=== PATIENT | male | born 1965 | race Caucasian/White ===

== ENCOUNTER 2016-05-17 18:50 | Inpatient (IN) | payer BC, OTHER ==
[~2016-05-17] VITALS: Ht 193 cm; Wt 135.0 kg
[~2016-05-17 18:50] MED LIST: ALDACTONE25 MG PO; B12 IM; BACTROBAN21 TOP; BUSPIRONE HCL15 MG PO; BUSPIRONE HCL5 MG PO; CARAFATE EQUIVAL1 GM PO; CATAPRES-TTS0.3 MG TOP; COUMADIN5 MG PO; COUMADIN7.5 MG PO; CVS OMEPRAZOLE20 MG PO; DIAZEPAM5 MG PO; DILAUDID2 MG PO; HYDROMORPHONE HC2 MG PO; LEVAQUIN500 MG PO; LIDOCAINE HCL TOP; LOTRIMIN30 GM TOP; METFORMIN HCL500 MG PO; METOCLOPRAMIDE10 MG PO; METRONIDAZOLE500 MG PO; OMEPRAZOLE40 MG PO; OXYCODONE HCL E10 MG PO; OXYCODONE HCL10 MG PO; PENICILLIN VK250 MG PO; PERCOCET1 TA1 PO; PERCODAN PO; PHENERGAN EQUIV25 M1 PO; PHENERGAN EQUIV25 MG PO; PRILOSEC20 MG PO; REGLAN10 MG PO; SULINDAC150 MG PO; SULINDAC200 MG PO; [UNRECOGNIZED DRUG - OTHER] PO; [UNRECOGNIZED DRUG - SUPPLY] TOP; testosterone IM
--- NOTE | 2016-05-17 20:50 | ED CLINICAL REPORT ---
Clinical Report - Physicians/Mid Levels [facility] [address] [place] [address] 05/17/2016 18:51 Patient: RK AVILA SR Time Seen: 19:27. Arrived- By private vehicle. Historian- patient. HISTORY OF PRESENT ILLNESS Chief Complaint: ABDOMINAL PAIN. This started about 4 days ago and is still present. It was gradual in onset and has been constant and waxing/waning. It is described as generalized in location. At its maximum, severity described as severe. When seen in the E.D., severity described as severe. The patient has had nausea and loss of appetite. No vomiting. Similar symptoms previously: Frequently. Recent medical care: The patient was seen recently at this facility. Seen for similar symptoms. Diagnosis: bowel obstruction. REVIEW OF SYSTEMS No chills, fever, sweats, calf pain or chest pain. No cough, difficulty breathing, pedal edema, palpitations or black stools. No bloody stools. His surgery is scheduled for July 13 in [place] He says that his stoma is pink. All systems otherwise negative, except as recorded above. PAST HISTORY PCP - Louis. Problems: Gastroesophageal Reflux Disease [Active]. Nausea. GI Disease. Vomiting. Hypocalcemia. TIA - Transient Ischemic Attack. Abdominal Pain. Hematuria. Post-Op Infection. Post-Op Wound Dehiscence. Fever. Bronchitis. Palpitations. Nephropathy. Nephrolithiasis. Small bowel obstruction. Anxiety Reaction. Cancer. DVT - Deep Venous Thrombosis. Hypertension. Pulmonary Embolism. Gastroesophageal Reflux Disease. Diabetes Mellitus. Gallstone(s). FAP / Food Services Director's Syndrome. Anemia. Migraine Headache. Hernia. Bowel Obstruction. Abnormal Test. Additional Surgeries: Appendectomy. Bowel Surgery. Cholecystectomy. Colectomy. Colonoscopy. Colostomy. Fracture Repair. Hernia Repair. Inguinal Hernia Repair. Peristomal hernia repair . Power port central line. Previous Abdominal Surgery. Shoulder Surgery. Stoma Dilation. Umbilical Hernia Repair. Medications: BusPIRone HCl Oral 20 mg, 3x a day. clonidine .3 patch every week on Saturday . Dilaudid Oral (Tablet 2 mg) 2 tablets, PRN, last dose 1200. Omeprazole Oral 40 mg, 2x a day, last dose 0700. Promethazine HCl Oral 25 mg (1 to 2 tablets PRN nausea). Reglan 10mg TID . Spironolactone Oral (Tablet 25 mg) 1 tablet, daily. Warfarin Sodium Oral 5 mg, daily. Allergies: Benacar. Ketamine. LIsinopril. Mercury. NSAIDs. SOCIAL HISTORY Never smoker. No alcohol use or drug use. Is a local resident. He lives with spouse and a family member. Has good social support. FAMILY HISTORY multiple family members with Food Services Director's Syndrome. ADDITIONAL NOTES The nursing notes have been reviewed. PHYSICAL EXAM Vital Signs: 05/17/2016 18:59 BP: 127/70. HR: 97. RR: 16. O2 saturation: 96%. Temp: 98.6 F. Pain level now: 02/03. Have been reviewed. Appearance: Alert. Appears to be in pain. Eyes: Pupils equal, round and reactive to light. ENT: Pharynx normal. Neck: Normal inspection. Neck supple. CVS: Normal heart rate and rhythm. Heart sounds normal. Respiratory: No respiratory distress. Breath sounds normal. Abdomen: Severe tenderness diffusely. Abnormal bowel sounds: diminished and hyperactive. No organomegaly. No mass. Obese. Surgical scar present (large midline with hernias). Back: Normal inspection. Skin: Skin warm and dry. Normal skin color. Normal skin turgor. Extremities: Extremities exhibit normal ROM. No calf tenderness. No lower extremity edema. LABS, X-RAYS, AND EKG KUB: (IMPRESSION: 1. Relative paucity of small bowel gas with prominent bowel loops in the right lower quadrant. While findings are nonspecific and might be normal, consider early partial obstruction.). The X-rays were interpreted by the radiologist and contemporaneously by me. Laboratory Tests: UA-Culture if indicated: (DWIGHT: 05/17/2016 20:23) ( MsgRcvd 05/17/2016 20:43) Final results Test Result Flag Units (Reference) URINE COLOR YELLOW URINE APPEARANCE CLEAR URINE GLUCOSE NEGATIVE (NEGATIVE) URINE BILIRUBIN NEGATIVE (NEGATIVE) URINE KETONE NEGATIVE (NEGATIVE) URINE SPECIFIC GRAVITY >= 1.030 (1.010-1.030) URINE PH 5.5 (5.0-8.0) URINE PROTEIN NEGATIVE (NEGATIVE) URINE UROBILINOGEN 0.2 EU/dL (0.2-1.0) URINE NITRITE NEGATIVE (NEGATIVE) URINE BLOOD 3+ (NEGATIVE) URINE LEUK ESTERASE NEGATIVE (NEGATIVE) URINE RBC 10-25 rbc/hpf (0-1) URINE WBC 0-1 wbc/hpf (0-1) URINE EPITHELIAL CELLS 0-1 EPI/hpf (0-5) URINE BACTERIA TRACE (<1+) (NONE SEEN) URINE COMMENT CULT NOT INDICATED 1+ MUCOUSURINE CULTURES ARE SET-UP BASED ON THE FOLLOWING CRITERIA:POSITIVE NITRITEPOSITIVE LEUKOCYTE ESTERASEGREATER THAN 10 WHITE BLOOD CELLSMODERATE (2+) OR GREATER BACTERIA CBC w Diff: (DWIGHT: 05/17/2016 19:23) ( [facility]17[facility] 19:43) Final results Test Result Flag Units (Reference) WHITE BLOOD COUNT 11.7 H K/uL (4.5-11.5) RED BLOOD COUNT 5.08 M/uL (4.50-5.90) HEMOGLOBIN 14.5 gm/dL (13.5-17.5) HEMATOCRIT 44.2 % (41.0-53.0) MEAN CELL VOLUME 87 fL (80-100) MEAN CORPUSCULAR HGB 29 pg (26-34) MEAN CORPUSCULAR HGB CONC 33 g/dL (31-37) RED CELL DISTRIBUTION WIDTH 14.2 % (11.6-14.8) PLATELET COUNT 255 K/uL (150-400) NEUTROPHIL % 77.6 H % (50-75) LYMPH % 12.2 L % (25-40) MONO % 9.0 % (3-14) EOSINOPHIL % 0.8 % (0-4) BASOPHIL % 0.4 % (0-2) PT with INR: (DWIGHT: 05/17/2016 19:23) ( MsgRcvd 05/17/2016 22:03) Final results Test Result Flag Units (Reference) INR 3.3 H (0.8-1.2) Low Intensity Therapy: INR 1.5-2.0 PT range 18.5-23.1Mod.Intensity Therapy: INR 2.0-3.0 PT range 23.1-31.5High Intensity Therapy: INR 2.5-3.5 PT range 27.4-35.5High Intensity Therapy 2: INR 3.0-4.0 PT range 31.5-39.3 APTT > 150 *H SECONDS (24-34) CRITICAL RESULTS CALLEDCalled to [email or web address] 05/17/16 [id number] 2 patient identifiers used? YWas the result read back? Y CMP: (DWIGHT: 05/17/2016 19:23) ( MsgRcvd 05/17/2016 19:46) Final results Test Result Flag Units (Reference) GLUCOSE 122 H mg/dL (70-110) BUN 11 mg/dL (7-18) CREATININE 1.0 mg/dL (0.6-1.3) Estimated GFR >60 mL/min Estimated GFR- >60 mL/min Note: Persistent reduction over 3 months in eGFR<60 mL/min/1.73 m2 defines CKD. Patients with eGFR values>=60 mL/min/1.73 m2 may also have CKD if evidence ofpersistent proteinuria. Additional information may be foundat www.kidney.org. SODIUM 138 mmol/L (136-145) POTASSIUM 3.5 mmol/L (3.5-5.1) CHLORIDE 102 mmol/L (98-107) CARBON DIOXIDE 28 mmol/L (21-32) CALCIUM 7.9 L mg/dL (8.5-10.1) TOTAL PROTEIN 7.2 g/dL (6.4-8.2) ALBUMIN 3.3 g/dL (3.3-5.0) BILIRUBIN, TOTAL 0.5 mg/dL (0.0-1.0) ALKALINE PHOSPHATASE 65 U/L (46-116) AST (SGOT) 15 U/L (15-37) ALT (SGPT) 28 U/L (12-78) LIPASE 163 U/L (73-393) AMYLASE 128 H U/L (25-115) . PROGRESS AND PROCEDURES Course of Care: Patient is stable. Discussed case with patient's primary care provider, (Louis). Reviewed test results and need for additional work-up. Agreed upon treatment plan, need for patient follow-up and decision to place in observation. Health care provider will see patient in hospital. Patient/family counseled. Old medical records reviewed. Disposition orders written (in [facility]). Disposition: Admitted. Observation. CLINICAL IMPRESSION Abdominal pain. Bowel obstruction. (Electronically signed by Stan Stephen MD 05/18/2016 15:22)
--- NOTE | 2016-05-17 20:50 | ED ORDER SUMMARY ---
..... Patient: RK AVILA SR OrderSheet [facility] VisitID: [id number] [place] [address] 50y, M Registration Date/Time: 05/17/2016 ORDER SHEET Weight: 129.2 kg Allergies: Benacar, Ketamine, LIsinopril, Mercury, NSAIDs GENERAL ORDERS: CBC w Diff Urgent (19:05/17/2016 Ha BLAS) (Ack 19:43 AMcQuoid ER Tech1) (19:47 ABarnum R.N.) CMP Urgent (19:05/17/2016 Ha BLAS) (Ack 19:43 AMcQuoid ER Tech1) (19:47 ABarnum R.N.) Amylase Urgent (:05/17/2016 Ha BLAS) (Ack 19:43 AMcQuoid ER Tech1) (19:48 ABarnum R.N.) Lipase Urgent (19:05/17/2016 Ha BLAS) (Ack 19:43 AMcQuoid ER Tech1) (19:48 ABarnum R.N.) UA-Culture if indicated Urgent (19:05/17/2016 Ha BLAS) (Ack 19:43 AMcQuoid ER Tech1) (20:29 SSanderson R.N.) Abdomen 1V Urgent (19:05/17/2016 Ha BLAS) (Ack 19:43 AMcQuoid ER Tech1) (19:54 MCampbell) PT with INR Urgent (21:05/17/2016 Ha BLAS) (Ack 21:08 LTapper) (21:09 LTapper) PTT Urgent (21:05/17/2016 Ha BLAS) (Ack 21:08 LTapper) (21:09 LTapper) MEDICATION ORDERS: Phenergan IV 25 mg (HIGH ALERT MEDICATION, NOW) (19:05/17/2016 Ha BLAS) (Ack 19:30 ABarnum R.N.) (19:47 ABarnum R.N.) IV FLUIDS: IV NS : initial bolus 1000 mL (1000 mL/hr), then 125 mL/hr for 4h (NOW); Urgent (19:25 05/17/2016 Ha BLAS) (Ack 19:30 ABarnum R.N.) (19:46 ABarnum R.N.) Dilaudid IV 1 mg (HIGH ALERT MEDICATION, NOW) (19:26 05/17/2016 Ha BLAS) (Ack 19:30 ABarnum R.N.) (19:47 ABarnum R.N.) Dilaudid IV 1 mg (MR X2 (for total of 4 mg)) (19:56 05/17/2016 Hugo Lira verbal order read back to Ha BLAS) (20:02 ABarnum R.N.) ORDER SHEET NOTES: [Electronically signed by Darby Talamantes R.N. (22:52 05/17/2016)] [Electronically signed by Stan Stephen MD (15:22 05/18/2016)] [Electronically locked/signed by Darby Talamantes R.N. (22:52 05/17/2016)]
--- NOTE | 2016-05-17 20:50 | ED NURSING NOTES ---
Clinical Report - Nurses [facility] [place] [address] 05/17/2016 18:51 Patient: RK AVILA SR TRIAGE Triage time 18:59. Acuity: LEVEL 3. Chief Complaint: ABDOMINAL PAIN. Alert. --19:05 Darby Talamantes R.N. 18:59 05/17/16. BP: 127/70. HR: 97. RR: 16. O2 saturation: 96%. Temp: 98.6 F. Pain level now: 02/03. --19:05 Darby Talamantes R.N. Weight: 129.2 kg. Height/Length: 76 inches. BMI: 34.7. --18:58 Darby Talamantes R.N. Medications BusPIRone HCl Oral 20 mg, 3x a day. clonidine .3 patch every week on Saturday . Dilaudid Oral (Tablet 2 mg) 2 tablets, PRN, last dose 1200. Omeprazole Oral 40 mg, 2x a day, last dose 0700. Promethazine HCl Oral 25 mg (1 to 2 tablets PRN nausea). Reglan 10mg TID . Spironolactone Oral (Tablet 25 mg) 1 tablet, daily. Warfarin Sodium Oral 5 mg, daily. --19:02 Darby Talamantes R.N. Allergies Benacar. Ketamine. LIsinopril. --19:02 Darby Talamantes R.N. Mercury. NSAIDs. --19:02 Darby Talamantes R.N. History Arrived by private vehicle. Historian: patient. Accompanied by family. Primary physician (Louis). Onset. (about 1 PM). He has had abdominal pain. ( pt had iron infusion today). SOCIAL HX: Never smoker. No alcohol use or drug use. ABUSE ASSESSMENT: No report of abuse. SELF HARM ASSESSMENT: A self harm assessment was performed. The patient answered "no" to the question "Have you recently felt down, depressed, or hopeless?". NUTRITIONAL RISK ASSESSMENT: The nutritional risk assessment revealed no deficiencies. FUNCTIONAL ASSESSMENT: Functional assessment: no impairments noted. LEARNING NEEDS ASSESSMENT: The learning needs assessment revealed no barriers. SKIN INTEGRITY ASSESSMENT: Skin integrity risk assessment completed. No skin integrity risk identified. --19:05 Darby Talamantes R.N. PROBLEMS: Gastroesophageal Reflux Disease [Active]. --19:03 Darby Talamantes R.N. Nausea. GI Disease. Vomiting. Hypocalcemia. TIA - Transient Ischemic Attack. Fever. Nephropathy. Nephrolithiasis. Small bowel obstruction. Cancer. DVT - Deep Venous Thrombosis. Hypertension. Pulmonary Embolism. Gastroesophageal Reflux Disease. Diabetes Mellitus. Gallstone(s). 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 Hernia. Bowel Obstruction. --19:03 Darby Talamantes R.N. ADDITIONAL SURGERIES: Appendectomy. Bowel Surgery. Cholecystectomy. Colectomy. Colonoscopy. Colostomy. Fracture Repair. Hernia Repair. Inguinal Hernia Repair. Peristomal hernia repair . Power port central line. Previous Abdominal Surgery. Previous Abdominal Surgery. Shoulder Surgery. Umbilical Hernia Repair. --19:03 Darby Talamantes R.N. Interventions ID and allergy band on patient. To room. --19:05 Darby Talamantes R.N. PHYSICAL ASSESSMENT Ambulatory to room. Patient gowned. GENERAL / NEURO / PSYCH: Alert. Oriented X 4. Appears in pain. RESPIRATORY: Respirations not labored. Breath sounds within normal limits. GI / : Abdominal distention. Abdominal tenderness. SKIN: Skin is warm and dry. --19:31 Darby Talamantes R.N. NURSING PROGRESS NOTES Reassurance given. Two patient identifiers checked. Call light placed in reach. Side rails up x 1. Bed placed in lowest position. Brakes of bed on. Patient ready for evaluation- chart flagged and ED physician notified. --19:31 Darby Talamantes R.N. 19:31 05/17/2016 Site #1 accessed indwelling Powerport in the left subclavian using a 20g, 1 inch needle following sterile technique; 1 attempt. Good blood return noted. Site prepped with chlorhexidine. Blood drawn: rainbow set. Labeled in the presence of the patient and sent to the lab. Flushed with 10 mL saline. --19:46 Sugey Manriquez R.N. 19:36 05/17/2016 Started bag #1 1000 mL IV Fluids IV NS (Saline); bolus of 1000 mL over 1 hour(s) via site #1 via IV pump. Allergies verified and confirmed 5 rights. IV patency established. IV site checked: no pain, redness, or swelling. IV flushed thoroughly pre- and post-medication administration. --19:46 Sugey Manriquez R.N. 19:42 05/17/2016 PHENERGAN (Promethazine HCl) IVP 25 mg given over 2 minute(s) via site #1. Allergies verified and confirmed 5 rights. IV patency established. IV site checked: no pain, redness, or swelling. IV flushed thoroughly pre- and post-medication administration. IVP given by RN. --19:47 Mitra SugeyPankaj 19:47 05/17/2016 Dilaudid (HYDROmorphone HCl PF) IVP 1 mg given over 2 minute(s) via site #1. Allergies verified, confirmed 5 rights and sedative warning given to the patient. IV patency established. IV site checked: no pain, redness, or swelling. IV flushed thoroughly pre- and post-medication administration. IVP given by RN. --19:47 Sugey Manriquez R.N. Patient walked to radiology with tech. --19:48 Sugey Manriquez R.N. 20:02 05/17/2016 Dilaudid (HYDROmorphone HCl PF) IVP 1 mg given over 2 minute(s) via site #1. Sedative warning given to the patient. IV patency established. IV site checked: no pain, redness, or swelling. IV flushed thoroughly pre- and post-medication administration. IVP given by RN. --20:02 Sugey Manriquez R.N. 20:02 05/17/2016 Dilaudid IVP Response: no adverse reaction symptoms are the same. --20:02 Sugey Manriquez R.N. 20:02 05/17/2016 PHENERGAN IVP Response: no adverse reaction. --20:02 Sugey Manriquez R.N. 20:30 05/17/16. Patient ID band checked for patient name and birthdate: patient confirmed. Clean catch urine collected with return of nereida-colored clear urine; odor is normal; sample sent to lab for urinalysis. Specimen labeled in the presence of the patient. --20:30 Darby Talamantes R.N. 20:33 05/17/2016 Dilaudid (HYDROmorphone HCl PF) IVP 1 mg given over 2 minute(s) via site #1. Sedative warning given to the patient. IV patency established. IV site checked: no pain, redness, or swelling. IV flushed thoroughly pre- and post-medication administration. IVP given by RN. --20:33 Sugey Manriquez R.N. 20:33 05/17/2016 Dilaudid IVP Response: no adverse reaction symptoms are the same. --20:33 Sugey Manriquez R.N. 20:38 05/17/2016 IV Fluids IV NS Bag Change: bag #1 infused. Total amount infused: 1000. STARTED bag #2 (1000 mL) at 125 mL/hr via IV pump. Confirmed 5 rights. IV patency established. IV site checked: no pain, redness, or swelling. IV flushed thoroughly. --20:38 Sugey Manriquez R.N. 21:19 05/17/2016 Dilaudid IVP Response: no adverse reaction symptoms are the same. --21:19 Sugey Manriquez R.N. 21:28 05/17/2016 Dilaudid (HYDROmorphone HCl PF) IVP 1 mg given over 2 minute(s) via site #1. Allergies verified, confirmed 5 rights and sedative warning given to the patient. IV patency established. IV site checked: no pain, redness, or swelling. IV flushed thoroughly pre- and post-medication administration. IVP given by RN. --21:34 Sugey Manriquez R.N. 21:34 05/17/16. BP: 124/58. HR: 87. RR: 16. O2 saturation: 91%. Temp: 98.8 F. Pain level now: 02/03. --21:36 Sugey Manriquez R.N. Monitoring of patient in place. Head of bed elevated. Reassurance given. Two patient identifiers checked. Call light placed in reach. Side rails up x 1. Bed placed in lowest position. Brakes of bed on. --21:36 Sugey Manriquez R.N. Critical value relayed to ED by Lab. Critical value received by Darby/Sugey. PTT: >150. Critical value read back. Verified lab result and patient ID. ( Advised floor nurse of critical results). --22:06 Sugey Manriquez R.N. 22:13 05/17/2016 IV Fluids IV NS Continued: upon admission at the rate of 125 mL/hr. 700 mL remaining bag #2. IV patency established. IV site checked: no pain, redness, or swelling. IV flushed thoroughly. --22:51 Sugey Manriquez R.N. DISPOSITION / DISCHARGE ( Attempted to call report @ 2150pm. RN will call back.). --21:56 Sugey Manriquez R.N. Report was given to a nurse via a phone call. Report included patient's care, treatment, medications, reviewed medication reconcilliation, and condition (including any recent changes or anticipated changes). All questions were answered. Report was acknowledged and care was transferred. ( 210A). --22:06 Sugey Manriquez R.N. 22:06 05/17/16. BP: 129/57. HR: 82. O2 saturation: 96%. --22:06 Sugey Manriquez R.N. Departure time: 2213 PM. Disposition: observation in Acute Care (210A). Transported via wheelchair by transport team with IV. --22:14 Sugey Manriquez R.N. Locked/Released at 05/17/2016 22:52 by Darby Talamantes R.N.
--- NOTE | 2016-05-17 20:50 | ED ORDER SUMMARY ---
..... Patient: RK AVILA SR OrderSheet [facility] VisitID: [id number] [place] [address] 50y, M Registration Date/Time: 05/17/2016 ORDER SHEET Weight: 129.2 kg Allergies: Benacar, Ketamine, LIsinopril, Mercury, NSAIDs GENERAL ORDERS: CBC w Diff Urgent (19:05/17/2016 Ha BLAS) (Ack 19:43 AMcQuoid ER Tech1) (19:47 ABarnum R.N.) CMP Urgent (19:05/17/2016 Ha BLAS) (Ack 19:43 AMcQuoid ER Tech1) (19:47 ABarnum R.N.) Amylase Urgent (:05/17/2016 Ha BLAS) (Ack 19:43 AMcQuoid ER Tech1) (19:48 ABarnum R.N.) Lipase Urgent (19:05/17/2016 Ha BLAS) (Ack 19:43 AMcQuoid ER Tech1) (19:48 ABarnum R.N.) UA-Culture if indicated Urgent (19:05/17/2016 Ha BLAS) (Ack 19:43 AMcQuoid ER Tech1) (20:29 SSanderson R.N.) Abdomen 1V Urgent (19:05/17/2016 Ha BLAS) (Ack 19:43 AMcQuoid ER Tech1) (19:54 MCampbell) PT with INR Urgent (21:05/17/2016 Ha BLAS) (Ack 21:08 LTapper) (21:09 LTapper) PTT Urgent (21:05/17/2016 Ha BLAS) (Ack 21:08 LTapper) (21:09 LTapper) MEDICATION ORDERS: Phenergan IV 25 mg (HIGH ALERT MEDICATION, NOW) (19:05/17/2016 Ha BLAS) (Ack 19:30 ABarnum R.N.) (19:47 ABarnum R.N.) IV FLUIDS: IV NS : initial bolus 1000 mL (1000 mL/hr), then 125 mL/hr for 4h (NOW); Urgent (19:25 05/17/2016 Ha BLAS) (Ack 19:30 ABarnum R.N.) (19:46 ABarnum R.N.) Dilaudid IV 1 mg (HIGH ALERT MEDICATION, NOW) (19:26 05/17/2016 Ha BLAS) (Ack 19:30 ABarnum R.N.) (19:47 ABarnum R.N.) Dilaudid IV 1 mg (MR X2 (for total of 4 mg)) (19:56 05/17/2016 Hugo Lira verbal order read back to Ha BLAS) (20:02 ABarnum R.N.) ORDER SHEET NOTES: [Electronically signed by Darby Talamantes R.N. (22:52 05/17/2016)] [Electronically signed by Stan Stephen MD (15:22 05/18/2016)] [Electronically locked/signed by Darby Talamantes R.N. (22:52 05/17/2016)]
--- NOTE | 2016-05-17 21:07 | DIAGNOSTIC IMAGING REPORT ---
PROCEDURE: XR ABDOMEN 1 VIEW INDICATION: ABDOMINAL PAIN TECHNIQUE: AP upright view. COMPARISON: Compared to abdominal radiograph on 04/23/2016. FINDINGS: There is relative paucity of small bowel gas with mildly prominent bowel loops in the right lower quadrant. There is no evidence of free air. Status post cholecystectomy (surgical clips). IVC filter in position. Four right renal calculi (no change). IMPRESSION: 1. Relative paucity of small bowel gas with prominent bowel loops in the right lower quadrant. While findings are nonspecific and might be normal, consider early partial obstruction.
[2016-05-17 23:43] VITALS: BP 144/82
--- NOTE | 2016-05-18 02:43 | HISTORY AND PHYSICAL ---
ADMITTED: 05/17/2016 HISTORY OF PRESENT ILLNESS: The patient is a 50-year-old white male who developed sudden onset of abdominal distention this afternoon with marked abdominal pain and pronounced nausea. He was not able to manage the pain at home and presented to the emergency department. He felt that this episode was the worst one he has had so far compared to multiple previous similar admissions. He is waiting on an extensive surgical procedure to be done at [facility] under the direction of Dr. Mathais. The surgery is tentatively scheduled for 06/2016. The patient continues to be on basically a full liquid diet with no or amendable solid type fluids. Despite this, he continues to have episodes of obstruction type symptoms. He had had one piece of banana bread in addition to his liquid medications today. He suddenly developed the symptoms about an hour or 2 after he had the mid day meal of liquid, Muscle milk smoothie and a small piece of banana bread. He had been doing well for about 2 weeks at home prior to this episode today. 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 He has had quite reduced ileostomy output this afternoon and evening, has had virtually no output since he made decision to come to the hospital. MEDICAL/SURGICAL HISTORY: Past medical history: Remarkable for Diop syndrome with other problems including adult-onset diabetes, factor V Leiden abnormality with thrombophilia, history of deep vein thrombosis, pulmonary emboli in the past due to this. He also has had hypertension, adult-onset diabetes, which has improved dramatically with weight loss associated with his recurrent bowel difficulties. He has had compression fractures of lower lumbar spine with chronic lower back pain. He also has tendencies towards nephrolithiasis with episodic hematuria and right flank pain. He has had underlying anxiety issues and depression issues. He has not done well with antidepressants. He does fairly well with buspirone. Past surgical history: Remarkable for a subtotal colectomy done in . He has had multiple surgeries since then including converting the initial rectal pouch to an ileostomy, multiple lysis of adhesions, parastomal hernia repairs, [place] mesh placement to abdominal wall hernias, secondary infection of the [place] mesh requiring removal. Other surgeries include appendectomy, cholecystectomy, right inguinal hernia repair, shoulder surgeries for impingement, Port-A-Cath placement, [place] filter placements, and EGDs to evaluate nausea and vomiting with most recent one done about 3 months ago. MEDICATIONS: 1. ALLERGIES: 1. INCLUDE GLENROY INHIBITORS AND ARBs, BOTH OF WHICH TRIGGER ANGIOEDEMA. 2. ALSO, CHETAMINE TRIGGERS NAUSEA AND VOMITING. 3. HYDROCODONE TRIGGERS NAUSEA, VOMITING AND ITCHING. 4. CEPHALEXIN CAUSES GASTRITIS. 5. ODANSETRON CAUSES RESTLESSNESS AT HIGHER DOSES. 6. MERCURY AND IODINATED CONTRAST AGENTS TEND TO TRIGGER HIVES. 7. LORAZEPAM CAUSES QUITE PRONOUNCED RESTLESSNESS. SOCIAL HISTORY: Indicates the patient is and lives with his and 3 adult children. He also lives with his [id number] and [id number]. 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 He has not been a smoker, but is chewing tobacco quite regularly. He drinks an occasional beer, but very sparingly. He has been mostly on a full liquid diet at home and been avoiding solid foods, for the most part. FAMILY HISTORY: Remarkable for number of family members have had Diop syndrome. He has a younger brother who from colon cancer related to this. He has a sister who passed with colon cancer, another sister is quite ill with colon cancer and other symptoms associated with Diop syndrome. The patient's father from coronary artery disease and acute myocardial infarction in his late 40s or early 50s. The patient's mother is in good health. The patient has 3 children, 2 of whom are positive for Diop syndrome. REVIEW OF SYSTEMS: HEENT: Has been okay. Respiratory: Has been okay. Cardiovascular: Has been okay with no chest pain. He has had rapid heart rate this evening, which he attributes to increased pain. Gastrointestinal: As is noted in history of present illness. Genitourinary: Okay with no problems passing urine. Musculoskeletal: Remarkable for some increased lower back pain. Neurologic: Okay. Psychiatric: Remarkable for some ongoing increased depression, increased frustration and anger feelings. Skin: Okay. PHYSICAL EXAMINATION: GENERAL: Reveals the patient to be a white male appearing to be of stated age, who is somewhat restless due to the pain issues. VITAL SIGNS: Temperature is 98. Blood pressure is in the 144/82 range. Pulse is 88. Oxygen saturation is 97% on room air. HEENT: Head is normal. Ear canals and tympanic membranes are normal. Eyes show pupils equal, round, reacted to light. Nose and throat are clear. NECK: Supple without significant adenopathy. CHEST: Clear with no rales or rhonchi. HEART: Reveals normal S1 and S2 with a grade 1/6 systolic murmur along left sternal border. ABDOMEN: Showing moderate distention in the mid to lower abdominal area, particularly along the midline where he has a wide-based abdominal wall hernia with some narrowed areas towards the bottom of the scar. The lower abdomen is moderately diffusely tender. Bowel tones are decreased and high-pitched. There is no stool in the ileostomy bag. GENITAL: Not done. RECTAL: Not done. EXTREMITIES: Show trace edema. Peripheral pulses are normal. NEUROLOGIC: Reveals the patient to be alert and oriented x3. Cranial nerves are normal. Motor and sensory examinations are normal. LAB/IMAGING: Laboratory studies show white blood cell count to be 11,700, hemoglobin 14.5 and hematocrit is 44.2. Pro time: INR is 2.5. Sodium is 138, potassium 3.5, chloride 102, CO2 28, BUN is 11, creatinine is 1.0 , glucose is 122. Total bilirubin is 0.5, SGOT is 15, SGPT is 28, alkaline phosphatase 65, amylase is slightly elevated at 128, lipase is okay at 163. KUB: Shows somewhat decreased gastrointestinal tract with dilated loops of small bowel in the right lower quadrant area. IMPRESSION/PLAN: 1. The patient is presenting again with symptoms of incipient small-bowel obstruction. He is admitted for pain control and to control nausea and vomiting and to try to get the bowel to settle down once more. He is started on a patient-controlled analgesia pump to help with pain control. He will be continued on promethazine for control of nausea. He is stable with his blood pressure currently and will continue with the clonidine patches. Hopefully, his symptoms will improve with bowel rest and adequate pain control. He will plan to continue with the IV fluids and patient- controlled analgesia pump until he is able to start eating once more. Should he have any worsening, Dr. Umaña will be asked to consult. Additionally, if he worsens, Dr. Mathias's office will be contacted for advice and further possible consideration of admission at [facility] to do the surgery there rather than having the surgery done here. If things settle down and the patient is able to go home, he will try to contact Dr. Mathias's office this next week to see if his surgery can be moved up substantially.
[2016-05-18 04:43] VITALS: BP 122/77
[2016-05-18 06:35] VITALS: BP 136/78
[2016-05-18 11:05] VITALS: BP 154/86
[2016-05-18 14:34] VITALS: BP 142/80
--- NOTE | 2016-05-18 15:23 | ED DISCHARGE INSTRUCTIONS ---
Patient: RK AVILA SR General Instructions [facility] VisitID: [id number] [address] [place] [address] 50y, M Registration Date/Time: 05/17/2016 Abdominal pain. Bowel obstruction. (Electronically signed by Stan Stephen MD 05/18/2016 15:22)
--- NOTE | 2016-05-18 15:23 | ED MED RECONCILIATION SUMMARY ---
Patient: RK AVILA Medication Reconciliation Report [facility] VisitID: [id number] [address] [place] [address] 50y, M Registration Date/Time: 05/17/2016 Weight: 129.2 kg Height/Length: 76 in. BMI: 34.7 ALLERGIES: Benacar, Ketamine, LIsinopril, Mercury, NSAIDs The patient's Home Medications are listed below: THE FOLLOWING MEDICATIONS NEED TO BE RECONCILED: BusPIRone HCl Oral 20 mg, 3x a day clonidine .3 patch every week on Saturday Dilaudid Oral (2 mg) 2 tablets, PRN, last dose: 1200 Omeprazole Oral 40 mg, 2x a day, last dose: 0700 Promethazine HCl Oral 25 mg, 1 to 2 tablets PRN nausea Reglan 10mg TID Spironolactone Oral (25 mg) 1 tablet, daily Warfarin Sodium Oral 5 mg, daily The source(s) of the original Home Medication information: Not obtained. The following Medications were given to the patient in the Emergency Department: IV NS IV Fluids bolus 1000 mL over 1 hour(s), administered: 05/17/2016 7:36:00 PM PHENERGAN [IVP] IVP 25 mg, administered: 05/17/2016 7:42:00 PM Dilaudid [IVP] IVP 1 mg, administered: 05/17/2016 7:47:00 PM Dilaudid [IVP] IVP 1 mg, administered: 05/17/2016 8:02:00 PM Dilaudid [IVP] IVP 1 mg, administered: 05/17/2016 8:33:00 PM Dilaudid [IVP] IVP 1 mg, administered: 05/17/2016 9:28:00 PM The following Medications were prescribed to the patient: None.
--- NOTE | 2016-05-18 15:23 | ED MED RECONCILIATION SUMMARY ---
Patient: RK AVILA Medication Reconciliation Report [facility] VisitID: [id number] [address] [place] [address] 50y, M Registration Date/Time: 05/17/2016 Weight: 129.2 kg Height/Length: 76 in. BMI: 34.7 ALLERGIES: Benacar, Ketamine, LIsinopril, Mercury, NSAIDs The patient's Home Medications are listed below: THE FOLLOWING MEDICATIONS NEED TO BE RECONCILED: BusPIRone HCl Oral 20 mg, 3x a day clonidine .3 patch every week on Saturday Dilaudid Oral (2 mg) 2 tablets, PRN, last dose: 1200 Omeprazole Oral 40 mg, 2x a day, last dose: 0700 Promethazine HCl Oral 25 mg, 1 to 2 tablets PRN nausea Reglan 10mg TID Spironolactone Oral (25 mg) 1 tablet, daily Warfarin Sodium Oral 5 mg, daily The source(s) of the original Home Medication information: Not obtained. The following Medications were given to the patient in the Emergency Department: IV NS IV Fluids bolus 1000 mL over 1 hour(s), administered: 05/17/2016 7:36:00 PM PHENERGAN [IVP] IVP 25 mg, administered: 05/17/2016 7:42:00 PM Dilaudid [IVP] IVP 1 mg, administered: 05/17/2016 7:47:00 PM Dilaudid [IVP] IVP 1 mg, administered: 05/17/2016 8:02:00 PM Dilaudid [IVP] IVP 1 mg, administered: 05/17/2016 8:33:00 PM Dilaudid [IVP] IVP 1 mg, administered: 05/17/2016 9:28:00 PM The following Medications were prescribed to the patient: None.
--- NOTE | 2016-05-18 15:23 | ED DISCHARGE INSTRUCTIONS ---
Patient: RK AVILA SR General Instructions [facility] VisitID: [id number] [address] [place] [address] 50y, M Registration Date/Time: 05/17/2016 Abdominal pain. Bowel obstruction. (Electronically signed by Stan Stephen MD 05/18/2016 15:22)
--- NOTE | 2016-05-18 15:23 | ED MAR SUMMARY ---
..... Medication Administration Record [facility] [address] [place] [address] Patient: RK AVILA Visit ID: [id number] 50y, M Weight: 129.2 kg Height/Length: 76 in BMI: 34.7 ALLERGIES: Benacar, Ketamine, LIsinopril, Mercury, NSAIDs Start 19:36 05/17/2016 Sugey Manriquez R.NReyna, Continued Upon Admission 22:13 05/17/2016 Sugey Manriquez R.N. Medication Administered: IV NS (SALINE), Dose: IV Fluids, Bolus: 1000 mL over 1 hour(s), Dispensed: 1000 mL bag, Site: #1 left subclav. Medication Ordered: IV NS : initial bolus 1000 mL (1000 mL/hr), then 125 mL/hr for 4h (NOW); Urgent. Given 19:42 05/17/2016 Sugey Manriquez R.N. Medication Administered: PHENERGAN [IVP] (PROMETHAZINE HCL), Dose: 25 mg IVP over 2 minute(s), Site: #1 left subclav. Medication Ordered: Phenergan IV 25 mg (HIGH ALERT MEDICATION, NOW). Given 19:47 05/17/2016 Sugey Manriquez R.N. Medication Administered: DILAUDID [IVP] (HYDROMORPHONE HCL PF), Dose: 1 mg IVP over 2 minute(s), Site: #1 left subclav. Medication Ordered: Dilaudid IV 1 mg (HIGH ALERT MEDICATION, NOW). Given 20:02 05/17/2016 Sugey Manriquez R.N. Medication Administered: DILAUDID [IVP] (HYDROMORPHONE HCL PF), Dose: 1 mg IVP over 2 minute(s), Site: #1 left subclav. Medication Ordered: Dilaudid IV 1 mg (MR X2 (for total of 4 mg)). Given 20:33 05/17/2016 Sugey Manriquez R.N. Medication Administered: DILAUDID [IVP] (HYDROMORPHONE HCL PF), Dose: 1 mg IVP over 2 minute(s), Site: #1 left subclav. Medication Ordered: Dilaudid IV 1 mg (MR X2 (for total of 4 mg)). Given 21:28 05/17/2016 Sugey Manriquez, RReynaN. Medication Administered: DILAUDID [IVP] (HYDROMORPHONE HCL PF), Dose: 1 mg IVP over 2 minute(s), Site: #1 left subclav. Medication Ordered: Dilaudid IV 1 mg (MR X2 (for total of 4 mg)).
--- NOTE | 2016-05-18 15:23 | ED MAR SUMMARY ---
..... Medication Administration Record [facility] [address] [facility] [place] [address] Patient: RK AVILA Visit ID: [id number] 50y, M Weight: 129.2 kg Height/Length: 76 in BMI: 34.7 ALLERGIES: Benacar, Ketamine, LIsinopril, Mercury, NSAIDs Start 19:36 05/17/2016 Sugey Manriquez R.NReyna, Continued Upon Admission 22:13 05/17/2016 Sugey Manriquez R.N. Medication Administered: IV NS (SALINE), Dose: IV Fluids, Bolus: 1000 mL over 1 hour(s), Dispensed: 1000 mL bag, Site: #1 left subclav. Medication Ordered: IV NS : initial bolus 1000 mL (1000 mL/hr), then 125 mL/hr for 4h (NOW); Urgent. Given 19:42 05/17/2016 Sugey Manriquez R.N. Medication Administered: PHENERGAN [IVP] (PROMETHAZINE HCL), Dose: 25 mg IVP over 2 minute(s), Site: #1 left subclav. Medication Ordered: Phenergan IV 25 mg (HIGH ALERT MEDICATION, NOW). Given 19:47 05/17/2016 Sugey Manriquez R.N. Medication Administered: DILAUDID [IVP] (HYDROMORPHONE HCL PF), Dose: 1 mg IVP over 2 minute(s), Site: #1 left subclav. Medication Ordered: Dilaudid IV 1 mg (HIGH ALERT MEDICATION, NOW). Given 20:02 05/17/2016 Sugey Manriquez R.N. Medication Administered: DILAUDID [IVP] (HYDROMORPHONE HCL PF), Dose: 1 mg IVP over 2 minute(s), Site: #1 left subclav. Medication Ordered: Dilaudid IV 1 mg (MR X2 (for total of 4 mg)). Given 20:33 05/17/2016 Sugey Manriquez R.N. Medication Administered: DILAUDID [IVP] (HYDROMORPHONE HCL PF), Dose: 1 mg IVP over 2 minute(s), Site: #1 left subclav. Medication Ordered: Dilaudid IV 1 mg (MR X2 (for total of 4 mg)). Given 21:28 05/17/2016 Sugey Manriquez, RReynaN. Medication Administered: DILAUDID [IVP] (HYDROMORPHONE HCL PF), Dose: 1 mg IVP over 2 minute(s), Site: #1 left subclav. Medication Ordered: Dilaudid IV 1 mg (MR X2 (for total of 4 mg)).
[2016-05-18 18:56] VITALS: BP 146/89
[2016-05-18 22:06] VITALS: BP 156/77
[2016-05-19 02:03] VITALS: BP 143/75
[2016-05-19 12:00] VITALS: BP 130/78
[2016-05-19 14:27] VITALS: BP 167/83
[2016-05-19 18:13] VITALS: BP 146/102
[2016-05-19 23:06] VITALS: BP 153/93
[2016-05-20 07:11] VITALS: BP 134/75
[2016-05-20 14:28] VITALS: BP 148/80
[2016-05-20 22:59] VITALS: BP 134/72
[2016-05-21 08:16] VITALS: BP 154/96
[2016-05-21 14:55] VITALS: BP 134/75
[2016-05-21 22:40] VITALS: BP 135/76
[2016-05-22 07:07] VITALS: BP 155/91
[2016-05-22 14:38] VITALS: BP 109/77
[2016-05-22 23:13] VITALS: BP 154/88
[2016-05-23 06:53] VITALS: BP 139/72
[2016-05-23 13:52] VITALS: BP 148/90
[2016-05-23 18:37] VITALS: BP 143/82
[2016-05-23 22:34] VITALS: BP 150/82
[2016-05-24 06:50] VITALS: BP 138/66
[2016-05-24 13:55] VITALS: BP 165/86
[2016-05-24 18:43] VITALS: BP 183/103
[2016-05-24 22:36] VITALS: BP 178/87
[2016-05-25 06:53] VITALS: BP 161/85
[2016-05-25 14:48] VITALS: BP 164/92
[2016-05-25 17:31] VITALS: BP 171/96
[2016-05-26 00:39] VITALS: BP 164/85
[2016-05-26 08:09] VITALS: BP 128/73
[2016-05-26 14:40] VITALS: BP 145/88
[2016-05-26 22:30] VITALS: BP 147/71
[2016-05-27 08:12] VITALS: BP 157/56
[2016-05-27 14:38] VITALS: BP 145/75
[2016-05-27 22:17] VITALS: BP 143/86
[2016-05-28 07:05] VITALS: BP 127/82
[2016-05-28 14:29] VITALS: BP 179/95
[2016-05-28 19:07] VITALS: BP 138/96
[2016-05-28 22:42] VITALS: BP 167/95
[2016-05-29 02:01] VITALS: BP 166/94
[2016-05-29 06:34] VITALS: BP 134/81
[2016-05-29 14:19] VITALS: BP 173/88
--- NOTE | 2016-05-29 20:00 | CONSULTATION REPORT ---
DATE OF CONSULTATION: 05/29/2016 CHIEF COMPLAINT: 1. Draining from abdomen HISTORY OF PRESENT ILLNESS: The patient is a 50-year-old man with a complex history of familial adenomatous polyposis and numerous abdominal operations. He had a total proctocolectomy in the remote past and at that time had a pouch. He has had numerous problems after pouchitis, converted to an ileostomy and then the ileostomy with multiple herniations and bowel obstructions converted from right side to left side. 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 He is pending surgery in June with Dr. Mathias at the [facility], which will be an extensive takedown and a tissue separation herniorrhaphy. On this occasion, he came to the hospital on 05/17/2016 when he developed sudden abdominal distention. He was observed as he usually is with IV fluids, but 4 days ago the distention suddenly cleared and he had a large burst of fluid and a hole developed just medial to his ileostomy site and poured out a lot of fluid. Since then, he has had much more scant output. At no time did this look like enteric or stool contents and currently it is draining a strange yellow orange-looking fluid, which is very different than what is coming out of his ileostomy. MEDICAL/SURGICAL HISTORY: Past medical history: Diop syndrome, factor V Leiden deficiency, previous deep vein thrombosis, multiple pulmonary emboli, hypertension, adult-onset diabetes mellitus, lower lumbar compression fractures, chronic low back pain, nephrolithiasis. Past surgeries: Multiple operations, as mentioned above. He has had previous mesh placement and his left-sided parastomal hernia was repaired with a biologic patch overlay approximately 1 year ago with a large takedown of adhesions and rearrangement. 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 This was treated by placing a [place] catheter into the ileostomy to decompress it and with spontaneous resolution of the fistula, which has now been healed for at least over a year. In the meantime, he has had several admissions for partial small-bowel obstruction. He was seen in consultation at the [facility] by Dr. Mathias, who had decided to proceed with a large takedown of adhesion and rearrangement, possibly with moving the ileostomy and component separation hernia repair. Additional surgeries include: [place] filter, infusion port, various hernia repairs. MEDICATIONS: 1. Per the medication list. ALLERGIES: INCLUDE A NUMBER OF MEDICATIONS INCLUDIN. GLENROY INHIBITORS. 2. ARBs. 3. KETAMINE. 4. HYDROCODONE CAUSING NAUSEA, VOMITING, ITCHING. 5. KEFLEX CAUSING GASTRITIS. 6. ODANSENTRON CAUSING RESTLESSNESS, ONLY IN HIGHER DOSES, BUT TOLERATED WELL OTHERWISE. 7. CONTRAST AGENTS HAVE CAUSED HIVES IN THE PAST. 8. LORAZEPAM CAUSED PARADOXICAL RESTLESSNESS. SOCIAL HISTORY: The patient has just recently retired from [employer] and worked there for many years. He is , has 3 children. He is not smoking cigarettes. Takes an occasional beer. FAMILY HISTORY: The patient's family history is known to me. His younger brother at an early age from colon cancer after refusing surgery. His sister in her 40s from a Diop syndrome related desmoid tumor and his 2 out of his 3 children have Diop syndrome, but are being treated with NSAID suppression and careful followup. REVIEW OF SYSTEMS: A multipoint review of systems was obtained on 05/17/[address] Myers, and the patient reports at this time that he is actually feeling a lot less distention and pain with the drainage of the fluid pocket in his abdomen. PHYSICAL EXAMINATION: GENERAL: The patient is his usual cheerful, cooperative self. HEENT: His ears and nose demonstrate no gross external lesions. Eyes are equal. He is anicteric. NECK: Without palpable masses. ABDOMEN: Demonstrates a small opening about 3 or 4 mm in diameter, about 2 or 3 cm medial to the ileostomy site, which is currently covered by an ileostomy bag. The opening itself is covered by a clear plastic drainage collection bag. The abdomen itself is no longer erythematous or distended. Bowel sounds are active. He continues to have the ventral hernia that he had before. IMPRESSION: 1. Spontaneous drainage of intraabdominal abscess. This may represent a fistula , but is currently not acting like one. He is able to eat and not develop enteric output from the drainage site and shown no signs of enteric contents coming out of the hole. 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 PLAN: I recommended a CT scan without contrast, hopefully, to prove that we do not have a sizable undrained cavity within the abdomen. If this proves to be the case, then opening this site and probably debriding this and allowing secondary closure is appropriate. If on the other hand, there is still some question as to the origins of this lesion , then perhaps a sonogram or fistulogram may be considered also after the CT scan. Note that the patient informed me that Dr. Ray had communicated with Dr. Mathias. I am not sure if he had made positive contacted regarding this interval development and its impact on the scheduled surgery next month.
[2016-05-30 02:02] VITALS: BP 154/79
[2016-05-30 10:16] VITALS: BP 129/85
[2016-05-30 15:50] VITALS: BP 131/82
[2016-05-30 22:55] VITALS: BP 117/67
[2016-05-31 07:13] VITALS: BP 136/91
--- NOTE | 2016-05-31 09:19 | DIAGNOSTIC IMAGING REPORT ---
PROCEDURE: CT ABD/PELVIS WITH CONTRAST INDICATION: Abdominal pain. Ventral sinus tract. TECHNIQUE: Dilute water-soluble oral contrast. Noncontrast axial images with sagittal and coronal reformations. The patient returned later in the day for repeat axial images following progression of oral contrast. COMPARISON: Comparison made to CT abdomen and pelvis on 04/06/2016 and abdominal radiographs (05/17/2016). FINDINGS: ABDOMEN: Status post colectomy with [place] pouch and left lower quadrant ostomy. There is a ventral abdominal scar/wound with a small linear air collection in the midline abdomen consistent with sinus tract, (axial image [id number]). There are moderately chronically dilated small bowel loops in the right lower quadrant. Bowel pattern is otherwise normal. Cholecystectomy (surgical clips). Mild chronic splenomegaly (15.5 cm). Liver, pancreas, and aorta are normal. There are five nonobstructing right renal collecting system calculi (8-13 mm). Left kidney is normal. There is an IVC filter in position with struts protruding beyond the lumen (chronic). PELVIS: Pelvic structures are normal. No evidence of free fluid. IMPRESSION: 1. Status post colectomy with left lower quadrant ostomy. 2. There is a chronic ventral abdominal wound/scar with a subcutaneous linear air collection consistent with sinus tract. No evidence of communication with bowel. 3. Chronically dilated small bowel loops in right lower quadrant. 4. Mild chronic splenomegaly (15.5 cm). 5. Cholecystectomy. 6. There are five chronic nonobstructing right renal calculi (8-13 mm). 7. IVC filter in position. 8. Findings discussed with Dr. Umaña. All CT scans at this facility use dose modulation, iterative reconstruction, and/or weight-based dosing when appropriate to reduce radiation dose to as low as reasonably achievable.
[2016-05-31 15:12] VITALS: BP 134/69
[2016-05-31 22:25] VITALS: BP 132/85
[2016-06-01 06:15] VITALS: BP 159/85
[2016-06-01 14:19] VITALS: BP 153/80
[2016-06-01 18:13] VITALS: BP 140/66
[2016-06-01 22:55] VITALS: BP 142/79
[2016-06-02 06:42] VITALS: BP 139/72
[2016-06-02 13:04] VITALS: BP 159/91
[2016-06-02 19:22] VITALS: BP 156/88
[2016-06-02 22:30] VITALS: BP 127/75
[2016-06-03 02:54] VITALS: BP 151/92
[2016-06-03 06:44] VITALS: BP 178/97
[2016-06-03 09:29] VITALS: BP 163/91
[2016-06-03 19:13] VITALS: BP 136/76
[2016-06-04 07:05] VITALS: BP 169/101
[2016-06-04] MEDS ORDERED: HYDROMORPHONE HC2 MG PO (07:44)
--- NOTE | 2016-06-04 07:54 | Provider's Discharge Care Plan ---
Problem, Goal, Plan Problem List 1. Partial small bowel obstruction Goals: Improve disease control, Improve function, Improved health/wellness, Increase independence Instructions: Follow up as directed, Take meds as directed, Reduce stress, continue full liquid diet. Keep appt. with Dr. Mathias at 07/02/16 2. Factor V Leiden Goals: Improve disease control, Improve function, Improved health/wellness Instructions: Follow up as directed, Increase activity level, Take meds as directed, Reduce stress, continue warfarin at 5 mg daily 3. Hypertension Goals: Improve disease control, Improve function, Improved health/wellness, Increase independence, Improve nutrition status Instructions: Follow up as directed, Increase activity level, Take meds as directed, Reduce stress 4. Nephrolithiasis Goals: Improve disease control, Improve function, Improved health/wellness, Prevent disease progress Instructions: Follow up as directed, Increase activity level, Take meds as directed, Reduce stress, Drink plenty of fluids, jude. watrer. 5. Iron (Fe) deficiency anemia Goals: Improve disease control, Improve function, Improved health/wellness, Increase independence Instructions: Follow up as directed, Increase activity level, Reduce stress, Continue inron sucrose infusions q2-3 wk. 6. Abdominal wall abscess Goals: Improve disease control, Improve function, Improved health/wellness, Increase independence Instructions: Follow up as directed, Increase activity level, Take meds as directed, [place] wound irrigation and packing dionicio wound care nurse instructions.
--- NOTE | 2016-06-07 08:57 | DISCHARGE SUMMARY ---
ADMIT DATE: 05/18/2016 DISCHARGE DATE: 06/04/2016 ADMITTING DIAGNOSIS: 1. Recurrent small-bowel obstruction DISCHARGE DIAGNOSES: 1. Recurrent partial small bowel obstruction. 2. Abdominal wall cellulitis 3. Abdominal wall subcutaneous abscess draining spontaneously on 05/25/2016 4. Other long-term problems include: Hypertension 5. Factor V Leiden abnormality with a tendency towards thrombophilia 6. Anxiety and depression. 7. Chronic lumbar pain secondary to remote lumbar compression fracture 8. Nephrolithiasis 9. Iron-deficiency anemia 10. History of type 2 diabetes, currently well controlled on present diet without need for additional treatment. PROCEDURE PERFORMED: 1. None. BRIEF HISTORY: Please see the dictated history and physical exam from admission for details concerning admission. HOSPITAL COURSE: The patient is a 50-year-old white male who has had multiple admissions for recurrent small-bowel obstruction symptoms. He developed increased abdominal distention and nausea and vomiting the day of his admission. This came on rather suddenly. He was admitted in an attempt to try to calm this down promptly. He was placed on IV fluids and remained n.p.o. and was started on hydromorphone infusion for pain control. He has developed some increased abdominal discomfort, more so than usual. Examination showed development of a diffuse quite large area of cellulitis developing around the midline scar. It was felt that this was due to stretching of the abdominal scar tissue and micro tears in the tissue, allowing for entrance of bacterial germs creating the cellulitis. There was not anything who suggest a deep abscess. He had no high fever or traumatic elevation in the white blood cell count. He was started on Unasyn and at 3 grams IV q.6 hours. Over the next 7 days, he seemed to have the cellulitis gradually decrease and felt better, though he still had quite a bit of edema in the tissues of the abdominal wall. The antibiotics were discontinued after about 7 days of treatment. The patient had been seen by Dr. Umaña during this period of time, who felt this was appropriate treatment. On the seventh day, he suddenly developed a swollen area in the mid portion of the abdominal scar. This ruptured and drained quite pronounced purulent fluid and some dark fluid. Initially, Dr. Ray looked at this and felt that it might be recurrence of an abdominal wall fistula. An ostomy bag was placed over the drainage site. Over the next several days, the fluid draining from the site was more purulent and serosanguineous and never really took on the character of stool. The patient had an abdominal CT scan done with contrast and this showed no communication to bowel with the area. It shows some subcutaneous air in a linear fashion, extending downwards towards the lower portion of the scar and it was felt that this was a subcutaneous abscess cavity. At this point, the cavity was started to be gently packed. Cultures were done, which did not really grow out any significant germs. The area was not at all inflamed. There was no evidence of increase in white blood cell count. Jorden did not develop a fever. He was observed for several days to make sure that the abdominal wound was truly an abscess and over the next several days, the drainage seemed to gradually diminish. With the onset of the abscess and initial drainage, the patient had quite a significant increase in pain. Once the abscess started draining, the edema fluid in the abdominal wall decreased and the patient started to feel much better. He was able to be up and ambulating and able to decrease his main medication requirement. Dr. Umaña and Dr. Ray were in contact with the surgeons at the [facility] in Dr. Mathias's group as well was the patient himself. It was decided he would simply continue with packing the wound and allowing it to heal on its own. He is scheduled for a reconstructive surgery and lysis of adhesion surgery on 09/10/2016. The surgeons at [facility] arranged a preoperative appointment for him in early June, but did not feel they would have anything more to offer other than what we were doing. The patient felt he was able to advance his diet to full liquids and a minimal amount of some soft solid foods and felt he was keeping enough down to maintain his nutrition. He felt the pain level had subsided and felt he was ready for discharge on 2016. DISPOSITION: The patient is discharged home on 06/04/2016. DISCHARGE INSTRUCTIONS/MEDICATIONS: Medications taken following discharge will include hydromorphone 2 mg tablets 1 or 2 tablets every 4 hours for pain control. He will continue with promethazine tablets 25 mg 1 every 4-6 hours for nausea. He will continue with Warfarin 5 mg daily to control tendencies towards deep vein thrombosis in his legs. He will also continue clonidine topical patch 0.3 mg per 24-hour strength 1 tablet changed weekly. He will continue spironolactone 25 mg p.o. 1 daily for hypertension. He will also continue BuSpar 20 mg t.i.d. for anxiety and depression and will continue diazepam 5 mg 1 p.o. at bedtime for sleeplessness. He will continue with omeprazole 40 mg p.o. b.i.d. to control stomach acid reflux and will continue metoclopramide 10 mg strength 1 p.o. t.i.d. with meals to maintain bowel function. At this point, he is not needing any medication for blood sugar control. He will also intermittently use oxycodone 10 mg strength 1 every 4 hours for pain control in place of the hydromorphone. He will follow up at my office in 7-14 days and will follow up at Dr. Umaña's office on an as-needed basis. He is tentatively scheduled for a followup with the [facility] around 07/02/2016.
== END 2016-06-04 11:50 | disposition home or self-care (01) | DRG 389 ==
LOC: ED SRH 18:50 → TRANS SRH 21:21 → ACUTE2 SRH 21:21 → ACUTE3 SRH 05-22 11:01 → ACUTE2 SRH 05-22 11:01 → ACUTE3 SRH 06-01 17:28 → ACUTE2 SRH 06-02 03:54 → ACUTE3 SRH 06-02 03:54
PROVIDERS: ADMIT Emergency Medicine
DX: K56.5 Intestinal adhesions [bands] with obstruction (postinfection) (principal); L02.211 Cutaneous abscess of abdominal wall; L03.311 Cellulitis of abdominal wall; D68.51 Activated protein C resistance; K43.9 Ventral hernia without obstruction or gangrene; F32.9 Major depressive disorder, single episode, unspecified; F41.9 Anxiety disorder, unspecified; D50.9 Iron deficiency anemia, unspecified; E11.9 Type 2 diabetes mellitus without complications; I10 Essential (primary) hypertension; Z86.010 Personal history of colon polyps; Z80.0 Family history of malignant neoplasm of digestive organs; Z93.2 Ileostomy status
CPT/HCPCS: 81312; 83498; 83748; 83766; 83847; 84093; 84206; 90004; 90047; 90065; 90074; 90100; 92235; 92530; 92610; 92668; 92670; 92710; 92720; 94001; 94060; 95059

== ENCOUNTER 2016-06-10 19:52 | Inpatient (IN) | payer BC, OTHER ==
[~2016-06-10] VITALS: Ht 193 cm; Wt 137.5 kg
--- NOTE | 2016-06-10 22:40 | DIAGNOSTIC IMAGING REPORT ---
PROCEDURE: XR ABDOMEN 1 VIEW INDICATION: Abdominal distention. History bowel obstructions. TECHNIQUE: AP upright view. COMPARISON: Compared to CT abdomen and pelvis (05/30/2016) and abdominal radiographs (05/17/2016). FINDINGS: Moderate distention of bowel loops in right lower quadrant with air-fluid levels. No evidence of free air. Status post cholecystectomy (surgical clips). IVC filter in position. Four right renal calculi (no change). IMPRESSION: 1. Moderate distention of right lower quadrant bowel loops consistent with bowel obstruction. 2. IVC filter in position. 3. Multiple right renal calculi (previously documented).
--- NOTE | 2016-06-10 23:02 | ED ORDER SUMMARY ---
..... Patient: RK AVILA SR OrderSheet [facility] VisitID: [id number] [place] [address] 50y, M Registration Date/Time: 06/10/2016 ORDER SHEET Weight: 129.2 kg (stated) Allergies: Benacar, Ketamine, LIsinopril, Mercury, NSAIDs GENERAL ORDERS: Abdomen 1V Urgent (21:02 06/10/2016 Stephanie Conn) (21:11 Leni) CBC w Diff Urgent (21:06 06/10/2016 Stephanie Conn) (Ack 21:15 AMcQuoid ER Tech1) (21:47 DBeyer R.N.) CMP Urgent (21:06 06/10/2016 Stephanie Conn) (Ack 21:15 AMcQuoid ER Tech1) (21:47 DBeyer R.N.) UA-Culture if indicated Urgent (21:06 06/10/2016 Stephanie Conn) (Ack 21:15 AMcQuoid ER Tech1) (21:47 DBeyer R.N.) Amylase Urgent (21:06 06/10/2016 Stephanie Conn) (Ack 21:15 AMcQuoid ER Tech1) (21:47 DBeyer R.N.) Lipase Urgent (21:06 06/10/2016 Stephanie Conn) (Ack 21:15 AMcQuoid ER Tech1) (21:47 DBeyer R.N.) NPO (21:07 06/10/2016 Stephanie Conn) (Ack 21:15 AMcQuoid ER Tech1) (21:47 DBeyer R.N.) MEDICATION ORDERS: Phenergan IV 25 mg (HIGH ALERT MEDICATION, NOW) (22:42 06/10/2016 Stevie BLAS) (22:47 DBeyer R.N.) IV FLUIDS: IV NS : initial bolus none -, then 1000 mL/hr for X1 (NOW) (21:03 06/10/2016 Stephanie Conn) (21:30 DBeyer R.N.) Dilaudid IV 1 mg (HIGH ALERT MEDICATION, NOW) (21:04 06/10/2016 Stephanie Conn) (21:33 DBeyer R.N.) Zofran IV 4 mg (NOW) (21:05 06/10/2016 Stephanie Conn) (21:33 Haile R.N.) Dilaudid IV 1 mg (HIGH ALERT MEDICATION, NOW) (22:23 06/10/2016 Stevie BLAS) (22:41 DBeylary R.N.) ORDER SHEET NOTES: [Electronically signed by Reynaldo Jha R.N. (02:43 06/11/2016)] [Electronically signed by Flower Jay MD (20:43 06/11/2016)] [Electronically locked/signed by Reynaldo Jha R.N. (02:43 06/11/2016)]
--- NOTE | 2016-06-10 23:02 | ED CLINICAL REPORT ---
Clinical Report - Physicians/Mid Levels [facility] [address] [place] [address] 06/10/2016 19:54 Patient: RK AVILA SR Time Seen: 20:46; initial patient contact. Arrived- By private vehicle. Historian- patient. HISTORY OF PRESENT ILLNESS Chief Complaint: ABDOMINAL PAIN and bloating. At its maximum, severity described as moderate. When seen in the E.D., severity described as moderate. Modifying factors. Not worsened by anything. Not relieved by anything. It is described as dull and it is described as located in the periumbilical area. This started today and is still present. The patient has had nausea. No loss of appetite, vomiting or diarrhea. (PT states he has had minimal ostomy output over the past few hours.). Similar symptoms previously: Many times. Recent medical care: The patient was seen recently by a health care provider. REVIEW OF SYSTEMS The patient has had constipation. No black stools, hematemesis, difficulty with urination, pain with urination or urinary frequency. No bloody stools, fever, headache, sore throat or blurred vision. No chest pain, difficulty breathing, cough, joint pain or skin rash. No chills or back pain. All systems otherwise negative, except as recorded above. PAST HISTORY Gastroesophageal Reflux Disease [Active]. GI Disease. Vomiting. Hypocalcemia. TIA - Transient Ischemic Attack. Abdominal Pain. Hematuria. Post-Op Infection. Post-Op Wound Dehiscence. Fever. Bronchitis. Palpitations. Nephropathy. Nephrolithiasis. Small bowel obstruction. Anxiety Reaction. Cancer. DVT - Deep Venous Thrombosis. Hypertension. Pulmonary Embolism. Gastroesophageal Reflux Disease. Diabetes Mellitus. Gallstone(s). 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 Anemia. Migraine Headache. Hernia. Bowel Obstruction. Tetanus Status. Abnormal Test. Additional Surgeries: Appendectomy. Cholecystectomy. Colectomy. Colonoscopy. Colostomy. Fracture Repair. Hernia Repair. Inguinal Hernia Repair. Peristomal hernia repair . Power port central line. Previous Abdominal Surgery. Previous Abdominal Surgery. Shoulder Surgery. Stoma Dilation. Umbilical Hernia Repair. Problems: Gastroesophageal Reflux Disease [Active]. TIA - Transient Ischemic Attack. Post-Op Wound Dehiscence. Palpitations. Nephropathy. Nephrolithiasis. Small bowel obstruction. Anxiety Reaction. Cancer. DVT - Deep Venous Thrombosis. Hypertension. Pulmonary Embolism. Diabetes Mellitus. Gallstone(s). 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 Anemia. Migraine Headache. Hernia. Bowel Obstruction. Tetanus Status. Immunizations. Additional Surgeries: Appendectomy. Cholecystectomy. Colectomy. Colonoscopy. Colostomy. Fracture Repair. Inguinal Hernia Repair. Peristomal hernia repair . Power port central line. Shoulder Surgery. Stoma Dilation. Umbilical Hernia Repair. Medications: BusPIRone HCl Oral 20 mg, 3x a day. clonidine .3 patch every week on Saturday . Dilaudid Oral (Tablet 2 mg) 2 tablets, PRN, last dose 1200. Omeprazole Oral 40 mg, 2x a day, last dose 0700. Promethazine HCl Oral 25 mg (1 to 2 tablets PRN nausea). Reglan 10mg TID . Spironolactone Oral (Tablet 25 mg) 1 tablet, daily. Warfarin Sodium Oral 5 mg, daily. Allergies: Benacar. Ketamine. LIsinopril. Mercury. NSAIDs. SOCIAL HISTORY Smoker- current status unknown. No alcohol use or drug use. ADDITIONAL NOTES The nursing notes have been reviewed. PHYSICAL EXAM Vital Signs: 06/10/2016 20:16 BP: 159/102. HR: 98. RR: 18. O2 saturation: 97%. Temp: 98.7 F. Have been reviewed. Appearance: Alert. Oriented X3. No acute distress. (Pt appears moderately uncomfortable.). Eyes: Pupils equal, round and reactive to light. Eyes normal inspection. ENT: Nose normal. Neck: Normal inspection. Neck supple. CVS: Normal heart rate and rhythm. Heart sounds normal. Pulses normal. Respiratory: No respiratory distress. Breath sounds normal. Abdomen: Soft. Moderate tenderness diffusely. No guarding or rebound tenderness. (Colostomy is intact. Small amount of stool is noted in bag.). Back: Normal inspection. No CVA tenderness. Skin: Skin warm and dry. Normal skin color. No rash. Normal skin turgor. Extremities: Extremities exhibit normal ROM. No lower extremity edema. Neuro: Oriented X 3. No motor deficit. No sensory deficit. LABS, X-RAYS, AND EKG KUB: Soft tissues normal. No mass effect. No fracture or bony lesion present. (PT has a dilated loop of bowel and several air-fluid levels.). Views: two-view AP. Technique: good. The X-rays were independently viewed by me and interpreted contemporaneously by me. Prior films were not available for comparison. Laboratory Tests: UA-Culture if indicated: (DWIGHT: 06/10/2016 21:35) ( NegRcvd 06/10/2016 22:01) Final results Test Result Flag Units (Reference) URINE COLOR YELLOW URINE APPEARANCE CLEAR URINE GLUCOSE NEGATIVE (NEGATIVE) URINE BILIRUBIN NEGATIVE (NEGATIVE) URINE KETONE NEGATIVE (NEGATIVE) URINE SPECIFIC GRAVITY >= 1.030 (1.010-1.030) URINE PH 5.5 (5.0-8.0) URINE PROTEIN NEGATIVE (NEGATIVE) URINE UROBILINOGEN 0.2 EU/dL (0.2-1.0) URINE NITRITE NEGATIVE (NEGATIVE) URINE BLOOD 3+ (NEGATIVE) URINE LEUK ESTERASE NEGATIVE (NEGATIVE) URINE RBC 10-25 rbc/hpf (0-1) URINE WBC 0-1 wbc/hpf (0-1) URINE EPITHELIAL CELLS NONE SEEN EPI/hpf (0-5) URINE BACTERIA NONE SEEN (NONE SEEN) URINE COMMENT CULT NOT INDICATED URINE CULTURES ARE SET-UP BASED ON THE FOLLOWING CRITERIA:POSITIVE NITRITEPOSITIVE LEUKOCYTE ESTERASEGREATER THAN 10 WHITE BLOOD CELLSMODERATE (2+) OR GREATER BACTERIA CBC w Diff: (DWIGHT: 06/10/2016 21:35) ( [facility] 06/10/2016 21:53) Final results Test Result Flag Units (Reference) WHITE BLOOD COUNT 7.8 K/uL (4.5-11.5) RED BLOOD COUNT 5.32 M/uL (4.50-5.90) HEMOGLOBIN 14.6 gm/dL (13.5-17.5) HEMATOCRIT 45.5 % (41.0-53.0) MEAN CELL VOLUME 86 fL (80-100) MEAN CORPUSCULAR HGB 27 pg (26-34) MEAN CORPUSCULAR HGB CONC 32 g/dL (31-37) RED CELL DISTRIBUTION WIDTH 13.8 % (11.6-14.8) PLATELET COUNT 263 K/uL (150-400) LYMPH % 24.8 L % (25-40) MONO % 3.5 % (3-14) GRANULOCYTE % 71.7 CMP: (DWIGHT: 06/10/2016 21:35) ( MsgRcvd 06/10/2016 22:27) Final results Test Result Flag Units (Reference) GLUCOSE 121 H mg/dL (70-110) BUN 18 mg/dL (7-18) CREATININE 1.0 mg/dL (0.6-1.3) Estimated GFR >60 mL/min Estimated GFR- >60 mL/min Note: Persistent reduction over 3 months in eGFR<60 mL/min/1.73 m2 defines CKD. Patients with eGFR values>=60 mL/min/1.73 m2 may also have CKD if evidence ofpersistent proteinuria. Additional information may be foundat www.kidney.org. SODIUM 141 mmol/L (136-145) POTASSIUM 3.8 mmol/L (3.5-5.1) CHLORIDE 106 mmol/L (98-107) CARBON DIOXIDE 25 mmol/L (21-32) CALCIUM 8.1 L mg/dL (8.5-10.1) TOTAL PROTEIN 7.7 g/dL (6.4-8.2) ALBUMIN 3.6 g/dL (3.3-5.0) BILIRUBIN, TOTAL 0.4 mg/dL (0.0-1.0) ALKALINE PHOSPHATASE 71 U/L (46-116) AST (SGOT) 29 U/L (15-37) ALT (SGPT) 50 U/L (12-78) LIPASE 185 U/L (73-393) AMYLASE 85 U/L (25-115) . Pulse Oximetry: 06/10/2016 20:16 O2 saturation: 97%. (FIO2 - room air). Interpretation: normal. PROGRESS AND PROCEDURES Course of Care: PT was treated with Dilaudid, Zofran, and IV fluids. He did request more pain and nausea medication, and was given another dose of Dilaudid, as well as Phenergan. Pt was very well-known to our ED, and had been admitted to the hospital many times with bowel obstructions. Pt's x-ray was suggestive of at least a partial SBO. Discussed case with patient's primary care provider, (Louis). Reviewed test results and need for additional work-up. Agreed upon treatment plan and decision to admit. Orders dictated. Health care provider will see patient in ED. Patient counseled in person regarding the patient's stable but serious condition, test results, diagnosis and need for admission. Concerns were addressed. Old medical records reviewed. Disposition: Admitted to Acute Care. Condition: stable and serious. CLINICAL IMPRESSION Complete small bowel obstruction associated with intestinal bands / adhesions. (Electronically signed by Flower Jay MD 06/11/2016 20:43)
--- NOTE | 2016-06-10 23:02 | ED ORDER SUMMARY ---
..... Patient: RK AVILA SR OrderSheet [facility] VisitID: [id number] [place] [address] 50y, M Registration Date/Time: 06/10/2016 ORDER SHEET Weight: 129.2 kg (stated) Allergies: Benacar, Ketamine, LIsinopril, Mercury, NSAIDs GENERAL ORDERS: Abdomen 1V Urgent (21:02 06/10/2016 Stephanie Conn) (21:11 Leni) CBC w Diff Urgent (21:06 06/10/2016 Stephanie Conn) (Ack 21:15 AMcQuoid ER Tech1) (21:47 DBeyer R.N.) CMP Urgent (21:06 06/10/2016 Stephanie Conn) (Ack 21:15 AMcQuoid ER Tech1) (21:47 DBeyer R.N.) UA-Culture if indicated Urgent (21:06 06/10/2016 Stephanie Conn) (Ack 21:15 AMcQuoid ER Tech1) (21:47 DBeyer R.N.) Amylase Urgent (21:06 06/10/2016 Stephanie Conn) (Ack 21:15 AMcQuoid ER Tech1) (21:47 DBeyer R.N.) Lipase Urgent (21:06 06/10/2016 Stephanie Conn) (Ack 21:15 AMcQuoid ER Tech1) (21:47 DBeyer R.N.) NPO (21:07 06/10/2016 Stephanie Conn) (Ack 21:15 AMcQuoid ER Tech1) (21:47 DBeyer R.N.) MEDICATION ORDERS: Phenergan IV 25 mg (HIGH ALERT MEDICATION, NOW) (22:42 06/10/2016 Stevie BLAS) (22:47 DBeyer R.N.) IV FLUIDS: IV NS : initial bolus none -, then 1000 mL/hr for X1 (NOW) (21:03 06/10/2016 Stephanie Conn) (21:30 DBeyer R.N.) Dilaudid IV 1 mg (HIGH ALERT MEDICATION, NOW) (21:04 06/10/2016 Stephanie Conn) (21:33 DBeyer R.N.) Zofran IV 4 mg (NOW) (21:05 06/10/2016 Stephanie Conn) (21:33 Haile R.N.) Dilaudid IV 1 mg (HIGH ALERT MEDICATION, NOW) (22:23 06/10/2016 Stevie BLAS) (22:41 DBeylary R.N.) ORDER SHEET NOTES: [Electronically signed by Reynaldo Jha R.N. (02:43 06/11/2016)] [Electronically signed by Flower Jay MD (20:43 06/11/2016)] [Electronically locked/signed by Reynaldo Jha R.N. (02:43 06/11/2016)]
--- NOTE | 2016-06-10 23:02 | ED NURSING NOTES ---
Clinical Report - Nurses [facility] [address] [place] [address] 06/10/2016 19:54 [id number] Triage time 20:15 Jun 10 2016. Acuity: LEVEL 3. Chief Complaint: ABDOMINAL PAIN. --20:19 Reynaldo Jha R.N. 20:16 06/10/16. BP: 159/102. HR: 98. RR: 18. O2 saturation: 97%. Temp: 98.7 F. --20:19 Reynaldo Jha R.N. Weight: 129.2 kg stated. Height/Length: 76 inches Per Patient. BMI: 34.7. --20:17 Reynaldo Jha R.N. Medications BusPIRone HCl Oral 20 mg, 3x a day. clonidine .3 patch every week on Saturday . Dilaudid Oral (Tablet 2 mg) 2 tablets, PRN, last dose 1200. Omeprazole Oral 40 mg, 2x a day, last dose 0700. Promethazine HCl Oral 25 mg (1 to 2 tablets PRN nausea). Reglan 10mg TID . Spironolactone Oral (Tablet 25 mg) 1 tablet, daily. Warfarin Sodium Oral 5 mg, daily. --20:18 Reynaldo Jha R.N. Allergies Benacar. Ketamine. LIsinopril. Mercury. --20:18 Reynaldo Jha R.N. NSAIDs. --20:18 Reynaldo Jha R.N. History Arrived by private vehicle. Historian: patient. ( Pt reports multiple obstructions in past.). This started just prior to arrival. SOCIAL HX: Smoker- current status unknown (smokeless). No alcohol use or drug use. --20:19 Reynaldo Jha R.N. PROBLEMS: Gastroesophageal Reflux Disease [Active]. --20:19 Reynaldo Jha R.N. Nausea. GI Disease. Vomiting. Small bowel obstruction. Bowel Obstruction. --20:19 Abhijeet, Reynaldo, R.N. Interventions ID and allergy band on patient. To treatment room. --20:19 Reynaldo Jha R.N. PHYSICAL ASSESSMENT GENERAL / NEURO / PSYCH: Alert. Oriented X 4. Appears in no acute distress. HEENT: Pupils equal, round and reactive to light. RESPIRATORY: Respirations not labored. CVS: Normal sinus rhythm noted. GI / : Abdominal distention with tenderness to palpation. Abdomen soft. SKIN: Skin is warm. Normal skin turgor. --20:20 Reynaldo Jha R.N. NURSING PROGRESS NOTES Monitoring of patient in place. Patient gowned. Reassurance given. Two patient identifiers checked. Side rails up x 1. Bed placed in lowest position. --20:20 Reynaldo Jha R.N. 21:30 06/10/2016 Site #1 started via IV with an 20g angiocath. Blood drawn: rainbow set. Labeled in the presence of the patient (port a cath). --21:30 Reynaldo Jha R.N. 21:06/10/2016 Started bag #1 1000 mL IV Fluids IV NS (Saline); bolus of 1000 mL wide open via site #1 via IV pump. Allergies verified and confirmed 5 rights. IV patency established. IV site checked: no pain, redness, or swelling. IV flushed thoroughly pre- and post-medication administration. --21:30 Reynaldo Jha R.N. 21:33 06/10/2016 Zofran (Ondansetron HCl) IVP 4 mg given over 2 minute(s) via site #1. Allergies verified and confirmed 5 rights. IV patency established. IV site checked: no pain, redness, or swelling. IV flushed thoroughly pre- and post-medication administration. IVP given by RN. --21:33 Reynaldo Jha R.N. 21:33 06/10/2016 Dilaudid (HYDROmorphone HCl PF) IVP 1 mg given over 2 minute(s) via site #1. Allergies verified, confirmed 5 rights and sedative warning given to the patient. IV patency established. IV site checked: no pain, redness, or swelling. IV flushed thoroughly pre- and post-medication administration. IVP given by RN. --21:33 Reynaldo Jha R.N. 22:41 06/10/2016 Dilaudid (HYDROmorphone HCl PF) IVP 1 mg given over 2 minute(s) via site #1. Allergies verified, confirmed 5 rights and sedative warning given to the patient. IV patency established. IV site checked: no pain, redness, or swelling. IV flushed thoroughly pre- and post-medication administration. IVP given by RN. --22:41 Reynaldo Jha R.N. 22:41 06/10/16. BP: 160/82. HR: 81. RR: 18. O2 saturation: 98%. --22:42 Reynaldo Jha R.N. 22:47 06/10/2016 PHENERGAN (Promethazine HCl) IVP 25 mg given over 3 minute(s) via site #1. Allergies verified and confirmed 5 rights. IV patency established. IV site checked: no pain, redness, or swelling. IV flushed thoroughly pre- and post-medication administration. IVP given by RN. --22:47 Reynaldo Jha R.N. DISPOSITION / DISCHARGE Departure time: 2358. --00:08 Reynaldo Jha R.N. 00:06 06/11/16. BP: 125/111. HR: 80. RR: 18. O2 saturation: 99%. Pain level now 10. --00:08 Reynaldo Jha R.N. Admitted (00:08 Jun 11 2016). Report was given to a nurse via a phone call. Report included patient's care, treatment, medications, reviewed medication reconcilliation, and condition (including any recent changes or anticipated changes). All questions were answered. Report was acknowledged. --00:09 Reynaldo Jha R.N. Locked/Released at 06/11/2016 2:43 by Reynaldo Jha R.N.
[2016-06-11 00:14] VITALS: BP 149/96
--- NOTE | 2016-06-11 02:48 | HISTORY AND PHYSICAL ---
ADMITTED: 06/10/2016 CHIEF COMPLAINT: 1. Abdominal pain with nausea and decreased output from ileostomy HISTORY OF PRESENT ILLNESS: The patient is a 50-year-old white male who has had multiple abdominal surgeries and has had problems with multiple small bowel obstructions and partial obstruction issues related to intraabdominal adhesions. He has had frequent admissions here to [facility] and has had another episode similar to previous ones where he has developed markedly decreased output from his ileostomy, progressive abdominal distention and increased pain and nausea. He was not able to manage the pain and nausea at home and presented to the emergency department this evening. KUB showed multiple air-fluid levels in the small bowel. He has subsequently been admitted for further care. He has had a recent subcutaneous abscess in the mid to lower abdominal wall area along the surgical scar. The abscess drained spontaneously and continues to have some drainage of fluid. The patient has had no fever or chills. He has had no emesis. He has had a very limited intake orally since his discharge home on 01/2017. MEDICAL/SURGICAL HISTORY: Past medical history: Remarkable for Diop syndrome with other problems including adult-onset diabetes, hypertension, factor V Leiden abnormality with thrombophilia, this has caused deep vein thrombosis and pulmonary emboli in the past. He also has had problems with adult onset diabetes, which has improved with weight loss, to the point where he does not really need to use any medication to control this. He has problems as well with compression fractures in the lower lumbar spine and chronic lower back pain. He also has nephrolithiasis involving the right kidney, causing right flank and lower abdominal pain and hematuria. Other problems include anxiety and depression. He does okay with buspirone for this. He has not done well with other antidepressants. Other problems include persistent low-grade iron deficiency anemia due to poor iron absorption. Past surgical history is remarkable for subtotal colectomy done in the . He has had multiple surgeries since then including converting the initial rectal pouch to an ileostomy, multiple procedures for lysis of adhesions, several peristomal hernia repairs, one with [place] mesh placement. This subsequently became infected and was removed. He has also had other surgeries including an appendectomy, cholecystectomy, right inguinal hernia repair, shoulder surgeries for impingement, Port-A-Cath placement, Lakia filter placement and EGDs to evaluate nausea and vomiting with most recent EGD done about 3 months ago. MEDICATIONS: 1. Hydromorphone 2 mg tablets 1 or 2 tablets every 3-4 hours p.r.n. pain. 2. Promethazine 12.5 to 25 mg every 4 hours p.r.n. nausea and vomiting. 3. Oxycodone 10 mg 1 every 4-6 hours during the day intermittently in place of hydromorphone for pain control. 4. Spironolactone 25 mg strength 1 every morning for fluid retention and blood pressure. 5. Catapres skin patch 0.3 mg per 24-hour strength 1 patch changed every 7 days. 6. Omeprazole 40 mg 1 twice daily for stomach acid control. 7. Diazepam 5-10 mg at bedtime for anxiety and difficulties with sleeping. 8. Reglan 5 to 10 mg before meals to help with dysmotility. 9. Trazodone ------- at times to help with sleeping. ALLERGIES: 1. GLENROY INHIBITORS AND ARBs, BOTH OF WHICH TRIGGER ANGIOEDEMA. 2. SENSITIVE TO KETAMINE. THIS TRIGGERS NAUSEA AND VOMITING. 3. HYDROCODONE, WHICH TRIGGERS NAUSEA AND VOMITING. 4. CEPHALEXIN, WHICH CAUSES GASTRITIS. 5. ONDANSETRON, WHICH CAUSES RESTLESSNESS AT HIGHER DOSES. 6. MERCURY. 7. LORAZEPAM. SOCIAL HISTORY: The patient is and lives with his and 3 children who are all young adults. He also shares his home with his [id number] and [id number]. 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 He has not been a smoker. He does chew tobacco regularly. His drinks occasional beer, but very sparingly. He has been on a full liquid diet at home with minimal solids foods. FAMILY HISTORY: Remarkable for a number of family members who have had Diop syndrome. He has a younger brother who from colon cancer related to this and a sister who also has from colon cancer and another sister who is quite ill with colon cancer and other complications. The patient's father from a heart attack occurring in his late 40s or early 50s. The patient's mother is in good health. The patient has 3 children, 2 of whom have Diop syndrome. REVIEW OF SYSTEMS: HEENT is okay. Respiratory is okay with no cough. Cardiovascular is okay with no rapid heartbeats or edema or retrosternal chest pain. Gastrointestinal is as noted above. Genitourinary is okay with no problems passing urine and no hematuria. Musculoskeletal is remarkable for persistent lower back pain. Neurologic exam is normal. Psychiatric is remarkable for some ongoing problems with anxiety and depression and anger. Skin is okay. PHYSICAL EXAMINATION: GENERAL: Reveals the patient to be a somewhat overweight white male. VITAL SIGNS: Blood pressure is in the 140/96 range. Pulse is in the 80s. Oxygen saturation 96 to 98% on room air. Respiratory rate is 18. HEENT: Head is normal. Ear canals and tympanic membranes are normal. Eyes show pupils equal, round, and reactive to light with normal extraocular movements. Fundi reveal flat disks and normal vessels. Nose and throat are clear. Dentition is good. NECK: Supple without significant adenopathy. CHEST: Clear to auscultation and percussion. HEART: Reveals normal S1 and S2 with a grade 1/6 systolic murmur along left sternal border. ABDOMEN: Diffusely distended, particularly in the midline just to the right of the ileostomy and then in the right mid and lower abdominal area. GENITALIA: Normal circumcised male. There is no evidence of hernia. RECTAL: Not done. EXTREMITIES: Show no significant edema, +2 dorsalis pedis pulses are noted. SKIN: Shows no rash. Abdominal incision does have a draining area about 0.5 cm in diameter. NEUROLOGIC: Reveals the patient to be alert and oriented x3. Cranial nerves are normal. Motor and sensory exams are normal. LAB/IMAGING: Show sodium 141, potassium 3.8, chloride 106, CO2 23, BUN is 121. Glucose is 121. BUN is 18, creatinine 1.0. Urinalysis is normal with specific gravity greater than 1.030. There are 10 to 25 red blood cells per high-power field but no white blood cells. KUB shows distention of the right upper and right lower quadrant bowel loops with air-fluid levels consistent with partial versus complete small-bowel obstruction. Lakia filters are noted. IMPRESSION/PLAN: 1. The patient is presenting with evidence of recurrent small bowel obstructions in early stages. He is not nauseated and having major vomiting yet. He will be admitted and treated with bowel rest and IV fluids and pain control with hydromorphone administered by [facility] pump. He will continue wearing the Catapres patch. He will continue with control of nausea with promethazine. Admission will undoubtedly cause the patient to be hospitalized for at least 2 midnights. If he worsens, he may need to have a nasogastric tube placed and may need to see Dr. Umaña or Dr. Ray.
[2016-06-11 06:57] VITALS: BP 134/72
[2016-06-11 14:20] VITALS: BP 137/71
[2016-06-11 18:28] VITALS: BP 145/85
--- NOTE | 2016-06-11 20:43 | ED DISCHARGE INSTRUCTIONS ---
Patient: RK AVILA SR General Instructions [facility] VisitID: [id number] [address] [place] [address] 50y, M Registration Date/Time: 06/10/2016 Complete small bowel obstruction associated with intestinal bands / adhesions. (Electronically signed by Flower Jay MD 06/11/2016 20:43)
--- NOTE | 2016-06-11 20:43 | ED MAR SUMMARY ---
..... Medication Administration Record [facility] [address] [place] [address] Patient: RK AVILA Visit ID: [id number] 50y, M Weight: 129.2 kg Height/Length: 76 in BMI: 34.7 ALLERGIES: Benacar, Ketamine, LIsinopril, Mercury, NSAIDs Start 21:06/10/2016 Reynaldo Jha R.N. Medication Administered: IV NS (SALINE), Dose: IV Fluids, Bolus: 1000 mL wide open, Dispensed: 1000 mL bag, Site: #1. Medication Ordered: IV NS : initial bolus none -, then 1000 mL/hr for X1 (NOW). Given :06/10/2016 Reynaldo Jha R.N. Medication Administered: DILAUDID [IVP] (HYDROMORPHONE HCL PF), Dose: 1 mg IVP over 2 minute(s), Site: #1. Medication Ordered: Dilaudid IV 1 mg (HIGH ALERT MEDICATION, NOW). Given 06/10/2016 Reynaldo Jha R.N. Medication Administered: ZOFRAN [IVP] (ONDANSETRON HCL), Dose: 4 mg IVP over 2 minute(s), Site: #1. Medication Ordered: Zofran IV 4 mg (NOW). Given 22:41 06/10/2016 Reynaldo Jha R.N. Medication Administered: DILAUDID [IVP] (HYDROMORPHONE HCL PF), Dose: 1 mg IVP over 2 minute(s), Site: #1. Medication Ordered: Dilaudid IV 1 mg (HIGH ALERT MEDICATION, NOW). Given 22:47 06/10/2016 Reynaldo Jha R.N. Medication Administered: PHENERGAN [IVP] (PROMETHAZINE HCL), Dose: 25 mg IVP over 3 minute(s), Site: #1. Medication Ordered: Phenergan IV 25 mg (HIGH ALERT MEDICATION, NOW).
--- NOTE | 2016-06-11 20:43 | ED MAR SUMMARY ---
..... Medication Administration Record [facility] [address] [place] [address] Patient: RK AVILA Visit ID: [id number] 50y, M Weight: 129.2 kg Height/Length: 76 in BMI: 34.7 ALLERGIES: Benacar, Ketamine, LIsinopril, Mercury, NSAIDs Start 21:06/10/2016 Reynaldo Jha R.N. Medication Administered: IV NS (SALINE), Dose: IV Fluids, Bolus: 1000 mL wide open, Dispensed: 1000 mL bag, Site: #1. Medication Ordered: IV NS : initial bolus none -, then 1000 mL/hr for X1 (NOW). Given :06/10/2016 Reynaldo Jha R.N. Medication Administered: DILAUDID [IVP] (HYDROMORPHONE HCL PF), Dose: 1 mg IVP over 2 minute(s), Site: #1. Medication Ordered: Dilaudid IV 1 mg (HIGH ALERT MEDICATION, NOW). Given 06/10/2016 Reynaldo Jha R.N. Medication Administered: ZOFRAN [IVP] (ONDANSETRON HCL), Dose: 4 mg IVP over 2 minute(s), Site: #1. Medication Ordered: Zofran IV 4 mg (NOW). Given 22:41 06/10/2016 Reynaldo Jha R.N. Medication Administered: DILAUDID [IVP] (HYDROMORPHONE HCL PF), Dose: 1 mg IVP over 2 minute(s), Site: #1. Medication Ordered: Dilaudid IV 1 mg (HIGH ALERT MEDICATION, NOW). Given 22:47 06/10/2016 Reynaldo Jha R.N. Medication Administered: PHENERGAN [IVP] (PROMETHAZINE HCL), Dose: 25 mg IVP over 3 minute(s), Site: #1. Medication Ordered: Phenergan IV 25 mg (HIGH ALERT MEDICATION, NOW).
--- NOTE | 2016-06-11 20:43 | ED MED RECONCILIATION SUMMARY ---
Patient: RK AVILA Medication Reconciliation Report [facility] VisitID: [id number] [address] [place] [address] 50y, M Registration Date/Time: 06/10/2016 Weight: 129.2 kg Height/Length: 76 in. BMI: 34.7 ALLERGIES: Benacar, Ketamine, LIsinopril, Mercury, NSAIDs The patient's Home Medications are listed below: THE FOLLOWING MEDICATIONS NEED TO BE RECONCILED: BusPIRone HCl Oral 20 mg, 3x a day clonidine .3 patch every week on Saturday Dilaudid Oral (2 mg) 2 tablets, PRN, last dose: 1200 Omeprazole Oral 40 mg, 2x a day, last dose: 0700 Promethazine HCl Oral 25 mg, 1 to 2 tablets PRN nausea Reglan 10mg TID Spironolactone Oral (25 mg) 1 tablet, daily Warfarin Sodium Oral 5 mg, daily The source(s) of the original Home Medication information: Not obtained. The following Medications were given to the patient in the Emergency Department: IV NS IV Fluids bolus 1000 mL wide open, administered: 06/10/2016 9:30:00 PM Zofran [IVP] IVP 4 mg, administered: 06/10/2016 9:33:00 PM Dilaudid [IVP] IVP 1 mg, administered: 06/10/2016 9:33:00 PM Dilaudid [IVP] IVP 1 mg, administered: 06/10/2016 10:41:00 PM PHENERGAN [IVP] IVP 25 mg, administered: 06/10/2016 10:47:00 PM The following Medications were prescribed to the patient: None.
--- NOTE | 2016-06-11 20:43 | ED MED RECONCILIATION SUMMARY ---
Patient: RK AVILA Medication Reconciliation Report [facility] VisitID: [id number] [address] [place] [address] 50y, M Registration Date/Time: 06/10/2016 Weight: 129.2 kg Height/Length: 76 in. BMI: 34.7 ALLERGIES: Benacar, Ketamine, LIsinopril, Mercury, NSAIDs The patient's Home Medications are listed below: THE FOLLOWING MEDICATIONS NEED TO BE RECONCILED: BusPIRone HCl Oral 20 mg, 3x a day clonidine .3 patch every week on Saturday Dilaudid Oral (2 mg) 2 tablets, PRN, last dose: 1200 Omeprazole Oral 40 mg, 2x a day, last dose: 0700 Promethazine HCl Oral 25 mg, 1 to 2 tablets PRN nausea Reglan 10mg TID Spironolactone Oral (25 mg) 1 tablet, daily Warfarin Sodium Oral 5 mg, daily The source(s) of the original Home Medication information: Not obtained. The following Medications were given to the patient in the Emergency Department: IV NS IV Fluids bolus 1000 mL wide open, administered: 06/10/2016 9:30:00 PM Zofran [IVP] IVP 4 mg, administered: 06/10/2016 9:33:00 PM Dilaudid [IVP] IVP 1 mg, administered: 06/10/2016 9:33:00 PM Dilaudid [IVP] IVP 1 mg, administered: 06/10/2016 10:41:00 PM PHENERGAN [IVP] IVP 25 mg, administered: 06/10/2016 10:47:00 PM The following Medications were prescribed to the patient: None.
--- NOTE | 2016-06-11 20:43 | ED DISCHARGE INSTRUCTIONS ---
Patient: RK AVILA SR General Instructions [facility] VisitID: [id number] [address] [place] [address] 50y, M Registration Date/Time: 06/10/2016 Complete small bowel obstruction associated with intestinal bands / adhesions. (Electronically signed by Flower Jay MD 06/11/2016 20:43)
[2016-06-11 22:19] VITALS: BP 135/74
[2016-06-12 04:13] VITALS: BP 155/88
[2016-06-12 06:36] VITALS: BP 138/93
[2016-06-12 14:45] VITALS: BP 149/77
[2016-06-12 18:31] VITALS: BP 163/94
[2016-06-12 22:25] VITALS: BP 143/70
[2016-06-13 02:36] VITALS: BP 136/73
[2016-06-13 06:45] VITALS: BP 128/77
[2016-06-13 10:14] VITALS: BP 139/70
[2016-06-13 14:27] VITALS: BP 123/56
[2016-06-13 18:38] VITALS: BP 133/69
[2016-06-13 23:07] VITALS: BP 149/59
[2016-06-14 07:06] VITALS: BP 127/70
[2016-06-14 14:47] VITALS: BP 120/76
[2016-06-14 18:10] VITALS: BP 130/86
[2016-06-15 01:03] VITALS: BP 137/66
[2016-06-15 06:29] VITALS: BP 130/78
[2016-06-15 14:53] VITALS: BP 155/88
[2016-06-15 22:41] VITALS: BP 146/87
[2016-06-16 06:55] VITALS: BP 136/85
[2016-06-16 10:39] VITALS: BP 135/74
[2016-06-16 14:18] VITALS: BP 157/94
[2016-06-16 18:28] VITALS: BP 149/83
[2016-06-17 02:15] VITALS: BP 129/76
[2016-06-17 07:59] VITALS: BP 125/71
--- NOTE | 2016-06-17 12:18 | DIAGNOSTIC IMAGING REPORT ---
PROCEDURE: XR ABDOMEN 1 VIEW INDICATION: Increased abdominal distention. Emesis. Assess for recurrent obstruction. TECHNIQUE: AP supine view. COMPARISON: Compared all radiographs 06/10/2016. FINDINGS: There are mildly prominent small bowel loops in right lower quadrant with a few air-fluid levels, although this has improved in the interim. Status post cholecystectomy. IVC filter in position. There are right renal calculi (previously documented) IMPRESSION: 1. Mildly prominent bowel loops in right lower quadrant with a few air-fluid levels. Mild bowel obstruction might be considered, the overall appearance is that of improvement since 06/10/2016. 2. IVC filter in position. 3. Multiple right renal calculi (previously documented).
[2016-06-17 20:05] VITALS: BP 141/98
[2016-06-18 01:04] VITALS: BP 154/93
[2016-06-18 06:30] VITALS: BP 128/85
[2016-06-18 10:27] VITALS: BP 143/87
[2016-06-18 15:07] VITALS: BP 143/93
[2016-06-18 22:41] VITALS: BP 156/102
[2016-06-19 06:34] VITALS: BP 153/101
[2016-06-19] MEDS ORDERED: HYDROMORPHONE HC2 MG PO (07:55)
--- NOTE | 2016-06-19 08:04 | Provider's Discharge Care Plan ---
Problem, Goal, Plan Problem List 1. Partial small bowel obstruction Goals: Improve disease control, Improve function, Improved health/wellness, Increase independence, Improve nutrition status Instructions: Follow up as directed, Take meds as directed, Reduce stress, Continue full liquid diet and keep appt. with [facility] 06/28/16. 2. Factor V Leiden Goals: Improve disease control, Improve function, Improved health/wellness, Increase independence, Improve nutrition status Instructions: Follow up as directed, Increase activity level, Take meds as directed, Reduce stress, continue warfarin at 5 mg daily. 3. Hypertension Goals: Improve disease control, Improve function, Improved health/wellness, Increase independence Instructions: Follow up as directed, Increase activity level, Take meds as directed, Reduce stress 4. GE reflux Goals: Improve disease control, Improve function, Improved health/wellness, Increase independence Instructions: Follow up as directed, Increase activity level, Take meds as directed, Reduce stress, continue omeprazole and promethazine 5. Nephrolithiasis Goals: Improve disease control, Improve function, Improved health/wellness, Increase independence, Improve nutrition status Instructions: Follow up as directed, Increase activity level, Take meds as directed, Reduce stress, Avoid high calcium foods and continue lemon juice 6. Iron (Fe) deficiency anemia Goals: Improve disease control, Improve function, Improved health/wellness, Increase independence, Improve nutrition status Instructions: Increase activity level, Take meds as directed, Reduce stress, Continue iron sucrose infusions q 3-4 wk. 7. Abdominal wall abscess Goals: Improve disease control, Improve function, Improved health/wellness, Increase independence Instructions: Follow up as directed, Increase activity level, Take meds as directed, Reduce stress, Keep wound care clinic appt. and continue daily dressing changes.
[2016-06-19 10:05] VITALS: BP 138/88
--- NOTE | 2016-06-24 13:47 | DISCHARGE SUMMARY ---
ADMIT DATE: 06/11/2016 DISCHARGE DATE: 06/19/2016 ADMITTING DIAGNOSIS: 1. Small-bowel obstruction DISCHARGE DIAGNOSES: 1. Partial small-bowel obstruction 2. Multiple intraabdominal adhesions related to prior surgeries 3. Healing abdominal wall abscess, present on admission 4. Other problems include hypertension 5. Factor V Leiden deficiency with thrombophilia 6. Iron-deficiency anemia 7. Hypertension 8. Gastroesophageal reflux disease 9. Nephrolithiasis 10. Anxiety disorder PROCEDURE: 1. None BRIEF HISTORY: Please see the dictated history and physical exam for details concerning admission. HOSPITAL COURSE: The patient presented to the emergency department on the day of his admission after he developed sudden onset of severe abdominal distention and bloating and nausea with episodes of emesis and dry heaves. He had a KUB done in the emergency department, which showed quite pronounced, diffuse air-fluid levels consistent with small-bowel obstruction or partial small-bowel obstruction. He was admitted and started on IV fluids and remained n.p.o. He had the initial symptoms start to resolve and was started on clear liquids and then full liquids. With this, he had several recurrences of severe sudden nausea and vomiting and abdominal distention. There was concern that he was not going to be able to resolve this problem to the point where he could maintain nutrition. He and I discussed the possibility of starting TPN. He wished to avoid this, due to high risk of potential complications, particular infection. He is planning to have a surgical procedure done down at the [facility] around 07/13/2016, and is due to see the surgical team at the [facility] on 06/28/2016 to arrange for the surgery. He felt he would like to hold off on TPN at least until he had seen the surgeons and then to follow their recommendations. He did slowly improve, and by the time of his discharge he was able to go 2 days with keeping up with small amounts of full liquids and clear liquids and minimal amounts of soft foods. He felt he was doing well enough to continue to be discharged home after he had gone 2 days without major flare-up of distention and emesis and pain. During his hospitalization, he did have the wound of his abdomen packed and dressing change daily. By the time of discharge this was feeling quite a bit smaller and the amount of packing was minimal. He had no other major problems or complications during his hospital stay. Dr. Umaña did consult and did not feel an urgent intervention was necessary and felt the best plan was to proceed with the surgery at the [facility] and to simply manage symptoms until that time. DISCHARGE INSTRUCTIONS/MEDICATIONS: Disposition: The patient is discharged home on 06/19/2016. Medications at the time of discharge will include continuing with the full liquid diet, particularly with nutritional drinks such as Boost. He also will be very careful about eating any soft foods. He will keep up with warfarin 5 mg daily for preventing blood clots. He will continue with clonidine patch 0.3 mg per 24-hour strength, change once weekly, and will continue spironolactone 25 mg 1 daily to help with blood pressure control and fluid retention. Other medications will include promethazine 25 mg tablet every 6 hours p.r.n. nausea. Omeprazole 20 mg, take one in the morning and one in the evening to control stomach acid reflux. Buspirone 20 mg 3 times daily for anxiety. Metoclopramide 10 mg before each meal to help with his nausea and vomiting and to help abdominal motility. He will also continue with hydromorphone 2 mg tablets, 1 or 2 tablets every 4 to 6 hours for abdominal pain and other pain. He may occasionally take oxycodone 10 mg strength 1 every 2-4 hours for severe pain. He will continue with diazepam 5 mg, take 1 or 2 at bedtime if needed for anxiety and sleeplessness. He will continue with iron sucrose infusions every 3-4 weeks to maintain his iron level red blood cell count. He will keep his followup appointment with the surgeons at the [facility] on 06/28/2016. Should he have problems prior to that, he may wish to go into the hospital here for reevaluation.
== END 2016-06-19 11:40 | disposition home or self-care (01) | DRG 389 ==
LOC: ED SRH 19:52 → TRANS SRH 23:04 → ACUTE2 SRH 23:04 → ACUTE3 SRH 06-14 07:32
PROVIDERS: ADMIT Family Medicine
DX: K56.5 Intestinal adhesions [bands] with obstruction (postinfection) (principal); L02.211 Cutaneous abscess of abdominal wall; K91.2 Postsurgical malabsorption, not elsewhere classified; D68.51 Activated protein C resistance; Z93.2 Ileostomy status; D50.8 Other iron deficiency anemias; E83.42 Hypomagnesemia; E11.9 Type 2 diabetes mellitus without complications; Z90.49 Acquired absence of other specified parts of digestive tract; Z15.09 Genetic susceptibility to other malignant neoplasm; Z80.0 Family history of malignant neoplasm of digestive organs; Z95.828 Presence of other vascular implants and grafts
CPT/HCPCS: 29230; 83498; 83741; 83763; 84093; 90004; 90047; 90074; 90100; 92235; 92530; 92668; 92670; 92720; 94060; 95059

== ENCOUNTER 2016-06-25 22:25 | Emergency (ER) | payer BC, OTHER ==
--- NOTE | 2016-06-26 02:21 | ED CLINICAL REPORT ---
Clinical Report - Physicians/Mid Levels [facility] [address] [place] [address] 06/25/2016 22:25 Patient: RK AVILA SR Time Seen: 22:59 Jun 25 2016. Arrived- By private vehicle. Historian- patient. CPT: ER phys charges level 5 (#[id number]). HISTORY OF PRESENT ILLNESS Chief Complaint: ABDOMINAL PAIN. At its maximum, severity described as severe. When seen in the E.D., severity described as moderate. Modifying factors- worsened by movement. Relieved by rest. It is described as "pain" and cramping and it is described as located in the periumbilical area and in the lower abdomen. This started today about 1800 and is still present. The patient has had nausea and loss of appetite. No vomiting or diarrhea. No recent travel. Similar symptoms previously: Several times, as bad. Diagnosis: bowel obstruction. Recent medical care: Not recently seen/assessed. REVIEW OF SYSTEMS No constipation, black stools, hematemesis, difficulty with urination or pain with urination. No urinary frequency, fever, sore throat, chest pain or difficulty breathing. No cough, joint pain, skin rash, chills or back pain. All systems otherwise negative, except as recorded above. PAST HISTORY GI disease. Bowel obstruction secondary to adhesions. See old chart. Gastroesophageal Reflux Disease [Active]. --22:46 Judie Smith, RReynaN. Nausea. GI Disease. Vomiting. Hypocalcemia. TIA - Transient Ischemic Attack. Abdominal Pain. Hematuria. Post-Op Infection. Post-Op Wound Dehiscence. Fever. Bronchitis. Palpitations. Nephropathy. Nephrolithiasis. Small bowel obstruction. Anxiety Reaction. Cancer. DVT - Deep Venous Thrombosis. Hypertension. Pulmonary Embolism. Diabetes Mellitus. Gallstone(s). FAP / Railroad Mechanic's Syndrome. Anemia. Migraine Headache. Hernia. Bowel Obstruction. Tetanus Status. Immunizations. Migraine Headache [Intermittent]. DVT - Deep Venous Thrombosis [Resolved] Renal Colic [RuleOut]. Vomiting [RuleOut]. Acute Pain [RuleOut]. Abdominal Pain [RuleOut]. Paralytic Ileus [RuleOut]. Bowel Obstruction [RuleOut]. - ADDITIONAL SURGERIES: Appendectomy. Cholecystectomy. Colectomy. Colonoscopy. Colostomy. Fracture Repair. Inguinal Hernia Repair. Peristomal hernia repair . Power port central line. Shoulder Surgery. Stoma Dilation. Umbilical Hernia Repair. Medications: BusPIRone HCl Oral 20 mg, 3x a day. clonidine .3 patch every week on Saturday . Dilaudid Oral (Tablet 2 mg) 2 tablets, PRN, last dose 1200. Omeprazole Oral 40 mg, 2x a day, last dose 0700. Promethazine HCl Oral 25 mg (1 to 2 tablets PRN nausea). Reglan 10mg TID . Spironolactone Oral (Tablet 25 mg) 1 tablet, daily. Warfarin Sodium Oral 5 mg, daily. Allergies: Benacar. Ketamine. LIsinopril. Mercury. NSAIDs. SOCIAL HISTORY Former smoker (cigarette)- less than 1/2 a pack per day. No alcohol use or drug use. ADDITIONAL NOTES The nursing notes have been reviewed. PHYSICAL EXAM Vital Signs: 06/25/2016 22:45 BP: 160/89. HR: 78. RR: 16. O2 saturation: 97%. Temp: 98 F. Pain level now: 10/10. Appearance: Alert. Patient in mild distress. Eyes: Eyes normal inspection. ENT: Pharynx normal. Neck: Normal inspection. CVS: Normal heart rate and rhythm. Heart sounds normal. Pulses normal. Respiratory: No respiratory distress. Breath sounds normal. Chest nontender. Abdomen: Soft. Mild tenderness in the periumbilical area. Abnormal bowel sounds (hyperactive). (Colostomy intact.). Back: Normal inspection. Skin: Normal skin color. No rash. Extremities: Extremities exhibit normal ROM. Neuro: Oriented X 3. LABS, X-RAYS, AND EKG KUB: Localized abnormal gas pattern in the right abdomen and central abdomen with small bowel dilatation and air fluid levels. Findings consistent with an obstruction. Views: erect AP. Technique: good. The X-rays were independently viewed by me and interpreted contemporaneously by me. Laboratory Tests: CBC w Diff: (DWIGHT: 06/25/2016 23:48) ( MsgRcvd 06/25/2016 23:59) Final results Test Result Flag Units (Reference) WHITE BLOOD COUNT 6.7 K/uL (4.5-11.5) RED BLOOD COUNT 5.24 M/uL (4.50-5.90) HEMOGLOBIN 14.6 gm/dL (13.5-17.5) HEMATOCRIT 44.1 % (41.0-53.0) MEAN CELL VOLUME 84 fL (80-100) MEAN CORPUSCULAR HGB 28 pg (26-34) MEAN CORPUSCULAR HGB CONC 33 g/dL (31-37) RED CELL DISTRIBUTION WIDTH 13.8 % (11.6-14.8) PLATELET COUNT 192 K/uL (150-400) LYMPH % 30.5 % (25-40) MONO % 4.0 % (3-14) GRANULOCYTE % 65.5 Lipase: (DWIGHT: 06/25/2016 23:48) ( MsgRcvd 06/26/2016 00:08) Final results Test Result Flag Units (Reference) LIPASE 225 U/L (73-393) CMP: (DWIGHT: 06/25/2016 23:48) ( MsgRcvd 06/26/2016 00:13) Final results Test Result Flag Units (Reference) GLUCOSE 137 H mg/dL (70-110) BUN 20 H mg/dL (7-18) CREATININE 1.1 mg/dL (0.6-1.3) Estimated GFR >60 mL/min Estimated GFR- >60 mL/min Note: Persistent reduction over 3 months in eGFR<60 mL/min/1.73 m2 defines CKD. Patients with eGFR values>=60 mL/min/1.73 m2 may also have CKD if evidence ofpersistent proteinuria. Additional information may be foundat [email or web address].org. SODIUM 140 mmol/L (136-145) POTASSIUM 3.8 mmol/L (3.5-5.1) CHLORIDE 105 mmol/L (98-107) CARBON DIOXIDE 26 mmol/L (21-32) CALCIUM 8.6 mg/dL (8.5-10.1) TOTAL PROTEIN 7.6 g/dL (6.4-8.2) ALBUMIN 3.6 g/dL (3.3-5.0) BILIRUBIN, TOTAL 0.3 mg/dL (0.0-1.0) ALKALINE PHOSPHATASE 69 U/L (46-116) AST (SGOT) 18 U/L (15-37) ALT (SGPT) 37 U/L (12-78) . PROGRESS AND PROCEDURES Course of Care: IV normal saline Zofran 4 mg IV and Dilaudid 1 mg IV. Dilaudid 1 mg IV and Phenergan 25 mg IV Dilaudid 0.5 mg IV 02:07 06/26/16. Better as getting gas and fluid to move. 02:19 06/26/16. Dilaudid 0.5 mg IV. Discussed case with patient's primary care provider, (Louis). Reviewed test results. Agreed upon treatment plan. Health care provider will see patient in office. Patient/family counseled. Disposition: Discharged. Condition: stable. CLINICAL IMPRESSION Early, partial small bowel obstruction associated with intestinal bands / adhesions. INSTRUCTIONS Take clear liquids only (frequent sips) for the next 24 hours until better. Advance diet as tolerated. Warnings: Further evaluation is necessary. SEDATIVE MEDICATION: You were given sedative medication during your visit. Do not drive or operate dangerous machinery. GENERAL WARNINGS: Return or contact your physician immediately if your condition worsens or changes unexpectedly, if not improving as expected, or if other problems arise. Your Current Medications: CONTINUE TAKING THE FOLLOWING MEDICATIONS: BusPIRone HCl Oral : 20 mg 3x a day. clonidine .3 patch every week on Saturday *. Dilaudid Oral : Tablet 2 mg, 2 tablets PRN, Last: 1200. Omeprazole Oral : 40 mg 2x a day, Last: 0700. Promethazine HCl Oral : 25 mg, 1 to 2 tablets PRN nausea. Reglan 10mg TID *. Spironolactone Oral : Tablet 25 mg, 1 tablet daily. Warfarin Sodium Oral : 5 mg daily. Follow-up: Follow up with your doctor in three days as scheduled. Understanding of the discharge instructions verbalized by patient. Discharge instructions reviewed with and understanding was verbalized by marine extension agent. (Electronically signed by Milad Case MD 06/27/2016 19:55)
--- NOTE | 2016-06-26 02:21 | ED NURSING NOTES ---
Clinical Report - Nurses [facility] [address] [place] [address] 06/25/2016 22:25 Patient: RK AVILA SR TRIAGE Triage time 2245 PM. Acuity: LEVEL 3. Chief Complaint: ABDOMINAL PAIN. Alert. No acute distress. SEPSIS SCREEN: Sepsis Screen. Negative (no infection suspected/documented). MARIXA COMA SCORE: [place] Coma Scale: 15- eyes open spontaneously (4); best verbal response- oriented x 4 (5); best motor response- obeys commands (6). --22:53 Judie Smith R.N. 22:45 06/25/16. BP: 160/89 (regular adult cuff) taken on the left arm, via an automated monitor, while lying. HR: 78. RR: 16. O2 saturation: 97% on room air. Temp: 98 F (oral). Pain level now: 03/05. --22:53 Judie Smith R.N. Weight: 130.6 kg stated. Height/Length: 76 inches Per Patient. BMI: 35.1. --22:47 Judie Smith R.N. Medications BusPIRone HCl Oral 20 mg, 3x a day. clonidine .3 patch every week on Saturday . Dilaudid Oral (Tablet 2 mg) 2 tablets, PRN, last dose 1200. Omeprazole Oral 40 mg, 2x a day, last dose 0700. Promethazine HCl Oral 25 mg (1 to 2 tablets PRN nausea). Reglan 10mg TID . Spironolactone Oral (Tablet 25 mg) 1 tablet, daily. Warfarin Sodium Oral 5 mg, daily. --22:46 Judie Smith R.N. Medication/allergy information source: the patient. --22:53 Judie Smith R.N. Allergies Benacar. Ketamine. LIsinopril. Mercury. NSAIDs. --22:46 Judie Smith R.N. History Arrived by private vehicle. Historian: patient. Accompanied by family. Primary physician (Dr. Myers). ( pt states could not take the pain, came here for pain management, unable to have BM thru the colostomy). The patient has had nausea, constipation and abdominal pain. No vomiting, diarrhea or fever. 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 PAST MEDICAL HX: Immunizations: up-to-date. SOCIAL HX: Light tobacco smoker. No alcohol use or drug use. No recent travel. No known contact with a sick individual. ABUSE ASSESSMENT: No report of abuse. SELF HARM ASSESSMENT: A self harm assessment was performed. The patient answered "no" to the question "Do you have thoughts of harming or killing yourself?" and "Have you recently had thoughts about harming or killing others?". FALL RISK ASSESSMENT: Fall risk assessment completed. No fall risk identified. NUTRITIONAL RISK ASSESSMENT: The nutritional risk assessment revealed no deficiencies. FUNCTIONAL ASSESSMENT: Functional assessment: no impairments noted. LEARNING NEEDS ASSESSMENT: The learning needs assessment revealed no barriers. SKIN INTEGRITY ASSESSMENT: Skin integrity risk assessment completed. No skin integrity risk identified. --22:53 Judie Smith R.N. PROBLEMS: Gastroesophageal Reflux Disease [Active]. --22:46 Judie Smiht R.N. Nausea. GI Disease. Vomiting. Hypocalcemia. TIA - Transient Ischemic Attack. Abdominal Pain. Hematuria. Post-Op Infection. Post-Op Wound Dehiscence. Fever. Bronchitis. Palpitations. Nephropathy. Nephrolithiasis. Small bowel obstruction. Anxiety Reaction. Cancer. DVT - Deep Venous Thrombosis. Hypertension. Pulmonary Embolism. Diabetes Mellitus. Gallstone(s). FAP / Mattress Maker's Syndrome. Anemia. Migraine Headache. Hernia. Bowel Obstruction. Tetanus Status. Immunizations. --22:46 Judie Smith R.N. Migraine Headache [Intermittent]. --22:46 Judie Smith R.N. DVT - Deep Venous Thrombosis [Resolved]. --22:46 Judie Smith R.N. Renal Colic [RuleOut]. Vomiting [RuleOut]. Acute Pain [RuleOut]. Abdominal Pain [RuleOut]. Paralytic Ileus [RuleOut]. Bowel Obstruction [RuleOut]. --22:46 Judie Smith R.N. ADDITIONAL SURGERIES: Appendectomy. Cholecystectomy. Colectomy. Colonoscopy. Colostomy. Fracture Repair. Inguinal Hernia Repair. Peristomal hernia repair . Power port central line. Shoulder Surgery. Stoma Dilation. Umbilical Hernia Repair. --22:46 Judie Smith R.N. Interventions ID band on patient. --22:53 Judie Smith R.N. PHYSICAL ASSESSMENT Ambulatory to room. GENERAL / NEURO / PSYCH: Alert. Oriented X 4. Appears in no acute distress. Appears in pain. HEENT: Mucous membranes are pink. RESPIRATORY: Respirations not labored. Breath sounds within normal limits. CVS: Capillary refill less than 2 seconds. GI / : The patient has had nausea. Multiple surgical scars present (colostomy). Abdominal tenderness. Hyperactive bowel sounds in all quadrants. SKIN: Skin is warm and dry. --22:55 Judie Smith R.N. NURSING PROGRESS NOTES The initial plan of care for this patient has been created This plan of care was discussed with the patient. Patient gowned. Reassurance given. Two patient identifiers checked. Call light placed in reach. Side rails up. Brakes of bed on. Brakes of chair on. --22:56 Judie Smith R.N. 23:43 06/25/2016 Dilaudid (HYDROmorphone HCl PF) IVP 1 mg given over 1 minute(s) via site #1. Allergies verified, confirmed 5 rights and sedative warning given to the patient. IV patency established. IV site checked: no pain, redness, or swelling. IV flushed thoroughly pre- and post-medication administration. IVP given by RN. --23:53 Judie Smith R.N. 23:47 06/25/2016 Zofran (Ondansetron HCl) IVP 4 mg given over 2 minute(s) via site #1. Allergies verified and confirmed 5 rights. IV patency established. IV site checked: no pain, redness, or swelling. IV flushed thoroughly pre- and post-medication administration. IVP given by RN. --23:53 Judie Smith R.N. 23:51 06/25/2016 Site #1 accessed indwelling Mediport in the left using a 20g, 1 inch needle following sterile technique; 1 attempt. Good blood return noted. Blood drawn: rainbow set. Labeled in the presence of the patient and sent to the lab. Flushed with 20 mL saline. --23:52 Judie Smith R.N. 23:54 06/25/2016 Started bag #1 1000 mL IV Fluids IV NS (Saline); bolus of 1000 mL over 1 hour(s) then at 999 mL/hr over 1 hour(s) via site #1 via IV pump. Allergies verified and confirmed 5 rights. IV patency established. IV site checked: no pain, redness, or swelling. IV flushed thoroughly pre- and post-medication administration. --23:54 Judie Smith R.N. 00:11 06/26/2016 Zofran IVP Response: no adverse reaction symptoms are the same. The patient feels the same. --00:21 Judie Smith R.N. 00:17 06/26/2016 Dilaudid (HYDROmorphone HCl PF) IVP 1 mg given over 2 minute(s) via site #1. Allergies verified, confirmed 5 rights and sedative warning given to the patient. IV patency established. IV site checked: no pain, redness, or swelling. IV flushed thoroughly pre- and post-medication administration. IVP given by RN. --00:17 Judie Smith R.N. 00:06/26/2016 PHENERGAN (Promethazine HCl) IVP 25 mg given over 2 minute(s) via site #1. Allergies verified and confirmed 5 rights. IV patency established. IV site checked: no pain, redness, or swelling. IV flushed thoroughly pre- and post-medication administration. IVP given by RN. --00:20 Judie Smith R.N. 00:21 06/26/2016 Dilaudid IVP Response: no adverse reaction symptoms are the same. The patient feels the same. --00:21 Judie Smith R.N. Reassurance given. Reassessment after fluids administered and medication administered (01/03). He is calm and has had no adverse reaction. Overall patient status is the same- he states feels the same. GI / : The patient reports nausea. The patient reports abdominal pain. Two patient identifiers checked. Call light placed in reach. Bed placed in lowest position. Brakes of bed on. Brakes of chair on. --00:25 Judie Smith R.N. 00:21 06/26/16. BP: 148/80 taken on the right arm, via an automated monitor, while lying. HR: 77. RR: 16. O2 saturation: 96%. Pain level now: 01/03. --00:25 Judie Smith R.N. 00:52 06/26/2016 IV Fluids IV NS Bag Change: bag #1 completed. Total amount infused: 1000. STARTED bag #2 (1000 mL) at 500 mL/hr via IV pump. Confirmed 5 rights. IV patency established. IV site checked: no pain, redness, or swelling. IV flushed thoroughly. --00:52 Judie Smith R.N. ( Report from Judie PETERSEN). --01:31 Reynaldo Jha R.N. 01:17 06/26/2016 Dilaudid IVP Response: no adverse reaction pain is improving. Symptoms have improved the patient feels better. --01:32 Judie Smith R.N. 01:23 06/26/2016 PHENERGAN IVP Response: no adverse reaction symptoms have improved. --01:33 Judie Smith R.N. 01:32 06/26/2016 Dilaudid (HYDROmorphone HCl PF) IVP 0.5 mg given over 1 minute(s) via site #1. Allergies verified, confirmed 5 rights and sedative warning given to the patient. IV patency established. IV site checked: no pain, redness, or swelling. IV flushed thoroughly pre- and post-medication administration. IVP given by RN. --01:32 Judie Smith R.N. 01:33 06/26/16. BP: 141/71 taken on the left arm, while lying. HR: 71. RR: 12. O2 saturation: 95% on room air. Pain level now: 11/03. --01:36 Judie Smith R.N. Pulse oximeter placed on patient; monitor alarms on. Reassurance given. Reassessment after fluids administered. He is calm and has had no adverse reaction. Overall patient status is the same- he states feels the same. GI / : The patient reports abdominal pain. Two patient identifiers checked. Call light placed in reach. Brakes of bed on. Brakes of chair on. Care transferred and report given (Elysia Jacobs). --01:36 Judie Smith R.N. 02:42 06/26/2016 Dilaudid (HYDROmorphone HCl PF) IVP 0.5 mg given over 2 minute(s) via site #1. Allergies verified, confirmed 5 rights and sedative warning given. IV patency established. IV site checked: no pain, redness, or swelling. IV flushed thoroughly pre- and post-medication administration. IVP given by RN. --02:42 Reynaldo Jha R.N. 02:49 06/26/2016 HEPARIN LOCK FLUSH (Heparin (Porcine) Lock Flush) IVP 500 unit given over 20 second(s) via site #1. Allergies verified and confirmed 5 rights. IV patency established. IV site checked: no pain, redness, or swelling. IV flushed thoroughly pre- and post-medication administration. IVP given by RN. --02:49 Reynaldo Jha R.N. DISPOSITION / DISCHARGE Departure time: 0250. --02:58 Reynaldo Jha R.N. 02:56 06/26/16. BP: 117/68. HR: 75. RR: 18. O2 saturation: 100%. Temp: 97.5 F. Pain level now 0/10. --02:58 Reynaldo Jha R.N. 02:58 06/26/2016 Site #1 removed upon discharge. Bandaid applied. --02:58 Reynaldo Jha R.N. Locked/Released at 06/26/2016 3:01 by Reynaldo Jha R.N.
--- NOTE | 2016-06-26 02:21 | ED ORDER SUMMARY ---
..... Patient: RK AVILA SR OrderSheet [facility] VisitID: [id number] [place] [address] 50y, M Registration Date/Time: 06/25/2016 ORDER SHEET Weight: 130.6 kg (stated) Allergies: Benacar, Ketamine, LIsinopril, Mercury, NSAIDs GENERAL ORDERS: Abdomen 1V Upright Urgent (23:06/25/2016 Shola BLAS) (Ack 23:04 LMuller) (23:26 MCampbell) CBC w Diff Urgent (:06/25/2016 Shola BLAS) (Ack 23:04 LMuller) (23:48 EHassan R.N.) CMP Urgent (23:06/25/2016 Shola BLAS) (Ack 23:04 LMuller) (23:48 EHassan R.N.) Lipase Urgent (23:06/25/2016 Shola BLAS) (Ack 23:05 LMuller) (23:48 EHassan R.N.) Pulse oximeter (01:12 06/26/2016 Shola BLAS) (1:32 EHassan R.N.) MEDICATION ORDERS: Phenergan IV 25 mg (NOW) (00:06/26/2016 Shola BLAS) (0:20 EHassan R.N.) IV FLUIDS: IV NS : initial bolus 1000 mL (1000 mL/hr), then 500 mL/hr for 2h (NOW); Routine (23:06/25/2016 Shola BLAS) (23:54 EHassan R.N.) Dilaudid IV 1 mg (NOW) (23:06/25/2016 Shola BLAS) (23:53 EHassaalicia R.N.) Zofran IV 4 mg (NOW) (23:06/25/2016 Shola BLAS) (23:52 EHassaalicia R.N.) Dilaudid IV 1 mg (NOW) (00:08 06/26/2016 Shola BLAS) (0:17 EHassan R.N.) Dilaudid IV 0.5 mg (NOW) (01:11 06/26/2016 Shola BLAS) (1:32 Wanda Verdugo.NReyna) Dilaudid IV 0.5 mg (NOW) (02:18 06/26/2016 Shola BLAS) (2:42 Haile R.N.) Heparin Lock Flush IV 100 unit/mL (NOW) (02:42 06/26/2016 Haile Verdugo.N. per protocol) (2:49 Haile R.N.) ORDER SHEET NOTES: [Electronically signed by Reynaldo Jha R.N. (03:01 06/26/2016)] [Electronically signed by Milad Case MD (19:55 06/27/2016)] [Electronically locked/signed by Reynaldo Jha R.N. (03:01 06/26/2016)]
--- NOTE | 2016-06-26 02:21 | ED ORDER SUMMARY ---
..... Patient: RK AVILA SR OrderSheet [facility] VisitID: [id number] [place] [address] 50y, M Registration Date/Time: 06/25/2016 ORDER SHEET Weight: 130.6 kg (stated) Allergies: Benacar, Ketamine, LIsinopril, Mercury, NSAIDs GENERAL ORDERS: Abdomen 1V Upright Urgent (23:06/25/2016 Shola BLAS) (Ack 23:04 LMuller) (23:26 MCampbell) CBC w Diff Urgent (:06/25/2016 Shola BLAS) (Ack 23:04 LMuller) (23:48 EHassan R.N.) CMP Urgent (23:06/25/2016 Shola BLAS) (Ack 23:04 LMuller) (23:48 EHassan R.N.) Lipase Urgent (23:06/25/2016 Shola BLAS) (Ack 23:05 LMuller) (23:48 EHassan R.N.) Pulse oximeter (01:12 06/26/2016 Shola BLAS) (1:32 EHassan R.N.) MEDICATION ORDERS: Phenergan IV 25 mg (NOW) (00:06/26/2016 Shola BLAS) (0:20 EHassan R.N.) IV FLUIDS: IV NS : initial bolus 1000 mL (1000 mL/hr), then 500 mL/hr for 2h (NOW); Routine (23:06/25/2016 Shola BLAS) (23:54 EHassan R.N.) Dilaudid IV 1 mg (NOW) (23:06/25/2016 Shola BLAS) (23:53 EHassaalicia R.N.) Zofran IV 4 mg (NOW) (23:06/25/2016 Shola BLAS) (23:52 EHassaalicia R.N.) Dilaudid IV 1 mg (NOW) (00:08 06/26/2016 Shola BLAS) (0:17 EHassan R.N.) Dilaudid IV 0.5 mg (NOW) (01:11 06/26/2016 Shola BLAS) (1:32 Wanda Verdugo.NReyna) Dilaudid IV 0.5 mg (NOW) (02:18 06/26/2016 Shola BLAS) (2:42 Haile R.N.) Heparin Lock Flush IV 100 unit/mL (NOW) (02:42 06/26/2016 Haile Verdugo.N. per protocol) (2:49 Haile R.N.) ORDER SHEET NOTES: [Electronically signed by Reynaldo Jha R.N. (03:01 06/26/2016)] [Electronically signed by Milad Case MD (19:55 06/27/2016)] [Electronically locked/signed by Reynaldo Jha R.N. (03:01 06/26/2016)]
--- NOTE | 2016-06-26 05:56 | DIAGNOSTIC IMAGING REPORT ---
PROCEDURE: XR ABDOMEN 1 VIEW UPRIGHT INDICATION: Distention. Assess for recurrent obstruction. TECHNIQUE: AP upright view (2315 hours). (Two images). COMPARISON: Compared to radiographs of the abdomen on 06/17/2016. FINDINGS: Mild worsening moderately dilated right lower quadrant bowel loops with a few air-fluid levels. No evidence of free air. Status post cholecystectomy (surgical clips). IVC filter in position. Right renal calculi are partially obscured by bowel gas. IMPRESSION: 1. Mild worsening in a moderately dilated small bowel loops in right lower quadrant. Consider recurrent obstruction or ileus.
--- NOTE | 2016-06-27 19:55 | ED MED RECONCILIATION SUMMARY ---
Patient: MARGRAITARK ESPARZA Medication Reconciliation Report [facility] VisitID: [id number] [address] [place] [address] 50y, M Registration Date/Time: 06/25/2016 Weight: 130.6 kg Height/Length: 76 in. BMI: 35.1 ALLERGIES: Benacar, Ketamine, LIsinopril, Mercury, NSAIDs The patient's Home Medications are listed below: CONTINUE TAKING THE FOLLOWING MEDICATIONS: BusPIRone HCl Oral 20 mg, 3x a day clonidine .3 patch every week on Saturday Dilaudid Oral (2 mg) 2 tablets, PRN, last dose: 1200 Omeprazole Oral 40 mg, 2x a day, last dose: 0700 Promethazine HCl Oral 25 mg, 1 to 2 tablets PRN nausea Reglan 10mg TID Spironolactone Oral (25 mg) 1 tablet, daily Warfarin Sodium Oral 5 mg, daily The source(s) of the original Home Medication information: patient The following Medications were given to the patient in the Emergency Department: Zofran [IVP] IVP 4 mg, administered: 06/25/2016 11:47:00 PM Dilaudid [IVP] IVP 1 mg, administered: 06/25/2016 11:43:00 PM IV NS IV Fluids bolus 1000 mL over 1 hour(s), then 999 mL/hr, administered: 06/25/2016 11:54:00 PM Dilaudid [IVP] IVP 1 mg, administered: 06/26/2016 12:17:00 AM PHENERGAN [IVP] IVP 25 mg, administered: 06/26/2016 12:21:00 AM Dilaudid [IVP] IVP 0.5 mg, administered: 06/26/2016 1:32:00 AM Dilaudid [IVP] IVP 0.5 mg, administered: 06/26/2016 2:42:00 AM HEPARIN LOCK FLUSH [IVP] IVP 500 unit, administered: 06/26/2016 2:49:00 AM The following Medications were prescribed to the patient: None.
--- NOTE | 2016-06-27 19:55 | ED DISCHARGE INSTRUCTIONS ---
Patient: RK AVILA General Instructions [facility] VisitID: [id number] [place] [address] 50y, M Registration Date/Time: 06/25/2016 Early, partial small bowel obstruction associated with intestinal bands / adhesions. INSTRUCTIONS Take clear liquids only (frequent sips) for the next 24 hours until better. Advance diet as tolerated. Warnings: Further evaluation is necessary. SEDATIVE MEDICATION: You were given sedative medication during your visit. Do not drive or operate dangerous machinery. GENERAL WARNINGS: Return or contact your physician immediately if your condition worsens or changes unexpectedly, if not improving as expected, or if other problems arise. Your Current Medications: CONTINUE TAKING THE FOLLOWING MEDICATIONS: BusPIRone HCl Oral : 20 mg 3x a day. clonidine .3 patch every week on Saturday *. Dilaudid Oral : Tablet 2 mg, 2 tablets PRN, Last: 1200. Omeprazole Oral : 40 mg 2x a day, Last: 0700. Promethazine HCl Oral : 25 mg, 1 to 2 tablets PRN nausea. Reglan 10mg TID *. Spironolactone Oral : Tablet 25 mg, 1 tablet daily. Warfarin Sodium Oral : 5 mg daily. Follow-up: Follow up with your doctor in three days as scheduled. Understanding of the discharge instructions verbalized by patient. Discharge instructions reviewed with and understanding was verbalized by human capital analyst. ADDITIONAL INFORMATION Clear Liquid Diet Clear liquids are any liquid that you can see through as well as those that are very easy to digest. This is used while the body is recovering from irritation or infection of the stomach or intestinal tract. It may also be used before special procedures or surgery. This diet is to be used no more than three days. You may include the following items. Adults Adults should drink a total of 23 quarts of liquid per day. It may be easier to drink small frequent servings rather than a few large ones. Liquids can include: Fruit juices.Strained orange juice or lemonade (no pulp), apple, grape and cranberry juice, clear fruit drinks, sports drinks Beverages.Sport drinks, sodas, mineral water (plain or flavored), tea, black coffee, liquid gelatin (add twice the recommended amount of water) Soups.Clear broth, consomm, bouillon Desserts.Plain gelatin, popsicles, fruit juice bars Children Over 2 years old The following liquids are acceptable for children over age 2: Fruit juices.Strained orange juice or lemonade (no pulp), apple, grape and cranberry juice, clear fruit drinks Beverages. Sports drinks, sodas, mineral water (plain or flavored), tea, liquid gelatin (add twice the recommended amount of water) Soups. Clear broth, consomm, bouillon Desserts. Plain gelatin, popsicles, fruit juice bars Children under 2 years old Oral rehydration fluids such are available at drug stores and most grocery stores without a prescription. You have been given the following additional information: Diet, Clear Liquid (Electronically signed by Milad Case MD 06/27/2016 19:55)
--- NOTE | 2016-06-27 19:55 | ED MAR SUMMARY ---
..... Medication Administration Record [facility] [address] [place] [address] Patient: RK AVILA Visit ID: [id number] 50y, M Weight: 130.6 kg Height/Length: 76 in BMI: 35.1 ALLERGIES: Benacar, Ketamine, LIsinopril, Mercury, NSAIDs Given 23:43 06/25/2016 Judie Smith R.N. Medication Administered: DILAUDID [IVP] (HYDROMORPHONE HCL PF), Dose: 1 mg IVP over 1 minute(s), Site: #1. Medication Ordered: Dilaudid IV 1 mg (NOW). Given 23:47 06/25/2016 Judie Smith R.N. Medication Administered: ZOFRAN [IVP] (ONDANSETRON HCL), Dose: 4 mg IVP over 2 minute(s), Site: #1. Medication Ordered: Zofran IV 4 mg (NOW). Start 23:54 06/25/2016 Judie Smith R.N. Medication Administered: IV NS (SALINE), Dose: IV Fluids over 1 hour(s), Rate: 999 mL/hr, Bolus: 1000 mL over 1 hour(s), Dispensed: 1000 mL bag, Site: #1 left. Medication Ordered: IV NS : initial bolus 1000 mL (1000 mL/hr), then 500 mL/hr for 2h (NOW); Routine. Given 00:17 06/26/2016 Judie Smith R.N. Medication Administered: DILAUDID [IVP] (HYDROMORPHONE HCL PF), Dose: 1 mg IVP over 2 minute(s), Site: #1 left. Medication Ordered: Dilaudid IV 1 mg (NOW). Given 00:21 06/26/2016 Judie Smith R.N. Medication Administered: PHENERGAN [IVP] (PROMETHAZINE HCL), Dose: 25 mg IVP over 2 minute(s), Site: #1 left. Medication Ordered: Phenergan IV 25 mg (NOW). Given 01:32 06/26/2016 Judie Smith R.N. Medication Administered: DILAUDID [IVP] (HYDROMORPHONE HCL PF), Dose: 0.5 mg IVP over 1 minute(s), Site: #1 left. Medication Ordered: Dilaudid IV 0.5 mg (NOW). Given 02:42 06/26/2016 Reynaldo Jha R.N. Medication Administered: DILAUDID [IVP] (HYDROMORPHONE HCL PF), Dose: 0.5 mg IVP over 2 minute(s), Site: #1 left. Medication Ordered: Dilaudid IV 0.5 mg (NOW). Given 02:49 06/26/2016 Reynaldo Jha, R.N. Medication Administered: HEPARIN LOCK FLUSH [IVP] (HEPARIN (PORCINE) LOCK FLUSH), Dose: 500 unit IVP over 20 second(s), Site: #1 left. Medication Ordered: Heparin Lock Flush IV 100 unit/mL (NOW).
--- NOTE | 2016-06-27 19:55 | ED DISCHARGE INSTRUCTIONS ---
Patient: RK AVILA General Instructions [facility] VisitID: [id number] [place] [address] 50y, M Registration Date/Time: 06/25/2016 Early, partial small bowel obstruction associated with intestinal bands / adhesions. INSTRUCTIONS Take clear liquids only (frequent sips) for the next 24 hours until better. Advance diet as tolerated. Warnings: Further evaluation is necessary. SEDATIVE MEDICATION: You were given sedative medication during your visit. Do not drive or operate dangerous machinery. GENERAL WARNINGS: Return or contact your physician immediately if your condition worsens or changes unexpectedly, if not improving as expected, or if other problems arise. Your Current Medications: CONTINUE TAKING THE FOLLOWING MEDICATIONS: BusPIRone HCl Oral : 20 mg 3x a day. clonidine .3 patch every week on Saturday *. Dilaudid Oral : Tablet 2 mg, 2 tablets PRN, Last: 1200. Omeprazole Oral : 40 mg 2x a day, Last: 0700. Promethazine HCl Oral : 25 mg, 1 to 2 tablets PRN nausea. Reglan 10mg TID *. Spironolactone Oral : Tablet 25 mg, 1 tablet daily. Warfarin Sodium Oral : 5 mg daily. Follow-up: Follow up with your doctor in three days as scheduled. Understanding of the discharge instructions verbalized by patient. Discharge instructions reviewed with and understanding was verbalized by media relations specialist. ADDITIONAL INFORMATION Clear Liquid Diet Clear liquids are any liquid that you can see through as well as those that are very easy to digest. This is used while the body is recovering from irritation or infection of the stomach or intestinal tract. It may also be used before special procedures or surgery. This diet is to be used no more than three days. You may include the following items. Adults Adults should drink a total of 23 quarts of liquid per day. It may be easier to drink small frequent servings rather than a few large ones. Liquids can include: Fruit juices.Strained orange juice or lemonade (no pulp), apple, grape and cranberry juice, clear fruit drinks, sports drinks Beverages.Sport drinks, sodas, mineral water (plain or flavored), tea, black coffee, liquid gelatin (add twice the recommended amount of water) Soups.Clear broth, consomm, bouillon Desserts.Plain gelatin, popsicles, fruit juice bars Children Over 2 years old The following liquids are acceptable for children over age 2: Fruit juices.Strained orange juice or lemonade (no pulp), apple, grape and cranberry juice, clear fruit drinks Beverages. Sports drinks, sodas, mineral water (plain or flavored), tea, liquid gelatin (add twice the recommended amount of water) Soups. Clear broth, consomm, bouillon Desserts. Plain gelatin, popsicles, fruit juice bars Children under 2 years old Oral rehydration fluids such are available at drug stores and most grocery stores without a prescription. You have been given the following additional information: Diet, Clear Liquid (Electronically signed by Milad Case MD 06/27/2016 19:55)
--- NOTE | 2016-06-27 19:55 | ED MED RECONCILIATION SUMMARY ---
Patient: MARGARITARK ESPARZA Medication Reconciliation Report [facility] VisitID: [id number] [address] [place] [address] 50y, M Registration Date/Time: 06/25/2016 Weight: 130.6 kg Height/Length: 76 in. BMI: 35.1 ALLERGIES: Benacar, Ketamine, LIsinopril, Mercury, NSAIDs The patient's Home Medications are listed below: CONTINUE TAKING THE FOLLOWING MEDICATIONS: BusPIRone HCl Oral 20 mg, 3x a day clonidine .3 patch every week on Saturday Dilaudid Oral (2 mg) 2 tablets, PRN, last dose: 1200 Omeprazole Oral 40 mg, 2x a day, last dose: 0700 Promethazine HCl Oral 25 mg, 1 to 2 tablets PRN nausea Reglan 10mg TID Spironolactone Oral (25 mg) 1 tablet, daily Warfarin Sodium Oral 5 mg, daily The source(s) of the original Home Medication information: patient The following Medications were given to the patient in the Emergency Department: Zofran [IVP] IVP 4 mg, administered: 06/25/2016 11:47:00 PM Dilaudid [IVP] IVP 1 mg, administered: 06/25/2016 11:43:00 PM IV NS IV Fluids bolus 1000 mL over 1 hour(s), then 999 mL/hr, administered: 06/25/2016 11:54:00 PM Dilaudid [IVP] IVP 1 mg, administered: 06/26/2016 12:17:00 AM PHENERGAN [IVP] IVP 25 mg, administered: 06/26/2016 12:21:00 AM Dilaudid [IVP] IVP 0.5 mg, administered: 06/26/2016 1:32:00 AM Dilaudid [IVP] IVP 0.5 mg, administered: 06/26/2016 2:42:00 AM HEPARIN LOCK FLUSH [IVP] IVP 500 unit, administered: 06/26/2016 2:49:00 AM The following Medications were prescribed to the patient: None.
--- NOTE | 2016-06-27 19:55 | ED MAR SUMMARY ---
..... Medication Administration Record [facility] [address] [place] [address] Patient: RK AVILA Visit ID: [id number] 50y, M Weight: 130.6 kg Height/Length: 76 in BMI: 35.1 ALLERGIES: Benacar, Ketamine, LIsinopril, Mercury, NSAIDs Given 23:43 06/25/2016 Judie Smith R.N. Medication Administered: DILAUDID [IVP] (HYDROMORPHONE HCL PF), Dose: 1 mg IVP over 1 minute(s), Site: #1. Medication Ordered: Dilaudid IV 1 mg (NOW). Given 23:47 06/25/2016 Judie Smith R.N. Medication Administered: ZOFRAN [IVP] (ONDANSETRON HCL), Dose: 4 mg IVP over 2 minute(s), Site: #1. Medication Ordered: Zofran IV 4 mg (NOW). Start 23:54 06/25/2016 Judie Smith R.N. Medication Administered: IV NS (SALINE), Dose: IV Fluids over 1 hour(s), Rate: 999 mL/hr, Bolus: 1000 mL over 1 hour(s), Dispensed: 1000 mL bag, Site: #1 left. Medication Ordered: IV NS : initial bolus 1000 mL (1000 mL/hr), then 500 mL/hr for 2h (NOW); Routine. Given 00:17 06/26/2016 Judie Smith R.N. Medication Administered: DILAUDID [IVP] (HYDROMORPHONE HCL PF), Dose: 1 mg IVP over 2 minute(s), Site: #1 left. Medication Ordered: Dilaudid IV 1 mg (NOW). Given 00:21 06/26/2016 Judie Smith R.N. Medication Administered: PHENERGAN [IVP] (PROMETHAZINE HCL), Dose: 25 mg IVP over 2 minute(s), Site: #1 left. Medication Ordered: Phenergan IV 25 mg (NOW). Given 01:32 06/26/2016 Judie Smith R.N. Medication Administered: DILAUDID [IVP] (HYDROMORPHONE HCL PF), Dose: 0.5 mg IVP over 1 minute(s), Site: #1 left. Medication Ordered: Dilaudid IV 0.5 mg (NOW). Given 02:42 06/26/2016 Reynaldo Jha R.N. Medication Administered: DILAUDID [IVP] (HYDROMORPHONE HCL PF), Dose: 0.5 mg IVP over 2 minute(s), Site: #1 left. Medication Ordered: Dilaudid IV 0.5 mg (NOW). Given 02:49 06/26/2016 Reynaldo Jha, R.N. Medication Administered: HEPARIN LOCK FLUSH [IVP] (HEPARIN (PORCINE) LOCK FLUSH), Dose: 500 unit IVP over 20 second(s), Site: #1 left. Medication Ordered: Heparin Lock Flush IV 100 unit/mL (NOW).
== END 2016-06-26 02:50 | disposition home or self-care (01) ==
LOC: ED SRH 22:25
DX: K56.5 Intestinal adhesions [bands] with obstruction (postinfection) (principal); E11.9 Type 2 diabetes mellitus without complications; I10 Essential (primary) hypertension; K21.9 Gastro-esophageal reflux disease without esophagitis; Z79.891 Long term (current) use of opiate analgesic; Z79.01 Long term (current) use of anticoagulants; Z79.899 Other long term (current) drug therapy; Z91.048 Other nonmedicinal substance allergy status; F17.210 Nicotine dependence, cigarettes, uncomplicated
CPT/HCPCS: 90100; 92235; 95059

== ENCOUNTER 2016-07-01 06:48 | Inpatient (IN) | payer BC, OTHER ==
[~2016-07-01] VITALS: Ht 193 cm; Wt 135.8 kg
--- NOTE | 2016-07-01 09:31 | ED CLINICAL REPORT ---
Clinical Report - Physicians/Mid Levels [facility] [address] [place] [address] 07/01/2016 6:49 Patient: RK AVILA SR Time Seen: 07:30. Arrived- By private vehicle. Historian- patient. HISTORY OF PRESENT ILLNESS Chief Complaint: VOMITING. ABDOMINAL PAIN. This started today and is still present. No recent travel. He has had nausea, vomiting and abdominal pain. No diarrhea, black stools, bloody stools, flank pain or history of possible bad food exposure. No known contact with a sick individual or change in routine. Has not recently been camping or on antibiotics. The illness is described as moderate. (PT states he has colostomy output, but that it's slow.). Similar symptoms previously: Many times. Recent medical care: The patient was seen recently at another facility. ( Pt states he is scheduled for surgery in [place] in 12 days.). REVIEW OF SYSTEMS No fever, muscle aches, difficulty with urination, dark urine or headache. No dizziness, sore throat, chest pain, difficulty breathing or excessive urination. No skin rash, jaundice, back pain, fainting episodes or blurred vision. All systems otherwise negative, except as recorded above. PAST HISTORY Problems: Gastroesophageal Reflux Disease [Active]. TIA - Transient Ischemic Attack. Post-Op Wound Dehiscence. Palpitations. Nephropathy. Nephrolithiasis. Small bowel obstruction. Anxiety Reaction. Cancer. DVT - Deep Venous Thrombosis. Hypertension. Pulmonary Embolism. Diabetes Mellitus. Gallstone(s). 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 Anemia. Migraine Headache. Hernia. Tetanus Status. Immunizations. Additional Surgeries: Appendectomy. Cholecystectomy. Colectomy. Colonoscopy. Colostomy. Fracture Repair. Inguinal Hernia Repair. Peristomal hernia repair . Power port central line. Shoulder Surgery. Stoma Dilation. Umbilical Hernia Repair. Medications: BusPIRone HCl Oral 20 mg, 3x a day. clonidine .3 patch every week on Saturday . Dilaudid Oral (Tablet 2 mg) 2 tablets, PRN, last dose 1200. Omeprazole Oral 40 mg, 2x a day, last dose 0700. Promethazine HCl Oral 25 mg (1 to 2 tablets PRN nausea). Reglan 10mg TID . Spironolactone Oral (Tablet 25 mg) 1 tablet, daily. Warfarin Sodium Oral 5 mg, daily. Allergies: Benacar. Ketamine. LIsinopril. Mercury. NSAIDs. SOCIAL HISTORY History of frequent chewing tobacco use. No alcohol use or drug use. ADDITIONAL NOTES The nursing notes have been reviewed. PHYSICAL EXAM Vital Signs: 07/01/2016 07:29 BP: 151/99. HR: 92. RR: 16. O2 saturation: 98%. Temp: 98.6 F. Have been reviewed. Appearance: Alert. Oriented X3. No acute distress. (Pt appears moderately uncomfortable.). Eyes: Pupils equal, round and reactive to light. Eyes normal inspection. ENT: Nose normal. Neck: Normal inspection. CVS: Normal heart rate and rhythm. Heart sounds normal. Pulses normal. Respiratory: No respiratory distress. Breath sounds normal. Abdomen: Soft. Mild tenderness. No guarding or rebound tenderness. (Colostomy site is healthy appearing.). Back: Normal inspection. Skin: Skin warm and dry. Normal skin color. No rash. Normal skin turgor. Extremities: Extremities exhibit normal ROM. No lower extremity edema. Neuro: Oriented X 3. No motor deficit. No sensory deficit. LABS, X-RAYS, AND EKG KUB: Abnormal gas pattern in the right abdomen and left abdomen with small bowel dilatation and air fluid levels. Findings consistent with an obstruction. Soft tissues normal. No mass effect. No organomegaly present. No fracture or bony lesion present. Views: two-view AP. Technique: good. The X-rays were independently viewed by me, interpreted by the radiologist and contemporaneously by me and discussed with the radiologist. Prior films were not available for comparison. Laboratory Tests: CBC w Diff: (DWIGHT: 07/01/2016 08:05) ( MsgRcvd 07/01/2016 08:23) Final results Test Result Flag Units (Reference) WHITE BLOOD COUNT 9.5 K/uL (4.5-11.5) RED BLOOD COUNT 5.28 M/uL (4.50-5.90) HEMOGLOBIN 14.8 gm/dL (13.5-17.5) HEMATOCRIT 44.2 % (41.0-53.0) MEAN CELL VOLUME 84 fL (80-100) MEAN CORPUSCULAR HGB 28 pg (26-34) MEAN CORPUSCULAR HGB CONC 34 g/dL (31-37) RED CELL DISTRIBUTION WIDTH 14.5 % (11.6-14.8) PLATELET COUNT 200 K/uL (150-400) NEUTROPHIL % 81.3 H % (50-75) LYMPH % 12.1 L % (25-40) MONO % 5.6 % (3-14) EOSINOPHIL % 1.0 % (0-4) BASOPHIL % 0 % (0-2) CMP: (DWIGHT: 07/01/2016 08:05) ( MsgRcvd 07/01/2016 08:31) Final results Test Result Flag Units (Reference) GLUCOSE 134 H mg/dL (70-110) BUN 14 mg/dL (7-18) CREATININE 1.1 mg/dL (0.6-1.3) Estimated GFR >60 mL/min Estimated GFR- >60 mL/min Note: Persistent reduction over 3 months in eGFR<60 mL/min/1.73 m2 defines CKD. Patients with eGFR values>=60 mL/min/1.73 m2 may also have CKD if evidence ofpersistent proteinuria. Additional information may be foundat www.kidney.org. SODIUM 141 mmol/L (136-145) POTASSIUM 3.8 mmol/L (3.5-5.1) CHLORIDE 104 mmol/L (98-107) CARBON DIOXIDE 26 mmol/L (21-32) CALCIUM 8.6 mg/dL (8.5-10.1) TOTAL PROTEIN 7.7 g/dL (6.4-8.2) ALBUMIN 3.5 g/dL (3.3-5.0) BILIRUBIN, TOTAL 0.6 mg/dL (0.0-1.0) ALKALINE PHOSPHATASE 77 U/L (46-116) AST (SGOT) 29 U/L (15-37) ALT (SGPT) 43 U/L (12-78) . Laboratory tests not ordered. Pulse Oximetry: 07/01/2016 07:29 O2 saturation: 98%. (FIO2 - room air). Interpretation: normal. PROGRESS AND PROCEDURES Course of Care: Pt was treated with Dilaudid, Zofran, and Phneergnan, with improvememt in sx. Pt felt that he would not be able to manage the symptoms at home, and I did arrange for admission with the hospitalist, as Dr. Myers has informed me he is going out of town for several days, including today. Work-up was unremarkable, other than the abdominal xray series, which showed a small bowel obstruction. Discussed case with hospitalist, (Quintin). Reviewed test results and need for additional work-up. Agreed upon treatment plan and decision to admit. Health care provider will see patient in ED. Patient/family counseled. Old medical records reviewed. Disposition: Admitted to Acute Care. Condition: stable and serious. CLINICAL IMPRESSION Small bowel obstruction associated with intestinal bands / adhesions. (Electronically signed by Flower Jay MD 07/02/2016 16:00)
--- NOTE | 2016-07-01 09:31 | ED NURSING NOTES ---
Clinical Report - Nurses [facility] [address] [place] [address] 07/01/2016 6:49 Patient: RK AVILA SR TRIAGE Triage time 07:30. Acuity: LEVEL 3. Chief Complaint: ABDOMINAL PAIN and VOMITING. Alert. No acute distress. SEPSIS SCREEN: Sepsis Screen. Negative (no infection suspected/documented). MARIXA COMA SCORE: Steward Coma Scale: 15- eyes open spontaneously (4); best verbal response- oriented x 4 (5); best motor response- obeys commands (6). --07:34 Julianne Hadley R.N. 07:29 07/01/16. BP: 151/99. HR: 92. RR: 16. O2 saturation: 98%. Temp: 98.6 F. Pain level now 03/05. --07:34 Julianne Hadley R.N. Weight: 129.2 kg stated. Height/Length: 76 inches Per Patient. BMI: 34.7. --07:32 Julianne Hadley R.N. Medications BusPIRone HCl Oral 20 mg, 3x a day. clonidine .3 patch every week on Saturday . Dilaudid Oral (Tablet 2 mg) 2 tablets, PRN, last dose 1200. Omeprazole Oral 40 mg, 2x a day, last dose 0700. Promethazine HCl Oral 25 mg (1 to 2 tablets PRN nausea). Reglan 10mg TID . Spironolactone Oral (Tablet 25 mg) 1 tablet, daily. Warfarin Sodium Oral 5 mg, daily. --07:33 Julianne Hadley R.N. Allergies Benacar. Ketamine. LIsinopril. Mercury. NSAIDs. --07:33 Julianne Hadley R.N. History Arrived by private vehicle, and unaccompanied. Primary physician (Dr. Myers). Onset. (3 hours ago). 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 PAST MEDICAL HX: Immunizations: up-to-date. SOCIAL HX: Smoker- current status unknown (stated he stopped chewing 3 days ago). No alcohol use or drug use. No infectious disease exposure. No known contact with a sick individual. ABUSE ASSESSMENT: No report of abuse. NUTRITIONAL RISK ASSESSMENT: The nutritional risk assessment revealed no deficiencies. FUNCTIONAL ASSESSMENT: Functional assessment: no impairments noted. LEARNING NEEDS ASSESSMENT: The learning needs assessment revealed no barriers. --07:34 Julianne Hadley R.N. PROBLEMS: Gastroesophageal Reflux Disease [Active]. --07:33 Julianne Hadley R.N. Nausea. GI Disease. Vomiting. Hypocalcemia. TIA - Transient Ischemic Attack. Abdominal Pain. Hematuria. Post-Op Infection. Post-Op Wound Dehiscence. Fever. Bronchitis. Palpitations. Nephropathy. Nephrolithiasis. Small bowel obstruction. Anxiety Reaction. Cancer. DVT - Deep Venous Thrombosis. Hypertension. Pulmonary Embolism. Diabetes Mellitus. Gallstone(s). Anemia. Migraine Headache. Hernia. Bowel Obstruction. --07:33 Julianne Hadley R.N. 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 --11:02 Julianne Hadley R.N. ADDITIONAL SURGERIES: Appendectomy. Cholecystectomy. Colectomy. Colonoscopy. Colostomy. Fracture Repair. Inguinal Hernia Repair. Peristomal hernia repair . Power port central line. Shoulder Surgery. Stoma Dilation. Umbilical Hernia Repair. --07:34 Julianne Hadley R.N. Interventions ID and allergy band on patient. Ambulatory. --07:34 Julianne Hadley R.N. PHYSICAL ASSESSMENT Ambulatory to room. GENERAL / NEURO / PSYCH: Alert. Appears in no acute distress. HEENT: Mucous membranes are pink. RESPIRATORY: Respirations not labored. CVS: Capillary refill less than 2 seconds. GI / : Abdomen soft and nontender. ( pt has ostomy bag on left lower abd.). SKIN: Skin is warm and dry. --07:35 Julianne Hadley R.N. GI / : The patient has had intermittent episodes of nausea (Pt. states he is scheduled for abdominal surgery at [facility] in [place] in 12 days, but couldn't quite make it that long, so came in to be seen for control of vomiting, which started 3 hours ago.). --08:16 Dotty Pritchard R.N. NURSING PROGRESS NOTES Patient gowned. Head of bed elevated. Two patient identifiers checked. Call light placed in reach. Side rails up x 2. Bed placed in lowest position. Brakes of bed on. Patient ready for evaluation- chart flagged. --07:35 Julianne Hadley R.N. 08:05 07/01/2016 Site #1 accessed indwelling Powerport in the left using a 20g, 1 inch non-coring needle following sterile technique; 1 attempt. Good blood return noted. Site prepped with chlorhexidine. Blood drawn: rainbow set and cultures x1. Labeled in the presence of the patient and sent to the lab. Proximal port flushed with 10 mL saline (accessed by Dotty Kennedy RN). --08:08 Julianne Hadley R.N. 08:07/01/2016 Started bag #1 1000 mL IV Fluids IV NS (Saline); at 1000 mL/hr over 1 hour(s) via site #1 via IV pump. Allergies verified and confirmed 5 rights. IV patency established. IV site checked: no pain, redness, or swelling. IV flushed thoroughly pre- and post-medication administration. --08:08 Julianne Hadley R.N. 08:06 07/01/2016 PHENERGAN (Promethazine HCl) IVP 25 mg given over 2 minute(s) via site #1. Allergies verified and confirmed 5 rights. IV patency established. IV site checked: no pain, redness, or swelling. IV flushed thoroughly pre- and post-medication administration. --08:08 Julianne Hadley R.N. 08:15 07/01/2016 Zofran (Ondansetron HCl) IVP 8 mg given over 2 minute(s) via site #1. Allergies verified and confirmed 5 rights. IV patency established. IV site checked: no pain, redness, or swelling. IV flushed thoroughly pre- and post-medication administration. --08:18 Julianne Hadley R.N. 08:18 07/01/2016 Dilaudid (HYDROmorphone HCl PF) IVP 1 mg given over 2 minute(s) via site #1. Allergies verified, confirmed 5 rights and sedative warning given to the patient. IV patency established. IV site checked: no pain, redness, or swelling. IV flushed thoroughly pre- and post-medication administration. --08:18 Julianne Hadley R.N. 08:19 07/01/16. BP: 144/68. HR: 94. RR: 16. O2 saturation: 95%. --08:19 Julianne Hadley R.N. 08:19 07/01/16. O2 saturation: 97%. --08:19 Julianne Hadley R.N. Patient transported to radiology by stretcher with tech. (08:45). --08:55 Julianne Hadley R.N. Patient returned from radiology by stretcher with tech. --09:02 Julianne Hadley R.N. 09:08 07/01/2016 Dilaudid (HYDROmorphone HCl PF) IVP 1 mg given over 1 minute(s) via site #1. Allergies verified, confirmed 5 rights and sedative warning given to the patient. IV patency established. IV site checked: no pain, redness, or swelling. IV flushed thoroughly pre- and post-medication administration. --09:08 Julianne Hadley R.N. 09:08 07/01/16. BP: 135/67. HR: 86. RR: 16. O2 saturation: 96%. --09:09 Julianne Hadley R.N. 10:20 07/01/2016 IV Fluids IV NS Discontinued: bag #1 infused. Total amount infused: 1000 mL. IV patency established. IV site checked: no pain, redness, or swelling. IV flushed thoroughly. --10:30 Gail Curiel R.N. 10:21 07/01/2016 Started bag #2 1000 mL IV Fluids IV NS (Saline); at 1000 mL/hr over 1 hour(s) via site #1 via IV pump. Allergies verified and confirmed 5 rights. --10:31 Gail Curiel R.N. 10:27 07/01/2016 Dilaudid (HYDROmorphone HCl PF) IVP 1 mg given over 1 minute(s) via site #1. IV patency established. IV site checked: no pain, redness, or swelling. IV flushed thoroughly pre- and post-medication administration. IVP given by RN. --10:29 Gail Curiel R.N. 10:29 07/01/2016 Reglan (Metoclopramide HCl) IVP 10 mg given over 1 minute(s) via site #1. IV patency established. IV site checked: no pain, redness, or swelling. IV flushed thoroughly pre- and post-medication administration. IVP given by RN. --10:29 Gail Curiel R.N. 10:18. ( First contact with pt. Hospitalist in to examine pt. Pt asking for more pain and nausea meds. Meds ordered and given). --10:32 Gail Curiel R.N. 10:22 07/01/16. BP: 145/83. HR: 87. RR: 20. O2 saturation: 96%. Temp: deferred. Pain level now: 02/03. --10:33 Gail Curiel R.N. 11:12 07/01/2016 IV Fluids IV NS Continued: upon admission at the rate of 999 mL/hr. 300 mL remaining bag #2. IV patency established. IV site checked: no pain, redness, or swelling. IV flushed thoroughly. --11:12 Julianne Hadley R.N. DISPOSITION / DISCHARGE Report was given to a nurse via a phone call. Report included patient's care, treatment, medications, reviewed medication reconcilliation, and condition (including any recent changes or anticipated changes). All questions were answered. Patient's personal items; items were placed in belongings bag, given to the patient and transported with the patient. --11:04 Julianne Hadley R.N. 11:11 07/01/16. BP: 136/65. HR: 83. RR: 16. O2 saturation: 97%. Pain level now 01/03. --11:11 Julianne Hadley R.N. 11:11 07/01/2016 Site #[address] upon admission; patent and no signs of infiltration. --11:11 Julianne Hadley R.N. Departure time: . --11:17 Julianne Hadley R.N. Locked/Released at 07/01/2016 11:30 by Julianne Hadley R.N.
--- NOTE | 2016-07-01 09:31 | ED ORDER SUMMARY ---
..... Patient: RK AVILA SR OrderSheet [facility] VisitID: [id number] [address] [place] [address] 50y, M Registration Date/Time: 07/01/2016 ORDER SHEET Weight: 129.2 kg (stated) Allergies: Benacar, Ketamine, LIsinopril, Mercury, NSAIDs GENERAL ORDERS: CBC w Diff Urgent (07:40 07/01/2016 Stevie BLAS) (Ack 7:41 LMuller) (8:08 SReitz R.N.) CMP Urgent (07:40 07/01/2016 Stevie BLAS) (Ack 7:41 LMuller) (8:08 Federico R.N.) Abd Series 2V Abd/1V Chest Urgent (07:40 07/01/2016 Stevie BLAS) (Ack 7:41 LMuller) (9:02 LMuller) MEDICATION ORDERS: Phenergan IV 25 mg (HIGH ALERT MEDICATION, NOW) (07:40 07/01/2016 Stevie BLAS) (8:08 SReitz R.N.) IV FLUIDS: IV NS : initial bolus 1000 mL (1000 mL/hr), then none - (NOW) (07:39 07/01/2016 Stevie BLAS) (8:08 SReitz R.N.) Dilaudid IV 1 mg (HIGH ALERT MEDICATION, NOW) (08:09 07/01/2016 Stevie BLAS) (Ack 8:10 Bettyitz R.N.) (8:18 Bettyitz R.N.) Zofran IV 8 mg (NOW) (08:07/01/2016 Stevie BLAS) (Ack 8:10 SReitz R.N.) (8:18 SReitz R.N.) Dilaudid IV 1 mg (HIGH ALERT MEDICATION, NOW) (08:56 07/01/2016 Stevie BLAS) (Ack 9:05 SReitz R.N.) (9:08 SReitz R.N.) Reglan IV 10 mg (NOW) (10:07/01/2016 Stevie BLAS) (10:29 DDean R.N.) Dilaudid IV 1 mg (HIGH ALERT MEDICATION, NOW) (10:07/01/2016 Stevie BLAS) (10:29 DDean R.N.) IV NS : initial bolus none -, then 1000 mL/hr for X1 (NOW) (10:07/01/2016 DDean R.N. per protocol) (10:31 DDeaalicia R.N.) ORDER SHEET NOTES: [Electronically signed by Julianne Hadley R.N. (11:07/01/2016)] [Electronically signed by Flower Jay MD (16:00 07/02/2016)] [Electronically locked/signed by Julianne Hadley R.N. (11:07/01/2016)]
--- NOTE | 2016-07-01 09:31 | ED ORDER SUMMARY ---
..... Patient: RK AVILA SR OrderSheet [facility] VisitID: [id number] [address] [place] [address] 50y, M Registration Date/Time: 07/01/2016 ORDER SHEET Weight: 129.2 kg (stated) Allergies: Benacar, Ketamine, LIsinopril, Mercury, NSAIDs GENERAL ORDERS: CBC w Diff Urgent (07:40 07/01/2016 Stevie BLAS) (Ack 7:41 LMuller) (8:08 SReitz R.N.) CMP Urgent (07:40 07/01/2016 Stevie BLAS) (Ack 7:41 LMuller) (8:08 Federico R.N.) Abd Series 2V Abd/1V Chest Urgent (07:40 07/01/2016 Stevie BLAS) (Ack 7:41 LMuller) (9:02 LMuller) MEDICATION ORDERS: Phenergan IV 25 mg (HIGH ALERT MEDICATION, NOW) (07:40 07/01/2016 Stevie BLAS) (8:08 SReitz R.N.) IV FLUIDS: IV NS : initial bolus 1000 mL (1000 mL/hr), then none - (NOW) (07:39 07/01/2016 Stevie BLAS) (8:08 SReitz R.N.) Dilaudid IV 1 mg (HIGH ALERT MEDICATION, NOW) (08:09 07/01/2016 Stevie BLAS) (Ack 8:10 Bettyitz R.N.) (8:18 Bettyitz R.N.) Zofran IV 8 mg (NOW) (08:07/01/2016 Stevie BLAS) (Ack 8:10 SReitz R.N.) (8:18 SReitz R.N.) Dilaudid IV 1 mg (HIGH ALERT MEDICATION, NOW) (08:56 07/01/2016 Stevie BLAS) (Ack 9:05 SReitz R.N.) (9:08 SReitz R.N.) Reglan IV 10 mg (NOW) (10:07/01/2016 Stevie BLAS) (10:29 DDean R.N.) Dilaudid IV 1 mg (HIGH ALERT MEDICATION, NOW) (10:07/01/2016 Stevie BLAS) (10:29 DDean R.N.) IV NS : initial bolus none -, then 1000 mL/hr for X1 (NOW) (10:07/01/2016 DDean R.N. per protocol) (10:31 DDeaalicia R.N.) ORDER SHEET NOTES: [Electronically signed by Julianne Hadley R.N. (11:07/01/2016)] [Electronically signed by Flower Jay MD (16:00 07/02/2016)] [Electronically locked/signed by Julianne Hadley R.N. (11:07/01/2016)]
--- NOTE | 2016-07-01 09:44 | DIAGNOSTIC IMAGING REPORT ---
PROCEDURE: XR ABD SERIES 2V ABD/1V CHEST INDICATION: Distention. History bowel obstruction. TECHNIQUE: AP supine and upright views with PA view chest. COMPARISON: Comparison made to abdominal radiograph (06/25/2016) and chest x-ray (to 02/20/2016). FINDINGS: ABDOMEN: Mild worsening in moderately dilated small bowel loops in right lower quadrant with air-fluid levels. No evidence of free air. Status post cholecystectomy. Left lower quadrant ostomy. IVC filter in position. There are four right calculi (previously documented). CHEST: Lungs are clear. There is a left subclavian Port-A-Cath. Heart and mediastinum are normal. Postoperative change of the left shoulder with surgical anchor. IMPRESSION: 1. Mild worsening in a moderately dilated bowel loops in right lower quadrant consistent with chronic obstruction. 2. Postoperative change of the abdomen. 3. Left subclavian Port-A-Cath. Otherwise negative chest.
--- NOTE | 2016-07-01 10:42 | History & Physical Report ---
Information Source Information Source: Self, ED Record, Old Records History Chief Complaint Abdominal pain, distension, and vomiting History of Present Illness 50yoM w/ hx of multiple abdominal surgeries s/p ileostomy and hx of multiple hospitalizations for SBO, who presents with worsening abdominal pain, distension , and vomiting that started about 5-6pm last night. He vomited several times, and patient felt his symptoms were concerning for another SBO, so he decided to come to the hospital. He actually was just seen here this past month for the same. He states that he is passing small amounts of gas, but has had very minimal output from his ostomy. He denies any fevers. Patient History 1. SBO (small bowel obstruction) 2. DVT (deep venous thrombosis) 3. Factor V Leiden 4. Familial adenomatous polyposis 5. Hypertension 6. Anxiety 7. Depression Social History Occasional alcohol, chews tobacco, no drugs. Family History MOTHER, ; Cause: Familial adenomatous polyposis. Familial adenomatous polyposis BROTHER, ; Cause: Colon cancer. FHx: colon cancer SISTER, ; Cause: Colon cancer. FHx: colon cancer BROTHER Familial adenomatous polyposis FATHER FHx: myocardial infarction Medications and Allergies Medications Current Medications Sig/Ric Start time Last Medication Dose Route Stop Time Status Admin Clonidine HCl 0.2 MG Q7D 07/08 0900 AC TOP Clonidine HCl 0.1 MG Q7D 07/08 0900 AC TOP Spironolactone 25 MG DAILY 07/02 0900 AC PO Pantoprazole Sodium 40 MG DAILY@0600 07/02 0600 AC IV Buspirone HCl 20 MG TID 07/01 1400 AC PO Promethazine HCl See Dose Q4H PRN 07/01 1030 AC Insts (1) IV Hydromorphone HCl 1 MG Q1H PRN 07/01 1015 AC IV Naloxone HCl 0.4 MG PRN PRN 07/01 1015 AC IV Sodium Chloride 1,000 ML ASDIRECTED 07/01 1015 AC IV Dose Instructions: (1)Promethazine HCl: 12.5 - 25 MG Allergies Coded Allergies: Iodine (Severe, IV CONTRAST = HIVES 06/11/16) Since allergy/burn w/ mercurachrome, "they" think also has allergy to iodine Mercurial Derivatives (Severe, BURN 06/11/16) NSAIDs (Severe, GI BLEED 06/11/16) Ketamine (Intermediate, UNAROUSABLE, NAUSEA AND VIOLENT EMESIS 06/11/16) Lorazepam (From ATIVAN) (Intermediate, COMBATIVE, AGGITATED 06/11/16) Hydrocodone (Severe, SEVERE NAUSEA; TOLERATES PO HYDROMORPHONE, OXYCODONE ) Latex (Severe, skin rxn w/dental dam at dentist 06/11/16) Lisinopril (Severe, CAUSES ANGIOEDEMA -- PER H&P 06/11/16) Olmesartan (From Benicar) (Severe, CAUSES ANGIOEDEMA -- PER H&P 06/11/16) Celecoxib (From CELEBREX) (Intermediate, ABDOMINAL BLEEDING 06/11/16) Review of Systems Other As per HPI, rest of 10-point ROS unremarkable. Physical Exam General Appearance Alert, Oriented X3, Cooperative, Mild distress HEENT Atraumatic, PERRLA, EOMI, Moist mucous membranes Lungs Clear to auscultation Neck Supple Cardiovascular Regular rate and rhythm, Normal S1 and S2, No murmurs, gallops, rubs Abdomen Multiple scars, mostly along midline, LLQ ostomy with minimal output. Mildly distended but overall soft. Tender throughout to palpation w/o rebound. Hypoactive BS. Extremities No edema Skin No Rashes Neurological No lateralizing signs Psych/Mental Status Mental status normal LAB Results Laboratory Tests 07/01 804 Chemistry Plasma Sodium (136 - 145 mmol/L) 141 Plasma Potassium (3.5 - 5.1 mmol/L) 3.8 Plasma Chloride (98 - 107 mmol/L) 104 CO2 (Enzymatic) (21 - 32 mmol/L) 26 BUN (7 - 18 mg/dL) 14 Creatinine (0.6 - 1.3 mg/dL) 1.1 Est GFR ( Amer) (mL/min) >60 Est GFR (Non-Af Amer) (mL/min) >60 Glucose (70 - 110 mg/dL) 134 Plasma Calcium (8.5 - 10.1 mg/dL) 8.6 Total Bilirubin (0.0 - 1.0 mg/dL) 0.6 AST (15 - 37 U/L) 29 ALT (12 - 78 U/L) 43 Alkaline Phosphatase (46 - 116 U/L) 77 Total Protein (6.4 - 8.2 g/dL) 7.7 Albumin (3.3 - 5.0 g/dL) 3.5 Hematology WBC (4.5 - 11.5 K/uL) 9.5 RBC (4.50 - 5.90 M/uL) 5.28 Hgb (13.5 - 17.5 gm/dL) 14.8 Hct (41.0 - 53.0 %) 44.2 MCV (80 - 100 fL) 84 MCH (26 - 34 pg) 28 RDW (11.6 - 14.8 %) 14.5 Neut % (Auto) (50 - 75 %) 81.3 Lymph % (Auto) (25 - 40 %) 12.1 [place] % (Auto) (3 - 14 %) 5.6 Eos % (Auto) (0 - 4 %) 1.0 Baso % (Auto) (0 - 2 %) 0 Plt Count, EDTA (150 - 400 K/uL) 200 PUBS MCHC (31 - 37 g/dL) 34 Imaging IMPRESSION: 1. Mild worsening in a moderately dilated bowel loops in right lower quadrant consistent with chronic obstruction. 2. Postoperative change of the abdomen. 3. Left subclavian Port-A-Cath. Otherwise negative chest. Dictated by: ANTOLIN ZHAO MD Assessment and Plan Problem List 1. Small bowel obstruction due to adhesions Plan Will treat conservatively for now with pain control, antiemetics, IVF, and will keep patient NPO. Will monitor abdominal exam. No indication for NG placement at this time. 2. Hypertension Plan Continue his clonidine patch and spironolactone. 3. DVT (deep venous thrombosis) Plan Continue on coumadin. 4. Anxiety Plan Continue buspirone. FEN: NPO for now PPx: on coumadin, SCDs Code: FULL, per discussion w/ patient in the ED. He would not want prolonged lifesupport if there was no chance of recovery. Dispo: Obs for above conservative management of SBO. Likely <2MN hospital stay anticipated if his symptoms resolve. E&M Codes Admission: Obsv-Comp/High/[id number]
[2016-07-01 11:34] VITALS: BP 146/77
[2016-07-01 14:17] VITALS: BP 145/83
[2016-07-01 18:35] VITALS: BP 148/83
[2016-07-01 22:15] VITALS: BP 130/71
[2016-07-02 02:06] VITALS: BP 135/66
[2016-07-02 07:05] VITALS: BP 114/60
[2016-07-02 10:30] VITALS: BP 136/71
--- NOTE | 2016-07-02 11:17 | Progress Note ---
Subjective General Pt seen and examined this morning. Patient has decreased discomfort, nausea, and bloating. Patient on exam seen to have bowel sounds that dont suggest obstruction. Patient is otherwise stable, will move forward to clears. Constitutional Malaise. Denies: Fever, Chills, Sweats, Weakness, Other. Eyes Denies: Pain, Vision Change, Conjunctival Inflammation, Eyelid Inflammation, Redness, Other. ENT Denies: Ear Pain, Ear Discharge, Nose Pain, Nasal Discharge, Nasal Congestion, Mouth Pain, Mouth Swelling, Throat Pain, Throat Swelling, Other. Respiratory Denies: Cough, Dry, SOB w/exertion, Wheezing, Hemoptysis, Pleuritic Pain, Sputum , Other. Cardiovascular Denies: Chest Pain, Palpitations, Orthopnea, PND, Edema, Light-headedness, Other. Gastrointestinal Denies: Nausea, Vomiting, Abdominal Pain, Diarrhea, Constipation, Melena, Hematochezia, Other. Musculoskeletal Denies: Neck Pain, Shoulder Pain, Arm Pain, Back Pain, Hand Pain, Leg Pain, Foot Pain, Other. Skin Denies: Rash, Lesions, Jaundice, Bruising, Other. Physical Exam Vital Signs / I&Os Vital Signs Date Time Temp Pulse Resp B/P Pulse O2 O2 Flow FiO2 Ox Delivery Rate 07/02 1030 77 20 136/71 96 Room Air 07/02 0800 Room Air 07/02 0705 97.5 64 20 114/60 93 Room Air 07/02 0206 98.1 66 16 135/66 94 Room Air 07/01 2215 98.1 77 20 130/71 93 Room Air 07/01 1945 Room Air 07/01 1835 98.2 97 21 148/83 90 Room Air 07/01 1417 98.2 90 21 145/83 93 Room Air / 1134 97.9 64 21 146/77 99 Room Air I&O 07/01 0800 02/05 1600 02/06 0000 Intake Total 500 Output Total 700 550 Balance -700 -50 General Appearance Alert, Oriented X3, Cooperative, No acute distress Lungs Clear to auscultation, Normal air movement Neck Normal exam Cardiovascular Regular rate and rhythm, Normal S1 and S2 Abdomen Normal exam, Normal bowel sounds, Soft, ostomy out put present Extremities No cyanosis, No clubbing Skin No Rashes, No Breakdown LAB Results Laboratory Tests 07/02 0509 Chemistry Plasma Sodium (136 - 145 mmol/L) 142 Plasma Potassium (3.5 - 5.1 mmol/L) 4.0 Plasma Chloride (98 - 107 mmol/L) 107 CO2 (Enzymatic) (21 - 32 mmol/L) 27 BUN (7 - 18 mg/dL) 11 Creatinine (0.6 - 1.3 mg/dL) 0.9 Est GFR ( Amer) (mL/min) >60 Est GFR (Non-Af Amer) (mL/min) >60 Glucose (70 - 110 mg/dL) 106 Plasma Calcium (8.5 - 10.1 mg/dL) 8.1 Coagulation INR (0.8 - 1.2) 2.8 Hematology WBC (4.5 - 11.5 K/uL) 4.8 RBC (4.50 - 5.90 M/uL) 4.92 Hgb (13.5 - 17.5 gm/dL) 13.9 Hct (41.0 - 53.0 %) 41.9 MCV (80 - 100 fL) 85 MCH (26 - 34 pg) 28 RDW (11.6 - 14.8 %) 14.8 Neut % (Auto) (50 - 75 %) 54.7 Lymph % (Auto) (25 - 40 %) 32.9 [place] % (Auto) (3 - 14 %) 8.1 Eos % (Auto) (0 - 4 %) 3.9 Baso % (Auto) (0 - 2 %) 0.4 Plt Count, EDTA (150 - 400 K/uL) 209 PUBS MCHC (31 - 37 g/dL) 33 Assessment and Plan Problem List 1. SBO (small bowel obstruction) Plan - acute presentation - ongoing history of obstruction - currently symptoms are resolving - will resume diet via clears 2. Factor V Leiden Plan - chronic issue - currently inr is supratherapeutic - will c/w daily inrs - will restart coumadin tomorrow with home dose 3. Acute intestinal obstruction Plan - chronic issue - will meet with general surgeon at a later date 4. Depression Plan - will resume buspirion tomorrow
[2016-07-02 14:33] VITALS: BP 133/68
--- NOTE | 2016-07-02 16:00 | ED MAR SUMMARY ---
..... Medication Administration Record [facility] [address] [place] [address] Patient: RK AVILA Visit ID: [id number] 50y, M Weight: 129.2 kg Height/Length: 76 in BMI: 34.7 ALLERGIES: Benacar, Ketamine, LIsinopril, Mercury, NSAIDs Start 08:05 07/01/2016 Julianne Hadley R.N., Stop 10:20 07/01/2016 Gail Curiel R.N. Medication Administered: IV NS (SALINE), Dose: IV Fluids over 1 hour(s), Rate: 1000 mL/hr, Dispensed: 1000 mL bag, Site: #1 left. Medication Ordered: IV NS : initial bolus 1000 mL (1000 mL/hr), then none - (NOW). Given 08:06 07/01/2016 Julianne Hadley R.N. Medication Administered: PHENERGAN [IVP] (PROMETHAZINE HCL), Dose: 25 mg IVP over 2 minute(s), Site: #1 left. Medication Ordered: Phenergan IV 25 mg (HIGH ALERT MEDICATION, NOW). Given 08:15 07/01/2016 Julianne Hadley R.N. Medication Administered: ZOFRAN [IVP] (ONDANSETRON HCL), Dose: 8 mg IVP over 2 minute(s), Site: #1 left. Medication Ordered: Zofran IV 8 mg (NOW). Given 08:18 07/01/2016 Julianne Hadley R.N. Medication Administered: DILAUDID [IVP] (HYDROMORPHONE HCL PF), Dose: 1 mg IVP over 2 minute(s), Site: #1 left. Medication Ordered: Dilaudid IV 1 mg (HIGH ALERT MEDICATION, NOW). Given 09:08 07/01/2016 Julianne Hadley R.N. Medication Administered: DILAUDID [IVP] (HYDROMORPHONE HCL PF), Dose: 1 mg IVP over 1 minute(s), Site: #1 left. Medication Ordered: Dilaudid IV 1 mg (HIGH ALERT MEDICATION, NOW). Start 10:21 07/01/2016 Gail Curiel R.N., Continued Upon Admission 11:12 07/01/2016 Julianne Hadley R.N. Medication Administered: IV NS (SALINE), Dose: IV Fluids over 1 hour(s), Rate: 1000 mL/hr, Dispensed: 1000 mL bag, Site: #1 left. Medication Ordered: IV NS : initial bolus none -, then 1000 mL/hr for X1 (NOW). Given 10:27 07/01/2016 Gail Curiel R.N. Medication Administered: DILAUDID [IVP] (HYDROMORPHONE HCL PF), Dose: 1 mg IVP over 1 minute(s), Site: #1 left. Medication Ordered: Dilaudid IV 1 mg (HIGH ALERT MEDICATION, NOW). Given 10:29 07/01/2016 Gail Curiel R.N. Medication Administered: REGLAN [IVP] (METOCLOPRAMIDE HCL), Dose: 10 mg IVP over 1 minute(s), Site: #1 left. Medication Ordered: Reglan IV 10 mg (NOW).
--- NOTE | 2016-07-02 16:00 | ED DISCHARGE INSTRUCTIONS ---
Patient: RK AVILA SR General Instructions [facility] VisitID: [id number] [address] [place] [address] 50y, M Registration Date/Time: 07/01/2016 Small bowel obstruction associated with intestinal bands / adhesions. (Electronically signed by Flower Jay MD 07/02/2016 16:00)
--- NOTE | 2016-07-02 16:00 | ED MED RECONCILIATION SUMMARY ---
Patient: RK AVILA Medication Reconciliation Report [facility] VisitID: [id number] [address] [place] [address] 50y, M Registration Date/Time: 07/01/2016 Weight: 129.2 kg Height/Length: 76 in. BMI: 34.7 ALLERGIES: Benacar, Ketamine, LIsinopril, Mercury, NSAIDs The patient's Home Medications are listed below: THE FOLLOWING MEDICATIONS NEED TO BE RECONCILED: BusPIRone HCl Oral 20 mg, 3x a day clonidine .3 patch every week on Saturday Dilaudid Oral (2 mg) 2 tablets, PRN, last dose: 1200 Omeprazole Oral 40 mg, 2x a day, last dose: 0700 Promethazine HCl Oral 25 mg, 1 to 2 tablets PRN nausea Reglan 10mg TID Spironolactone Oral (25 mg) 1 tablet, daily Warfarin Sodium Oral 5 mg, daily The source(s) of the original Home Medication information: Not obtained. The following Medications were given to the patient in the Emergency Department: IV NS IV Fluids bolus 0, then 1000 mL/hr, administered: 07/01/2016 8:05:00 AM PHENERGAN [IVP] IVP 25 mg, administered: 07/01/2016 8:06:00 AM Zofran [IVP] IVP 8 mg, administered: 07/01/2016 8:15:00 AM Dilaudid [IVP] IVP 1 mg, administered: 07/01/2016 8:18:00 AM Dilaudid [IVP] IVP 1 mg, administered: 07/01/2016 9:08:00 AM Reglan [IVP] IVP 10 mg, administered: 07/01/2016 10:29:00 AM Dilaudid [IVP] IVP 1 mg, administered: 07/01/2016 10:27:00 AM IV NS IV Fluids bolus 0, then 1000 mL/hr, administered: 07/01/2016 10:21:00 AM The following Medications were prescribed to the patient: None.
--- NOTE | 2016-07-02 16:00 | ED MED RECONCILIATION SUMMARY ---
Patient: RK AVILA Medication Reconciliation Report [facility] VisitID: [id number] [address] [place] [address] 50y, M Registration Date/Time: 07/01/2016 Weight: 129.2 kg Height/Length: 76 in. BMI: 34.7 ALLERGIES: Benacar, Ketamine, LIsinopril, Mercury, NSAIDs The patient's Home Medications are listed below: THE FOLLOWING MEDICATIONS NEED TO BE RECONCILED: BusPIRone HCl Oral 20 mg, 3x a day clonidine .3 patch every week on Saturday Dilaudid Oral (2 mg) 2 tablets, PRN, last dose: 1200 Omeprazole Oral 40 mg, 2x a day, last dose: 0700 Promethazine HCl Oral 25 mg, 1 to 2 tablets PRN nausea Reglan 10mg TID Spironolactone Oral (25 mg) 1 tablet, daily Warfarin Sodium Oral 5 mg, daily The source(s) of the original Home Medication information: Not obtained. The following Medications were given to the patient in the Emergency Department: IV NS IV Fluids bolus 0, then 1000 mL/hr, administered: 07/01/2016 8:05:00 AM PHENERGAN [IVP] IVP 25 mg, administered: 07/01/2016 8:06:00 AM Zofran [IVP] IVP 8 mg, administered: 07/01/2016 8:15:00 AM Dilaudid [IVP] IVP 1 mg, administered: 07/01/2016 8:18:00 AM Dilaudid [IVP] IVP 1 mg, administered: 07/01/2016 9:08:00 AM Reglan [IVP] IVP 10 mg, administered: 07/01/2016 10:29:00 AM Dilaudid [IVP] IVP 1 mg, administered: 07/01/2016 10:27:00 AM IV NS IV Fluids bolus 0, then 1000 mL/hr, administered: 07/01/2016 10:21:00 AM The following Medications were prescribed to the patient: None.
--- NOTE | 2016-07-02 16:00 | ED DISCHARGE INSTRUCTIONS ---
Patient: RK AVILA SR General Instructions [facility] VisitID: [id number] [address] [place] [address] 50y, M Registration Date/Time: 07/01/2016 Small bowel obstruction associated with intestinal bands / adhesions. (Electronically signed by Flower Jay MD 07/02/2016 16:00)
--- NOTE | 2016-07-02 16:00 | ED MAR SUMMARY ---
..... Medication Administration Record [facility] [address] [place] [address] Patient: RK AVILA Visit ID: [id number] 50y, M Weight: 129.2 kg Height/Length: 76 in BMI: 34.7 ALLERGIES: Benacar, Ketamine, LIsinopril, Mercury, NSAIDs Start 08:05 07/01/2016 Julianne Hadley R.N., Stop 10:20 07/01/2016 Gail Curiel R.N. Medication Administered: IV NS (SALINE), Dose: IV Fluids over 1 hour(s), Rate: 1000 mL/hr, Dispensed: 1000 mL bag, Site: #1 left. Medication Ordered: IV NS : initial bolus 1000 mL (1000 mL/hr), then none - (NOW). Given 08:06 07/01/2016 Julianne Hadley R.N. Medication Administered: PHENERGAN [IVP] (PROMETHAZINE HCL), Dose: 25 mg IVP over 2 minute(s), Site: #1 left. Medication Ordered: Phenergan IV 25 mg (HIGH ALERT MEDICATION, NOW). Given 08:15 07/01/2016 Julianne Hadley R.N. Medication Administered: ZOFRAN [IVP] (ONDANSETRON HCL), Dose: 8 mg IVP over 2 minute(s), Site: #1 left. Medication Ordered: Zofran IV 8 mg (NOW). Given 08:18 07/01/2016 Julianne Hadley R.N. Medication Administered: DILAUDID [IVP] (HYDROMORPHONE HCL PF), Dose: 1 mg IVP over 2 minute(s), Site: #1 left. Medication Ordered: Dilaudid IV 1 mg (HIGH ALERT MEDICATION, NOW). Given 09:08 07/01/2016 Julianne Hadley R.N. Medication Administered: DILAUDID [IVP] (HYDROMORPHONE HCL PF), Dose: 1 mg IVP over 1 minute(s), Site: #1 left. Medication Ordered: Dilaudid IV 1 mg (HIGH ALERT MEDICATION, NOW). Start 10:21 07/01/2016 Gail Curiel R.N., Continued Upon Admission 11:12 07/01/2016 Julianne Hadley R.N. Medication Administered: IV NS (SALINE), Dose: IV Fluids over 1 hour(s), Rate: 1000 mL/hr, Dispensed: 1000 mL bag, Site: #1 left. Medication Ordered: IV NS : initial bolus none -, then 1000 mL/hr for X1 (NOW). Given 10:27 07/01/2016 Gail Curiel R.N. Medication Administered: DILAUDID [IVP] (HYDROMORPHONE HCL PF), Dose: 1 mg IVP over 1 minute(s), Site: #1 left. Medication Ordered: Dilaudid IV 1 mg (HIGH ALERT MEDICATION, NOW). Given 10:29 07/01/2016 Gail Curiel R.N. Medication Administered: REGLAN [IVP] (METOCLOPRAMIDE HCL), Dose: 10 mg IVP over 1 minute(s), Site: #1 left. Medication Ordered: Reglan IV 10 mg (NOW).
[2016-07-02 18:28] VITALS: BP 135/73
[2016-07-02 22:27] VITALS: BP 119/64
[2016-07-03 06:49] VITALS: BP 132/72
[2016-07-03 10:52] VITALS: BP 122/68
[2016-07-03 14:20] VITALS: BP 120/69
--- NOTE | 2016-07-03 17:28 | Progress Note ---
Subjective General Patient has been doing well overnight, patient has no acute complaints. Patient is tolerating full liquids and has return of bowel function. Constitutional Denies: Fever, Chills, Sweats, Weakness, Malaise, Other. Eyes Denies: Pain, Vision Change, Conjunctival Inflammation, Eyelid Inflammation, Redness, Other. ENT Denies: Ear Pain, Ear Discharge, Nose Pain, Nasal Discharge, Nasal Congestion, Mouth Pain, Mouth Swelling, Throat Pain, Throat Swelling, Other. Respiratory Denies: Cough, Dry, SOB w/exertion, Wheezing, Hemoptysis, Pleuritic Pain, Sputum , Other. Cardiovascular Denies: Chest Pain, Palpitations, Orthopnea, PND, Edema, Light-headedness, Other. Gastrointestinal Abdominal Pain. Denies: Nausea, Vomiting, Diarrhea, Constipation, Melena, Hematochezia, Other. Genitourinary Denies: Dysuria, Frequency, Incontinence, Hematuria, Retention, Other. Musculoskeletal Denies: Neck Pain, Shoulder Pain, Arm Pain, Back Pain, Hand Pain, Leg Pain, Foot Pain, Other. Skin Denies: Rash, Lesions, Jaundice, Bruising, Other. Neurological Denies: Weakness, Numbness, Incoordination, Change in speech, Confusion, Seizures, Other. Physical Exam Vital Signs / I&Os Vital Signs Date Time Temp Pulse Resp B/P Pulse O2 O2 Flow FiO2 Ox Delivery Rate 07/03 1420 98.1 64 20 120/69 97 Room Air 07/03 1052 97.9 58 20 122/68 96 Room Air 07/03 1037 Room Air 07/03 0649 97.9 59 20 132/72 96 Room Air 07/02 2350 Room Air 07/02 2227 98.4 65 16 119/64 93 Room Air 07/02 1828 97.7 86 16 135/73 95 Room Air I&O 07/02 0800 07/02 1600 07/03 0000 Intake Total 1371 1570 2734 Output Total 950 1750 2400 Balance 421 -180 334 General Appearance Alert, Oriented X3, No acute distress HEENT Normal exam, Moist mucous membranes Lungs Normal exam, Clear to auscultation Cardiovascular Normal S1 and S2 Abdomen Soft, - infrequent bowel sounds. ostomy producing stool Extremities Normal exam Skin No Rashes Neurological Normal exam Psych/Mental Status Mental status normal LAB Results Laboratory Tests 07/03 07/03 1010 1010 Chemistry Glucose (70 - 110 mg/dL) 109 Hemoglobin A1c % (4.5 - 6.2 %) 6.0 Coagulation INR (0.8 - 1.2) 2.3 Hematology Hgb (13.5 - 17.5 gm/dL) 12.4 Hct (41.0 - 53.0 %) 38.1 Assessment and Plan Problem List 1. SBO (small bowel obstruction) Plan - resolving - will do a trial of full liquids - will most likely dc in the am if no events overnight 2. Factor V Leiden Plan - chronic issue - will restart coumadin today - will obtain daily inr 3. Hypertension Plan - stable - c/w home medications 4. Anxiety Plan - c/w home meds 5. Depression Plan - stable - cw home meds
[2016-07-03 22:32] VITALS: BP 131/75
[2016-07-04 01:56] VITALS: BP 127/75
[2016-07-04 06:14] VITALS: BP 141/74
[2016-07-04 10:15] VITALS: BP 168/84
--- NOTE | 2016-07-04 10:26 | Provider's Discharge Care Plan ---
Problem, Goal, Plan Problem List 1. SBO (small bowel obstruction) Instructions: resolved, advance diet as tolerated 2. Factor V Leiden Instructions: -start lovenox as told to you by your general surgeon 3. Hypertension Instructions: Follow up as needed (- c/w home meds )
--- NOTE | 2016-07-04 10:26 | Discharge Summary ---
Discharge Summary Report Admit Date 07/01/16 Discharge Date 07/04/16 Admission Diagnosis small bowel obstruction Discharge Diagnosis small bowel obstruction Brief History 50yoM w/ hx of multiple abdominal surgeries s/p ileostomy and hx of multiple hospitalizations for SBO, who presents with worsening abdominal pain, distension , and vomiting that started about 5-6pm last night. He vomited several times, and patient felt his symptoms were concerning for another SBO, so he decided to come to the hospital. He actually was just seen here this past month for the same. He states that he is passing small amounts of gas, but has had very minimal output from his ostomy. He denies any fevers. Hospital Course Patient was admitted for small bowel obstruction. Patient has been here for the same problem multiple times in the past, however on 07/15 patient is having surgery for repair of his abdominal wall hernia and change position of his ostomy site. Patient initially did not consume anything and primarily adopted modalities to quicken his return to crow function which did happen on 07/02. On the same day the patient attempted a clear liquid diet which the patient was able to tolerate. Patient additionally was able to scale back the amount of pain medication he was taking. Patients diet was advanced over the course of the next 2 days until discharge. Patient lastly was placed on coumadin and restarted. Patients inr level was sub therapeutic before discharge however patient was told to resume his home dose. General Appearance Alert, Oriented X3, No acute distress Lungs Clear to auscultation Cardiovascular Regular Rate, No murmurs, Gallops, Rubs Abdomen Normal bowel sounds, Soft, No tenderness Skin No Rashes, No Breakdown Psych/Mental Status Mental status NL Discharge Instructions/Meds - follow up with pmd - take medications as prescribed - stop taking coumadin on the as per your surgeons wishes
== END 2016-07-04 11:06 | disposition home or self-care (01) | DRG 389 ==
LOC: ED SRH 06:48 → TRANS SRH 09:41 → ED SRH 09:41 → ACUTE2 SRH 11:20 → TRANS SRH 11:20 → ACUTE2 SRH 11:20
PROVIDERS: ADMIT Emergency Medicine
DX: K56.5 Intestinal adhesions [bands] with obstruction (postinfection) (principal); D68.51 Activated protein C resistance; Z93.2 Ileostomy status; I10 Essential (primary) hypertension; Z15.09 Genetic susceptibility to other malignant neoplasm; Z80.0 Family history of malignant neoplasm of digestive organs; F41.9 Anxiety disorder, unspecified; F32.9 Major depressive disorder, single episode, unspecified; Z95.828 Presence of other vascular implants and grafts
CPT/HCPCS: 29230; 29247; 29263; 83498; 90047; 90074; 90100; 91162; 91163; 91286; 92652; 94060; 95011; 95059

== ENCOUNTER 2016-07-08 10:05 | Emergency (ER) | payer BC, OTHER ==
--- NOTE | 2016-07-08 11:20 | DIAGNOSTIC IMAGING REPORT ---
PROCEDURE: XR ABDOMEN 1 VIEW UPRIGHT INDICATION: Nausea and vomiting. History of obstructions. TECHNIQUE: AP upright view. COMPARISON: Compared to acute abdominal series 92 10/10) and abdominal radiograph (06/25/2016). FINDINGS: There are moderately dilated bowel loops in the right lower quadrant with a few air-fluid levels, and relative paucity of proximal small bowel gas. No evidence of free air. Status post cholecystectomy. IVC filter in position. There are five right renal calculi (previously documented). IMPRESSION: 1. Moderately dilated bowel loops in right lower quadrant compatible with bowel obstruction or ileus.
--- NOTE | 2016-07-08 11:39 | ED ORDER SUMMARY ---
..... Patient: RK AVILA SR OrderSheet [facility] VisitID: [id number] [address] [place] [address] 50y, M Registration Date/Time: 07/08/2016 ORDER SHEET Weight: 130.6 kg (stated) Allergies: Benacar, Ketamine, LIsinopril, Mercury, NSAIDs GENERAL ORDERS: CBC w Diff Urgent (10:16 07/08/2016 Kavya Conn) (Ack 10:31 Tim) (10:54 SRoberts R.N.) CMP Urgent (10:16 07/08/2016 Kavya Conn) (Ack 10:31 Tim) (10:54 SRoberts R.N.) UA-Culture if indicated Urgent (10:16 07/08/2016 Kavya Conn) (Ack 10:31 Tim) (12:18 SRoberts R.N.) Lipase Urgent (10:16 07/08/2016 Kavya Conn) (Ack 10:32 Tim) (10:54 SRoberts R.N.) Pulse oximeter (10:16 07/08/2016 Kavya Conn) (10:28 SRoberts R.N.) Abdomen 1V Upright Urgent (10:35 07/08/2016 Kavya Conn) (Ack 10:39 Tim) (10:55 SRoberts R.N.) MEDICATION ORDERS: Phenergan IM 25 mg (HIGH ALERT MEDICATION, NOW) (10:16 07/08/2016 Kavya Conn) (Ack 10:28 SRoberts R.N.) (Cancelled: Physician Order11:30 SRoberts R.N.) Phenergan IV 25 mg (NOW) (11:31 07/08/2016 Briants R.NReyna verbal order read back to Kavya Conn) (12:18 SRoberts R.N.) IV FLUIDS: IV NS : initial bolus 1000 mL (1000 mL/hr), then none - for X1 (NOW) (10:15 07/08/2016 Kavya Conn) (Ack 10:28 oberts R.N.) (11:29 SRoberts R.N.) Dilaudid IV 1 mg (once now. may repeat once in 15 minutes for pain > 5/10) (10:15 07/08/2016 Kavya Conn) (Ack 10:28 SRoberts R.N.) (11:30 SRoberts R.N.) Dilaudid IV 1 mg (once now. may repeat in 15 min for pain > 5/10) (13:16 07/08/2016 Kavya Conn) (Ack 13:32 SRoberts R.N.) (13:44 SRoberts R.N.) ORDER SHEET NOTES: [Electronically signed by Brenna Serrano R.N. (15:06 07/08/2016)] [Electronically signed by Leonardo Amezcua Dr. (15:28 07/08/2016)] [Electronically locked/signed by Brenna Serrano R.N. (15:06 07/08/2016)]
--- NOTE | 2016-07-08 11:39 | ED NURSING NOTES ---
Clinical Report - Nurses [facility] [address] [place] [address] 07/08/2016 10:07 Patient: RK AVILA SR TRIAGE Triage time 10:14. Acuity: LEVEL 2. Chief Complaint: ABDOMINAL PAIN and NAUSEA. 10:23 07/08/16. Alert. No acute distress. SEPSIS SCREEN: Sepsis Screen. Negative (no infection suspected/documented). Heart rate greater than 90. Temperature not greater than 38.3 degrees C (101 degrees F). Respiratory rate not greater than 20. --10:23 Brenna Serrano R.N. 10:14 07/08/16. BP: 129/72. HR: 98. RR: 20. O2 saturation: 95% on room air. Temp: 98.2 F (oral). Pain level now: 02/03. --10:23 Brenna Serrano R.N. Weight: 130.6 kg stated. Height/Length: 76 inches Per Patient. BMI: 35.1. --10:16 Brenna Serrano R.N. Medications BusPIRone HCl Oral 20 mg, 3x a day. clonidine .3 patch every week on Saturday . Dilaudid Oral (Tablet 2 mg) 2 tablets, PRN, last dose 1200. Omeprazole Oral 40 mg, 2x a day, last dose 0700. Promethazine HCl Oral 25 mg (1 to 2 tablets PRN nausea). Reglan 10mg TID . Spironolactone Oral (Tablet 25 mg) 1 tablet, daily. Warfarin Sodium Oral 5 mg, daily (on hold for surgery). --10:21 Brenna Serrano R.N. Allergies Benacar. Ketamine. LIsinopril. Mercury. NSAIDs. --10:20 Brenna Serrano R.N. Medication/allergy information source: the patient. --10:23 Brenna Serrano R.N. History Primary physician (yasmine). ( abd pain started about 0300 and states colostomy started putting out less stool and its more liquid than usual and more painful. Surgery scheduled for saturday at [facility] for colostomy revision.). This started today. Treatment REIMBURSEMENT AUDITOR: None. SOCIAL HX: Former smoker, end date 1976 (stopped chewing tobacco 10 days ago). No alcohol use or drug use. FALL RISK ASSESSMENT: Fall risk assessment completed. No fall risk identified. NUTRITIONAL RISK ASSESSMENT: The nutritional risk assessment revealed no deficiencies. FUNCTIONAL ASSESSMENT: Functional assessment: no impairments noted. LEARNING NEEDS ASSESSMENT: The learning needs assessment revealed no barriers. SKIN INTEGRITY ASSESSMENT: Skin integrity risk assessment completed. No skin integrity risk identified. --10:23 Brenna Serrano R.N. PROBLEMS: Gastroesophageal Reflux Disease [Active]. --10:21 Brenna Serrano R.N. Bowel Obstruction. Nausea. Vomiting. Hypocalcemia. TIA - Transient Ischemic Attack. Hematuria. Post-Op Infection. Post-Op Wound Dehiscence. Fever. Bronchitis. Palpitations. Nephropathy. Nephrolithiasis. Small bowel obstruction. Anxiety Reaction. Cancer. DVT - Deep Venous Thrombosis. Hypertension. Pulmonary Embolism. Diabetes Mellitus. Gallstone(s). FAP / Embroidery Worker's Syndrome. Anemia. Migraine Headache. Hernia. Tetanus Status. Immunizations. --10:21 Brenna Serrano R.N. ADDITIONAL SURGERIES: Appendectomy. Cholecystectomy. Colectomy. Colonoscopy. Colostomy. Fracture Repair. Inguinal Hernia Repair. Peristomal hernia repair . Power port central line. Shoulder Surgery. Stoma Dilation. Umbilical Hernia Repair. --10:21 Brenna Serrano R.N. Interventions ID band on patient. To treatment room. --10:23 Brenna Serrano R.N. PHYSICAL ASSESSMENT 10:07/08/16. Ambulatory to room. GENERAL / NEURO / PSYCH: Alert. Oriented X 4. Appears in pain. HEENT: Mucous membranes are pink. RESPIRATORY: Respirations not labored. CVS: Capillary refill less than 2 seconds. GI / : Abdominal distention with tenderness to palpation. No firmness noted to abdomen or rigidity noted to abdomen. Abdomen soft. Abdominal tenderness in the lower abdomen. SKIN: Skin is warm and dry. --10:25 Brenna Serrano R.N. NURSING PROGRESS NOTES 10:07/08/16. The plan of care for this patient has been created. Patient gowned. Head of bed elevated. Call light placed in reach. Bed placed in lowest position. Brakes of bed on. Patient ready for evaluation- chart flagged. --10:25 Brenna Serrano R.N. 10:28 07/08/2016 Site #1 accessed indwelling Powerport in the left using a 19g, 1 inch needle; 1 attempt. Site prepped with chlorhexidine (Flushes easily, unable to draw blood.). --11:28 Brenna Serrano R.N. 10:29 07/08/2016 Site #2 started via IV in the right antecubital space with an 20g angiocath, with aseptic technique and good blood return; one attempt. Blood drawn: rainbow set. Labeled in the presence of the patient and sent to the lab. Saline lock flushed. --11:29 Brenna Serrano R.N. 11:00 07/08/2016 Started bag #1 1000 mL IV Fluids IV NS (Saline); at 1000 mL/hr over 1 hour(s) via site #2 via IV pump. Allergies verified and confirmed 5 rights. IV patency established. IV site checked: no pain, redness, or swelling. IV flushed thoroughly pre- and post-medication administration. --11:29 Brenna Serrano R.N. 11:01 07/08/2016 Dilaudid (HYDROmorphone HCl PF) IVP 1 mg given over 1 minute(s) via site #2. Allergies verified, confirmed 5 rights and sedative warning given to the patient. IV patency established. IV site checked: no pain, redness, or swelling. IV flushed thoroughly pre- and post-medication administration. IVP given by RN. --11:30 Brenna Serrano R.N. 11:03 07/08/2016 PHENERGAN (Promethazine HCl) IVP 25 mg given over 1 minute(s) via site #2. Allergies verified and confirmed 5 rights. IV patency established. IV site checked: no pain, redness, or swelling. IV flushed thoroughly pre- and post-medication administration. IVP given by RN. --12:18 Brenna Serrano R.N. 11:50 07/08/2016 Dilaudid (HYDROmorphone HCl PF) IVP 1 mg given over 1 minute(s) via site #2. Allergies verified, confirmed 5 rights and sedative warning given to the patient. IV patency established. IV site checked: no pain, redness, or swelling. IV flushed thoroughly pre- and post-medication administration. IVP given by RN. --12:17 Brenna Serrano R.N. 13:15 07/08/2016 Site #1 removed upon discharge. Catheter intact. --15:06 Brenna Serrano R.N. 13:15 07/08/2016 IV Fluids IV NS Discontinued: bag #1 infused. Total amount infused: 1000 mL. IV patency established. IV site checked: no pain, redness, or swelling. IV flushed thoroughly. --15:05 Brenna Serrano R.N. 13:20 07/08/2016 Site #2 removed. Catheter intact. Bandaid applied. --13:45 Brenna Srerano R.N. 13:34 07/08/2016 Dilaudid (HYDROmorphone HCl PF) IVP 1 mg given over 1 minute(s) via site #2. Allergies verified, confirmed 5 rights and sedative warning given to the patient. IV patency established. IV site checked: no pain, redness, or swelling. IV flushed thoroughly pre- and post-medication administration. IVP given by RN. --13:44 Brenna Serrano R.N. DISPOSITION / DISCHARGE 13:55. Condition at departure: improved. No learning barriers present. Patient verbalized understanding. Written instructions provided in Scottish. The patient was discharged home and accompanied by family. He left the Emergency Department ambulatory and via private vehicle. Family member driving. Medication list reviewed and validated. --15:04 Brenna Serrano R.N. 13:55 07/08/16. BP: 126/79. HR: 78. RR: 20. O2 saturation: 99% on room air. Pain level now: 08/03. 12:02 07/08/16. BP: 130/74. HR: 76. RR: 20. O2 saturation: 100% on room air. 10:14 07/08/16. BP: 129/72. HR: 98. RR: 20. O2 saturation: 95% on room air. Temp: 98.2 F (oral). Pain level now: 02/03. --15:04 Brenna Serrano R.N. Locked/Released at 07/08/2016 15:06 by Brenna Serrano R.N.
--- NOTE | 2016-07-08 11:39 | ED CLINICAL REPORT ---
Clinical Report - Physicians/Mid Levels [facility] [address] [place] [address] 07/08/2016 10:07 Patient: RK AVILA SR Time Seen: 1014. Arrived- By private vehicle. Historian- patient. HISTORY OF PRESENT ILLNESS Chief Complaint: ABDOMINAL PAIN. This started yesterday and is still present. It was abrupt in onset and has been constant but is not gone now. It is described as sharp. No radiation. It is described as generalized in location. At its maximum, severity described as moderate. When seen in the E.D., severity described as moderate. Modifying factors- worsened by movement. Relieved by rest. The patient has had nausea. No loss of appetite, vomiting or diarrhea. No additional abdominal pain. (output from ostomy is watery.). No recent travel. Similar symptoms previously: Many times. ( well known to our facility. multiple admission for SBO. has surgery scheduled in 5 days. started new milkshake supplement that likely has not "agreed with my stomach"). Recent medical care: The patient was seen recently in the emergency department. REVIEW OF SYSTEMS No skin rash. All systems otherwise negative, except as recorded above. PAST HISTORY See nurses notes. Medications: BusPIRone HCl Oral 20 mg, 3x a day. clonidine .3 patch every week on Saturday . Dilaudid Oral (Tablet 2 mg) 2 tablets, PRN, last dose 1200. Omeprazole Oral 40 mg, 2x a day, last dose 0700. Promethazine HCl Oral 25 mg (1 to 2 tablets PRN nausea). Reglan 10mg TID . Spironolactone Oral (Tablet 25 mg) 1 tablet, daily. Warfarin Sodium Oral 5 mg, daily (on hold for surgery). Allergies: Benacar. Ketamine. LIsinopril. Mercury. NSAIDs. SOCIAL HISTORY Never smoker. No alcohol use or drug use. No recent travel. Is a local resident. FAMILY HISTORY (hx of bowel problems). ADDITIONAL NOTES The nursing notes have been reviewed. PHYSICAL EXAM Vital Signs: 07/08/2016 10:14 BP: 129/72. HR: 98. RR: 20. O2 saturation: 95%. Temp: 98.2 F. Pain level now: 9/10. Blood pressure normal. Oxygen saturation normal. Appearance: Alert. Oriented X3. No acute distress. Eyes: Pupils equal, round and reactive to light. Eyes normal inspection. ENT: Ears normal. Nose normal. Pharynx normal. Neck: Normal inspection. Neck supple. CVS: Normal heart rate and rhythm. Heart sounds normal. Pulses normal. Respiratory: No respiratory distress. Breath sounds normal. Chest nontender. No rales, rhonchi or wheezes. (port to left upper chest). Abdomen: Soft and nontender. Bowel sounds normal. (ostomy to left side of abdomen. wound is c/d/i. multiple well healed remote surgical scars.). Skin: Skin warm and dry. Normal skin color. No rash. Normal skin turgor. Extremities: Extremities exhibit normal ROM. No lower extremity edema. LABS, X-RAYS, AND EKG KUB: (PROCEDURE: XR ABDOMEN 1 VIEW UPRIGHT INDICATION: Nausea and vomiting. History of obstructions. TECHNIQUE: AP upright view. COMPARISON: Compared to acute abdominal series 92 10/10) and abdominal radiograph (06/25/2016). FINDINGS: There are moderately dilated bowel loops in the right lower quadrant with a few air-fluid levels, and relative paucity of proximal small bowel gas. No evidence of free air. Status post cholecystectomy. IVC filter in position. There are five right renal calculi (previously documented). IMPRESSION: 1. Moderately dilated bowel loops in right lower quadrant compatible with bowel obstruction or ileus.). Views: erect AP. The X-rays were independently viewed by me and interpreted by the radiologist. The X-rays were discussed with the radiologist (via pacs). Laboratory Tests: CBC w Diff: (DWIGHT: 07/08/2016 10:45) ( MsgRcvd 07/08/2016 11:00) Final results Test Result Flag Units (Reference) WHITE BLOOD COUNT 9.0 K/uL (4.5-11.5) RED BLOOD COUNT 5.71 M/uL (4.50-5.90) HEMOGLOBIN 15.9 gm/dL (13.5-17.5) HEMATOCRIT 48.3 % (41.0-53.0) MEAN CELL VOLUME 85 fL (80-100) MEAN CORPUSCULAR HGB 28 pg (26-34) MEAN CORPUSCULAR HGB CONC 33 g/dL (31-37) RED CELL DISTRIBUTION WIDTH 14.7 % (11.6-14.8) PLATELET COUNT 286 K/uL (150-400) NEUTROPHIL % 76.4 H % (50-75) LYMPH % 15.1 L % (25-40) MONO % 6.9 % (3-14) EOSINOPHIL % 1.4 % (0-4) BASOPHIL % 0.2 % (0-2) CMP: (DWIGHT: 07/08/2016 10:45) ( MsgRcvd 07/08/2016 11:23) Final results Test Result Flag Units (Reference) GLUCOSE 138 H mg/dL (70-110) BUN 12 mg/dL (7-18) CREATININE 1.0 mg/dL (0.6-1.3) Estimated GFR >60 mL/min Estimated GFR- >60 mL/min Note: Persistent reduction over 3 months in eGFR<60 mL/min/1.73 m2 defines CKD. Patients with eGFR values>=60 mL/min/1.73 m2 may also have CKD if evidence ofpersistent proteinuria. Additional information may be foundat [email or web address].org. SODIUM 137 mmol/L (136-145) POTASSIUM 3.8 mmol/L (3.5-5.1) CHLORIDE 101 mmol/L (98-107) CARBON DIOXIDE 25 mmol/L (21-32) CALCIUM 8.9 mg/dL (8.5-10.1) TOTAL PROTEIN 8.5 H g/dL (6.4-8.2) ALBUMIN 3.8 g/dL (3.3-5.0) BILIRUBIN, TOTAL 0.7 mg/dL (0.0-1.0) ALKALINE PHOSPHATASE 84 U/L (46-116) AST (SGOT) 31 U/L (15-37) ALT (SGPT) 57 U/L (12-78) LIPASE 484 H U/L (73-393) . PROGRESS AND PROCEDURES Course of Care: the patient is a pleasant 50-year-old male with complex past medical history for abdominal pathology presenting for evaluation of nausea vomiting and abdominal pain. The patient is well-known to our facility and has multiple visits for the same condition. The patient experienced an exacerbation last night. No other new symptoms otherwise. Patient is having normal output from his ostomy. Patient is agreeable to treatment plan. Laboradered. Patient appears nontoxic. Workup shows patient had mild elevation in lipase. Patient does report however feeling better. Is requesting to be discharged home and will return if he feels worse. Discussed case with patient's primary care Dr. The patient will be given a trial of medication here in the emergency department and will be managed as an outpatient if patient does improvement with his symptoms while here. Workup is otherwise unremarkable. Patient has been appropriate while here in the emergency department. Patient is nontoxic. Patient feels comfortable with returning home. I discussion patient in regards to his symptoms here in the emergency department and is workup. Patient denied offers of admission at this time. discussed the patient workup, diagnosis, home care, follow-up, and return precautions. All questions answered. The patient expressed understanding of these instructions and was agreeable to them. Patient is nontoxic and in no acute distress. Patient is reliable and return immediately for any worsening of symptoms. Disposition: Discharged. Condition: good. CLINICAL IMPRESSION Acute generalized abdominal pain. 07/08/2016 10:14 BP: 129/72. HR: 98. RR: 20. O2 saturation: 95%. Temp: 98.2 F. Pain level now: 9/10. Moderate nausea (acute). No vomiting. Blood pressure normal. Oxygen saturation normal. Early bowel obstruction (acute resolved). INSTRUCTIONS Warnings: GENERAL WARNINGS: Return or contact your physician immediately if your condition worsens or changes unexpectedly, if not improving as expected, or if other problems arise. SPECIFICALLY, return if you develop pain in the abdomen, fever, vomiting, the inability to keep fluids down, blood in vomitus, blood in diarrhea, fainting or lightheadedness. Your Current Medications: CONTINUE TAKING THE FOLLOWING MEDICATIONS: BusPIRone HCl Oral : 20 mg 3x a day. clonidine .3 patch every week on Saturday *. Dilaudid Oral : Tablet 2 mg, 2 tablets PRN, Last: 1200. Omeprazole Oral : 40 mg 2x a day, Last: 0700. Promethazine HCl Oral : 25 mg, 1 to 2 tablets PRN nausea. Reglan 10mg TID *. Spironolactone Oral : Tablet 25 mg, 1 tablet daily. Warfarin Sodium Oral : 5 mg daily, on hold for surgery. Follow-up: Return to the emergency department as needed. Follow up with your doctor in three days. Reason for referral: recheck today's concerns. Summary of care provided to patient via paper. Screening today revealed the patient's blood pressure to be in the normal range. The patient should follow up with a primary care provider for blood pressure management. Understanding of the discharge instructions verbalized by patient. (Electronically signed by Leonardo Amezcua Dr. 07/08/2016 15:28)
--- NOTE | 2016-07-08 11:39 | ED ORDER SUMMARY ---
..... Patient: RK AVILA SR OrderSheet [facility] VisitID: [id number] [address] [place] [address] 50y, M Registration Date/Time: 07/08/2016 ORDER SHEET Weight: 130.6 kg (stated) Allergies: Benacar, Ketamine, LIsinopril, Mercury, NSAIDs GENERAL ORDERS: CBC w Diff Urgent (10:16 07/08/2016 Kavya Conn) (Ack 10:31 Tim) (10:54 SRoberts R.N.) CMP Urgent (10:16 07/08/2016 Kavya Conn) (Ack 10:31 Tim) (10:54 SRoberts R.N.) UA-Culture if indicated Urgent (10:16 07/08/2016 Kavya Conn) (Ack 10:31 Tim) (12:18 SRoberts R.N.) Lipase Urgent (10:16 07/08/2016 Kavya Conn) (Ack 10:32 Tim) (10:54 SRoberts R.N.) Pulse oximeter (10:16 07/08/2016 Kavya Conn) (10:28 SRoberts R.N.) Abdomen 1V Upright Urgent (10:35 07/08/2016 Kavya Conn) (Ack 10:39 Tim) (10:55 SRoberts R.N.) MEDICATION ORDERS: Phenergan IM 25 mg (HIGH ALERT MEDICATION, NOW) (10:16 07/08/2016 Kavya Conn) (Ack 10:28 SRoberts R.N.) (Cancelled: Physician Order11:30 SRoberts R.N.) Phenergan IV 25 mg (NOW) (11:31 07/08/2016 Briants R.NReyna verbal order read back to Kavya Conn) (12:18 SRoberts R.N.) IV FLUIDS: IV NS : initial bolus 1000 mL (1000 mL/hr), then none - for X1 (NOW) (10:15 07/08/2016 Kavya Conn) (Ack 10:28 oberts R.N.) (11:29 SRoberts R.N.) Dilaudid IV 1 mg (once now. may repeat once in 15 minutes for pain > 5/10) (10:15 07/08/2016 Kavya Conn) (Ack 10:28 SRoberts R.N.) (11:30 SRoberts R.N.) Dilaudid IV 1 mg (once now. may repeat in 15 min for pain > 5/10) (13:16 07/08/2016 Kavya Conn) (Ack 13:32 SRoberts R.N.) (13:44 SRoberts R.N.) ORDER SHEET NOTES: [Electronically signed by Brenna Serrano R.N. (15:06 07/08/2016)] [Electronically signed by Leonardo Amezcua Dr. (15:28 07/08/2016)] [Electronically locked/signed by Brenna Serrano R.N. (15:06 07/08/2016)]
--- NOTE | 2016-07-08 15:28 | ED MED RECONCILIATION SUMMARY ---
Patient: MARGARITARK ESPARZA Anna MCDANIEL Medication Reconciliation Report [facility] VisitID: [id number] [address] [place] [address] 50y, M Registration Date/Time: 07/08/2016 Weight: 130.6 kg Height/Length: 76 in. BMI: 35.1 ALLERGIES: Benacar, Ketamine, LIsinopril, Mercury, NSAIDs The patient's Home Medications are listed below: CONTINUE TAKING THE FOLLOWING MEDICATIONS: BusPIRone HCl Oral 20 mg, 3x a day clonidine .3 patch every week on Saturday Dilaudid Oral (2 mg) 2 tablets, PRN, last dose: 1200 Omeprazole Oral 40 mg, 2x a day, last dose: 0700 Promethazine HCl Oral 25 mg, 1 to 2 tablets PRN nausea Reglan 10mg TID Spironolactone Oral (25 mg) 1 tablet, daily Warfarin Sodium Oral 5 mg, daily, on hold for surgery The source(s) of the original Home Medication information: patient The following Medications were given to the patient in the Emergency Department: IV NS IV Fluids bolus 0, then 1000 mL/hr, administered: 07/08/2016 11:00:00 AM Dilaudid [IVP] IVP 1 mg, administered: 07/08/2016 11:01:00 AM Dilaudid [IVP] IVP 1 mg, administered: 07/08/2016 11:50:00 AM PHENERGAN [IVP] IVP 25 mg, administered: 07/08/2016 11:03:00 AM Dilaudid [IVP] IVP 1 mg, administered: 07/08/2016 1:34:00 PM The following Medications were prescribed to the patient: None.
--- NOTE | 2016-07-08 15:28 | ED MAR SUMMARY ---
..... Medication Administration Record [facility] [address] [place] [address] Patient: RK AVILA Visit ID: [id number] 50y, M Weight: 130.6 kg Height/Length: 76 in BMI: 35.1 ALLERGIES: Benacar, Ketamine, LIsinopril, Mercury, NSAIDs Start 11:00 07/08/2016 Brenna Serrano R.N., Stop 13:15 07/08/2016 Brenna Serrano R.N. Medication Administered: IV NS (SALINE), Dose: IV Fluids over 1 hour(s), Rate: 1000 mL/hr, Dispensed: 1000 mL bag, Site: #2 right AC. Medication Ordered: IV NS : initial bolus 1000 mL (1000 mL/hr), then none - for X1 (NOW). Given 11:01 07/08/2016 Brenna Serrano R.N. Medication Administered: DILAUDID [IVP] (HYDROMORPHONE HCL PF), Dose: 1 mg IVP over 1 minute(s), Site: #2 right AC. Medication Ordered: Dilaudid IV 1 mg (once now. may repeat once in 15 minutes for pain > 5/10). Given 11:03 07/08/2016 Brenna Serrano R.N. Medication Administered: PHENERGAN [IVP] (PROMETHAZINE HCL), Dose: 25 mg IVP over 1 minute(s), Site: #2 right AC. Medication Ordered: Phenergan IV 25 mg (NOW). Given 11:50 07/08/2016 Brenna Serrano R.N. Medication Administered: DILAUDID [IVP] (HYDROMORPHONE HCL PF), Dose: 1 mg IVP over 1 minute(s), Site: #2 right AC. Medication Ordered: Dilaudid IV 1 mg (once now. may repeat once in 15 minutes for pain > 5/10). Given 13:34 07/08/2016 Brenna Serrano R.N. Medication Administered: DILAUDID [IVP] (HYDROMORPHONE HCL PF), Dose: 1 mg IVP over 1 minute(s), Site: #2. Medication Ordered: Dilaudid IV 1 mg (once now. may repeat in 15 min for pain > 5/10).
--- NOTE | 2016-07-08 15:28 | ED MAR SUMMARY ---
..... Medication Administration Record [facility] [address] [place] [address] Patient: RK AVILA Visit ID: [id number] 50y, M Weight: 130.6 kg Height/Length: 76 in BMI: 35.1 ALLERGIES: Benacar, Ketamine, LIsinopril, Mercury, NSAIDs Start 11:00 07/08/2016 Brenna Serrano R.N., Stop 13:15 07/08/2016 Brenna Serrano R.N. Medication Administered: IV NS (SALINE), Dose: IV Fluids over 1 hour(s), Rate: 1000 mL/hr, Dispensed: 1000 mL bag, Site: #2 right AC. Medication Ordered: IV NS : initial bolus 1000 mL (1000 mL/hr), then none - for X1 (NOW). Given 11:01 07/08/2016 Brenna Serrano R.N. Medication Administered: DILAUDID [IVP] (HYDROMORPHONE HCL PF), Dose: 1 mg IVP over 1 minute(s), Site: #2 right AC. Medication Ordered: Dilaudid IV 1 mg (once now. may repeat once in 15 minutes for pain > 5/10). Given 11:03 07/08/2016 Brenna Serrano R.N. Medication Administered: PHENERGAN [IVP] (PROMETHAZINE HCL), Dose: 25 mg IVP over 1 minute(s), Site: #2 right AC. Medication Ordered: Phenergan IV 25 mg (NOW). Given 11:50 07/08/2016 Brenna Serrano R.N. Medication Administered: DILAUDID [IVP] (HYDROMORPHONE HCL PF), Dose: 1 mg IVP over 1 minute(s), Site: #2 right AC. Medication Ordered: Dilaudid IV 1 mg (once now. may repeat once in 15 minutes for pain > 5/10). Given 13:34 07/08/2016 Brenna Serrano R.N. Medication Administered: DILAUDID [IVP] (HYDROMORPHONE HCL PF), Dose: 1 mg IVP over 1 minute(s), Site: #2. Medication Ordered: Dilaudid IV 1 mg (once now. may repeat in 15 min for pain > 5/10).
--- NOTE | 2016-07-08 15:28 | ED MED RECONCILIATION SUMMARY ---
Patient: MARGARITARK ESPARZA Anna MCDANIEL Medication Reconciliation Report [facility] VisitID: [id number] [address] [place] [address] 50y, M Registration Date/Time: 07/08/2016 Weight: 130.6 kg Height/Length: 76 in. BMI: 35.1 ALLERGIES: Benacar, Ketamine, LIsinopril, Mercury, NSAIDs The patient's Home Medications are listed below: CONTINUE TAKING THE FOLLOWING MEDICATIONS: BusPIRone HCl Oral 20 mg, 3x a day clonidine .3 patch every week on Saturday Dilaudid Oral (2 mg) 2 tablets, PRN, last dose: 1200 Omeprazole Oral 40 mg, 2x a day, last dose: 0700 Promethazine HCl Oral 25 mg, 1 to 2 tablets PRN nausea Reglan 10mg TID Spironolactone Oral (25 mg) 1 tablet, daily Warfarin Sodium Oral 5 mg, daily, on hold for surgery The source(s) of the original Home Medication information: patient The following Medications were given to the patient in the Emergency Department: IV NS IV Fluids bolus 0, then 1000 mL/hr, administered: 07/08/2016 11:00:00 AM Dilaudid [IVP] IVP 1 mg, administered: 07/08/2016 11:01:00 AM Dilaudid [IVP] IVP 1 mg, administered: 07/08/2016 11:50:00 AM PHENERGAN [IVP] IVP 25 mg, administered: 07/08/2016 11:03:00 AM Dilaudid [IVP] IVP 1 mg, administered: 07/08/2016 1:34:00 PM The following Medications were prescribed to the patient: None.
--- NOTE | 2016-07-08 15:28 | ED DISCHARGE INSTRUCTIONS ---
Patient: RK AVILA General Instructions [facility] VisitID: [id number] [address] [place] [address] 50y, M Registration Date/Time: 07/08/2016 Acute generalized abdominal pain. 07/08/2016 10:14 BP: 129/72. HR: 98. RR: 20. O2 saturation: 95%. Temp: 98.2 F. Pain level now: 910. Moderate nausea (acute). No vomiting. Blood pressure normal. Oxygen saturation normal. Early bowel obstruction (acute resolved). INSTRUCTIONS Warnings: GENERAL WARNINGS: Return or contact your physician immediately if your condition worsens or changes unexpectedly, if not improving as expected, or if other problems arise. SPECIFICALLY, return if you develop pain in the abdomen, fever, vomiting, the inability to keep fluids down, blood in vomitus, blood in diarrhea, fainting or lightheadedness. Your Current Medications: CONTINUE TAKING THE FOLLOWING MEDICATIONS: BusPIRone HCl Oral : 20 mg 3x a day. clonidine .3 patch every week on Saturday *. Dilaudid Oral : Tablet 2 mg, 2 tablets PRN, Last: 1200. Omeprazole Oral : 40 mg 2x a day, Last: 0700. Promethazine HCl Oral : 25 mg, 1 to 2 tablets PRN nausea. Reglan 10mg TID *. Spironolactone Oral : Tablet 25 mg, 1 tablet daily. Warfarin Sodium Oral : 5 mg daily, on hold for surgery. Follow-up: Return to the emergency department as needed. Follow up with your doctor in three days. Reason for referral: recheck today's concerns. Summary of care provided to patient via paper. Screening today revealed the patient's blood pressure to be in the normal range. The patient should follow up with a primary care provider for blood pressure management. Understanding of the discharge instructions verbalized by patient. ADDITIONAL INFORMATION Abdominal Pain,Uncertain Cause [Male] Based on your visit today, the exact cause of your abdominalpain is not clear. Your exam and tests do not indicate a dangerous cause at this time. However, the signs of a serious problem may take more time to appear. Although your evaluation was reassuring today, sometimes early in the course of many conditions, exam and lab tests can appear normal. Therefore, it is important for you to watch for any new symptoms or worsening of your condition. Causes It may not be obvious what caused your symptoms. Pay attention to things that do seem to make your symptoms worse or better and discuss this with your doctor when you follow up. Diagnosis The evaluation of abdominal pain in the emergency department may onlyrequire an exam by the doctor or it may include blood, urine or imaging studies, depending on many factors. Sometimes exams and tests can identify a cause but in many cases, a clear cause is not found. Further testing at follow up visits may help to suggest a clear diagnosis. Home Care Rest as much as possible until your next exam. Try to avoid any medications (unless otherwise directed by your doctor), foods, activities, or other factors that you may have contributed to your symptoms. Try to eat foods that you know that you have tolerated well in the past. Certain diets may be recommended for some conditions that cause abdominal pain. However, since the cause of your symptoms may not be clear, discuss your diet more with your primary care provider or specialist for further recommendations. Eating several small meals per day as opposed to 2 or 3 larger meals may help. Monitor closely for anything that may make your symptoms worse or better. Pay close attention to symptoms below that may indicate worsening of your condition. Follow Up and Precautions See your doctoras instructed or sooneror if your symptoms are not improving.In some cases, you may need more testing. When to Seek Medical Attention Contact your doctor or see medical attention ifany of the following occur: Pain is becoming worse You are unable to take your medications due to excessive vomiting Swelling of the abdomen Fever of 100.4F (38C) or higher, or as directed by your health care provider Blood in vomit or bowel movements (dark red or black color) Jaundice (yellow color of eyes and skin) New onset of weakness, dizziness or fainting New onset of chest, arm, back, neck or jaw pain You have been given the following additional information: Abdominal Pain, Unknown Cause, (Male) (Electronically signed by Leonardo Amezcua Dr. 07/08/2016 15:28)
== END 2016-07-08 13:55 | disposition home or self-care (01) ==
LOC: ED SRH 10:05
DX: R10.84 Generalized abdominal pain (principal); R11.0 Nausea; Z93.3 Colostomy status; Z87.19 Personal history of other diseases of the digestive system; Z79.891 Long term (current) use of opiate analgesic; Z79.899 Other long term (current) drug therapy; Z79.01 Long term (current) use of anticoagulants; Z88.6 Allergy status to analgesic agent; Z88.8 Allergy status to other drugs, medicaments and biological substances; Z91.048 Other nonmedicinal substance allergy status
CPT/HCPCS: 90004; 90100; 92235; 95059

== ENCOUNTER 2016-07-09 18:29 | Inpatient (IN) | payer BC, OTHER ==
[~2016-07-09] VITALS: Ht 193 cm; Wt 132.1 kg
--- NOTE | 2016-07-09 18:55 | ED CLINICAL REPORT ---
Clinical Report - Physicians/Mid Levels [facility] [address] [place] [address] 07/09/2016 18:31 Patient: RK ALARCON SR Time Seen: 18:38. Arrived- By private vehicle. Historian- patient. HISTORY OF PRESENT ILLNESS Chief Complaint: ABDOMINAL PAIN. At its maximum, severity described as severe. When seen in the E.D., severity described as moderate. Modifying factors- worsened by movement and food. Relieved by rest. It is described as "pain". No radiation. This started yesterday and is still present. It was gradual in onset and has been waxing/waning. The patient has had nausea and diarrhea. No vomiting. Similar symptoms previously: Recent medical care: The patient was seen recently at this facility in the emergency department. Seen for similar symptoms. REVIEW OF SYSTEMS No black stools, hematemesis, difficulty with urination, pain with urination or urinary frequency. No bloody stools, fever, headache, sore throat or chest pain. No difficulty breathing, cough or back pain. All systems otherwise negative, except as recorded above. PAST HISTORY PCP: Dr Myers Surgeon: Dr Horvath and a surgical subspecialist at the [facility] Problems: Gastroesophageal Reflux Disease [Active]. GI Disease. Vomiting. Hypocalcemia. TIA - Transient Ischemic Attack. Abdominal Pain. Hematuria. Post-Op Infection. Post-Op Wound Dehiscence. Fever. Bronchitis. Palpitations. Nephropathy. Nephrolithiasis. Small bowel obstruction. Anxiety Reaction. Cancer. DVT - Deep Venous Thrombosis. Hypertension. Pulmonary Embolism. Gastroesophageal Reflux Disease. Diabetes Mellitus. Gallstone(s). FAP / Diamond Assorter's Syndrome. Anemia. Migraine Headache. Hernia. Bowel Obstruction. Surgeries: Appendectomy. Cholecystectomy. Colectomy. Colonoscopy. Colostomy. ADDITIONAL HISTORY FROM OLD RECORDS: MEDICAL/SURGICAL HISTORY: Past medical history also includes adult onset diabetes which has resolved with the patient's weight loss related to his multiple bowel issues. He also has had a factor V Leiden abnormality with thrombophilia and in the past has had problems with DVTs and pulmonary embolism. He has had hypertension. He also has had problems with compression fractures in the lower lumber spine and has radicular pain down his legs at times, particularly to the right. He has multiple kidney stones in the right kidney. His left kidney is okay with no stones. This does cause hematuria. He has been avoiding on doing anything with the stones until his bowel settles down. Other problems include chronic anxiety and depression related to his chronic illnesses. Past surgical history is remarkable for a subtotal colectomy, as mentioned, due to Diop's syndrome and concern regarding development of cancer. He has had multiple surgeries since that was done, including conversion of rectal pouch to ileostomy, multiple ileostomy revisions, and repositioning surgeries. He has also had an appendectomy, cholecystectomy, inguinal hernia repair, shoulder surgeries, Port-A-Cath placement, and an EGD done about 2 or 3 weeks ago due to his persistent nausea and vomiting. It did show multiple gastric polyps but no evidence of gastritis or ulcer. Placement of umbrella-type cages in the lower vena cava to prevent pulmonary embolism. These were done quite a number of years ago. Fracture Repair. Hernia Repair. Inguinal Hernia Repair. Peristomal hernia repair . Power port central line. Previous Abdominal Surgery. Previous Abdominal Surgery. Shoulder Surgery. Stoma Dilation. Umbilical Hernia Repair. Medications: Lovenox Subcutaneous (Solution 40 mg/0.4mL), 2x a day. Lovenox Subcutaneous. BusPIRone HCl Oral 20 mg, 3x a day. clonidine .3 patch every week on Saturday . Dilaudid Oral (Tablet 2 mg) 2 tablets, PRN, last dose 1200. Omeprazole Oral 40 mg, 2x a day, last dose 0700. Promethazine HCl Oral 25 mg (1 to 2 tablets PRN nausea). Reglan 10mg TID . Spironolactone Oral (Tablet 25 mg) 1 tablet, daily. Allergies: Benacar. Ketamine. LIsinopril. Mercury. NSAIDs. ADDITIONAL NOTES The nursing notes have been reviewed. PHYSICAL EXAM Vital Signs: 07/09/2016 18:41 BP: 156/84. HR: 88. RR: 20. O2 saturation: 97%. Temp: 98.2 F. Appearance: Alert. Oriented X3. Eyes: Eyes normal inspection. No scleral icterus or pale conjunctivae. ENT: Pharynx normal. No tonsillar exudate. The mucous membranes are not dry. Neck: Normal inspection. Neck supple. CVS: Normal heart rate and rhythm. Heart sounds normal. Pulses normal. Respiratory: No respiratory distress. Breath sounds normal. Abdomen: Moderate tenderness diffusely. No rebound tenderness or guarding. Back: Normal inspection. Skin: Skin warm and dry. Normal skin color. Normal skin turgor. Extremities: Extremities exhibit normal ROM. No lower extremity edema. Neuro: Oriented X 3. No motor deficit. LABS, X-RAYS, AND EKG KUB: (IMPRESSION: 1. Moderate dilated right lower quadrant bowel loops compatible with small bowel obstruction. Ileus is less likely 2. Postsurgical changes 3. Renal calculi). Views: erect AP. Technique: good. The X-rays were interpreted contemporaneously by me. Laboratory Tests: CBC w Diff: (DWIGHT: 07/09/2016 18:55) ( NygRcvd 07/09/2016 19:11) Final results Test Result Flag Units (Reference) WHITE BLOOD COUNT 7.4 K/uL (4.5-11.5) RED BLOOD COUNT 5.08 M/uL (4.50-5.90) HEMOGLOBIN 14.5 gm/dL (13.5-17.5) HEMATOCRIT 43.5 % (41.0-53.0) MEAN CELL VOLUME 86 fL (80-100) MEAN CORPUSCULAR HGB 29 pg (26-34) MEAN CORPUSCULAR HGB CONC 33 g/dL (31-37) RED CELL DISTRIBUTION WIDTH 14.9 H % (11.6-14.8) PLATELET COUNT 268 K/uL (150-400) NEUTROPHIL % 62.5 % (50-75) LYMPH % 26.7 % (25-40) MONO % 8.0 % (3-14) EOSINOPHIL % 2.4 % (0-4) BASOPHIL % 0.4 % (0-2) PT with INR: (DWIGHT: 07/09/2016 18:55) ( MsgRcvd 07/09/2016 19:22) Final results Test Result Flag Units (Reference) INR 1.1 (0.8-1.2) Low Intensity Therapy: INR 1.5-2.0 PT range 18.5-23.1Mod.Intensity Therapy: INR 2.0-3.0 PT range 23.1-31.5High Intensity Therapy: INR 2.5-3.5 PT range 27.4-35.5High Intensity Therapy 2: INR 3.0-4.0 PT range 31.5-39.3 Lipase: (DWIGHT: 07/09/2016 18:55) ( MsgRcvd 07/09/2016 19:54) Final results Test Result Flag Units (Reference) LIPASE 229 U/L (73-393) AMYLASE 74 U/L (25-115) CMP: (DWIGHT: 07/09/2016 18:55) ( NygRcvd 07/09/2016 19:23) Final results Test Result Flag Units (Reference) GLUCOSE 120 H mg/dL (70-110) BUN 20 H mg/dL (7-18) CREATININE 1.0 mg/dL (0.6-1.3) Estimated GFR >60 mL/min Estimated GFR- >60 mL/min Note: Persistent reduction over 3 months in eGFR<60 mL/min/1.73 m2 defines CKD. Patients with eGFR values>=60 mL/min/1.73 m2 may also have CKD if evidence ofpersistent proteinuria. Additional information may be foundat [email or web address].org. SODIUM 138 mmol/L (136-145) POTASSIUM 4.1 mmol/L (3.5-5.1) CHLORIDE 103 mmol/L (98-107) CARBON DIOXIDE 26 mmol/L (21-32) CALCIUM 8.6 mg/dL (8.5-10.1) TOTAL PROTEIN 8.0 g/dL (6.4-8.2) ALBUMIN 3.6 g/dL (3.3-5.0) BILIRUBIN, TOTAL 0.3 mg/dL (0.0-1.0) ALKALINE PHOSPHATASE 83 U/L (46-116) AST (SGOT) 31 U/L (15-37) ALT (SGPT) 59 U/L (12-78) . Pulse Oximetry: 07/09/2016 18:41 O2 saturation: 97%. (FIO2 - room air). Interpretation: normal. PROGRESS AND PROCEDURES Course of Care: Normal Saline 1 liter IVPB given. Zofran 4 mg IVP given. Reglan 10 mg IVP given. Dilaudid 1 mg + 1 mg IVP given. 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 He will be admitted tonight and have surgery on Saturday (at ). Discussed case with patient's primary care provider, (Louis). Reviewed test results. Agreed upon treatment plan. Health care provider will see patient in hospital. Patient/family counseled. Old ED records reviewed. Observation orders written. Disposition: Observation in Acute Care. Condition: guarded and improved. CLINICAL IMPRESSION Acute generalized abdominal pain. Nausea. Early, partial small bowel obstruction associated with intestinal bands / adhesions. (Electronically signed by Toño Cruz DO 07/09/2016 21:54)
--- NOTE | 2016-07-09 18:55 | ED NURSING NOTES ---
Clinical Report - Nurses [facility] [address] [place] [address] 07/09/2016 18:31 Patient: RK AVILA SR TRIAGE Triage time 18:41. Acuity: LEVEL 3. Chief Complaint: ABDOMINAL PAIN, NAUSEA and DIARRHEA. Alert. --18:47 Sloane Sanches R.N. 18:41 07/09/16. BP: 156/84. HR: 88. RR: 20. O2 saturation: 97%. Temp: 98.2 F. --18:47 Sloane Sanches R.N. 19:48 07/09/16. BP: 139/76. HR: 83. RR: 16. O2 saturation: 100%. Pain level now 5/10. --19:54 Daphney Bentley R.N. Weight: 129.2 kg stated. Height/Length: 76 inches Per Patient. BMI: 34.7. --18:47 Sloane Sanches R.N. Medications BusPIRone HCl Oral 20 mg, 3x a day. clonidine .3 patch every week on Saturday . Dilaudid Oral (Tablet 2 mg) 2 tablets, PRN, last dose 1200. Omeprazole Oral 40 mg, 2x a day, last dose 0700. Promethazine HCl Oral 25 mg (1 to 2 tablets PRN nausea). Reglan 10mg TID . Spironolactone Oral (Tablet 25 mg) 1 tablet, daily. --18:42 Sloane Sanches R.N. Lovenox Subcutaneous. --18:49 Toño Cruz DO Lovenox Subcutaneous (Solution 40 mg/0.4mL), 2x a day. --19:53 Daphney Bentley R.N. The following entry was struck by Daphney Bentley R.N., 19:53 (07/09/16) Reason - other(discontinued). <<STRICKEN ENTRY-- Warfarin Sodium Oral 5 mg, daily (on hold for surgery). --18:42 Sloane Sanches R.N. --END STRIKE>>. Allergies Benacar. Ketamine. LIsinopril. Mercury. NSAIDs. --18:42 Sloane Sanches R.N. History Arrived by private vehicle. Historian: patient. Accompanied by family. Onset. (ongoing). ( Blockage, gassy). 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 SOCIAL HX: Current every day smoker (chew). No alcohol use or drug use. --18:47 Sloane Sanches R.N. PROBLEMS: Gastroesophageal Reflux Disease [Active]. --18:42 Sloane Sanches R.N. Abdominal Pain. Bowel Obstruction. Nausea. Vomiting. Hypocalcemia. TIA - Transient Ischemic Attack. Hematuria. Post-Op Infection. Post-Op Wound Dehiscence. Fever. Bronchitis. Palpitations. Nephropathy. Nephrolithiasis. Small bowel obstruction. Anxiety Reaction. Cancer. DVT - Deep Venous Thrombosis. Hypertension. Pulmonary Embolism. Diabetes Mellitus. Gallstone(s). 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 Anemia. Migraine Headache. Hernia. Tetanus Status. Immunizations. --18:42 Sloane Sanches R.N. ADDITIONAL SURGERIES: Appendectomy. Cholecystectomy. Colectomy. Colonoscopy. Colostomy. Fracture Repair. Inguinal Hernia Repair. Peristomal hernia repair . Power port central line. Shoulder Surgery. Stoma Dilation. Umbilical Hernia Repair. --18:42 Sloane Sanches R.N. PHYSICAL ASSESSMENT Ambulatory to room. Patient gowned. GENERAL / NEURO / PSYCH: Alert. Appears in no acute distress. Appears anxious. GI / : Obesity. Abdominal scar present. --18:47 Sloane Sanches R.N. NURSING PROGRESS NOTES Call light placed in reach. Brakes of bed on. Patient ready for evaluation- ED physician notified. --18:47 Sloane Sanches R.N. 18:50 07/09/2016 Site #1 started via IV in the left with an 20g angiocath, with aseptic technique and good blood return; one attempt. Blood drawn: rainbow set. Labeled in the presence of the patient. Saline lock flushed with 10 mL saline (left subclavian powerport accessed). --19:00 Chhaya Iraheta R.N. 18:50 07/09/2016 Started bag #1 1000 mL IV Fluids IV NS (Saline); at 999 mL/hr over 1 hour(s) via site #1. Allergies verified and confirmed 5 rights. IV patency established. IV site checked: no pain, redness, or swelling. IV flushed thoroughly pre- and post-medication administration. Completed per protocol. --19:00 Chhaya Iraheta R.N. 18:55 07/09/2016 Reglan (Metoclopramide HCl) IVP 10 mg given over 2 minute(s) via site #1. Allergies verified and confirmed 5 rights. IV patency established. IV site checked: no pain, redness, or swelling. IV flushed thoroughly pre- and post-medication administration. IVP given by RN. --19:00 Chhaya Iraheta R.N. 18:56 07/09/2016 Zofran (Ondansetron HCl) IVP 4 mg given over 2 minute(s) via site #1. Allergies verified and confirmed 5 rights. IV patency established. IV site checked: no pain, redness, or swelling. IV flushed thoroughly pre- and post-medication administration. IVP given by RN. --19:01 Chhaya Iraheta R.N. 19:00 07/09/2016 Dilaudid (HYDROmorphone HCl PF) IVP 1 mg given over 2 minute(s) via site #1. Allergies verified, confirmed 5 rights and sedative warning given to the patient and patient's family. IV patency established. IV site checked: no pain, redness, or swelling. IV flushed thoroughly pre- and post-medication administration. IVP given by RN. --19:04 Chhaya Iraheta R.N. 19:09 07/09/16. Care transferred and report received (from TRINITY Charles). --19:09 Daphney Bentley R.N. 19:13 07/09/16. Patient walked to radiology. (and returned). --19:13 Daphney Bentley R.N. 19:28 07/09/16. ( Patient requesting more pain meds. informed). --19:35 Daphney Bentley R.N. 19:48 07/09/2016 Dilaudid (HYDROmorphone HCl PF) IVP 1 mg given over 1 minute(s) via site #1. Allergies verified, confirmed 5 rights and sedative warning given to the patient. IV patency established. IV site checked: no pain, redness, or swelling. IV flushed thoroughly pre- and post-medication administration. IVP given by RN. --19:48 Daphney Bentley R.N. DISPOSITION / DISCHARGE 20:27 07/09/2016 IV Fluids IV NS Continued: at the rate of 1000 mL/hr. 500 mL remaining bag #1. IV patency established. IV site checked: no pain, redness, or swelling. IV flushed thoroughly. --20:27 Daphney Bentley R.N. 20:28 07/09/2016 Site #[address] upon admission; patent. Good blood return present; flushes easily. --20:28 Daphney Bentley R.N. 20:28 07/09/16. Departure time: 20:28 Jul 09 2016. Condition at departure: improved and stable. The goals identified in the patient's plan of care were met. Admitted to Acute Care (210 -B). Report was given to a nurse via a phone call. Report included patient's care, treatment, medications, reviewed medication reconcilliation, and condition (including any recent changes or anticipated changes). All questions were answered. --20:29 Daphney Bentley R.N. 19:48 07/09/16. BP: 139/76. HR: 83. RR: 16. O2 saturation: 100%. Pain level now 5/10. 18:41 07/09/16. BP: 156/84. HR: 88. RR: 20. O2 saturation: 97%. Temp: 98.2 F. --20:29 Daphney Bentley R.N. Locked/Released at 07/09/2016 20:29 by Daphney Bentley R.N.
--- NOTE | 2016-07-09 18:55 | ED ORDER SUMMARY ---
..... Patient: RK AVILA SR OrderSheet [facility] VisitID: [id number] [address] [place] [address] 50y, M Registration Date/Time: 07/09/2016 ORDER SHEET Weight: 129.2 kg (stated) Allergies: Benacar, Ketamine, LIsinopril, Mercury, NSAIDs GENERAL ORDERS: CBC w Diff Urgent (18:40 07/09/2016 PHutchinson DO) (Ack 18:47 LTapper) (19:01 KWilliams R.N.) CMP Urgent (18:40 07/09/2016 PHutchinson DO) (Ack 18:47 LTapper) (19:01 KWilliams R.N.) Abdomen 1V Upright Urgent (18:41 07/09/2016 PHprchinson DO) (Ack 18:47 LTapper) (19:23 EInderbitzen R.N.) PT with INR Urgent (18:47 07/09/2016 PHprchinson DO) (Ack 18:55 LTapper) (19:01 KWilliams R.N.) Lipase Urgent (18:47 07/09/2016 PHprchinson DO) (Ack 18:55 LTapper) (19:01 KWilliams R.N.) Amylase Urgent (18:47 [facility]/2016 [facility] (Ack 18:55 LTapper) (19:01 KWilliams R.N.) MEDICATION ORDERS: IV FLUIDS: IV NS : initial bolus 1000 mL (1000 mL/hr), then 250 mL/hr for X4 (NOW) (18:40 [facility] (19:00 KWilliams R.N.) Reglan IV 10 mg (NOW) (18:40 07/09/2016 [facility] (19:00 KWilliams R.N.) Zofran IV 4 mg (NOW) (18:40 07/09/2016 PHprchinson DO) (19:01 KWilliams R.N.) Dilaudid IV 1 mg (HIGH ALERT MEDICATION, NOW) (18:47 07/09/2016 [facility]) (19:04 KWilliams R.N.) Dilaudid IV 1 mg (NOW) (19:44 07/09/2016 Sahil GREGG) (19:48 Gretchen Lira) ORDER SHEET NOTES: [Electronically signed by Daphney Bentley R.N. (20:29 07/09/2016)] [Electronically signed by Toño Cruz DO (21:54 07/09/2016)] [Electronically locked/signed by Daphney Bentley R.N. (20:29 07/09/2016)]
--- NOTE | 2016-07-09 18:55 | ED ORDER SUMMARY ---
..... Patient: RK AVILA SR OrderSheet [facility] VisitID: [id number] [address] [place] [address] 50y, M Registration Date/Time: 07/09/2016 ORDER SHEET Weight: 129.2 kg (stated) Allergies: Benacar, Ketamine, LIsinopril, Mercury, NSAIDs GENERAL ORDERS: CBC w Diff Urgent (18:40 07/09/2016 PHutchinson DO) (Ack 18:47 LTapper) (19:01 KWilliams R.N.) CMP Urgent (18:40 07/09/2016 PHutchinson DO) (Ack 18:47 LTapper) (19:01 KWilliams R.N.) Abdomen 1V Upright Urgent (18:41 07/09/2016 PHiachinson DO) (Ack 18:47 LTapper) (19:23 EInderbitzen R.N.) PT with INR Urgent (18:47 07/09/2016 PHiachinson DO) (Ack 18:55 LTapper) (19:01 KWilliams R.N.) Lipase Urgent (18:47 07/09/2016 PHiachinson DO) (Ack 18:55 LTapper) (19:01 KWilliams R.N.) Amylase Urgent (18:47 07/09/2016 [facility] (Ack 18:55 LTapper) (19:01 KWilliams R.N.) MEDICATION ORDERS: IV FLUIDS: IV NS : initial bolus 1000 mL (1000 mL/hr), then 250 mL/hr for X4 (NOW) (18:40 07/09/2016 [facility] (19:00 KWilliams R.N.) Reglan IV 10 mg (NOW) (18:40 07/09/2016 [facility] (19:00 KWilliams R.N.) Zofran IV 4 mg (NOW) (18:40 07/09/2016 PHiachinson DO) (19:01 KWilliams R.N.) Dilaudid IV 1 mg (HIGH ALERT MEDICATION, NOW) (18:47 07/09/2016 [facility]) (19:04 KWilliams R.N.) Dilaudid IV 1 mg (NOW) (19:44 07/09/2016 Sahil RGEGG) (19:48 Gretchen Lira) ORDER SHEET NOTES: [Electronically signed by Daphney Bentley R.N. (20:29 07/09/2016)] [Electronically signed by Toño Cruz DO (21:54 07/09/2016)] [Electronically locked/signed by Daphney Bentley R.N. (20:29 07/09/2016)]
--- NOTE | 2016-07-09 19:52 | DIAGNOSTIC IMAGING REPORT ---
PROCEDURE: XR ABDOMEN 1 VIEW UPRIGHT INDICATION: Abdominal pain x 4 hours. TECHNIQUE: AP upright view. COMPARISON: Upright KUB 07/08/2016 FINDINGS: Moderately dilated loops of bowel in the right lower quadrant with air-fluid levels and paucity of gas elsewhere. Cholecystectomy, pelvic surgical clips and IVC filter in place. No free air. Stable right renal calculi. Bones are unremarkable. IMPRESSION: 1. Moderate dilated right lower quadrant bowel loops compatible with small bowel obstruction. Ileus is less likely 2. Postsurgical changes 3. Renal calculi
[2016-07-09 20:47] VITALS: BP 130/86
--- NOTE | 2016-07-09 21:54 | ED MAR SUMMARY ---
..... Medication Administration Record [facility] [address] [place] [address] Patient: RK AVILA Visit ID: [id number] 50y, M Weight: 129.2 kg Height/Length: 76 in BMI: 34.7 ALLERGIES: Benacar, Ketamine, LIsinopril, Mercury, NSAIDs Start 18:50 07/09/2016 Chhaya Iraheta R.N., Continued Upon Disposition 20:27 07/09/2016 Daphney Bentley R.N. Medication Administered: IV NS (SALINE), Dose: IV Fluids over 1 hour(s), Rate: 999 mL/hr, Dispensed: 1000 mL bag, Site: #1 left. Medication Ordered: IV NS : initial bolus 1000 mL (1000 mL/hr), then 250 mL/hr for X4 (NOW). Given 18:55 07/09/2016 Chhaya Iraheta R.N. Medication Administered: REGLAN [IVP] (METOCLOPRAMIDE HCL), Dose: 10 mg IVP over 2 minute(s), Site: #1 left. Medication Ordered: Reglan IV 10 mg (NOW). Given 18:56 07/09/2016 Chhaya Iraheta R.N. Medication Administered: ZOFRAN [IVP] (ONDANSETRON HCL), Dose: 4 mg IVP over 2 minute(s), Site: #1 left. Medication Ordered: Zofran IV 4 mg (NOW). Given 19:00 07/09/2016 Chhaya Iraheat R.N. Medication Administered: DILAUDID [IVP] (HYDROMORPHONE HCL PF), Dose: 1 mg IVP over 2 minute(s), Site: #1 left. Medication Ordered: Dilaudid IV 1 mg (HIGH ALERT MEDICATION, NOW). Given 19:48 07/09/2016 Daphney Bentley R.N. Medication Administered: DILAUDID [IVP] (HYDROMORPHONE HCL PF), Dose: 1 mg IVP over 1 minute(s), Site: #1 left. Medication Ordered: Dilaudid IV 1 mg (NOW).
--- NOTE | 2016-07-09 21:54 | ED MAR SUMMARY ---
..... Medication Administration Record [facility] [address] [address] Patient: RK AVILA Visit ID: [id number] 50y, M Weight: 129.2 kg Height/Length: 76 in BMI: 34.7 ALLERGIES: Benacar, Ketamine, LIsinopril, Mercury, NSAIDs Start 18:50 07/09/2016 Chhaya Iraheta R.N., Continued Upon Disposition 20:27 07/09/2016 Daphney Bentley R.N. Medication Administered: IV NS (SALINE), Dose: IV Fluids over 1 hour(s), Rate: 999 mL/hr, Dispensed: 1000 mL bag, Site: #1 left. Medication Ordered: IV NS : initial bolus 1000 mL (1000 mL/hr), then 250 mL/hr for X4 (NOW). Given 18:55 07/09/2016 Chhaya Iraheta R.N. Medication Administered: REGLAN [IVP] (METOCLOPRAMIDE HCL), Dose: 10 mg IVP over 2 minute(s), Site: #1 left. Medication Ordered: Reglan IV 10 mg (NOW). Given 18:56 07/09/2016 Chhaya Iraheta R.N. Medication Administered: ZOFRAN [IVP] (ONDANSETRON HCL), Dose: 4 mg IVP over 2 minute(s), Site: #1 left. Medication Ordered: Zofran IV 4 mg (NOW). Given 19:00 07/09/2016 Chhaya Iraheta R.N. Medication Administered: DILAUDID [IVP] (HYDROMORPHONE HCL PF), Dose: 1 mg IVP over 2 minute(s), Site: #1 left. Medication Ordered: Dilaudid IV 1 mg (HIGH ALERT MEDICATION, NOW). Given 19:48 07/09/2016 Daphney Bentley R.N. Medication Administered: DILAUDID [IVP] (HYDROMORPHONE HCL PF), Dose: 1 mg IVP over 1 minute(s), Site: #1 left. Medication Ordered: Dilaudid IV 1 mg (NOW).
--- NOTE | 2016-07-09 21:54 | ED MED RECONCILIATION SUMMARY ---
Patient: RK AVILA Medication Reconciliation Report [facility] VisitID: [id number] [address] [place] [address] 50y, M Registration Date/Time: 07/09/2016 Weight: 129.2 kg Height/Length: 76 in. BMI: 34.7 ALLERGIES: Benacar, Ketamine, LIsinopril, Mercury, NSAIDs The patient's Home Medications are listed below: THE FOLLOWING MEDICATIONS NEED TO BE RECONCILED: BusPIRone HCl Oral 20 mg, 3x a day clonidine .3 patch every week on Saturday Dilaudid Oral (2 mg) 2 tablets, PRN, last dose: 1200 Lovenox Subcutaneous Lovenox Subcutaneous (40 mg/0.4mL), 2x a day Omeprazole Oral 40 mg, 2x a day, last dose: 0700 Promethazine HCl Oral 25 mg, 1 to 2 tablets PRN nausea Reglan 10mg TID Spironolactone Oral (25 mg) 1 tablet, daily The source(s) of the original Home Medication information: Not obtained. The following Medications were given to the patient in the Emergency Department: IV NS IV Fluids bolus 0, then 999 mL/hr, administered: 07/09/2016 6:50:00 PM Reglan [IVP] IVP 10 mg, administered: 07/09/2016 6:55:00 PM Zofran [IVP] IVP 4 mg, administered: 07/09/2016 6:56:00 PM Dilaudid [IVP] IVP 1 mg, administered: 07/09/2016 7:00:00 PM Dilaudid [IVP] IVP 1 mg, administered: 07/09/2016 7:48:00 PM The following Medications were prescribed to the patient: None.
--- NOTE | 2016-07-09 21:54 | ED DISCHARGE INSTRUCTIONS ---
Patient: RK AVILA SR General Instructions [facility] VisitID: [id number] [address] [place] [address] 50y, M Registration Date/Time: 07/09/2016 Acute generalized abdominal pain. Nausea. Early, partial small bowel obstruction associated with intestinal bands / adhesions. (Electronically signed by Toño Cruz DO 07/09/2016 21:54)
--- NOTE | 2016-07-09 21:54 | ED DISCHARGE INSTRUCTIONS ---
Patient: RK AVILA SR General Instructions [facility] VisitID: [id number] [address] [place] [address] 50y, M Registration Date/Time: 07/09/2016 Acute generalized abdominal pain. Nausea. Early, partial small bowel obstruction associated with intestinal bands / adhesions. (Electronically signed by Toño Cruz DO 07/09/2016 21:54)
--- NOTE | 2016-07-09 21:54 | ED MED RECONCILIATION SUMMARY ---
Patient: RK AVILA Medication Reconciliation Report [facility] VisitID: [id number] [address] [place] [address] 50y, M Registration Date/Time: 07/09/2016 Weight: 129.2 kg Height/Length: 76 in. BMI: 34.7 ALLERGIES: Benacar, Ketamine, LIsinopril, Mercury, NSAIDs The patient's Home Medications are listed below: THE FOLLOWING MEDICATIONS NEED TO BE RECONCILED: BusPIRone HCl Oral 20 mg, 3x a day clonidine .3 patch every week on Saturday Dilaudid Oral (2 mg) 2 tablets, PRN, last dose: 1200 Lovenox Subcutaneous Lovenox Subcutaneous (40 mg/0.4mL), 2x a day Omeprazole Oral 40 mg, 2x a day, last dose: 0700 Promethazine HCl Oral 25 mg, 1 to 2 tablets PRN nausea Reglan 10mg TID Spironolactone Oral (25 mg) 1 tablet, daily The source(s) of the original Home Medication information: Not obtained. The following Medications were given to the patient in the Emergency Department: IV NS IV Fluids bolus 0, then 999 mL/hr, administered: 07/09/2016 6:50:00 PM Reglan [IVP] IVP 10 mg, administered: 07/09/2016 6:55:00 PM Zofran [IVP] IVP 4 mg, administered: 07/09/2016 6:56:00 PM Dilaudid [IVP] IVP 1 mg, administered: 07/09/2016 7:00:00 PM Dilaudid [IVP] IVP 1 mg, administered: 07/09/2016 7:48:00 PM The following Medications were prescribed to the patient: None.
[2016-07-09 23:24] VITALS: BP 137/89
--- NOTE | 2016-07-10 02:26 | HISTORY AND PHYSICAL ---
ADMITTED: 07/09/2016 HISTORY OF PRESENT ILLNESS: The patient is a 50-year-old white male who has had multiple problems with intestinal blockages related to previous abdominal surgeries for underlying familial colon polyposis. He has had adhesions develop and multiple surgeries related to small bowel obstructions and other surgeries related to be doing his ileostomy stoma and repair of parastomal hernias and abdominal wall hernias. He is anticipating having a repeat surgery at the [facility] towards the end of this week with reconstruction of his muscles of his abdominal wall. He is looking forward to this. He has been on a product called [employer] to help with nutrition prior to the surgery. This seems to have caused him to have a lot of gas, which he thinks is partially the cause of his current worsening. He has felt quite nauseated. He has not had any emesis today. He had several episodes of emesis over the weekend. He was seen in the emergency department yesterday and felt he could do okay at home, but then today he developed this pain, it is getting out of control too much. He is doing okay with his breathing. He has had no major problems with musculoskeletal pain. He is having no problems with kidney stones. MEDICAL/SURGICAL HISTORY: Past medical history: Remarkable for Diop syndrome, familial polyposis with other problems including adult-onset diabetes, hypertension, factor V Leiden abnormality with thrombophilia. He has had problems with deep vein thrombosis in the legs and pulmonary emboli in the past. He also has had adult-onset diabetes. This has improved with quite substantial weight loss last visit, with his numerous admissions for small-bowel obstruction issues. He has had problems with hypertension and is on medication for this. He also has had problems with compression fractures in his lower spine and has had problems with nephrolithiasis involving the right kidney. Other problems include anxiety and depression. He is on buspirone for this. He has not done well with other antidepressants. He also has ongoing problems with iron- deficiency anemia due to poor iron absorption. He is receiving iron shots every 3 weeks or so to help maintain his red blood cell count. This seems to be working fairly well so far. Past surgical history: Remarkable for subtotal colectomy done in the . He has had multiple surgeries done since then including diverting the initial rectal pouch to an ileostomy. He has had multiple procedures for lysis of adhesions and several parastomal hernia repairs and one with Hubertus-Lavell mesh placement. He had infection to Hubertus- Lavell mesh and had this removed. He has also had cholecystectomy, right inguinal hernia repair, shoulder surgeries for impingement, Port-A-Cath placement, Lakia filter placement and EGDs to evaluate nausea, vomiting, and stomach polyps. MEDICATIONS: Include: 1. Hydromorphone 2 mg tablets 1 or 2 every 3-4 hours for pain control. 2. Promethazine 12.5-25 mg every 4 hours p.r.n. nausea and vomiting. 3. Oxycodone 10 mg 1 every 4-6 hours during the day intermittently in place of hydromorphone for pain control. 4. Spironolactone 25 mg strength 1 every morning for fluid retention and blood pressure control. 5. Catapres skin patch 0.3 mg per 24-hour strength 1 patch changed every 7 days. 6. Omeprazole 40 mg strength 1 twice daily for stomach acid control. 7. Diazepam 5-10 mg at bedtime for anxiety and difficulties with sleeping. 8. Reglan 5-10 mg before meals to help with bowel motility. 9. Trazodone 50 mg strength 1 or 2 before bed to help with sleeping. ALLERGIES: INCLUDE: 1. GLENROY INHIBITORS AND ARBs, WHICH TRIGGER ANGIOEDEMA. 2. KETAMINE, WHICH TRIGGERS NAUSEA AND VOMITING. 3. HYDROCODONE, WHICH TRIGGERS NAUSEA AND VOMITING. 4. CEPHALEXIN, WHICH CAUSES GASTRITIS. 5. ONDANSETRON, WHICH CAUSES RESTLESSNESS AT HIGHER DOSES. 6. MERCURY. 7. LORAZEPAM. SOCIAL HISTORY: Indicates the patient is and lives with his and 3 adult children in the [facility]. 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 He has not been a smoker. He does chew tobacco. He occasionally drinks some beer, but not frequently. He has been on a basically full liquid diet at home with minimal solid foods over the last year or so. FAMILY HISTORY: Remarkable for multiple family members who have had Diop syndrome. He has younger brother who from colon cancer related to this and a sister who has also from colon cancer and another sister is quite ill with colon cancer and other complications. The patient's father from a heart attack. The patient's mother is in good health. The patient himself has 3 children, 2 of whom have Diop syndrome. REVIEW OF SYSTEMS: HEENT: Okay. Respiratory: Okay with no cough. Cardiovascular: Okay with no rapid heartbeats or retrosternal chest pain. Gastrointestinal: As is noted. Genitourinary: Okay with no problems with blood in the urine currently or kidney stone pain. Musculoskeletal: Remarkable for some persistent lower back pain. Neurologic Examination: Okay. Psychiatric: Remarkable for some ongoing problems with anxiety and depression. PHYSICAL EXAMINATION: GENERAL: Reveals the patient to be a white male appearing somewhat anxious. He is moderately uncomfortable. VITAL SIGNS: Temperature is in the 98.2 range. Blood pressure is in the 130/80 range. Pulse is in the 70s-90s. Oxygen saturation is in the 95 range on room air. HEENT: Head is normal. Ear canals and tympanic membranes are normal. Eyes show pupils equal, round, and reactive to light with normal extraocular movements. Disks are flat. Nose and throat are clear. Oral cavity is normal. Good dentition. NECK: Supple. No masses. No adenopathy is noted in the cervical area. CHEST: Clear to auscultation and percussion. There is no axillary adenopathy. HEART: Reveals a normal S1 and S2 with no distinct S3. There is a grade 1/6 systolic murmur along left sternal border. PELVIC: Not done. RECTAL: Not done. LYMPH NODES: There is no axillary adenopathy. ABDOMEN: Has multiple scars in ileostomy in the left mid abdominal area just to the left of midline. There is an open draining abscess just adjacent to the stoma in the midline. There is some moderate distention in the lower abdominal area. This area is moderately tender. Bowel tones are high-pitched. EXTREMITIES: Show some venous varicosities. Trace edema is noted left and right. Dorsalis pedis pulses are normal. NEUROLOGIC: Reveals the patient to be alert and oriented x3. Cranial nerves are symmetric. Motor and sensory examinations are normal. SKIN: Okay with no rashes. LAB/IMAGING: Laboratory studies show sodium 138, potassium 4.1, chloride 103, CO2 26, glucose 120, BUN is 20, creatinine is 1.0. White blood cell count is 7400 with hemoglobin 14.5, hematocrit of 43.5. Protime: INR is 1.1. SGOT is 31, SGPT is 59. Chest x-ray: Shows no significant abnormalities. KUB: Shows right lower quadrant abdominal loops, most consistent with partial small-bowel obstruction versus complete small-bowel obstruction. IMPRESSION/PLAN: 1. The patient is presenting with symptoms and signs of small-bowel obstruction , at this point, it is partial disease, continuing to pass some fluid and some gas into his stoma. He will need to follow this and need to keep up with his massages through the night. If he worsens, he will need a surgical consultation. If he does well, then the skin care to be spaced out. He will continue with patient-controlled analgesia hydromorphone for pain control. He will remain n.p.o. except for ice chips. He will continue with the Lovenox for the time being. Diet will be advanced as he hopefully improves. He will plan to be admitted to the [facility] early Saturday morning for his surgical procedure.
[2016-07-10 02:29] VITALS: BP 122/94
[2016-07-10 06:59] VITALS: BP 109/75
[2016-07-10 11:17] VITALS: BP 124/73
[2016-07-10 14:36] VITALS: BP 123/73
[2016-07-10 18:51] VITALS: BP 132/76
[2016-07-10 22:16] VITALS: BP 126/72
[2016-07-11 01:04] VITALS: BP 134/68
[2016-07-11 06:45] VITALS: BP 140/76
--- NOTE | 2016-07-11 07:59 | Provider's Discharge Care Plan ---
Problem, Goal, Plan Problem List 1. Partial small bowel obstruction Goals: Improve disease control, Improve function, Improved health/wellness, Increase independence, Prevent disease progress Instructions: Follow up as directed, Take meds as directed, Reduce stress, Clear liquid diet + Impact. Plan on admit to [facility] for surgery to correct SBO. 2. Factor V Leiden Goals: Improve disease control, Improve function, Improved health/wellness Instructions: Follow up as directed, Take meds as directed, Reduce stress, Use Lovenox as directed. Hold-off on warfarin until after surgery 3. Hypertension Goals: Improve disease control, Improve function, Improved health/wellness, Increase independence Instructions: Follow up as directed, Take meds as directed, Continue clonidine patch and Spironolactone. Do not take spironolactone on 07/13/16 4. Type 2 diabetes mellitus Goals: Improve disease control, Improve function Instructions: Follow up as directed, Increase activity level, Reduce stress, contiue to monitor blood sugars to determine need for resuming active Tx. 5. GE reflux Goals: Improve disease control, Improve function, Improved health/wellness, Increase independence, Improve nutrition status Instructions: Follow up as directed, Increase activity level, Take meds as directed, Reduce stress, Continue omeprazole 6. Nephrolithiasis Goals: Improve disease control, Improve function, Improved health/wellness, Increase independence Instructions: Follow up as directed, Increase activity level, Reduce stress, drink plenty of liquids and clontinue lemon juice 7. Abdominal wall abscess Goals: Improve disease control, Improve function, Improved health/wellness, Increase independence Instructions: Follow up as directed, Take meds as directed, Reduce stress, follow wound care nurse recommendations for dressing changes.
--- NOTE | 2016-07-11 09:10 | DISCHARGE SUMMARY ---
ADMIT DATE: 07/09/2016 DISCHARGE DATE: 07/11/2016 ADMITTING DIAGNOSIS: 1. Small-bowel obstruction DISCHARGE DIAGNOSES: 1. Partial small-bowel obstruction. Multiple abdominal adhesions secondary to multiple surgeries related to the Diop syndrome, requiring subtotal colectomy in the , and multiple procedures since that time to treat him for ------- problems 2. Other medical problems include factor V Leiden abnormality with thrombophilia 3. Prior history of deep vein thrombosis and pulmonary emboli 4. Adult-onset diabetes type 2, currently not requiring treatment due to substantial weight loss 5. Hypertension 6. Compression fractures of the lumbar spine with chronic lower back pain 7. Nephrolithiasis involving the right kidney 8. Anxiety and mild depression 9. Iron-deficiency anemia PROCEDURE: 1. None BRIEF HISTORY: Please see the dictated history and physical exam for details concerning admission. HOSPITAL COURSE: The patient presented to the emergency department after a 48- hour period of having increased abdominal pain and vomiting and poor pain control at home. He is anticipating admission to the [facility] on Saturday, 07/13, for surgery for taking down adhesions and redoing his ileostomy placement and repairing his abdominal wall hernia problems. He felt he was deteriorating too much to hang on until the time of his surgery at the [facility]. He also has had an ongoing problem with a small midline abdominal wall abscess that has been draining, and this is persisting. This has caused some challenges for placement of his seal around his ileostomy stoma. He presented to the emergency department and showed evidence of dilated loops of small bowel, particularly right lower abdominal area, with air-fluid levels. He was admitted and preferred not to have an NG tube. He was maintained n.p.o. initially and started on pain control with hydromorphone by LOAD DROPPER pump and with nausea control with promethazine. He improved with this. He had no profound electrolyte abnormalities. He had had an elevated lipase level when he was seen in the emergency department on 07/08/2016. This was not present on 07/09/2016. He showed no evidence of any other major problems or infections. He gradually improved his pain control and nausea control with IV medications. He was able to be up and ambulating. He was to be taking a product called Impact to try to improve his nutrition prior to surgery. On the second hospital day, he felt he should try starting this again, as the surgeons at the [facility] felt this was very important. He was started back on this. He did have some increased gas and pain, but this was controlled with his medications. He started to have [id number] output from his ileostomy. He remained afebrile. On the third hospital day, he was feeling a bit better and was up and ambulating okay. He had had no emesis. He felt he was doing well enough to be discharged home, to follow a clear liquid diet and finish the doses of Impact he had been recommended to take, with anticipation of being admitted to the [facility] on Saturday morning, 07/13/2016, for extensive abdominal surgery and abdominal wall surgery. DISCHARGE INSTRUCTIONS/MEDICATIONS: Disposition: The patient is discharged home in the care of his family. He will continue with the clonidine skin patch 0.2 mg per 24 -hour strength to control blood pressure. He will continue spironolactone 25 mg 1 every morning for fluid retention and blood pressure. He will not take this on the morning of 07/13/2015. He will continue hydromorphone 2 mg tablets 1 or 2 every 3-4 hours for pain control and will occasionally switch to oxycodone 10 mg strength, 1 every 4-6 hours for pain control in place of the hydromorphone. He will continue promethazine 12.5 to 25 mg p.o. every 4 hours for nausea and vomiting. He will continue omeprazole 40 mg strength 1 twice daily for stomach acid control and will continue with metoclopramide 5-10 mg before meals to help with bowel motility. He may continue with trazodone 50 mg strength 1 or 2 at bedtime if needed to help with sleeping, and may continue with diazepam 5-10 mg at bedtime for anxiety and difficulty sleeping. He will plan to follow up at my office once he has recovered from his surgeries at the [facility], to the point where he is able to be at home once more.
--- NOTE | 2016-07-11 09:10 | DISCHARGE SUMMARY ---
ADMIT DATE: 07/09/2016 DISCHARGE DATE: 07/11/2016 ADMITTING DIAGNOSIS: 1. Small-bowel obstruction DISCHARGE DIAGNOSES: 1. Partial small-bowel obstruction. Multiple abdominal adhesions secondary to multiple surgeries related to the Diop syndrome, requiring subtotal colectomy in the , and multiple procedures since that time to treat him for ------- problems 2. Other medical problems include factor V Leiden abnormality with thrombophilia 3. Prior history of deep vein thrombosis and pulmonary emboli 4. Adult-onset diabetes type 2, currently not requiring treatment due to substantial weight loss 5. Hypertension 6. Compression fractures of the lumbar spine with chronic lower back pain 7. Nephrolithiasis involving the right kidney 8. Anxiety and mild depression 9. Iron-deficiency anemia PROCEDURE: 1. None BRIEF HISTORY: Please see the dictated history and physical exam for details concerning admission. HOSPITAL COURSE: The patient presented to the emergency department after a 48- hour period of having increased abdominal pain and vomiting and poor pain control at home. He is anticipating admission to the [facility] on Saturday, 07/13, for surgery for taking down adhesions and redoing his ileostomy placement and repairing his abdominal wall hernia problems. He felt he was deteriorating too much to hang on until the time of his surgery at the [facility]. He also has had an ongoing problem with a small midline abdominal wall abscess that has been draining, and this is persisting. This has caused some challenges for placement of his seal around his ileostomy stoma. He presented to the emergency department and showed evidence of dilated loops of small bowel, particularly right lower abdominal area, with air-fluid levels. He was admitted and preferred not to have an NG tube. He was maintained n.p.o. initially and started on pain control with hydromorphone by [employer] pump and with nausea control with promethazine. He improved with this. He had no profound electrolyte abnormalities. He had had an elevated lipase level when he was seen in the emergency department on 07/08/2016. This was not present on 07/09/2016. He showed no evidence of any other major problems or infections. He gradually improved his pain control and nausea control with IV medications. He was able to be up and ambulating. He was to be taking a product called Impact to try to improve his nutrition prior to surgery. On the second hospital day, he felt he should try starting this again, as the surgeons at the [facility] felt this was very important. He was started back on this. He did have some increased gas and pain, but this was controlled with his medications. He started to have [id number] output from his ileostomy. He remained afebrile. On the third hospital day, he was feeling a bit better and was up and ambulating okay. He had had no emesis. He felt he was doing well enough to be discharged home, to follow a clear liquid diet and finish the doses of Impact he had been recommended to take, with anticipation of being admitted to the [facility] on Saturday morning, 07/13/2016, for extensive abdominal surgery and abdominal wall surgery. DISCHARGE INSTRUCTIONS/MEDICATIONS: Disposition: The patient is discharged home in the care of his family. He will continue with the clonidine skin patch 0.2 mg per 24 -hour strength to control blood pressure. He will continue spironolactone 25 mg 1 every morning for fluid retention and blood pressure. He will not take this on the morning of 07/13/2015. He will continue hydromorphone 2 mg tablets 1 or 2 every 3-4 hours for pain control and will occasionally switch to oxycodone 10 mg strength, 1 every 4-6 hours for pain control in place of the hydromorphone. He will continue promethazine 12.5 to 25 mg p.o. every 4 hours for nausea and vomiting. He will continue omeprazole 40 mg strength 1 twice daily for stomach acid control and will continue with metoclopramide 5-10 mg before meals to help with bowel motility. He may continue with trazodone 50 mg strength 1 or 2 at bedtime if needed to help with sleeping, and may continue with diazepam 5-10 mg at bedtime for anxiety and difficulty sleeping. He will plan to follow up at my office once he has recovered from his surgeries at the [facility], to the point where he is able to be at home once more.
[2016-07-11 10:28] VITALS: BP 124/81
== END 2016-07-11 11:05 | disposition home or self-care (01) | DRG 389 ==
LOC: ED SRH 18:29 → TRANS SRH 20:33 → ACUTE2 SRH 20:57
PROVIDERS: ADMIT Family Medicine
DX: K56.5 Intestinal adhesions [bands] with obstruction (postinfection) (principal); D68.51 Activated protein C resistance; Z93.2 Ileostomy status; R74.8 Abnormal levels of other serum enzymes; E11.8 Type 2 diabetes mellitus with unspecified complications; I10 Essential (primary) hypertension; F41.9 Anxiety disorder, unspecified; F32.9 Major depressive disorder, single episode, unspecified; D50.9 Iron deficiency anemia, unspecified; N20.0 Calculus of kidney; G89.21 Chronic pain due to trauma; S32.009S Unspecified fracture of unspecified lumbar vertebra, sequela; Z95.828 Presence of other vascular implants and grafts
CPT/HCPCS: 29230; 29247; 29251; 29264; 83498; 83742; 90047; 90100; 92235; 92530; 92720; 94060; 95059

== ENCOUNTER 2016-07-27 10:39 | Outpatient (CLI) | payer BC, OTHER | END 2016-07-27 23:00 | LOC: LAB SRH 10:39 | DX: I82.409 Acute embolism and thrombosis of unspecified deep veins of unspecified lower extremity (principal) | CPT/HCPCS: 94060 ==

== ENCOUNTER 2016-08-13 18:46 | Inpatient (IN) | payer BC, OTHER ==
[~2016-08-13] VITALS: Ht 193 cm; Wt 134.5 kg
--- NOTE | 2016-08-13 23:39 | DIAGNOSTIC IMAGING REPORT ---
PROCEDURE: ABDOMEN/PELVIS WITH CONTRAST CLINICAL INDICATION: ABDOMINAL PAIN. EXTENSIVE SURGERIES. RECENT ONE 2 WEEKS AGO 2 WEEKS AGO TECHNIQUE: 145 ml of Isovue 300 were injected intravenously and axial images were obtained of the abdomen and pelvis with sagittal and coronal reformations. COMPARISON: 05/30/2016 FINDINGS: ABDOMEN: Clear lung bases. Normal sized heart. Small hiatal hernia. Surgically absent gallbladder. Inferior vena cava filter in place. Stable right adrenal adenoma. Chronic portacaval adenopathy multiple right renal calcifications in the renal pelvis, but no hydronephrosis. Mild splenomegaly. Normal left adrenal, pancreas, left kidney, abdominal aortic caliber. There is a new ileostomy just to the left of midline and there has been surgical repair of the diastases seen previously. There is a peripherally enhancing, thin lentiform shaped fluid collection abutting the anterior abdominal wall measuring roughly 12 cm in transverse diameter, 16.7 cm in craniocaudal dimension, and about 3 cm in thickness at its maximum. It is closely associated with the undersurface of the abdominal wall musculature. Its deep margin along the periphery demonstrates a linear and slightly wispy wavy characteristics suggestive of an underlying mesh surface. There are scattered surgical clips and tacks in the abdominal wall musculature. There are moderate inflammatory changes in the subcutaneous tissues. Underlying bowel loops are normal caliber. Air fluid levels are present in the right mid abdominal bowel loops. Colon is surgically absent. PELVIS: The prostate gland and seminal vesicles, urinary bladder, and pelvic vessels are normal. No adenopathy, free fluid, or pelvic mass. Intact osseous structures. IMPRESSION: 1. Peripherally enhancing fluid collection along the anterior abdominal wall in the area of recent intervention. This could potentially be in the preperitoneal space, although an intraperitoneal fluid collection is not excluded. Correlate with recent operative intervention, and question the presence of residual mesh /mesh placement. Differential diagnosis includes seroma, evolving hematoma, or abscess. 2. Interval relocation of ileostomy. No evidence of bowel obstruction. Decreased caliber of bowel loops. 3. Status post colectomy, cholecystectomy, IVC filter placement, and recent abdominal wall repair, revision of ileostomy. 4. Chronic right renal calculi. 5. Findings called to the emergency room. All CT scans at this facility use dose modulation, iterative reconstruction, and/or weight-based dosing when appropriate to reduce radiation dose to as low as reasonably achievable.
--- NOTE | 2016-08-13 23:54 | ED ORDER SUMMARY ---
..... Patient: RK AVILA SR OrderSheet [facility] VisitID: [id number] [address] [place] [address] 50y, M Registration Date/Time: 08/13/2016 ORDER SHEET Weight: 127.0 kg Allergies: Benacar, Ketamine, LIsinopril, Mercury, NSAIDs GENERAL ORDERS: CBC w Diff Urgent (19:37 08/13/2016 Kavya Conn) (Ack 19:43 ALawrence ER Tech1) (20:23 TBowen R.N.) CMP Urgent (19:37 08/13/2016 Kavya Conn) (Ack 19:43 ALawrence ER Tech1) (20:23 TBowen R.N.) UA-Culture if indicated Urgent (19:37 08/13/2016 Kavya Conn) (Ack 19:43 ALawrence ER Tech1) (20:23 TBowen R.N.) Lipase Urgent (19:37 08/13/2016 Kavya Conn) (Ack 19:43 ALawrence ER Tech1) (20:23 TBowen R.N.) CT Abd/Pel w Cont (No) (GFR > 60) Urgent (22:20 08/13/2016 Kavya Conn) (Ack 22:36 ALawrence ER Tech1) (23:10 ALawrence ER Tech1) MEDICATION ORDERS: Phenergan IV 25 mg (HIGH ALERT MEDICATION, NOW) (19:55 08/13/2016 Kavya Conn) (20:25 TBowen R.N.) IV FLUIDS: IV NS : initial bolus 1000 mL (1000 mL/hr), then none - for X1 (NOW) (19:36 08/13/2016 Kavya Conn) (20:23 TBowen R.N.) Dilaudid IV 2 mg (may repeat once in 30 minutes for pain > 5/10) (19:37 08/13/2016 Kavya Conn) (20:23 TBowen R.N.) Benadryl IV 25 mg (NOW) (21:23 08/13/2016 Kavya Conn) (22:09 TBowen R.N.) Zofran IV 8 mg (NOW) (23:53 08/13/2016 Kavya Conn) (0:29 TBowroyal R.N.) Dilaudid IV 2 mg (once now. may repeat in 30 min for pain > 5/10) (23:53 08/13/2016 Kavya Conn) (0:29 TBowen R.N.) ORDER SHEET NOTES: [Electronically signed by Dinora Vargas R.N. (:08/14/2016)] [Electronically signed by Leonardo Amezcua Dr. (23:43 08/19/2016)] [Electronically locked/signed by Dinora Vargas R.N. (:08/14/2016)]
--- NOTE | 2016-08-13 23:54 | ED ORDER SUMMARY ---
..... Patient: RK AVILA SR OrderSheet [facility] VisitID: [id number] [address] [place] [address] 50y, M Registration Date/Time: 08/13/2016 ORDER SHEET Weight: 127.0 kg Allergies: Benacar, Ketamine, LIsinopril, Mercury, NSAIDs GENERAL ORDERS: CBC w Diff Urgent (19:37 08/13/2016 Kavya Conn) (Ack 19:43 ALawrence ER Tech1) (20:23 TBowen R.N.) CMP Urgent (19:37 08/13/2016 Kavya Conn) (Ack 19:43 ALawrence ER Tech1) (20:23 TBowen R.N.) UA-Culture if indicated Urgent (19:37 08/13/2016 Kavya Conn) (Ack 19:43 ALawrence ER Tech1) (20:23 TBowen R.N.) Lipase Urgent (19:37 08/13/2016 Kavya Conn) (Ack 19:43 ALawrence ER Tech1) (20:23 TBowen R.N.) CT Abd/Pel w Cont (No) (GFR > 60) Urgent (22:20 08/13/2016 Kavya Conn) (Ack 22:36 ALawrence ER Tech1) (23:10 ALawrence ER Tech1) MEDICATION ORDERS: Phenergan IV 25 mg (HIGH ALERT MEDICATION, NOW) (19:55 08/13/2016 Kavya Conn) (20:25 TBowen R.N.) IV FLUIDS: IV NS : initial bolus 1000 mL (1000 mL/hr), then none - for X1 (NOW) (19:36 08/13/2016 Kavya Conn) (20:23 TBowen R.N.) Dilaudid IV 2 mg (may repeat once in 30 minutes for pain > 5/10) (19:37 08/13/2016 Kavya Conn) (20:23 TBowen R.N.) Benadryl IV 25 mg (NOW) (21:23 08/13/2016 Kavya Conn) (22:09 TBowen R.N.) Zofran IV 8 mg (NOW) (23:53 08/13/2016 Kavya Conn) (0:29 TBowroyal R.N.) Dilaudid IV 2 mg (once now. may repeat in 30 min for pain > 5/10) (23:53 08/13/2016 Kavya Conn) (0:29 TBowen R.N.) ORDER SHEET NOTES: [Electronically signed by Dinora Vargas R.N. (:08/14/2016)] [Electronically signed by Leonardo Amezcua Dr. (23:43 08/19/2016)] [Electronically locked/signed by Dinora Vargas R.N. (:08/14/2016)]
--- NOTE | 2016-08-13 23:54 | ED NURSING NOTES ---
Clinical Report - Nurses [facility] [address] [place] [address] 08/13/2016 18:47 Patient: RK AVILA SR TRIAGE Triage time 19:37. Acuity: LEVEL 3. Chief Complaint: ABDOMINAL PAIN. Alert. --19:42 Yisel RReynaN. 19:37 08/13/16. BP: 151/92. HR: 72. RR: 18. O2 saturation: 98%. Temp: 98.6 F. Pain level now: 12/03. --19:42 DinoraB R.N. Weight: 127 kg. Height/Length: 74 inches Estimated. BMI: 36. --19:41 TonyaB, R.N. Medications BusPIRone HCl Oral 20 mg, 3x a day. clonidine .3 patch every week on Saturday . Dilaudid Oral (Tablet 2 mg) 2 tablets, PRN, last dose 1200. Omeprazole Oral 40 mg, 2x a day, last dose 0700. Promethazine HCl Oral 25 mg (1 to 2 tablets PRN nausea). Spironolactone Oral (Tablet 25 mg) 1 tablet, daily. --19:39 DinoraB R.N. Warfarin Sodium Oral. --19:39 DinoraB R.N. Allergies Benacar. Ketamine. LIsinopril. Mercury. NSAIDs. --19:38 Yisel R.N. History Arrived by private vehicle. Historian: patient. Accompanied by family. ( pt states his pain is out of control, pt is one month post abd surgery at ). He has had abdominal pain. 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 PAST MEDICAL HX: Immunizations: up-to-date. SOCIAL HX: No alcohol use or drug use. No recent travel. No infectious disease exposure. No known contact with a sick individual. FALL RISK ASSESSMENT: Fall risk assessment completed. No fall risk identified. NUTRITIONAL RISK ASSESSMENT: The nutritional risk assessment revealed no deficiencies. FUNCTIONAL ASSESSMENT: Functional assessment: no impairments noted. LEARNING NEEDS ASSESSMENT: The learning needs assessment revealed no barriers. SKIN INTEGRITY ASSESSMENT: Skin integrity risk assessment completed. No skin integrity risk identified. --19:42 Pankaj Morillo Interventions ID band on patient. To treatment room. --:42 Pankaj Morillo PHYSICAL ASSESSMENT GENERAL / NEURO / PSYCH: Alert. Oriented X 4. Appears in no acute distress. HEENT: Mucous membranes are pink. RESPIRATORY: Respirations not labored. Breath sounds within normal limits. CVS: Normal sinus rhythm noted. Capillary refill less than 2 seconds. GI / : Abdominal scar present. Colostomy present. Abdomen soft. Bowel sounds within normal limits. SKIN: Skin is warm and dry. --:42 Pankaj Morillo NURSING PROGRESS NOTES Monitoring of patient in place. Two patient identifiers checked. Call light placed in reach. Side rails up x 2. Bed placed in lowest position. Brakes of bed on. --:43 Pankaj Morillo 20:12 08/13/2016 Site #1 started via IV in the left subclavian with an 18g angiocath; one attempt. Blood drawn: rainbow set. Labeled in the presence of the patient and sent to the lab. Saline lock flushed. --20:22 Pankaj Morillo 20:22 08/13/2016 Started IV Fluids IV NS (Saline); bolus of 1000 mL over 1 hour(s) via site #1 via IV pump. Allergies verified and confirmed 5 rights. IV patency established. IV site checked: no pain, redness, or swelling. IV flushed thoroughly pre- and post-medication administration. --20:23 Pankaj Morillo 20:23 08/13/2016 Dilaudid (HYDROmorphone HCl PF) IVP 2 mg given over 2 minute(s) via site #1. Allergies verified, confirmed 5 rights and sedative warning given to the patient. IV patency established. IV site checked: no pain, redness, or swelling. IV flushed thoroughly pre- and post-medication administration. IVP given by RN. --20:23 Pankaj Morillo 20:25 08/13/2016 PHENERGAN (Promethazine HCl) IVP 25 mg given over 2 minute(s) via site #1. Allergies verified and confirmed 5 rights. IV patency established. IV site checked: no pain, redness, or swelling. IV flushed thoroughly pre- and post-medication administration. IVP given by RN. --20:25 Pankaj Morillo ( port accessed no complication pt tolerated well). --20:26 Pankaj Morillo 21:43 08/13/2016 Dilaudid (HYDROmorphone HCl PF) IVP 2 mg given over 2 minute(s) via site #1. Allergies verified, confirmed 5 rights and sedative warning given to the patient. IV patency established. IV site checked: no pain, redness, or swelling. IV flushed thoroughly pre- and post-medication administration. IVP given by RN. --21:44 Pankaj Morillo 21:44 08/13/2016 Benadryl (DiphenhydrAMINE HCl) IVP 25 mg given. via site #1. Allergies verified, confirmed 5 rights and sedative warning given to the patient. IV patency established. IV site checked: no pain, redness, or swelling. IV flushed thoroughly pre- and post-medication administration. IVP given by RN. --22:09 Pankaj Morillo 00:08/14/2016 Zofran (Ondansetron HCl) IVP 8 mg given over 2 minute(s) via site #1. Allergies verified and confirmed 5 rights. IV patency established. IV site checked: no pain, redness, or swelling. IV flushed thoroughly pre- and post-medication administration. IVP given by RN. --00: Pankaj Morillo 00:08/14/2016 Dilaudid (HYDROmorphone HCl PF) IVP 2 mg given over 2 minute(s) via site #1. Allergies verified, confirmed 5 rights and sedative warning given to the patient. IV patency established. IV site checked: no pain, redness, or swelling. IV flushed thoroughly pre- and post-medication administration. IVP given by RN. --00: Pankaj Morillo 00:08/14/16. BP: 134/69. HR: 118. RR: 18. O2 saturation: 97%. Temp: 98.9 F. Pain level now: 6/10. --00:31 Pankaj Morillo 01:03 08/14/2016 Dilaudid (HYDROmorphone HCl PF) IVP 2 mg given over 2 minute(s) via site #1. Allergies verified, confirmed 5 rights and sedative warning given to the patient. IV patency established. IV site checked: no pain, redness, or swelling. IV flushed thoroughly pre- and post-medication administration. IVP given by RN. --01:03 Pankaj Morillo DISPOSITION / DISCHARGE Transported via stretcher by transport team. Report was given to a nurse via a phone call. All questions were answered. Report was acknowledged and care was transferred. --01:09 Pankaj Morillo Departure time: 01:16. --01:17 Pankaj Morillo 01:17 08/14/16. BP: 136/68. HR: 110. RR: 18. O2 saturation: 98%. Temp: 100 F. Pain level now: 10/03. --01:17 Pankaj Morillo Locked/Released at 08/14/2016 1:17 by Pankaj Morillo
[2016-08-14] VITALS (7 sets, daily range): BP systolic 113–136; BP diastolic 67–84
[2016-08-14] MEDS ORDERED: COUMADIN5 MG PO (02:36)
--- NOTE | 2016-08-14 04:45 | NUR ---
PT. ARRIVED TO FLOOR AT APPROX. 0130. PT. DIAPHORETIC, C/O ABDOMINAL PAIN 12/03. VSS EXCEPT HR WAS AT [address] CAUSEY IN TO ASSESS PT. AND INPUT ORDERS, NOTIFIED DR. CAUSEY OF PT. HR 140'S. PER DR. CAUSEY'S ORDERS, PT. TO GET BLOOD CULTURES DONE IF PT. HAS TEMP > 101 F, OR IF PT. GETS CHILLS . ONE BLOOD CULTURE TO BE COLLECTED FROM PORT-A-CATH, AND ONE PERIPHERALLY. ADMINISTERING DILAUDID FOR ABDOMINAL PAIN. PT. IS CARING FOR ILEOSTOMY INDEPENDENTLY. CALL LIGHT WITHIN REACH. PT. IS INDEPENDENT IN ROOM. TM.
--- NOTE | 2016-08-14 05:10 | NUR ---
PER. SLY IRIZARRY TO HAVE ICE WATER.
--- NOTE | 2016-08-14 08:45 | HISTORY AND PHYSICAL ---
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 He has recently had a major reconstructive surgery at the [facility] done 07/13. He had been recovering well until early this evening when he developed chills, sweats, nausea, and increased pain. He came into the emergency department here at [facility] as it was too far to travel to the [facility]. Evaluation in the emergency department showed no major abnormalities. He has been passing urine okay. He is wondering if he might be on the verge of developing an infection. He thinks that blood cultures were done in the emergency department, but no other abnormalities were noted except a rather diffuse fluid collection underneath the abdominal wall muscle layer. He did not show evidence of skin infection problems and has not had redness of his skin or other problems. MEDICAL/SURGICAL HISTORY: Past medical history: Remarkable for Diop syndrome as noted. He has also had problems with adult-onset diabetes, hypertension, factor V Leiden abnormality with thrombophilia with DVT problems and pulmonary emboli in the past. He has had difficulties with compression fractures in the lumbar spine and has needed pain medication for this intermittently. He has also had problems with nephrolithiasis involving his right kidney and problems with anxiety and depression. He has a tendency towards anemia due to poor iron absorption. Past surgical history: Remarkable for a subtotal colectomy done in the . He has had multiple surgeries done since then including converting the initial rectal pouch into an ileostomy. He had reached the point where he is having very frequent bowel obstruction symptoms and this led to his surgery at the [facility]. Other surgeries in the past including cholecystectomy, right inguinal hernia repair, shoulder surgeries for impingement, Port-A-Cath placement, Lakia filter placements, and EGDs to evaluate nausea, vomiting, and stomach polyps. MEDICATIONS: 1. Hydromorphone 2 mg tablets 1 every 3 hours for pain control. 2. Spironolactone 25 mg 1 every morning. 3. Catapres skin patch 0.3 mg per 24-hour strength 1 patch every 7 days. 4. Omeprazole 40 mg strength 1 twice daily for stomach acid. 5. Diazepam 5-10 mg for anxiety and difficulty sleeping. 6. Trazodone 50 mg 1 or 2 at bedtime to help with sleeping. ALLERGIES: 1. Include GLENROY INHIBITORS AND ARBs which trigger angioedema. 1. Ketamine which triggers nausea and vomiting. 2. HYDROCODONE, which triggers nausea and vomiting. 3. CEPHALEXIN, which causes gastritis 4. ONDANSETRON at higher doses, which causes restlessness. 5. Also he is sensitive to MERCURY AND LORAZEPAM. 6. He is also sensitive to PROMETHAZINE that seems to cause him to have some restlessness. SOCIAL HISTORY: Indicates the patient is and lives with his and 3 adult children and with his 's parents in the [facility]. 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 He has not been a smoker. He does chew tobacco. He occasionally drinks a beer but infrequently. He has been on a regular diet at home since discharged from [facility]. FAMILY HISTORY: Remarkable for multiple family members who have had Diop syndrome including a younger brother who from colon cancer related to this and a sister also from colon cancer and another sister is quite ill from colon cancer. The patient's father from a heart attack in his 50s, I believe. His mother is in good health. The patient does have 3 children, 2 of them have Diop syndrome. REVIEW OF SYSTEMS: HEENT is okay. Respiratory okay with no cough. Cardiovascular is okay, though the patient has had somewhat of a tachycardia this afternoon and evening. Gastrointestinal: As noted. Genitourinary is okay. The patient does have microscopic blood due to kidney stones on the right side. Musculoskeletal is okay. Neurologic is okay. Psychiatric: Remarkable for ongoing anxiety, but this is improving. The skin is remarkable for healing abdominal wall surgical incisions. PHYSICAL EXAMINATION: GENERAL: Reveals the patient to be a white male who is in no severe distress currently. VITAL SIGNS: Temperature to be 99.7. Pulse is 110. Blood pressure is in the 120- 130/60-70 range. Oxygen saturation is 92% on room air. HEENT: Okay. NECK: Supple. CHEST: Clear to auscultation and percussion. HEART: Reveals normal S1 and S2 with a grade 1/6 systolic murmur along the left sternal border. ABDOMEN: Not remarkably distended. Surgical incisions appear to be healing well. There is no pronounced tenderness or warmth. Bowel tones are present but decreased. The ileostomy has been move to the left upper abdominal area. GENITAL, RECTAL: Exam not done. EXTREMITIES: Show trace edema. Peripheral pulses are normal. NEUROLOGIC: The patient is alert and oriented x3. Cranial nerves are normal. LAB/IMAGING: Show white blood cell count is 6900, hemoglobin 12.7, hematocrit 38.5. Urinalysis shows specific gravity greater than 1.030. Sodium is 136, potassium 4.1, chloride 102, CO2 is 26, glucose is 102, creatinine 1.0, BUN 11. Total bilirubin is 0.5. SGOT is 32, SGPT 72, alkaline phosphatase is 115. Lipase is 202. Abdominal CT scan shows a rather diffuse fluid collection in the submuscular plane, questionable preperitoneal, which is rather diffuse and large , suspected to be related to his recent surgery. There is no evidence of obstruction. IMPRESSION/PLAN: 1. The patient is presenting with chills and at this point has no obvious infection. He thinks he had blood cultures done in the emergency department. Blood cultures will be repeated if he has a fever elevation or develops chills once more. Antibiotics will not be given currently. He does seem to be relatively dehydrated and will be started on intravenous fluids. He does need to have his iron checked and magnesium checked and these will be checked in the morning with his lab. If these are abnormal, these will be corrected. He will have a protime checked in the morning as well. We will hold off on adding any additional anticoagulation until this is stable.
--- NOTE | 2016-08-14 17:15 | NUR ---
REQUIRES PRN PAIN MEDS Q2, ONLY MED X1 FOR NAUSEA. AMBULATES FREQUENTLY, OSTOMY INTACT AND FUNCTIONNG WELL. TOLERATING GENERAL DIET WELL.
[2016-08-15] VITALS (7 sets, daily range): BP systolic 124–155; BP diastolic 68–79
--- NOTE | 2016-08-15 07:45 | NUR ---
RECEIVED PT WALKING INSIDE HIS ROOM, PT JUST RETURNED FROM AMBULATION, CONVERSING, SMILING BUT COMPLAINT OF PAIN, 6/10 LEVEL. V/S TAKEN AND RECORDED. ASSESSMENT DONE. PT DENIES NAUSEA AT THIS. NO FACIAL GRIMACES, PT IS DRESSED. DUE MEDS GIVEN.
--- NOTE | 2016-08-15 09:24 | NUR ---
In to see patient, s/p major abdominal surgery last month at [facility], pt has new ileostomy stoma placed superior to prior stoma, states is functioning well, pt has multiple incision lines to his abdomen, all are approximated, clean, dry and intact, no erythema,edema, drainage or odor. Ileostomy appliance changed x2 days ago, offered assistance at next appliance change if needed. Will continue to monitor.
--- NOTE | 2016-08-15 15:21 | NUR ---
TOOK PATIENT CARE OVER FROM ANISA. PT IS SLEEPING WITH NO S/S OF DISTRESS. WILL DO ASSESSMENT ONCE WAKES UP AND WILL CONTINUE TO MONITOR.
[2016-08-16 03:00] VITALS: BP 130/73
[2016-08-16 06:56] VITALS: BP 131/74
[2016-08-16] MEDS ORDERED: ONDANSETRON ODT4 MG PO (07:40)
--- NOTE | 2016-08-16 07:50 | Provider's Discharge Care Plan ---
Problem, Goal, Plan Problem List 1. Abdominal pain Goals: Improve disease control, Improve function, Improved health/wellness, Increase independence Instructions: Follow up as directed, Increase activity level, Take meds as directed, continue hydromorphone 2 mg q 3h as needed for pain. 2. Hypertension Goals: Improve disease control, Improve function, Improved health/wellness, Increase independence Instructions: Follow up as directed, Increase activity level, Take meds as directed, continue clonidine patch 0.3 mg/24h change q 7d., Continue spirololactone 25 mg q am. 3. GE reflux Goals: Improve disease control, Improve function, Improved health/wellness, Increase independence Instructions: Follow up as directed, Increase activity level, Take meds as directed, continue omeprazole 40 mg daily. 4. Nausea & vomiting Goals: Improve disease control, Improve function, Improved health/wellness, Increase independence Instructions: Follow up as directed, Increase activity level, Take meds as directed, continue ondansetron 4 mg dissolved in mouth every 4h as needed. Stop promethazine. 5. Iron (Fe) deficiency anemia Goals: Improve disease control, Improve function, Improved health/wellness, Increase independence Instructions: Follow up as directed, continue iron sucrose infusion q 3 wk. 6. Nephrolithiasis Goals: Improve disease control, Improve function, Improved health/wellness, Increase independence Instructions: Follow up as directed, Increase activity level, Take meds as directed, drink lots of fluids, jude. water. 7. Abdominal fluid collection Goals: Improve disease control, Improve function, Improved health/wellness, Increase independence Instructions: Follow up as directed, Increase activity level, Take meds as directed, watch for abd. wall tenderness, redness, fever or chills.
--- NOTE | 2016-08-16 09:30 | NUR ---
DEACCESSED PORT-A-CATH. WENT OVER DC INSTRCUTIONS, GAVE PRESCRIPTION AND EDUCATION ON CURRENT DIAGNOSIS. PT STATED UNDERSTANDING. ESCORTED OUT TO PRIVATE CAR HOME.
--- NOTE | 2016-08-16 10:07 | NUR ---
NUTRITION NOTE: RD here to assess, however pt has been discharged per MD notes. Pt appears to be tolerating general diet meals and snacks. RD avail for further consult if desired.
--- NOTE | 2016-08-19 23:43 | ED CLINICAL REPORT ---
Clinical Report - Physicians/Mid Levels [facility] [address] [place] [address] 08/13/2016 18:47 Patient: RK AVILA SR Time Seen: 1938. Arrived- By private vehicle. Historian- patient. HISTORY OF PRESENT ILLNESS Chief Complaint: ABDOMINAL PAIN. This started today. It was gradual in onset and has been waxing/waning but is gone now or not gone now. At its maximum, severity described as moderate. When seen in the E.D., severity described as moderate. Modifying factors- worsened by movement. Relieved by rest. It is described as sharp and diffuse. No radiation. It is described as generalized in location. The patient has had nausea. No loss of appetite, vomiting or diarrhea. No additional abdominal pain. (positive flatus). No recent travel. Similar symptoms previously: Many times. Recent medical care: The patient was seen recently and hospitalized (had recent surgery for modifying of his ostomy as well as correction ofbowel abnormality. Patient reports doing well at that surgery however this is the first time he has had any problems since then.). REVIEW OF SYSTEMS No fever or skin rash. All systems otherwise negative, except as recorded above. PAST HISTORY See nurses notes. SOCIAL HISTORY Never smoker. No alcohol use or drug use. No recent travel. Is a local resident. FAMILY HISTORY (amily history of bowel problems). ADDITIONAL NOTES The nursing notes have been reviewed. PHYSICAL EXAM Vital Signs: 08/13/2016 19:37 BP: 151/92. HR: 72. RR: 18. O2 saturation: 98%. Temp: 98.6 F. Pain level now: 7/10. Blood pressure normal. Oxygen saturation normal. Appearance: Alert. Oriented X3. Patient in mild distress. ENT: Ears normal. Nose normal. CVS: Normal heart rate and rhythm. Heart sounds normal. Pulses normal. Respiratory: No respiratory distress. Breath sounds normal. Chest nontender. Abdomen: Soft. No mass. (multiple remote anterior abdominal scars with subacute well healing scars. Ostomy left anterior. mild diffuse tenderness. no masses. no erythema. no crepitus.). Skin: Skin warm and dry. Normal skin color. No rash. Normal skin turgor. Extremities: Extremities exhibit normal ROM. No lower extremity edema. Neuro: Oriented X 3. No motor deficit. No sensory deficit. LABS, X-RAYS, AND EKG Abdominal CT: PROCEDURE: ABDOMEN/PELVIS WITH CONTRAST CLINICAL INDICATION: ABDOMINAL PAIN. EXTENSIVE SURGERIES. RECENT ONE 2 WEEKS AGO 2 WEEKS AGO TECHNIQUE: 145 ml of Isovue 300 were injected intravenously and axial images were obtained of the abdomen and pelvis with sagittal and coronal reformations. COMPARISON: 05/30/2016 FINDINGS: ABDOMEN: Clear lung bases. Normal sized heart. Small hiatal hernia. Surgically absent gallbladder. Inferior vena cava filter in place. Stable right adrenal adenoma. Chronic portacaval adenopathy multiple right renal calcifications in the renal pelvis, but no hydronephrosis. Mild splenomegaly. Normal left adrenal, pancreas, left kidney, abdominal aortic caliber. There is a new ileostomy just to the left of midline and there has been surgical repair of the diastases seen previously. There is a peripherally enhancing, thin lentiform shaped fluid collection abutting the anterior abdominal wall measuring roughly 12 cm in transverse diameter, 16.7 cm in craniocaudal dimension, and about 3 cm in thickness at its maximum. It is closely associated with the undersurface of the abdominal wall musculature. Its deep margin along the periphery demonstrates a linear and slightly wispy wavy characteristics suggestive of an underlying mesh surface. There are scattered surgical clips and tacks in the abdominal wall musculature. There are moderate inflammatory changes in the subcutaneous tissues. Underlying bowel loops are normal caliber. Air fluid levels are present in the right mid abdominal bowel loops. Colon is surgically absent. PELVIS: The prostate gland and seminal vesicles, urinary bladder, and pelvic vessels are normal. No adenopathy, free fluid, or pelvic mass. Intact osseous structures. IMPRESSION: 1. Peripherally enhancing fluid collection along the anterior abdominal wall in the area of recent intervention. This could potentially be in the preperitoneal space, although an intraperitoneal fluid collection is not excluded. Correlate with recent operative intervention, and question the presence of residual mesh /mesh placement. Differential diagnosis includes seroma, evolving hematoma, or abscess. 2. Interval relocation of ileostomy. No evidence of bowel obstruction. Decreased caliber of bowel loops. 3. Status post colectomy, cholecystectomy, IVC filter placement, and recent abdominal wall repair, revision of ileostomy. 4. Chronic right renal calculi. Laboratory Tests: UA-Culture if indicated: (DWIGHT: 08/13/2016 20:00) ( Mscvd 08/13/2016 21:10) Final results Test Result Flag Units (Reference) URINE COLOR YELLOW URINE APPEARANCE CLEAR URINE GLUCOSE NEGATIVE (NEGATIVE) URINE BILIRUBIN NEGATIVE (NEGATIVE) URINE KETONE NEGATIVE (NEGATIVE) URINE SPECIFIC GRAVITY >= 1.030 (1.010-1.030) URINE PH 5.5 (5.0-8.0) URINE PROTEIN TRACE (NEGATIVE) URINE UROBILINOGEN 0.2 EU/dL (0.2-1.0) URINE NITRITE NEGATIVE (NEGATIVE) URINE BLOOD 3+ (NEGATIVE) URINE LEUK ESTERASE NEGATIVE (NEGATIVE) URINE RBC 25-50 rbc/hpf (0-1) URINE WBC 3-5 wbc/hpf (0-1) URINE EPITHELIAL CELLS 0-1 EPI/hpf (0-5) URINE BACTERIA TRACE (<1+) (NONE SEEN) URINE COMMENT CULT NOT INDICATED 1+ MUCOUSURINE CULTURES ARE SET-UP BASED ON THE FOLLOWING CRITERIA:POSITIVE NITRITEPOSITIVE LEUKOCYTE ESTERASEGREATER THAN 10 WHITE BLOOD CELLSMODERATE (2+) OR GREATER BACTERIA CBC w Diff: (DWIGHT: 08/13/2016 20:10) ( [facility] 08/13/2016 20:55) Final results Test Result Flag Units (Reference) WHITE BLOOD COUNT 6.9 K/uL (4.5-11.5) RED BLOOD COUNT 4.64 M/uL (4.50-5.90) HEMOGLOBIN 12.7 L gm/dL (13.5-17.5) HEMATOCRIT 38.5 L % (41.0-53.0) MEAN CELL VOLUME 83 fL (80-100) MEAN CORPUSCULAR HGB 27 pg (26-34) MEAN CORPUSCULAR HGB CONC 33 g/dL (31-37) RED CELL DISTRIBUTION WIDTH 15.3 H % (11.6-14.8) PLATELET COUNT 452 H K/uL (150-400) NEUTROPHIL % 56.1 % (50-75) LYMPH % 23.8 L % (25-40) MONO % 9.3 % (3-14) EOSINOPHIL % 10.4 H % (0-4) BASOPHIL % 0.4 % (0-2) CMP: (DWIGHT: 08/13/2016 20:10) ( MsgRcvd 08/13/2016 20:56) Final results Test Result Flag Units (Reference) GLUCOSE 102 mg/dL (70-110) BUN 11 mg/dL (7-18) CREATININE 1.0 mg/dL (0.6-1.3) Estimated GFR >60 mL/min Estimated GFR- >60 mL/min Note: Persistent reduction over 3 months in eGFR<60 mL/min/1.73 m2 defines CKD. Patients with eGFR values>=60 mL/min/1.73 m2 may also have CKD if evidence ofpersistent proteinuria. Additional information may be foundat www.[email or web address].org. SODIUM 138 mmol/L (136-145) POTASSIUM 4.1 mmol/L (3.5-5.1) CHLORIDE 102 mmol/L (98-107) CARBON DIOXIDE 26 mmol/L (21-32) CALCIUM 8.2 L mg/dL (8.5-10.1) TOTAL PROTEIN 8.1 g/dL (6.4-8.2) ALBUMIN 2.9 L g/dL (3.3-5.0) BILIRUBIN, TOTAL 0.5 mg/dL (0.0-1.0) ALKALINE PHOSPHATASE 115 U/L (46-116) AST (SGOT) 37 U/L (15-37) ALT (SGPT) 72 U/L (12-78) LIPASE 202 U/L (73-393) . PROGRESS AND PROCEDURES Course of Care: the patient is a pleasant 50-year-old male well-known to our facility with multipleadmissions for small bowel traction recently had surgery for correction of this abnormality and presents for evaluation of abdominal pain and nausea. Patient reports he does not feel that he needs to be admitted at this time and is well versed in the symptoms that he is had. Patient reports that he does not feel that he is obstructed at this time. Patient is requesting to be treated with nausea medication and pain medication only at this time. Had discussion with patient in regards to his recent surgery and possible postoperative complications. Expressed my concern for these entities and wanted to obtain a CT scan of the abdomen and pelvis with contrast for evaluation of these abnormalities. Patient reports that he would like to have us speak with his primary care doctor to see if this is necessary or not. PL TRY TO CONTACT HIS PRIMARY CARE Dr. Was able to speak to Dr. Myers about the patient'sfindings here in the emergency department and my concerns. We agreed the patient would need a CT scan of the abdomen and pelvis with contrast. CT scan again and illnesses been ordered. Patient is agreeable to treatment plan. Additional pain medication and nausea medications been provided. Patient's workup was remarkable for the findings above. Because of the patient's symptoms has not significant improvement and findings above were concerning for obstruction, patient will be admitted to the hospital for further monitoring and management. No signs of infectious etiology at this time other than fluid collection which is likely secondary to recent surgical manipulation. Patient will be monitored and will obtain appropriate treatments as his clinical condition progresses. Discussed the patient's workup here in the emergency department as well as hisdiagnosis and plan of care. All questions have been answered. The patient is agreeable to the treatment plan. Patient was admitted to the hospitalist. No other abnormalities noted. No other concerns. Patient is stable for floor level of placement. Disposition: Observation in Acute Care. (Electronically signed by Leonardo Amezcua Dr. 08/19/2016 23:43) Addenda for RK AVILA SR VisitID: [id number] Date: 08/13/2016 08/13/2016 23:33 1 month ago Abd wall reconstruction. fluid collection ant abdominal wall 12 x 16.x3 intra perioneal and ant abdominal wall. (Electronically signed by Reagan Da Silva MD - 08/13/2016 23:33)
--- NOTE | 2016-08-19 23:43 | ED MED RECONCILIATION SUMMARY ---
Patient: RK AVILA Medication Reconciliation Report [facility] VisitID: [id number] [address] [place] [address] 50y, M Registration Date/Time: 08/13/2016 Weight: 127.0 kg Height/Length: 74 in. BMI: 36.0 ALLERGIES: Benacar, Ketamine, LIsinopril, Mercury, NSAIDs The patient's Home Medications are listed below: THE FOLLOWING MEDICATIONS NEED TO BE RECONCILED: BusPIRone HCl Oral 20 mg, 3x a day clonidine .3 patch every week on Saturday Dilaudid Oral (2 mg) 2 tablets, PRN, last dose: 1200 Omeprazole Oral 40 mg, 2x a day, last dose: 0700 Promethazine HCl Oral 25 mg, 1 to 2 tablets PRN nausea Spironolactone Oral (25 mg) 1 tablet, daily Warfarin Sodium Oral The source(s) of the original Home Medication information: Not obtained. The following Medications were given to the patient in the Emergency Department: IV NS IV Fluids bolus 1000 mL over 1 hour(s), administered: 08/13/2016 8:22:00 PM Dilaudid [IVP] IVP 2 mg, administered: 08/13/2016 8:23:00 PM PHENERGAN [IVP] IVP 25 mg, administered: 08/13/2016 8:25:00 PM Dilaudid [IVP] IVP 2 mg, administered: 08/13/2016 9:43:00 PM Benadryl [IVP] IVP 25 mg, administered: 08/13/2016 9:44:00 PM Zofran [IVP] IVP 8 mg, administered: 08/14/2016 12:29:00 AM Dilaudid [IVP] IVP 2 mg, administered: 08/14/2016 12:29:00 AM Dilaudid [IVP] IVP 2 mg, administered: 08/14/2016 1:03:00 AM The following Medications were prescribed to the patient: None.
--- NOTE | 2016-08-19 23:43 | ED MED RECONCILIATION SUMMARY ---
Patient: RK AVILA Medication Reconciliation Report [facility] VisitID: [id number] [address] [place] [address] 50y, M Registration Date/Time: 08/13/2016 Weight: 127.0 kg Height/Length: 74 in. BMI: 36.0 ALLERGIES: Benacar, Ketamine, LIsinopril, Mercury, NSAIDs The patient's Home Medications are listed below: THE FOLLOWING MEDICATIONS NEED TO BE RECONCILED: BusPIRone HCl Oral 20 mg, 3x a day clonidine .3 patch every week on Saturday Dilaudid Oral (2 mg) 2 tablets, PRN, last dose: 1200 Omeprazole Oral 40 mg, 2x a day, last dose: 0700 Promethazine HCl Oral 25 mg, 1 to 2 tablets PRN nausea Spironolactone Oral (25 mg) 1 tablet, daily Warfarin Sodium Oral The source(s) of the original Home Medication information: Not obtained. The following Medications were given to the patient in the Emergency Department: IV NS IV Fluids bolus 1000 mL over 1 hour(s), administered: 08/13/2016 8:22:00 PM Dilaudid [IVP] IVP 2 mg, administered: 08/13/2016 8:23:00 PM PHENERGAN [IVP] IVP 25 mg, administered: 08/13/2016 8:25:00 PM Dilaudid [IVP] IVP 2 mg, administered: 08/13/2016 9:43:00 PM Benadryl [IVP] IVP 25 mg, administered: 08/13/2016 9:44:00 PM Zofran [IVP] IVP 8 mg, administered: 08/14/2016 12:29:00 AM Dilaudid [IVP] IVP 2 mg, administered: 08/14/2016 12:29:00 AM Dilaudid [IVP] IVP 2 mg, administered: 08/14/2016 1:03:00 AM The following Medications were prescribed to the patient: None.
--- NOTE | 2016-08-19 23:43 | ED MAR SUMMARY ---
..... Medication Administration Record [facility] [address] [place] [address] Patient: RK AVILA Visit ID: [id number] 50y, M Weight: 127.0 kg Height/Length: 74 in BMI: 36 ALLERGIES: Benacar, Ketamine, LIsinopril, Mercury, NSAIDs Start 20:22 08/13/2016 Pankaj Morillo Medication Administered: IV NS (SALINE), Dose: IV Fluids, Bolus: 1000 mL over 1 hour(s), Site: #1 left subclav. Medication Ordered: IV NS : initial bolus 1000 mL (1000 mL/hr), then none - for X1 (NOW). Given 20:08/13/2016 Yisel R.N. Medication Administered: DILAUDID [IVP] (HYDROMORPHONE HCL PF), Dose: 2 mg IVP over 2 minute(s), Site: #1 left subclav. Medication Ordered: Dilaudid IV 2 mg (may repeat once in 30 minutes for pain > 5/10). Given 20:08/13/2016 Yisel R.N. Medication Administered: PHENERGAN [IVP] (PROMETHAZINE HCL), Dose: 25 mg IVP over 2 minute(s), Site: #1 left subclav. Medication Ordered: Phenergan IV 25 mg (HIGH ALERT MEDICATION, NOW). Given :08/13/2016 Yisel RReynaN. Medication Administered: DILAUDID [IVP] (HYDROMORPHONE HCL PF), Dose: 2 mg IVP over 2 minute(s), Site: #1 left subclav. Medication Ordered: Dilaudid IV 2 mg (may repeat once in 30 minutes for pain > 5/10). Given :08/13/2016 Yisel R.N. Medication Administered: BENADRYL [IVP] (DIPHENHYDRAMINE HCL), Dose: 25 mg IVP, Site: #1 left subclav. Medication Ordered: Benadryl IV 25 mg (NOW). Given 00:29 08/14/2016 Lorraine MorilloNReyna Medication Administered: ZOFRAN [IVP] (ONDANSETRON HCL), Dose: 8 mg IVP over 2 minute(s), Site: #1 left subclav. Medication Ordered: Zofran IV 8 mg (NOW). Given 00:29 08/14/2016 Pankaj Morillo Medication Administered: DILAUDID [IVP] (HYDROMORPHONE HCL PF), Dose: 2 mg IVP over 2 minute(s), Site: #1 left subclav. Medication Ordered: Dilaudid IV 2 mg (once now. may repeat in 30 min for pain > 5/10). Given 01:03 08/14/2016 Yisel RReynaNReyna Medication Administered: DILAUDID [IVP] (HYDROMORPHONE HCL PF), Dose: 2 mg IVP over 2 minute(s), Site: #1 left subclav. Medication Ordered: Dilaudid IV 2 mg (once now. may repeat in 30 min for pain > 5/10).
--- NOTE | 2016-08-19 23:43 | ED MAR SUMMARY ---
..... Medication Administration Record [facility] [address] [place] [address] Patient: RK AVILA Visit ID: [id number] 50y, M Weight: 127.0 kg Height/Length: 74 in BMI: 36 ALLERGIES: Benacar, Ketamine, LIsinopril, Mercury, NSAIDs Start 20:22 08/13/2016 Pankaj Morillo Medication Administered: IV NS (SALINE), Dose: IV Fluids, Bolus: 1000 mL over 1 hour(s), Site: #1 left subclav. Medication Ordered: IV NS : initial bolus 1000 mL (1000 mL/hr), then none - for X1 (NOW). Given 20:08/13/2016 Yisel R.N. Medication Administered: DILAUDID [IVP] (HYDROMORPHONE HCL PF), Dose: 2 mg IVP over 2 minute(s), Site: #1 left subclav. Medication Ordered: Dilaudid IV 2 mg (may repeat once in 30 minutes for pain > 5/10). Given 20:08/13/2016 Yisel R.N. Medication Administered: PHENERGAN [IVP] (PROMETHAZINE HCL), Dose: 25 mg IVP over 2 minute(s), Site: #1 left subclav. Medication Ordered: Phenergan IV 25 mg (HIGH ALERT MEDICATION, NOW). Given :08/13/2016 Yisel RReynaN. Medication Administered: DILAUDID [IVP] (HYDROMORPHONE HCL PF), Dose: 2 mg IVP over 2 minute(s), Site: #1 left subclav. Medication Ordered: Dilaudid IV 2 mg (may repeat once in 30 minutes for pain > 5/10). Given :08/13/2016 Yisel R.N. Medication Administered: BENADRYL [IVP] (DIPHENHYDRAMINE HCL), Dose: 25 mg IVP, Site: #1 left subclav. Medication Ordered: Benadryl IV 25 mg (NOW). Given 00:29 08/14/2016 Lorraine MorilloNReyna Medication Administered: ZOFRAN [IVP] (ONDANSETRON HCL), Dose: 8 mg IVP over 2 minute(s), Site: #1 left subclav. Medication Ordered: Zofran IV 8 mg (NOW). Given 00:29 08/14/2016 Pankaj Morillo Medication Administered: DILAUDID [IVP] (HYDROMORPHONE HCL PF), Dose: 2 mg IVP over 2 minute(s), Site: #1 left subclav. Medication Ordered: Dilaudid IV 2 mg (once now. may repeat in 30 min for pain > 5/10). Given 01:03 08/14/2016 Yisel RReynaNReyna Medication Administered: DILAUDID [IVP] (HYDROMORPHONE HCL PF), Dose: 2 mg IVP over 2 minute(s), Site: #1 left subclav. Medication Ordered: Dilaudid IV 2 mg (once now. may repeat in 30 min for pain > 5/10).
== END 2016-08-16 09:30 | disposition home or self-care (01) | DRG 948 ==
LOC: ED SRH 18:46 → TRANS SRH 08-14 00:19 → ACUTE2 SRH 08-14 00:19
PROVIDERS: ADMIT Family Medicine
DX: G89.18 Other acute postprocedural pain (principal); R93.5 Abnormal findings on diagnostic imaging of other abdominal regions, including retroperitoneum; R50.9 Fever, unspecified; R11.0 Nausea; E86.0 Dehydration; E61.1 Iron deficiency; D68.51 Activated protein C resistance; Z93.2 Ileostomy status; E11.9 Type 2 diabetes mellitus without complications; Z86.711 Personal history of pulmonary embolism; Z79.01 Long term (current) use of anticoagulants; Z15.09 Genetic susceptibility to other malignant neoplasm; Z80.0 Family history of malignant neoplasm of digestive organs
CPT/HCPCS: 83463; 83498; 90004; 90047; 90100; 92235; 92668; 92670; 92720; 94060; 95059

== ENCOUNTER 2016-09-04 10:50 | Outpatient (CLI) | payer BC, OTHER ==
[2016-09-04] VITALS (8 sets, daily range): BP systolic 114–168; BP diastolic 60–79
[~2016-09-04 10:50] MED LIST changes: +ONDANSETRON ODT4 MG PO
== END 2016-09-04 15:00 | disposition home or self-care (01) ==
LOC: SDP SRH 10:50 → LAB SRH 10:50 → ACUTE3 SRH 10:54 → SDP SRH 11:00
DX: D50.9 Iron deficiency anemia, unspecified (principal)

== ENCOUNTER 2016-09-20 10:25 | Inpatient (IN) | payer BC, OTHER ==
[~2016-09-20] VITALS: Ht 193 cm; Wt 130.0 kg
--- NOTE | 2016-09-20 11:40 | DIAGNOSTIC IMAGING REPORT ---
PROCEDURE: XR CHEST 2 VIEW INDICATION: FEVER TECHNIQUE: PA and lateral views. COMPARISON: Chest 02/20/2016 FINDINGS: Lungs are clear. Heart and mediastinum are normal. Thorax is normal. Port-A-Cath unchanged in position. IMPRESSION: 1. Negative chest.
--- NOTE | 2016-09-20 14:05 | ED ORDER SUMMARY ---
..... Patient: RK AVILA SR OrderSheet [facility] VisitID: [id number] [place] [address] 51y, M Registration Date/Time: 09/20/2016 ORDER SHEET Weight: 127.9 kg (stated) Allergies: Benacar, Ketamine, LIsinopril, Mercury, NSAIDs GENERAL ORDERS: Blood Culture (No) (N/A) Urgent (10:52 09/20/2016 Kavya Conn) (Ack 10:56 KHoerner) (11:08 LWhalen R.N.) CBC w Diff Urgent (10:52 09/20/2016 Kavya Conn) (Ack 10:56 KHoerner) (11:08 LWhalen R.N.) CMP Urgent (10:52 09/20/2016 Kavya Conn) (Ack 10:56 KHoerner) (11:08 LWhalen R.N.) UA-Culture if indicated Urgent (10:52 09/20/2016 Kavya Conn) (Ack 10:56 KHoerner) (11:08 LWhalen R.N.) Lactate, Serum Urgent (10:52 09/20/2016 Kavya Conn) (Ack 10:56 KHoerner) (11:08 LWhalen R.N.) Chest 2V Urgent (10:52 09/20/2016 Kavya Conn) (Ack 10:56 KHoerner) (11:08 LWhalen R.N.) Pulse oximeter (10:53 09/20/2016 Kavya Conn) (Ack 10:56 KHoerner) (11:08 LWhalen R.N.) Magnesium Urgent (11:39 09/20/2016 Kavya Conn) (Ack 11:49 KHoerner) (11:50 KHoerner) Blood Culture (No) (N/A) Urgent (16:01 09/20/2016 Kavya Conn) (Ack 16:02 Tim) (16:18 LWhalen R.N.) MEDICATION ORDERS: Acetaminophen PO 650 mg (NOW) (12:31 09/20/2016 Chelsy R.NReyna verbal order read back to Kavya Conn) (12:32 LWjesse R.N.) Tylenol PO 650 mg (NOW) (12:32 09/20/2016 Kavya Conn) (Cancelled: Duplicate Order12:34 LWjesse R.N.) IV FLUIDS: IV NS : initial bolus 1000 mL (1000 mL/hr), then none - for X1 (NOW) (10:53 09/20/2016 Kavya Conn) (10:59 LWjesse R.N.) Zofran IV 8 mg (NOW) (11:05 09/20/2016 Kavya Conn) (11:08 LWjesse R.N.) Magnesium Sulfate IV 2 gm/50mL (HIGH ALERT MEDICATION, NOW, over 1 hour) (13:05 09/20/2016 Kavya Conn) (Ack 13:18 Akila R.N.) (13:27 Akila R.N.) Dilaudid IV 2 mg (HIGH ALERT MEDICATION, NOW) (13:40 09/20/2016 Kavya Conn) (13:47 Amparo R.N.) Ativan IV 1 mg (HIGH ALERT MEDICATION, NOW) (14:57 09/20/2016 Kavya Conn) (15:03 LWjesse R.N.) IV NS : initial bolus 1000 mL (1000 mL/hr), then none - for X1 (NOW) (14:57 09/20/2016 Kavya Conn) (15:03 LWjesse R.N.) Vancomycin IV 1.5 gm/500 mL (NOW) (15:59 09/20/2016 Kavya Conn) Ceftriaxone IV 2 gm/50mL (NOW) (16:00 09/20/2016 Kavya Conn) (16:22 LWjesse R.N.) Dilaudid IV 2 mg (HIGH ALERT MEDICATION, NOW) (16:14 09/20/2016 Kavya Conn) (16:20 LWhalroyal R.N.) ORDER SHEET NOTES: [Electronically signed by Paul Agarwal R.N. (18:53 09/20/2016)] [Electronically signed by Leonardo Amezcua Dr. (21:17 09/22/2016)] [Electronically locked/signed by Paul Agarwal R.N. (18:53 09/20/2016)]
--- NOTE | 2016-09-20 14:05 | ED CLINICAL REPORT ---
Clinical Report - Physicians/Mid Levels [facility] [address] [place] [address] 09/20/2016 10:25 Patient: RK AVILA SR Time Seen: 1042. Arrived- By private vehicle. Historian- patient. HISTORY OF PRESENT ILLNESS Chief Complaint: FEVER and "NOT FEELING WELL". This started today and is still present. He has had measured fever (102). It is not gone now. Fever was gradual in onset and has been intermittent. Temperature treated prior to arrival with tylenol. Last treated four hours ago. No muscle aches, loss of appetite, chest pain, cough or decreased oral intake. No diarrhea, altered mental status or skin breakdown noted or rash. He has had fatigue. No decreased urine output. Additional history - The patient has a recent hospitalization. No known contact with a sick individual. extensive hx of bowel surgeries and bowel problems. has been doing well since last surgery. states he was not having any other problems or changes to chronic pain or ostomy output. Similar symptoms previously: (a few times). Recent medical care: Not recently seen/assessed. REVIEW OF SYSTEMS All systems otherwise negative, except as recorded above. PAST HISTORY See nurses notes. Medications: BusPIRone HCl Oral 20 mg, 3x a day. clonidine .3 patch every week on Saturday . Dilaudid Oral (Tablet 2 mg) 2 tablets, PRN, last dose 1200. Omeprazole Oral 40 mg, 2x a day, last dose 0700. Promethazine HCl Oral 25 mg (1 to 2 tablets PRN nausea). Spironolactone Oral (Tablet 25 mg) 1 tablet, daily. Warfarin Sodium Oral. Allergies: Benacar. Ketamine. LIsinopril. Mercury. NSAIDs. SOCIAL HISTORY Never smoker. Not exposed to second-hand smoke at home. No alcohol use or drug use. No recent travel. Is a local resident. ADDITIONAL NOTES The nursing notes have been reviewed. PHYSICAL EXAM Vital Signs: 09/20/2016 10:32 BP: 126/73. HR: 88. RR: 18. O2 saturation: 99%. Temp: 99.7 F. Blood pressure normal. Oxygen saturation normal. Appearance: Alert. No acute distress. Eyes: Pupils equal, round and reactive to light. Eyes normal inspection. ENT: Ears normal. Nose normal. Pharynx normal. Uvula midline. Neck: Normal inspection. Neck supple. CVS: Normal heart rate and rhythm. Heart sounds normal. Pulses normal. Respiratory: No respiratory distress. Breath sounds normal. Chest nontender. No rales, rhonchi or wheezes. Abdomen: Soft and nontender. Bowel sounds normal. Skin: Skin warm and dry. Normal skin color. No rash. Normal skin turgor. Extremities: Extremities exhibit normal ROM. Extremities nontender. Neuro: Oriented X 3. No motor deficit. No sensory deficit. LABS, X-RAYS, AND EKG Chest X-ray: (PROCEDURE: XR CHEST 2 VIEW INDICATION: FEVER TECHNIQUE: PA and lateral views. COMPARISON: Chest 02/20/2016 FINDINGS: Lungs are clear. Heart and mediastinum are normal. Thorax is normal. Port-A-Cath unchanged in position. IMPRESSION: 1. Negative chest.). Views: PA and lateral. The X-rays were independently viewed by me and interpreted by the radiologist. The X-rays were discussed with the radiologist (via pacs). Laboratory Tests: UA-Culture if indicated: (DWIGHT: 09/20/2016 11:25) ( MsgRcvd 09/20/2016 11:38) Final results Test Result Flag Units (Reference) URINE COLOR STRAW URINE APPEARANCE CLEAR URINE GLUCOSE NEGATIVE (NEGATIVE) URINE BILIRUBIN NEGATIVE (NEGATIVE) URINE KETONE TRACE (NEGATIVE) URINE SPECIFIC GRAVITY 1.015 (1.010-1.030) URINE PH 5.5 (5.0-8.0) URINE PROTEIN 1+ (NEGATIVE) URINE UROBILINOGEN 0.2 EU/dL (0.2-1.0) URINE NITRITE NEGATIVE (NEGATIVE) URINE BLOOD 1+ (NEGATIVE) URINE LEUK ESTERASE NEGATIVE (NEGATIVE) URINE RBC 3-5 rbc/hpf (0-1) URINE WBC 0-1 wbc/hpf (0-1) URINE EPITHELIAL CELLS RARE EPI/hpf (0-5) URINE BACTERIA TRACE (<1+) (NONE SEEN) URINE COMMENT CULT NOT INDICATED 5-10 HYALINE CASTURINE CULTURES ARE SET-UP BASED ON THE FOLLOWING CRITERIA:POSITIVE NITRITEPOSITIVE LEUKOCYTE ESTERASEGREATER THAN 10 WHITE BLOOD CELLSMODERATE (2+) OR GREATER BACTERIA CBC w Diff: (DWIGHT: 09/20/2016 10:50) ( [facility] [place] 10:58) Final results Test Result Flag Units (Reference) WHITE BLOOD COUNT 7.7 K/uL (4.5-11.5) RED BLOOD COUNT 5.17 M/uL (4.50-5.90) HEMOGLOBIN 13.8 gm/dL (13.5-17.5) HEMATOCRIT 42.2 % (41.0-53.0) MEAN CELL VOLUME 82 fL (80-100) MEAN CORPUSCULAR HGB 27 pg (26-34) MEAN CORPUSCULAR HGB CONC 33 g/dL (31-37) RED CELL DISTRIBUTION WIDTH 15.5 H % (11.6-14.8) PLATELET COUNT 280 K/uL (150-400) NEUTROPHIL % 80.5 H % (50-75) LYMPH % 10.2 L % (25-40) MONO % 7.8 % (3-14) EOSINOPHIL % 1.4 % (0-4) BASOPHIL % 0.1 % (0-2) Lactate, Serum: (DWIGHT: 09/20/2016 11:08) ( [facility] 09/20/2016 11:43) Final results Test Result Flag Units (Reference) LACTIC ACID 0.8 mmol/L (0.4-2.0) CMP: (DWIGHT: 09/20/2016 10:50) ( [facility] 09/20/2016 11:52) Final results Test Result Flag Units (Reference) GLUCOSE 106 mg/dL (70-110) BUN 9 mg/dL (7-18) CREATININE 1.0 mg/dL (0.6-1.3) Estimated GFR >60 mL/min Estimated GFR- >60 mL/min Note: Persistent reduction over 3 months in eGFR<60 mL/min/1.73 m2 defines CKD. Patients with eGFR values>=60 mL/min/1.73 m2 may also have CKD if evidence ofpersistent proteinuria. Additional information may be foundat www.[email or web address].org. SODIUM 135 L mmol/L (136-145) POTASSIUM 4.4 mmol/L (3.5-5.1) CHLORIDE 99 mmol/L (98-107) CARBON DIOXIDE 27 mmol/L (21-32) CALCIUM 8.8 mg/dL (8.5-10.1) TOTAL PROTEIN 8.4 H g/dL (6.4-8.2) ALBUMIN 3.3 g/dL (3.3-5.0) BILIRUBIN, TOTAL 0.6 mg/dL (0.0-1.0) ALKALINE PHOSPHATASE 98 U/L (46-116) AST (SGOT) 31 U/L (15-37) ALT (SGPT) 45 U/L (12-78) MAGNESIUM 1.6 L mg/dL (1.8-2.4) . PROGRESS AND PROCEDURES Course of Care: patient is a pleasant male with extensive bowel surgery history. has been doing well since last surgery about 2 months ago. patient with fever without other concerning symptoms. no focal areas of infection. abdomen is soft and non-tender. patient will be evaluated for sources of fever including pneumonia, septicemia, UTI. Patient agreeable to plan. DO not feel imaging warranted at this time. No headache or neck stiffness. Do not feel patient requires LP at this time. Work up shows no pneumonia or UTI. Patient has been doing well. Discussed case with patient's PCP and is agreeable to the treatment and plan. Because of patient's normal work up and negative findings. Patient stable for outpatient management. Mag being replaced for low mag. Otherwise patient is ready for dispo. Work up shows patient to having no other findings but while here noted to have fever that went up to 101. Patient with rigors. Tylenol given and patient monitored. Patient with persistent fever and not feeling well. Spoke with patient's PCP who will admit the patient for monitoring given patients history. Blood cultures from PIV and port were obtained. Hospitalist recommended another blood culture due to the spike in fever. This has been ordered per request however abx were already started before the 3rd culture was drawn. The first two cultures were drawn before abx given. Patient emperically treated with vancomycin and cetriaxone. No focal source for infection found. Patient resting in bed no acute distress but per nursing did have what was discribed as rigors. No signs of sepsis. Patient stable for floor placement. Do not feel ICU level of care needed. Prior to departure from the ED. Patient noted to be ambulatory in no acute distress. Continues to be non-toxic in appearance. Disposition: Discharged. Condition: good. CLINICAL IMPRESSION Acute fever 09/20/2016 12:27 BP: 112/80. HR: 92. RR: 18. O2 saturation: 98%. Temp: 100.2 F. 09/20/2016 10:32 BP: 126/73. HR: 88. RR: 18. O2 saturation: 99%. Temp: 99.7 F. Chronic generalized abdominal pain. Blood pressure normal. Oxygen saturation normal. Mild hypomagnesemia (acute). INSTRUCTIONS Warnings: GENERAL WARNINGS: Return or contact your physician immediately if your condition worsens or changes unexpectedly, if not improving as expected, or if other problems arise. Specifically return if pain, vomiting, bleeding, breathing difficulty or fever not controlled by acetaminophen. Your Current Medications: CONTINUE TAKING THE FOLLOWING MEDICATIONS: BusPIRone HCl Oral : 20 mg 3x a day. clonidine .3 patch every week on Saturday *. Dilaudid Oral : Tablet 2 mg, 2 tablets PRN, Last: 1200. Omeprazole Oral : 40 mg 2x a day, Last: 0700. Promethazine HCl Oral : 25 mg, 1 to 2 tablets PRN nausea. Spironolactone Oral : Tablet 25 mg, 1 tablet daily. Warfarin Sodium Oral. Follow-up: Return to the emergency department as needed. Follow up with your doctor tomorrow. Reason for referral: recheck today's concerns. Summary of care provided to patient via paper. Screening today revealed the patient's blood pressure to be in the normal range. The patient should follow up with a primary care provider for blood pressure management. Understanding of the discharge instructions verbalized by patient. (Electronically signed by Leonardo Amezcua Dr. 09/22/2016 21:17)
--- NOTE | 2016-09-20 14:05 | ED NURSING NOTES ---
Clinical Report - Nurses [facility] [address] [place] [address] 09/20/2016 10:25 [id number] Triage time 10:33 Sep 20 2016. Acuity: LEVEL 3. Chief Complaint: FEVER, CHILLS, SWEATS and "NOT FEELING WELL". MARIXA COMA SCORE: [place]den Coma Scale: 15- eyes open spontaneously (4); best verbal response- oriented x 4 (5); best motor response- obeys commands (6). --10:38 Paul Agarwal R.N. 10:32 09/20/16. BP: 126/73. HR: 88. RR: 18. O2 saturation: 99%. Temp: 99.7 F. Pain level now 510. --10:38 Paul Agarwal R.N. Weight: 127.9 kg stated. Height/Length: 76 inches Per Patient. BMI: 34.3. --10:38 Paul Agarwal R.N. Medications BusPIRone HCl Oral 20 mg, 3x a day. clonidine .3 patch every week on Saturday . Dilaudid Oral (Tablet 2 mg) 2 tablets, PRN, last dose 1200. Omeprazole Oral 40 mg, 2x a day, last dose 0700. Promethazine HCl Oral 25 mg (1 to 2 tablets PRN nausea). Spironolactone Oral (Tablet 25 mg) 1 tablet, daily. Warfarin Sodium Oral. --10:34 Paul Agarwal R.N. Allergies Benacar. Ketamine. LIsinopril. --10:34 Paul Agarwal R.N. Mercury. NSAIDs. --10:34 Paul Agarwal R.N. History Arrived by private vehicle. Historian: patient. This started last night. ( Having cramping body aches and muscle contractions.). No cough, sore throat, known contact with a sick individual, headache or neck pain. No abdominal pain, flank pain, difficulty with urination or diarrhea. PAST MEDICAL HX: Diabetes mellitus. No history of immune disease, pneumonia or an indwelling line. No history of cancer or HIV illness. Immunizations: up-to-date. SOCIAL HX: Former smoker, end date 1976. No alcohol use or drug use. No recent travel. No known contact with a sick individual. SELF HARM ASSESSMENT: A self harm assessment was performed. The patient answered "no" to the question "Have you recently felt down, depressed, or hopeless?" and "Do you have thoughts of harming or killing yourself?". FALL RISK ASSESSMENT: Fall risk assessment completed. No fall risk identified. NUTRITIONAL RISK ASSESSMENT: The nutritional risk assessment revealed no deficiencies. FUNCTIONAL ASSESSMENT: Functional assessment: no impairments noted. LEARNING NEEDS ASSESSMENT: The learning needs assessment revealed no barriers. ABUSE ASSESSMENT: Abuse assessment: (yes) The patient was asked "Do you feel safe in your home?". SKIN INTEGRITY ASSESSMENT: Skin integrity risk assessment completed. No skin integrity risk identified. --10:38 Paul Agarwal R.N. PROBLEMS: Gastroesophageal Reflux Disease [Active]. --10:35 Paul Agarwal R.N. Abdominal Pain. Bowel Obstruction. Nausea. Vomiting. Hypocalcemia. TIA - Transient Ischemic Attack. Hematuria. Post-Op Infection. Post-Op Wound Dehiscence. Fever. Bronchitis. Palpitations. Nephropathy. Nephrolithiasis. Small bowel obstruction. Anxiety Reaction. Cancer. DVT - Deep Venous Thrombosis. Hypertension. Pulmonary Embolism. Diabetes Mellitus. Gallstone(s). 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 Anemia. Migraine Headache. Hernia. Tetanus Status. Immunizations. --10:35 Paul Agarwal R.N. ADDITIONAL SURGERIES: Appendectomy. Cholecystectomy. Colectomy. Colonoscopy. Colostomy. Fracture Repair. Inguinal Hernia Repair. Peristomal hernia repair . Power port central line. Shoulder Surgery. Stoma Dilation. Umbilical Hernia Repair. --10:35 Paul Agarwal R.N. PHYSICAL ASSESSMENT Ambulatory to room. ( Port accessed for labs sterile draw.). GENERAL / NEURO / PSYCH: Alert. Oriented X 4. Appears in no acute distress. HEENT: Pupils equal, round and reactive to light. Mucous membranes are pink. RESPIRATORY: Respirations not labored. Chest nontender. Breath sounds within normal limits. CVS: Normal sinus rhythm noted. Capillary refill less than 2 seconds. Pulses within normal limits. GI / : ( Has colostomy bag states normal flow.). SKIN: Skin intact. Skin is warm and dry. Normal skin turgor. --10:40 Paul Agarwal R.N. NURSING PROGRESS NOTES The initial plan of care for this patient includes an assessment with efforts to address impairment of the gastrointestinal system. Pulse oximeter and NIBP monitor placed on patient. Patient gowned. Head of bed elevated 75 degrees. Reassurance given. Call light placed in reach. Side rails up x 1. Bed placed in lowest position. Brakes of bed on. --10:40 Paul Agarwal R.N. 10:42 09/20/2016 Site #1 started via IV in the left with an 20g angiocath, with aseptic technique and good blood return; one attempt. Blood drawn: rainbow set and cultures x1. Labeled in the presence of the patient and sent to the lab. Saline lock flushed with 10 mL saline (Port access). --10:59 Paul Agarwal R.N. 10:59 09/20/2016 Started bag #1 1000 mL IV Fluids IV NS (Saline); at 1000 mL/hr over 1 hour(s) via site #1 via IV pump. Allergies verified and confirmed 5 rights. IV patency established. IV site checked: no pain, redness, or swelling. IV flushed thoroughly pre- and post-medication administration. --10:59 Paul Agarwal R.N. 11:08 09/20/2016 Zofran (Ondansetron HCl) IVP 8 mg given over 2 minute(s) via site #1. Allergies verified and confirmed 5 rights. IV patency established. IV site checked: no pain, redness, or swelling. IV flushed thoroughly pre- and post-medication administration. --11:08 Paul Agarwal R.N. ( pt c/o uncontrolled shaking and muscle pains.). --12:31 Paul Agarwal R.N. 12:27 09/20/16. BP: 112/80. HR: 92. RR: 18. O2 saturation: 98%. Temp: 100.2 F. --12:31 Paul Agarwal R.N. 12:32 09/20/2016 Acetaminophen (APAP) PO Capsules 650 mg given. Allergies verified and confirmed 5 rights. --12:32 Paul Agarwal R.N. 13:27 09/20/2016 Magnesium Sulfate (Magnesium Sulfate in D5W) IVP 2 gm given over 2 hour(s) via site #1. Allergies verified and confirmed 5 rights. IV patency established. IV site checked: no pain, redness, or swelling. IV flushed thoroughly pre- and post-medication administration. IVP given by RN. --13:27 Cleopatra Olivo R.N. 13:28 pt now asking for Benadryl, he states that the last time he got it, the shaking stopped. --13:30 Cleopatra Olivo R.N. 13:47 09/20/2016 Dilaudid (HYDROmorphone HCl PF) IVP 2 mg given over 1 minute(s) via site #1. Allergies verified, confirmed 5 rights and sedative warning given to the patient. IV patency established. IV site checked: no pain, redness, or swelling. IV flushed thoroughly pre- and post-medication administration. IVP given by RN. --13:47 Brenna Serrano R.N. 14:29 09/20/16. BP: 126/83. HR: 88. RR: 18. O2 saturation: 98%. 13:09/20/16. BP: 102/68. HR: 84. RR: 18. O2 saturation: 98%. 12:09/20/16. BP: 112/80. HR: 92. RR: 18. O2 saturation: 98%. Temp: 100.2 F. 11:09/20/16. BP: 136/69. HR: 86. RR: 18. O2 saturation: 98%. --14:30 Paul Agarwal R.N. 14:30 09/20/16. Temp: 102 F (axillary). --14:30 Paul Agarwal R.N. 15:02 09/20/2016 Ativan (LORazepam) IVP 1 mg given over 1 minute(s) via site #1. Allergies verified, confirmed 5 rights and sedative warning given to the patient. IV patency established. IV site checked: no pain, redness, or swelling. IV flushed thoroughly pre- and post-medication administration. --15:03 Paul Agarwal R.N. 15:03 09/20/2016 Started bag #1 1000 mL IV Fluids IV NS (Saline); at 1000 mL/hr over 1 hour(s) via site #1 via dial-a-flow. Allergies verified and confirmed 5 rights. IV patency established. IV site checked: no pain, redness, or swelling. IV flushed thoroughly pre- and post-medication administration. --15:03 Paul Agarwal R.N. 16:16 09/20/2016 Started 2 gm of Ceftriaxone IVPB in bag #1 50 mL; at 150 mL/hr over 1 hour(s) via site #1 via IV pump. Allergies verified and confirmed 5 rights. IV patency established. IV site checked: no pain, redness, or swelling. IV flushed thoroughly pre- and post-medication administration. --16:22 Paul Agarwal R.N. 16:20 09/20/2016 Dilaudid (HYDROmorphone HCl PF) IVP 2 mg given over 2 minute(s) via site #1. 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 IV patency established. IV site checked: no pain, redness, or swelling. IV flushed thoroughly pre- and post-medication administration. --16:20 Paul Agarwal R.N. 17:18 09/20/16. BP: 112/61. HR: 132. RR: 20. O2 saturation: 96%. Temp: 99.2 F. Pain level now 10/03. --17:21 Paul Agarwal R.N. 17:18 09/20/16. BP: 112/61. HR: 132. RR: 20. O2 saturation: 96%. Temp: 99.2 F. Pain level now 10/03. 17:00 09/20/16. BP: 117/62. HR: 120. RR: 20. O2 saturation: 96%. Temp: 100.6 F. Pain level now: 11/03. 16:30 09/20/16. BP: 111/53. HR: 122. RR: 20. O2 saturation: 96%. Temp: 103 F (axillary). 15:30 09/20/16. BP: 118/55. HR: 136. RR: 20. O2 saturation: 95%. Temp: 104.2 F (axillary). Pain level now: 01/03. 14:30 09/20/16. Temp: 102 F (axillary). --17:24 Paul Agarwal R.N. 12:00 09/20/2016 IV Fluids IV NS Discontinued: bag #1 infused. Total amount infused: 1000 mL. IV patency established. IV site checked: no pain, redness, or swelling. IV flushed thoroughly. --17:52 Paul Agarwal R.N. 16:03 09/20/2016 IV Fluids IV NS Discontinued: bag #2 infused. Total amount infused: 1000 mL. IV patency established. IV site checked: no pain, redness, or swelling. IV flushed thoroughly. --17:52 Paul Agarwal R.N. 16:53 09/20/2016 Ceftriaxone IVPB Discontinued: bag #1 infused. Total amount infused: 1645 mL. IV patency established. IV site checked: no pain, redness, or swelling. IV flushed thoroughly. --17:53 Paul Agarwal R.N. DISPOSITION / DISCHARGE Admitted to Acute Care. ( Report given to Honey PETERSEN. Will take patient to ACU at 1730). --17:25 Paul Agarwal R.N. 17:18 09/20/16. BP: 112/61. HR: 132. RR: 20. O2 saturation: 96%. Temp: 99.2 F. Pain level now 10/03. --17:25 Paul Agarwal R.N. Locked/Released at 09/20/2016 18:53 by Paul Agarwal R.N.
--- NOTE | 2016-09-20 14:05 | ED ORDER SUMMARY ---
..... Patient: RK AVILA SR OrderSheet [facility] VisitID: [id number] [place] [address] 51y, M Registration Date/Time: 09/20/2016 ORDER SHEET Weight: 127.9 kg (stated) Allergies: Benacar, Ketamine, LIsinopril, Mercury, NSAIDs GENERAL ORDERS: Blood Culture (No) (N/A) Urgent (10:52 09/20/2016 Kavya Conn) (Ack 10:56 KHoerner) (11:08 LWhalen R.N.) CBC w Diff Urgent (10:52 09/20/2016 Kavya Conn) (Ack 10:56 KHoerner) (11:08 LWhalen R.N.) CMP Urgent (10:52 09/20/2016 Kavya Conn) (Ack 10:56 KHoerner) (11:08 LWhalen R.N.) UA-Culture if indicated Urgent (10:52 09/20/2016 Kavya Conn) (Ack 10:56 KHoerner) (11:08 LWhalen R.N.) Lactate, Serum Urgent (10:52 09/20/2016 Kavya Conn) (Ack 10:56 KHoerner) (11:08 LWhalen R.N.) Chest 2V Urgent (10:52 09/20/2016 Kavya Conn) (Ack 10:56 KHoerner) (11:08 LWhalen R.N.) Pulse oximeter (10:53 09/20/2016 Kavya Conn) (Ack 10:56 KHoerner) (11:08 LWhalen R.N.) Magnesium Urgent (11:39 09/20/2016 Kavya Conn) (Ack 11:49 KHoerner) (11:50 KHoerner) Blood Culture (No) (N/A) Urgent (16:01 09/20/2016 Kavya Conn) (Ack 16:02 Tim) (16:18 LWhalen R.N.) MEDICATION ORDERS: Acetaminophen PO 650 mg (NOW) (12:31 09/20/2016 Chelsy R.NReyna verbal order read back to Kavya Conn) (12:32 LWjesse R.N.) Tylenol PO 650 mg (NOW) (12:32 09/20/2016 Kavya Conn) (Cancelled: Duplicate Order12:34 LWjesse R.N.) IV FLUIDS: IV NS : initial bolus 1000 mL (1000 mL/hr), then none - for X1 (NOW) (10:53 09/20/2016 Kavya Conn) (10:59 LWjesse R.N.) Zofran IV 8 mg (NOW) (11:05 09/20/2016 Kavya Conn) (11:08 LWjsese R.N.) Magnesium Sulfate IV 2 gm/50mL (HIGH ALERT MEDICATION, NOW, over 1 hour) (13:05 09/20/2016 Kavya Conn) (Ack 13:18 Akila R.N.) (13:27 Akial R.N.) Dilaudid IV 2 mg (HIGH ALERT MEDICATION, NOW) (13:40 09/20/2016 Kavya Conn) (13:47 Amparo R.N.) Ativan IV 1 mg (HIGH ALERT MEDICATION, NOW) (14:57 09/20/2016 Kavya Conn) (15:03 LWjesse R.N.) IV NS : initial bolus 1000 mL (1000 mL/hr), then none - for X1 (NOW) (14:57 09/20/2016 Kavya Conn) (15:03 LWjesse R.N.) Vancomycin IV 1.5 gm/500 mL (NOW) (15:59 09/20/2016 Kavya Conn) Ceftriaxone IV 2 gm/50mL (NOW) (16:00 09/20/2016 Kavya Conn) (16:22 LWjesse R.N.) Dilaudid IV 2 mg (HIGH ALERT MEDICATION, NOW) (16:14 09/20/2016 Kavya Conn) (16:20 LWhalroyal R.N.) ORDER SHEET NOTES: [Electronically signed by Paul Agarwal R.N. (18:53 09/20/2016)] [Electronically signed by Leonardo Amezcua Dr. (21:17 09/22/2016)] [Electronically locked/signed by Paul Agarwal R.N. (18:53 09/20/2016)]
[2016-09-20 17:53] VITALS: BP 115/52
[2016-09-20 22:36] VITALS: BP 107/62
--- NOTE | 2016-09-21 01:17 | HISTORY AND PHYSICAL ---
ADMITTED: 09/20/2016 CHIEF COMPLAINT: 1. Fever, chills and general malaise HISTORY OF PRESENT ILLNESS: The patient is a 51-year-old white male who has had a recent major abdominal surgery, both of the abdominal wall and the intraabdominal area to correct small-bowel obstruction and to correct multiple abdominal wall hernias and reposition his ileostomy site. He had been doing well in his recovery until about 2-3 weeks when he started to feel general malaise and had some intermittent feelings of sweats, chills and fevers. He has been quite anorexic. He complained of this, calling my office 2 days ago. We had tried to arrange for him to come in this morning, but he felt he was so bad he should go to the emergency department. He had had a temperature at times up to 101-102 degrees. He had no real focal abnormalities. When he presented to the emergency department today he initially did not have too much of a fever. Blood tests done, urine and chest x-ray done. These were all normal. Blood cultures drawn. He was preparing for discharge home when he suddenly spiked a temperature up to 104 degrees. The emergency department physician was concerned and he and I discussed the situation and decided he was highly likely to have infection of his Port-A-Cath catheter, which has been in place for quite a number of years. He has had 2 separate sets of blood cultures done and a third was ordered. He was given ceftriaxone and vancomycin in the emergency department and transferred to the floor. He has been doing well. Since his transfer the microbiology lab found that both aerobic and anaerobic blood cultures from one set were growing out a gram-negative jun. The patient has continued to feel okay and not be particularly tachycardic, persistently febrile or short of breath. MEDICAL/SURGICAL HISTORY: Past medical history: Remarkable for Diop syndrome -familial polyposis. Other problems include adult-onset diabetes, which has basically resolved with loss of substantial amount of weight. He also has had problems with hypertension , factor V Leiden abnormality with thrombophilia, history of deep vein thrombosis and pulmonary emboli. Other problems include compression fractures in the lumbar spine and nephrolithiasis involving his right kidney, anxiety and depression. He has had problems with anemia due to poor iron absorption. Past surgical history: Remarkable for most recently major abdominal wall reconstructive surgery, small bowel adhesion takedown and ileostomy repositioning done 07/13/2016 at [facility] in [place]. Other surgeries include subtotal colectomy done in the . Multiple surgeries done since then initially converting the rectal pouch ileostomy. He has also had multiple revisions of the ileostomy site and repair of peristomal hernias and 2 separate surgeries here at this hospital to have lysis of adhesions. Other surgeries include cholecystectomy, right inguinal hernia repair, shoulder surgeries for impingement, Port-A-Cath placement, Lakia filter placements, and EGDs to evaluate nausea , vomiting, and stomach polyps. MEDICATIONS: Include: 1. Hydromorphone 2 mg tablets 1 or 2 every 3-4 hours for pain control. 2. Spironolactone 25 mg 1 every morning. 3. Catapres skin patch 0.3 mg per 24-hour strength 1 patch every 7 days, changed on Sundays. 4. Omeprazole 40 mg strength 1 twice daily for stomach acid. 5. Diazepam 5-10 mg for anxiety and difficulty sleeping. 6. Trazodone 50 mg strength 1 or 2 at bedtime for help with sleeping. 7. Buspirone 20 mg 3 times daily for anxiety. ALLERGIES: 1. INCLUDE GLENROY INHIBITORS, ARBs, WHICH TRIGGER ANGIOEDEMA. 2. KETAMINE WHICH TRIGGERS NAUSEA AND VOMITING. 3. HYDROCODONE WHICH TRIGGERS NAUSEA AND VOMITING. 4. CEPHALEXIN WHICH CAUSES GASTRITIS. 5. NSAIDs WHICH CAUSED GASTRITIS. 6. HE ALSO IS SENSITIVE TO MERCURY. 7. LORAZEPAM. 8. HE ALSO HAS FELT THAT PROMETHAZINE HAS STARTED TO CAUSE HIM TO HAVE SOME RESTLESSNESS. 9. RECENTLY HE SEEMED TO HAVE A REACTION TO IRON SUCROSE. SOCIAL HISTORY: Indicates the patient is and lives with his and 3 adult children. He is retired from [employer] due to medical reasons. 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 He has not been a smoker, but he does use some chewing tobacco and he is trying to stop this. He occasionally drinks beer, but very infrequently. FAMILY HISTORY: Remarkable for multiple family members who have had Diop syndrome. A younger brother from colon cancer as has had one of his sisters and another sister was quite ill with colon cancer. The patient's father from a heart attack when he was in his 50s. The patient's mother is in good health. The patient has 3 children, 2 of whom have Diop syndrome. REVIEW OF SYSTEMS: HEENT: Okay. Respiratory: Okay with no cough or shortness breath. Cardiovascular: Okay, but the patient has noticed some rapid heartbeats at times , particularly with fevers. Gastrointestinal: Has been remarkable for some anorexia and some occasional nausea. He has had no problems with output from his ileostomy. Genitourinary: Remarkable for some occasional hematuria related to right-sided kidney stones. He also has some right flank pain at times from right-sided kidney stones. Musculoskeletal: Remarkable for general muscle fatigue over the last 2 or 3 weeks. Skin: Has been okay. Neurologic: Remarkable for no focal abnormalities. Psychiatric: Remarkable for anxiety and depression. PHYSICAL EXAMINATION: GENERAL: Reveals the patient to be a white male appearing to be of his stated age. He is currently in no acute distress, conversant and somewhat anxious. VITAL SIGNS: Temperature is the 97-98 range currently. It was up to 104 degrees in the emergency department. Blood pressure is in the 100-115 range. He is able to sit up and walk around without orthostatic changes. Pulse is in the 70-116 range. Oxygen saturation is 96% on room air. HEENT: Head is normal. Ear canals and tympanic membranes are normal. Eyes show pupils equal, round, and reactive to light. Funduscopic exam reveals flat disks, normal vessels. Nose and throat are clear. NECK: Supple without significant adenopathy. There is no axillary adenopathy. CHEST: Clear to auscultation and percussion. HEART: Reveals normal S1 and S2 with a grade 1/6 systolic murmur, which has been present in the past. ABDOMEN: Nondistended with no organomegaly or mass. Bowel tones normal. Multiple healing abdominal wall surgical scars are noted. There is no erythema or induration of an unusual nature in the abdominal wall. Bowel tones are active. GENITALIA: Not examined. RECTAL: Not done. EXTREMITIES: Show some venous varicosities in lower legs with trace edema. Dorsalis pedis pulses are normal, left and right. Motor and sensory exams are normal. NEUROLOGIC: Reveals the patient to be alert and oriented x3. Cranial nerves are normal. SKIN: Okay with no rashes. LAB/IMAGING: Laboratory studies show white blood cell count to be 17,700, hemoglobin is 13.3, hematocrit is 42.2. Sodium is 135, potassium 4.4, chloride 99, CO2 27, glucose is 116, creatinine 1.0, BUN 9. Lactic acid is 0.8. Magnesium 1.6, and has been replaced. Other laboratory tests show SGOT 31, SGPT 45, alkaline phosphatase 98, total protein 8.4, albumin 3.3. Urinalysis is normal. Chest x-ray: Normal with no infiltrate. EKG: Pending. Initial blood cultures growing out gram-negative rods in both aerobic and anaerobic bottles, too. IMPRESSION: 1. The patient seems to have developed infection of his Port-A-Cath catheter with bacteremia, early sepsis. 2. Other problems include his underlying Diop syndrome and status-post multiple surgeries as noted. 3. Other medical problems include hypertension, which is well controlled. 4. Adult-onset diabetes, which seemed to resolve with weight reduction. 5. Anxiety disorder. 6. Nephrolithiasis of the right kidney. 7. Thrombophilia. 8. Mild depression. PLAN: The patient has been given ceftriaxone and vancomycin in the emergency department. The vancomycin will be continued. He will have ertapenem at 1 g every 24 hours for coverage of gram-negative organisms a little more effectively. Dr. Ray has been contacted regarding the patient's case and he will come in for evaluation of the patient in the morning and he will consider removal of the Port-A-Cath in the morning. The patient had a peripheral IV started tonight and he will continue to receive his medications through the central Port-A-Cath catheter until it is removed and then further medications will be administered if needed through the other peripheral IV.
[2016-09-21 02:25] VITALS: BP 105/61
--- NOTE | 2016-09-21 06:52 | Operative Report ---
Operative Report Date of Surgery: 09/21/16 Preoperate Diagnosis: Port-A-Cath sepsis Postoperative Diagnosis: Port-A-Cath sepsis Surgeon: Fernando Ray MD Procedure Performed: Port-A-Cath removal Anesthesia: Total intravenous anesthesia. Local Indications: 51-year-old male who approximately 3 weeks ago had an iron infusion via his left subclavian Port-A-Cath. During infusion he developed a febrile reaction which subsided and he was discharged home. At home he began running temperatures of 99-101 degrees and rigors. He returned to the emergency room for further evaluation. While in the emergency room he spiked a temperature to 104 and developed rigors. White count 7.7. Blood cultures were obtained. Cultures were also obtained from the Port-A-Cath. Both grew out gram-positive rods. He is scheduled for removal of his Port-A-Cath. FINDINGS: Unable to aspirate blood from the Port-A-Cath. No evidence of purulent material within the capsule of the Port-A-Cath. The tip of the Catheter was sent for cultures. The capsule surrounding the Port-A-Cath was also sent for cultures. Surgical Technique: Patient brought the operating room. Patient was administered a total intravenous anesthesia by the anesthesiology department. After proper anesthesia taken effect the patient's left upper chest and supraclavicular region/neck were prepped with Betadine and draped in a sterile fashion. Attempt at aspiration of blood from the Port-A-Cath was unsuccessful. The site was infiltrated using local anesthetic 1% Xylocaine with epinephrine/0.5% Marcaine with epinephrine. An incision was made in the prior Port-A-Cath incision site. Incision carried to subcutaneous tissue. Using sharp dissection we were able to enter the capsule of of the surrounding Port-A-Cath. The Port-A-Cath was identified and removed. The tip of the catheter was cut and sent for cultures. The Port-A-Cath was handed off the field. The subcutaneous capsule was excised and also sent for cultures. The wound was irrigated. The wound was closed in layers using 4-0 Polysorb. The skin was further approximated using a running 40 subdermal Polysorb suture. Steri-Strips were applied to the wound. Sterile occlusive dressing was applied. Patient tolerated procedure well. Patient was transferred to recovery room in stable condition. CONDITION: Stable to postoperative and seizure recovery room. COMPLICATIONS: None ESTIMATED BLOOD LOSS: None FLUIDS: 100 cc lactated Ringer's SPECIMENS: Catheter tip cultures, capital culture.
[2016-09-21 07:43] VITALS: BP 126/73
--- NOTE | 2016-09-21 07:45 | Progress Note ---
Subjective General Pt. is SP portacath removal for probable caht induced sepsis. Constitutional Malaise (OK after cath removal). Denies: Chills, Sweats, Weakness. Eyes Denies: Vision Change. Respiratory Denies: Cough, SOB w/exertion. Cardiovascular Denies: Palpitations, Orthopnea, PND. Genitourinary Denies: Dysuria, Frequency, Hematuria. Musculoskeletal Denies: Other (general achiness.). Skin Denies: Rash, Lesions, Bruising. Neurological Denies: Other (tired after sedation for surge). Physical Exam Vital Signs / I&Os Vital Signs Date Time Temp Pulse Resp B/P Pulse O2 O2 Flow FiO2 Ox Delivery Rate 09/21 0700 66 20 114/53 94 09/21 0650 68 16 110/56 95 09/21 0646 97.9 72 18 111/56 94 Room Air 09/21 0225 98.2 55 15 105/61 99 Room Air 09/20 2236 97.7 70 16 107/62 96 Room Air 09/20 2019 97.9 09/20 1753 98.6 116 18 115/52 96 Room Air I&O 09/20 0800 09/20 1600 09/21 0000 Intake Total 680 Output Total 550 Balance 130 General Appearance Alert, Oriented X3, Cooperative, No acute distress HEENT Normal exam Lungs Clear to auscultation, Normal air movement Cardiovascular Regular rate and rhythm, Normal S1 and S2, 1-2/6 SM Abdomen No tenderness, No guarding, No rebound, multiple healing scars Extremities trace edema, notenderness. Skin No Rashes, No Breakdown Neurological Normal speech, Normal tone, Cranial nerves intact, No lateralizing signs Psych/Mental Status Mental status normal LAB Results Laboratory Tests 09/20 09/20 09/20 1050 1108 1125 Chemistry Plasma Sodium (136 - 145 mmol/L) 135 Plasma Potassium (3.5 - 5.1 mmol/L) 4.4 Plasma Chloride (98 - 107 mmol/L) 99 CO2 (Enzymatic) (21 - 32 mmol/L) 27 BUN (7 - 18 mg/dL) 9 Creatinine (0.6 - 1.3 mg/dL) 1.0 Est GFR ( Amer) (mL/min) >60 Est GFR (Non-Af Amer) (mL/min) >60 Glucose (70 - 110 mg/dL) 106 Lactic Acid (0.4 - 2.0 mmol/L) 0.8 Plasma Calcium (8.5 - 10.1 mg/dL) 8.8 Plasma Magnesium (1.8 - 2.4 mg/dL) 1.6 Total Bilirubin (0.0 - 1.0 mg/dL) 0.6 AST (15 - 37 U/L) 31 ALT (12 - 78 U/L) 45 Alkaline Phosphatase (46 - 116 U/L) 98 Total Protein (6.4 - 8.2 g/dL) 8.4 Albumin (3.3 - 5.0 g/dL) 3.3 Hematology WBC (4.5 - 11.5 K/uL) 7.7 RBC (4.50 - 5.90 M/uL) 5.17 Hgb (13.5 - 17.5 gm/dL) 13.8 Hct (41.0 - 53.0 %) 42.2 MCV (80 - 100 fL) 82 MCH (26 - 34 pg) 27 RDW (11.6 - 14.8 %) 15.5 Neut % (Auto) (50 - 75 %) 80.5 Lymph % (Auto) (25 - 40 %) 10.2 [place] % (Auto) (3 - 14 %) 7.8 Eos % (Auto) (0 - 4 %) 1.4 Baso % (Auto) (0 - 2 %) 0.1 Plt Count, EDTA (150 - 400 K/uL) 280 PUBS MCHC (31 - 37 g/dL) 33 Urines Urine Color STRAW Urine Appearance CLEAR Urine pH (5.0 - 8.0) 5.5 Ur Specific [place] (1.010 - 1.030) 1.015 Urine Protein (NEGATIVE) 1+ Urine Ketones (NEGATIVE) TRACE Urine Blood (NEGATIVE) 1+ Urine Nitrite (NEGATIVE) NEGATIVE Urine Bilirubin (NEGATIVE) NEGATIVE Urine Urobilinogen (0.2 - 1.0 EU/dL) 0.2 Ur Leukocyte Esterase (NEGATIVE) NEGATIVE Urine RBC (0 - 1 rbc/hpf) 3-5 Urine WBC (0 - 1 wbc/hpf) 0-1 Ur Epithelial Cells (0 - 5 EPI/hpf) RARE Urine Bacteria (NONE SEEN) TRACE (<1+) Urine Glucose (NEGATIVE) NEGATIVE Urine Comment CULT NOT INDICATED 09/20 09/21 09/21 1139 0530 0530 Chemistry Plasma Sodium (136 - 145 mmol/L) 137 Plasma Potassium (3.5 - 5.1 mmol/L) 3.7 Plasma Chloride (98 - 107 mmol/L) 103 CO2 (Enzymatic) (21 - 32 mmol/L) 26 BUN (7 - 18 mg/dL) 8 Creatinine (0.6 - 1.3 mg/dL) 1.0 Est GFR ( Amer) (mL/min) >60 Est GFR (Non-Af Amer) (mL/min) >60 Glucose (70 - 110 mg/dL) 121 Plasma Calcium (8.5 - 10.1 mg/dL) 7.8 Plasma Magnesium (1.8 - 2.4 mg/dL) Cancelled 2.0 Iron (35 - 150 ug/dL) 43 TIBC (260 - 445 ug/dL) 235 Iron Saturation (15 - 50 %) 18 Coagulation INR (0.8 - 1.2) 1.4 Hematology WBC (4.5 - 11.5 K/uL) 7.4 RBC (4.50 - 5.90 M/uL) 4.47 Hgb (13.5 - 17.5 gm/dL) 12.1 Hct (41.0 - 53.0 %) 36.6 MCV (80 - 100 fL) 82 MCH (26 - 34 pg) 27 RDW (11.6 - 14.8 %) 16.0 Neut % (Auto) (50 - 75 %) 71.1 Lymph % (Auto) (25 - 40 %) 15.1 [place] % (Auto) (3 - 14 %) 11.3 Eos % (Auto) (0 - 4 %) 2.3 Baso % (Auto) (0 - 2 %) 0.2 Plt Count, EDTA (150 - 400 K/uL) 223 PUBS MCHC (31 - 37 g/dL) 33 ESR Westergren (0 - 20 mm/hr) 32 Microbiology Date/Time Procedure - Status Source Growth 09/21 06 Catheter Tip Culture - RECD CATH TIP 09/21 0653 Deep Wound Culture - RECD CHEST 09/21 0653 Deep Wound Culture - RECD CHEST 09/21 0653 Gram Stain - RECD CHEST 09/20 1601 Blood Culture - CAN BLOOD Cancelled: Cancelled via OE: ALREADY POSITIVE CULTURE 09/20 1116 Blood Culture - RES BLOOD GRAM NEGATIVE CECILIA 09/20 1050 Blood Culture - RES BLOOD GRAM NEGATIVE CECILIA Assessment and Plan Problem List 1. Hypertension Plan stable with current tx. Continue clonidine patech. 2. Factor V Leiden Plan PT INR 1.4. Restart wafarin at 5 mg daily. 3. Iron (Fe) deficiency anemia Qualifiers Iron deficiency anemia type: other iron deficiency Qualified Code: D50.8 - Other iron deficiency anemias Plan Consider iron infuksion prior to DC home. 4. Nephrolithiasis Plan Stable at present. 5. Familial adenomatous polyposis Plan Doing well after recent surgery. 6. Sepsis associated with vascular access catheter Qualifiers Encounter type: subsequent encounter Qualified Code: T82.7XXD - Infection and inflammatory reaction due to other cardiac and vascular devices, implants and grafts, subsequent encounter Plan With 2 blood cultures growing out G- cecilia will continue ceftriaxone 2 gm daily and selwyn DC vanco.
[2016-09-21 13:54] VITALS: BP 122/77
[2016-09-21 23:05] VITALS: BP 107/65
[2016-09-22 02:49] VITALS: BP 127/60
[2016-09-22 06:31] VITALS: BP 124/67
--- NOTE | 2016-09-22 09:50 | Progress Note ---
Subjective General Jorden is feling OK. Some soreness at portacath port site. Some low grade temp elevations. No high fevers, no shaking chills. Constitutional Sweats, Malaise (mild compared to day of admit.). Eyes Denies: Vision Change. ENT Denies: Other (all neg). Respiratory Denies: Cough, SOB w/exertion, Wheezing, Pleuritic Pain. Cardiovascular Denies: Chest Pain, Palpitations, Edema. Gastrointestinal Abdominal Pain. Denies: Other (milf abd.pain, ileostomy OK.). Genitourinary Denies: Dysuria, Frequency, Hematuria. Musculoskeletal Denies: Other (upper L anterior chest wall pa). Skin Denies: Rash, Lesions, Bruising. Neurological Denies: Other (OK in gereral.). Physical Exam Vital Signs / I&Os Vital Signs Date Time Temp Pulse Resp B/P Pulse O2 O2 Flow FiO2 Ox Delivery Rate 09/22 0631 98.2 55 18 124/67 100 Room Air 09/22 0255 Room Air 09/22 0249 97.9 59 20 127/60 100 Room Air 09/21 2305 97.9 51 20 107/65 97 Room Air 09/21 1354 98.1 77 21 122/77 98 Room Air I&O 09/21 0800 09/21 1600 09/22 0000 Intake Total 1136 240 571 Output Total 1500 1300 1475 Balance -364 -1060 -904 General Appearance Alert, Oriented X3, Cooperative, No acute distress HEENT Normal exam Lungs Clear to auscultation, Normal air movement Cardiovascular Regular rate and rhythm, Normal S1 and S2, 1/6 SM LSB Abdomen Mild diffuse tenderness. Extremities trace lower leg edema Skin No Rashes, No Significant Lesions Neurological Normal gait, Normal speech, Normal tone, Sensation intact, Cranial nerves intact Psych/Mental Status Mood normal LAB Results no new tests Assessment and Plan Problem List 1. Sepsis associated with vascular access catheter Qualifiers Encounter type: subsequent encounter Qualified Code: T82.7XXD - Infection and inflammatory reaction due to other cardiac and vascular devices, implants and grafts, subsequent encounter Plan No new culture reports. Continue ceftriaxone. 2. Hypertension Plan OK. Will restart spironolactone at 12.5 mg daily. 3. Factor V Leiden Plan Continue warfarin. check PT/INR in am. 4. Familial adenomatous polyposis Plan Doing well after surgery at [facility] [place], [place]. 5. Nephrolithiasis Plan not symptomatic at present. 6. Iron (Fe) deficiency anemia Qualifiers Iron deficiency anemia type: other iron deficiency Qualified Code: D50.8 - Other iron deficiency anemias Plan Will give iron infusion today with pre med with 50 mg diphenhydramine po and IV. E&M Codes Rounding: Inpt-Moderate/85103
[2016-09-22 10:35] VITALS: BP 132/59
[2016-09-22 14:31] VITALS: BP 124/78
--- NOTE | 2016-09-22 21:18 | ED MAR SUMMARY ---
..... Medication Administration Record [facility] [address] [place] [address] Patient: RK AVILA Visit ID: [id number] 51y, M Weight: 127.9 kg Height/Length: 76 in BMI: 34.3 ALLERGIES: Benacar, Ketamine, LIsinopril, Mercury, NSAIDs Start 10:59 09/20/2016 Paul Agarwal R.N., Stop 12:00 09/20/2016 Paul Agarwal R.N. Medication Administered: IV NS (SALINE), Dose: IV Fluids over 1 hour(s), Rate: 1000 mL/hr, Dispensed: 1000 mL bag, Site: #1 left. Medication Ordered: IV NS : initial bolus 1000 mL (1000 mL/hr), then none - for X1 (NOW). Given 11:08 09/20/2016 Paul Agarwal R.N. Medication Administered: ZOFRAN [IVP] (ONDANSETRON HCL), Dose: 8 mg IVP over 2 minute(s), Site: #1 left. Medication Ordered: Zofran IV 8 mg (NOW). Given 12:32 09/20/2016 Paul Agarwal R.N. Medication Administered: ACETAMINOPHEN [PO] (APAP), Dose: 650 mg Capsules PO. Medication Ordered: Acetaminophen PO 650 mg (NOW). Given 13:27 09/20/2016 Cleopatra Olivo R.N. Medication Administered: MAGNESIUM SULFATE [IVP] (MAGNESIUM SULFATE IN D5W), Dose: 2 gm IVP over 2 hour(s), Site: #1 left. Medication Ordered: Magnesium Sulfate IV 2 gm/50mL (HIGH ALERT MEDICATION, NOW, over 1 hour). Given 13:47 09/20/2016 Brenna Serrano R.N. Medication Administered: DILAUDID [IVP] (HYDROMORPHONE HCL PF), Dose: 2 mg IVP over 1 minute(s), Site: #1 left. Medication Ordered: Dilaudid IV 2 mg (HIGH ALERT MEDICATION, NOW). Given 15:02 09/20/2016 Paul Agarwal R.N. Medication Administered: ATIVAN [IVP] (LORAZEPAM), Dose: 1 mg IVP over 1 minute(s), Site: #1 left. Medication Ordered: Ativan IV 1 mg (HIGH ALERT MEDICATION, NOW). Start 15:03 09/20/2016 Paul Agarwal R.N., Stop 16:03 09/20/2016 Paul Agarwal R.N. Medication Administered: IV NS (SALINE), Dose: IV Fluids over 1 hour(s), Rate: 1000 mL/hr, Dispensed: 1000 mL bag, Site: #1 left. Medication Ordered: IV NS : initial bolus 1000 mL (1000 mL/hr), then none - for X1 (NOW). Start 16:16 09/20/2016 Paul Agarwal R.N., Stop 16:53 09/20/2016 Paul Agarwal R.N. Medication Administered: CEFTRIAXONE [IVPB], Dose: 2 gm IVPB over 1 hour(s), Rate: 150 mL/hr, Dispensed: 50 mL bag, Site: #1 left. Medication Ordered: Ceftriaxone IV 2 gm/50mL (NOW). Given 16:20 09/20/2016 Paul Agarwal R.NReyna Medication Administered: DILAUDID [IVP] (HYDROMORPHONE HCL PF), Dose: 2 mg IVP over 2 minute(s), Site: #1 left. Medication Ordered: Dilaudid IV 2 mg (HIGH ALERT MEDICATION, NOW).
--- NOTE | 2016-09-22 21:18 | ED MED RECONCILIATION SUMMARY ---
Patient: RK AVILA Medication Reconciliation Report VisitID: [id number] [address] [place] [address] 51y, M Registration Date/Time: 09/20/2016 Weight: 127.9 kg Height/Length: 76 in. BMI: 34.3 ALLERGIES: Benacar, Ketamine, LIsinopril, Mercury, NSAIDs The patient's Home Medications are listed below: CONTINUE TAKING THE FOLLOWING MEDICATIONS: BusPIRone HCl Oral 20 mg, 3x a day clonidine .3 patch every week on Saturday Dilaudid Oral (2 mg) 2 tablets, PRN, last dose: 1200 Omeprazole Oral 40 mg, 2x a day, last dose: 0700 Promethazine HCl Oral 25 mg, 1 to 2 tablets PRN nausea Spironolactone Oral (25 mg) 1 tablet, daily Warfarin Sodium Oral The source(s) of the original Home Medication information: Not obtained. The following Medications were given to the patient in the Emergency Department: IV NS IV Fluids bolus 0, then 1000 mL/hr, administered: 09/20/2016 10:59:00 AM Zofran [IVP] IVP 8 mg, administered: 09/20/2016 11:08:00 AM Acetaminophen [PO] PO 650 mg, administered: 09/20/2016 12:32:00 PM Magnesium Sulfate [IVP] IVP 2 gm, administered: 09/20/2016 1:27:00 PM Dilaudid [IVP] IVP 2 mg, administered: 09/20/2016 1:47:00 PM Ativan [IVP] IVP 1 mg, administered: 09/20/2016 3:02:00 PM IV NS IV Fluids bolus 0, then 1000 mL/hr, administered: 09/20/2016 3:03:00 PM Dilaudid [IVP] IVP 2 mg, administered: 09/20/2016 4:20:00 PM Ceftriaxone [IVPB] IVPB bolus 0, then 2 gm 150 mL/hr, administered: 09/20/2016 4:16:00 PM The following Medications were prescribed to the patient: None.
--- NOTE | 2016-09-22 21:18 | ED DISCHARGE INSTRUCTIONS ---
Patient: RK AVILA General Instructions [facility] VisitID: [id number] [address] [place] [address] 51y, M Registration Date/Time: 09/20/2016 Acute fever 09/20/2016 12:27 BP: 112/80. HR: 92. RR: 18. O2 saturation: 98%. Temp: 100.2 F. 09/20/2016 10:32 BP: 126/73. HR: 88. RR: 18. O2 saturation: 99%. Temp: 99.7 F. Chronic generalized abdominal pain. Blood pressure normal. Oxygen saturation normal. Mild hypomagnesemia (acute). INSTRUCTIONS Warnings: GENERAL WARNINGS: Return or contact your physician immediately if your condition worsens or changes unexpectedly, if not improving as expected, or if other problems arise. Specifically return if pain, vomiting, bleeding, breathing difficulty or fever not controlled by acetaminophen. Your Current Medications: CONTINUE TAKING THE FOLLOWING MEDICATIONS: BusPIRone HCl Oral : 20 mg 3x a day. clonidine .3 patch every week on Saturday *. Dilaudid Oral : Tablet 2 mg, 2 tablets PRN, Last: 1200. Omeprazole Oral : 40 mg 2x a day, Last: 0700. Promethazine HCl Oral : 25 mg, 1 to 2 tablets PRN nausea. Spironolactone Oral : Tablet 25 mg, 1 tablet daily. Warfarin Sodium Oral. Follow-up: Return to the emergency department as needed. Follow up with your doctor tomorrow. Reason for referral: recheck today's concerns. Summary of care provided to patient via paper. Screening today revealed the patient's blood pressure to be in the normal range. The patient should follow up with a primary care provider for blood pressure management. Understanding of the discharge instructions verbalized by patient. ADDITIONAL INFORMATION Febrile Illness, Uncertain Cause (Adult) You have a fever, but the cause is not certain. A fever is a natural reaction of the body to an illness such as infections due to a virus or bacteria. In most cases, the temperature itself is not harmful. It actually helps the body fight infections. A fever does not need to be treated unless you feel very uncomfortable. Sometimes a fever can be an early sign of a more serious infection. Therefore, you should watch for the signs listed below. Home Care: If signs and symptoms are severe, rest at home for the first 2-3 days. When you resume activity, don't let yourself get too tired. Stay away from cigarette smoke (yours and other peoples). You may use acetaminophen (Tylenol) or ibuprofen (Motrin, Advil) to control fever or pain, unless another medicine was prescribed. NOTE: If you have chronic liver or kidney disease or ever had a stomach ulcer or GI bleeding, talk with your doctor before using these medicines. (Aspirin should never be used in anyone under 18 years of age who is ill with a fever. It may cause severe liver damage.) Your appetite may be poor, so a light diet is fine. Avoid dehydration by drinking 6-8 glasses of fluid per day (water, sport drinks such as Gatorade, sodas without caffeine, juices, tea, soup). Extra fluid will help loosen secretions in the nose and lungs. [id number] products will not shorten the duration of the illness but may be helpful for the following symptoms: cough (Robitussin DM); sore throat (Chloraseptic lozenges or spray); nasal and sinus congestion (Actifed or Sudafed). NOTE: Do not use decongestants if you have high blood pressure. Follow Up with your doctor or as advised if you do not start to improve over the next week. Get Prompt Medical Attention if any of the following occur: Cough with lots of colored sputum (mucus) or blood in your sputum Chest pain, shortness of breath, wheezing or difficulty breathing Severe headache, face, neck, throat or ear pain Feeling drowsy or confused Abdominal pain, repeated vomiting or diarrhea Joint pain or a new rash Burning when urinating Fever of 100.4F (38C) oral or higher, not better with fever medication Feeling weak or dizzy Convulsion Abdominal Pain,Uncertain Cause [Male] Based on your visit today, the exact cause of your abdominalpain is not clear. Your exam and tests do not indicate a dangerous cause at this time. However, the signs of a serious problem may take more time to appear. Although your evaluation was reassuring today, sometimes early in the course of many conditions, exam and lab tests can appear normal. Therefore, it is important for you to watch for any new symptoms or worsening of your condition. Causes It may not be obvious what caused your symptoms. Pay attention to things that do seem to make your symptoms worse or better and discuss this with your doctor when you follow up. Diagnosis The evaluation of abdominal pain in the emergency department may onlyrequire an exam by the doctor or it may include blood, urine or imaging studies, depending on many factors. Sometimes exams and tests can identify a cause but in many cases, a clear cause is not found. Further testing at follow up visits may help to suggest a clear diagnosis. Home Care Rest as much as possible until your next exam. Try to avoid any medications (unless otherwise directed by your doctor), foods, activities, or other factors that you may have contributed to your symptoms. Try to eat foods that you know that you have tolerated well in the past. Certain diets may be recommended for some conditions that cause abdominal pain. However, since the cause of your symptoms may not be clear, discuss your diet more with your primary care provider or specialist for further recommendations. Eating several small meals per day as opposed to 2 or 3 larger meals may help. Monitor closely for anything that may make your symptoms worse or better. Pay close attention to symptoms below that may indicate worsening of your condition. Follow Up and Precautions See your doctoras instructed or sooneror if your symptoms are not improving.In some cases, you may need more testing. When to Seek Medical Attention Contact your doctor or see medical attention ifany of the following occur: Pain is becoming worse You are unable to take your medications due to excessive vomiting Swelling of the abdomen Fever of 100.4F (38C) or higher, or as directed by your health care provider Blood in vomit or bowel movements (dark red or black color) Jaundice (yellow color of eyes and skin) New onset of weakness, dizziness or fainting New onset of chest, arm, back, neck or jaw pain You have been given the following additional information: Febrile Illness, Uncertain Cause (Adult) Abdominal Pain, Unknown Cause, (Male) (Electronically signed by Leonardo Amezcua Dr. 09/22/2016 21:17)
--- NOTE | 2016-09-22 21:18 | ED MED RECONCILIATION SUMMARY ---
Patient: RK AVILA Medication Reconciliation Report [facility] VisitID: [id number] [address] [place] [address] 51y, M Registration Date/Time: 09/20/2016 Weight: 127.9 kg Height/Length: 76 in. BMI: 34.3 ALLERGIES: Benacar, Ketamine, LIsinopril, Mercury, NSAIDs The patient's Home Medications are listed below: CONTINUE TAKING THE FOLLOWING MEDICATIONS: BusPIRone HCl Oral 20 mg, 3x a day clonidine .3 patch every week on Saturday Dilaudid Oral (2 mg) 2 tablets, PRN, last dose: 1200 Omeprazole Oral 40 mg, 2x a day, last dose: 0700 Promethazine HCl Oral 25 mg, 1 to 2 tablets PRN nausea Spironolactone Oral (25 mg) 1 tablet, daily Warfarin Sodium Oral The source(s) of the original Home Medication information: Not obtained. The following Medications were given to the patient in the Emergency Department: IV NS IV Fluids bolus 0, then 1000 mL/hr, administered: 09/20/2016 10:59:00 AM Zofran [IVP] IVP 8 mg, administered: 09/20/2016 11:08:00 AM Acetaminophen [PO] PO 650 mg, administered: 09/20/2016 12:32:00 PM Magnesium Sulfate [IVP] IVP 2 gm, administered: 09/20/2016 1:27:00 PM Dilaudid [IVP] IVP 2 mg, administered: 09/20/2016 1:47:00 PM Ativan [IVP] IVP 1 mg, administered: 09/20/2016 3:02:00 PM IV NS IV Fluids bolus 0, then 1000 mL/hr, administered: 09/20/2016 3:03:00 PM Dilaudid [IVP] IVP 2 mg, administered: 09/20/2016 4:20:00 PM Ceftriaxone [IVPB] IVPB bolus 0, then 2 gm 150 mL/hr, administered: 09/20/2016 4:16:00 PM The following Medications were prescribed to the patient: None.
--- NOTE | 2016-09-22 21:18 | ED MAR SUMMARY ---
..... Medication Administration Record [facility] [address] [place] [address] Patient: RK AVILA Visit ID: [id number] 51y, M Weight: 127.9 kg Height/Length: 76 in BMI: 34.3 ALLERGIES: Benacar, Ketamine, LIsinopril, Mercury, NSAIDs Start 10:59 09/20/2016 Paul Agarwal R.N., Stop 12:00 09/20/2016 Paul Agarwal R.N. Medication Administered: IV NS (SALINE), Dose: IV Fluids over 1 hour(s), Rate: 1000 mL/hr, Dispensed: 1000 mL bag, Site: #1 left. Medication Ordered: IV NS : initial bolus 1000 mL (1000 mL/hr), then none - for X1 (NOW). Given 11:08 09/20/2016 Paul Agarwal R.N. Medication Administered: ZOFRAN [IVP] (ONDANSETRON HCL), Dose: 8 mg IVP over 2 minute(s), Site: #1 left. Medication Ordered: Zofran IV 8 mg (NOW). Given 12:32 09/20/2016 Paul Agarwal R.N. Medication Administered: ACETAMINOPHEN [PO] (APAP), Dose: 650 mg Capsules PO. Medication Ordered: Acetaminophen PO 650 mg (NOW). Given 13:27 09/20/2016 Cleopatra lOivo R.N. Medication Administered: MAGNESIUM SULFATE [IVP] (MAGNESIUM SULFATE IN D5W), Dose: 2 gm IVP over 2 hour(s), Site: #1 left. Medication Ordered: Magnesium Sulfate IV 2 gm/50mL (HIGH ALERT MEDICATION, NOW, over 1 hour). Given 13:47 09/20/2016 Brenna Serrano R.N. Medication Administered: DILAUDID [IVP] (HYDROMORPHONE HCL PF), Dose: 2 mg IVP over 1 minute(s), Site: #1 left. Medication Ordered: Dilaudid IV 2 mg (HIGH ALERT MEDICATION, NOW). Given 15:02 09/20/2016 Paul Agarwal R.N. Medication Administered: ATIVAN [IVP] (LORAZEPAM), Dose: 1 mg IVP over 1 minute(s), Site: #1 left. Medication Ordered: Ativan IV 1 mg (HIGH ALERT MEDICATION, NOW). Start 15:03 09/20/2016 Paul Agarwal R.N., Stop 16:03 09/20/2016 Paul Agarwal R.N. Medication Administered: IV NS (SALINE), Dose: IV Fluids over 1 hour(s), Rate: 1000 mL/hr, Dispensed: 1000 mL bag, Site: #1 left. Medication Ordered: IV NS : initial bolus 1000 mL (1000 mL/hr), then none - for X1 (NOW). Start 16:16 09/20/2016 Paul Agarwal R.N., Stop 16:53 09/20/2016 Paul Agarwal R.N. Medication Administered: CEFTRIAXONE [IVPB], Dose: 2 gm IVPB over 1 hour(s), Rate: 150 mL/hr, Dispensed: 50 mL bag, Site: #1 left. Medication Ordered: Ceftriaxone IV 2 gm/50mL (NOW). Given 16:20 09/20/2016 Paul Agarwal R.NReyna Medication Administered: DILAUDID [IVP] (HYDROMORPHONE HCL PF), Dose: 2 mg IVP over 2 minute(s), Site: #1 left. Medication Ordered: Dilaudid IV 2 mg (HIGH ALERT MEDICATION, NOW).
[2016-09-22 22:28] VITALS: BP 109/62
[2016-09-23 02:07] VITALS: BP 114/51
[2016-09-23 06:10] VITALS: BP 113/66
--- NOTE | 2016-09-23 09:11 | Progress Note ---
Late Entry Date/Time Late Entry Date and Time LATE ENTRY Date of visit: Time of visit: Subjective General Jorden is feeling OK. No new problems. No problems with iron infusion. Eation OK. No fevers. Constitutional Malaise (general malaise improving.). Denies: Fever, Chills, Sweats. Eyes Denies: Other (all OK). ENT Denies: Other (all OK). Respiratory Denies: Dry, SOB w/exertion, Wheezing, Pleuritic Pain. Cardiovascular Edema. Denies: Chest Pain, Palpitations, Orthopnea, PND. Gastrointestinal Abdominal Pain (mild post op abd. pain). Denies: Nausea, Vomiting. Genitourinary Denies: Other (OK.). Musculoskeletal Back Pain (mild lower back pain.). Skin Denies: Rash, Lesions, Bruising. Neurological Denies: Other (OK.). Physical Exam Vital Signs / I&Os Vital Signs Date Time Temp Pulse Resp B/P Pulse O2 O2 Flow FiO2 Ox Delivery Rate 09/23 0610 97.9 68 18 113/66 96 Room Air 09/23 0207 97.9 59 18 114/51 98 Room Air 09/22 2228 98.1 58 18 109/62 96 Room Air 09/22 2130 Room Air 09/22 1431 98.1 77 18 124/78 97 09/22 1035 98.4 65 18 132/59 97 Room Air I&O 09/22 0800 09/22 1600 09/23 0000 Intake Total 150 1080 720 Output Total 1325 2150 1175 Balance -1175 -1070 -455 General Appearance Alert, Oriented X3, Cooperative, No acute distress HEENT Normal exam Lungs Clear to auscultation, Normal air movement Cardiovascular Regular rate and rhythm, Normal S1 and S2, 1/6 SM LSB Abdomen Normal bowel sounds, Soft, mild diffuse tenderness Extremities No cyanosis, Normal pulses, No tenderness (trace klower ext. edema) Neurological Normal gait, Normal speech, Normal tone, Cranial nerves intact Psych/Mental Status Mood normal LAB Results Laboratory Tests 09/23 09/23 09/23 0500 0515 0515 Chemistry Plasma Sodium (136 - 145 mmol/L) 139 Plasma Potassium (3.5 - 5.1 mmol/L) 3.9 Plasma Chloride (98 - 107 mmol/L) 103 CO2 (Enzymatic) (21 - 32 mmol/L) 26 BUN (7 - 18 mg/dL) 8 Creatinine (0.6 - 1.3 mg/dL) 0.9 Est GFR ( Amer) (mL/min) >60 Est GFR (Non-Af Amer) (mL/min) >60 Glucose (70 - 110 mg/dL) 115 Plasma Calcium (8.5 - 10.1 mg/dL) 9.0 Plasma Magnesium (1.8 - 2.4 mg/dL) 2.0 C-Reactive Protein (0.0 - 0.9 mg/dL) 3.3 Coagulation INR (0.8 - 1.2) 1.2 Hematology WBC (4.5 - 11.5 K/uL) 5.8 RBC (4.50 - 5.90 M/uL) 5.04 Hgb (13.5 - 17.5 gm/dL) 13.4 Hct (41.0 - 53.0 %) 41.3 MCV (80 - 100 fL) 82 MCH (26 - 34 pg) 27 RDW (11.6 - 14.8 %) 16.0 Neut % (Auto) (50 - 75 %) 65.2 Lymph % (Auto) (25 - 40 %) 24.6 [place] % (Auto) (3 - 14 %) 6.6 Eos % (Auto) (0 - 4 %) 3.4 Baso % (Auto) (0 - 2 %) 0.2 Plt Count, EDTA (150 - 400 K/uL) 250 PUBS MCHC (31 - 37 g/dL) 33 ESR Westergren (0 - 20 mm/hr) Cancelled 33 Assessment and Plan Problem List 1. Sepsis associated with vascular access catheter Qualifiers Encounter type: subsequent encounter Qualified Code: T82.7XXD - Infection and inflammatory reaction due to other cardiac and vascular devices, implants and grafts, subsequent encounter Plan Blood culture (and likey wound culture) growing out E coli sesitive to ceftriaxone and cephalexin. No fevers. Should be able to treat with po cephalexin for 10 more d. as outpatient. Pt. agrees. 2. Hypertension Plan BP well controlled. 3. Factor V Leiden Plan T INR 1.2. Will increase warfarin to 7.5 mg M and F and 5 mg all other days. 4. Nephrolithiasis Plan No hematuria or R flank pain. 5. Iron (Fe) deficiency anemia Qualifiers Iron deficiency anemia type: other iron deficiency Qualified Code: D50.8 - Other iron deficiency anemias Plan No problems with iron sucrose infusion. Reaction probably was due to cath bacteria rather than to medication. 6. Familial adenomatous polyposis Plan Doing very well after last abd. surgery atn [facility]. Continue regular diet and gradually increase physical activity. yessi
[2016-09-23] MEDS ORDERED: CEPHALEXIN500 MG PO (09:21)
--- NOTE | 2016-09-23 09:34 | Provider's Discharge Care Plan ---
Problem, Goal, Plan Problem List 1. Sepsis associated with vascular access catheter Goals: Improve disease control, Improve function, Improved health/wellness Instructions: Follow up as directed, Increase activity level, Take meds as directed, Reduce stress, start cephalexin 500 mg cap. 1 4x/d for 10d. Begin on 2. Factor V Leiden Goals: Improve disease control, Improve function, Improved health/wellness, Increase independence Instructions: Follow up as directed, Increase activity level, Take meds as directed, increase dose to 7.5 mg M and F and 5 mg all other days. Recheck PT/ INR in 9-12 d 3. Familial adenomatous polyposis Goals: Improve disease control, Improve function, Improved health/wellness, Increase independence Instructions: Follow up as directed, Increase activity level, Avoid processed foods, Reduce stress 4. Hypertension Goals: Improve disease control, Improve function, Improved health/wellness Instructions: Follow up as directed, Increase activity level, Take meds as directed, Reduce stress, continue clonidine patch 0.3 mg/24h 1 patch once/7d. Continue spironolactone 25 mg every am. 5. Nephrolithiasis Goals: Improve disease control, Improve function, Improved health/wellness, Increase independence Instructions: Follow up as directed, Increase activity level, Take meds as directed, Reduce stress, Continue lemon juice and drink plenty of water. 6. Iron (Fe) deficiency anemia Goals: Improve disease control, Improve function, Improved health/wellness, Increase independence Instructions: Follow up as directed, Increase activity level, Take meds as directed, Reduce stress, try resuming [place]'s vits. with iron 1 twice daily.
--- NOTE | 2016-09-23 13:46 | DISCHARGE SUMMARY ---
ADMIT DATE: 09/20/2016 DISCHARGE DATE: 09/23/2016 ADMITTING DIAGNOSIS: 1. Probable sepsis related to infected Port-A-Cath DISCHARGE DIAGNOSES: 1. Sepsis with Escherichia coli related to infected Port-A-Cath 2. Other problems include underlying familial polyposis (Diop syndrome), status post multiple abdominal surgeries to treat this and care for complications of surgeries 3. Hypertension 4. Factor V Leiden deficiency with tendency towards thrombophilia and remote history of deep venous thromboses and pulmonary emboli. 5. Iron-deficiency anemia secondary to poor iron absorption related to abdominal surgeries and underlying familial polyposis 6. Anxiety and depression 7. Multiple abdominal wall hernias, resolved after recent surgery done in June at the [facility] in [place]. 8.R nephrolithiasis PROCEDURE: 1. The patient had removal of the Port-A-Cath done on 09/21/[address] Ray BRIEF HISTORY: Please see the dictated history and physical exam for details concerning admission. HOSPITAL COURSE: The patient is a 51-year-old white male who has had an indwelling Port-A-Cath for quite a long time to aid with IV fluid administration and medication administration during his frequent hospitalizations. He has had underlying familial polyposis and had a major abdominal surgery done at [facility] in 06/2016. Since then, he has had some general malaise and over the last several weeks has had some intermittent fevers and chills. It was hard to tell whether this was due to postoperative problems or other problems. He was feeling progressively worse and presented to the emergency department morning, at my advice, to be seen either at my office or in the emergency department. He had an initial evaluation which was negative, and no significant abnormalities with blood tests, other than a very slightly elevated sedimentation rate. As he was preparing to be discharged, he developed a temperature spike up to 104 degrees. Due to this, he was felt to be a candidate for admission. Blood cultures had been done, and additional blood cultures were done. He was started on ceftriaxone and vancomycin intravenously. He was admitted to the floor. His blood culture was growing out gram-negative jun about 8 hours after his admission. He was continued on the ceftriaxone and received a dose of ertapenem. The vancomycin was discontinued. After discussing the antibiotic treatments with the pharmacist, we elected to simply continue with the ceftriaxone, as the patient was looking okay and no longer having persistent fevers. This was continued for the next several days, and the patient improved progressively. He had no evidence of infection at the Port-A-Cath removal site. He was maintained on his usual blood pressure medication and maintained on hydromorphone for pain. He continued to improve and be ambulatory and eating okay. On the fourth hospital day, he had the blood cultures growing out E. coli, which was sensitive to ceftriaxone and cephalexin and resistant to amoxicillin and sulbactam and trimethoprim sulfa. He also showed a somewhat low prothrombin time INR at 1.2, despite being back on his usual warfarin dose of 5 mg daily. The patient and I discussed the situation, and I felt he probably would be safe to be discharged and continued with home antibiotics, due to his rapid defervescence and due to the fact he had not had further fever spikes and blood tests were basically normal. He was in agreement with this. DISCHARGE INSTRUCTIONS/MEDICATIONS: Disposition: The patient is discharged home. He will continue with cephalexin 500 mg strength, 1 capsule 4 times daily for 10 days. He will keep up with the warfarin dose of 7.5 mg Saturday and Saturday and 5 mg all other days. He will continue his clonidine patch 0.3 mg per 24-hour strength, 1 patch changed once every 7 days. He will also continue spironolactone 25 mg 1 every morning. He will continue hydromorphone for pain, 2 mg strength 1 or 2 every 3-4 hours as needed. He will follow up at my office in 9-12 days. Additionally, he will keep up with buspirone 2 mg one 3 times daily for anxiety, and will continue acetaminophen 650-1000 mg every 3-4 hours as needed for fever.
== END 2016-09-23 11:38 | disposition home or self-care (01) | DRG 314 ==
LOC: ED SRH 10:25 → TRANS SRH 16:22 → ACUTE2 SRH 16:22
PROVIDERS: Specialist; ADMIT Student in an Organized Health Care Education/Training Program
PROC: 0JPT0XZ Removal of Tunneled Vascular Access Device from Trunk Subcutaneous Tissue and Fascia, Open Approach (ICD-10-PCS; principal; 2016-09-21 06:00)
PROC: 05PY33Z Removal of Infusion Device from Upper Vein, Percutaneous Approach (ICD-10-PCS; principal; 2016-09-21 06:00)
DX: T80.211A Bloodstream infection due to central venous catheter, initial encounter (principal); A41.51 Sepsis due to Escherichia coli [E. coli]; D68.51 Activated protein C resistance; I10 Essential (primary) hypertension; D50.9 Iron deficiency anemia, unspecified; F41.9 Anxiety disorder, unspecified; F32.9 Major depressive disorder, single episode, unspecified; N20.0 Calculus of kidney; Z80.0 Family history of malignant neoplasm of digestive organs; Z15.09 Genetic susceptibility to other malignant neoplasm
CPT/HCPCS: 29230; 29263; 50004; 60001; 80124; 83498; 84038; 90004; 90047; 90065; 90074; 90100; 90131; 90146; 90148; 90309; 90470; 91585; 92031; 92668; 92670; 92720; 94060; 95059; 95150

== ENCOUNTER 2016-10-05 11:56 | Outpatient (CLI) | payer BC, OTHER ==
[~2016-10-05 11:56] MED LIST changes: +CEPHALEXIN500 MG PO
--- NOTE | 2016-10-05 12:46 | DIAGNOSTIC IMAGING REPORT ---
PROCEDURE: XR HIP BILATERAL INDICATION: RIGHT HIP PX TECHNIQUE: AP view of the pelvis and hips with lateral views of the bilateral hips. COMPARISON: None. FINDINGS: RIGHT HIP: Osteoarthritis with joint space narrowing and sclerosis of the acetabulum. LEFT HIP: Osteoarthritis with joint space narrowing and sclerosis of the acetabulum. PELVIS: Osseous pelvis is normal. IMPRESSION: 1. Osteoarthritis bilateral hips.
== END 2016-10-05 23:00 ==
LOC: LAB SRH 11:56
DX: M16.0 Bilateral primary osteoarthritis of hip (principal)
CPT/HCPCS: 90065; 90074; 91672

== ENCOUNTER 2016-11-10 08:55 | Emergency (ER) | payer BC, OTHER ==
--- NOTE | 2016-11-10 09:56 | ED CLINICAL REPORT ---
Clinical Report - Physicians/Mid Levels [facility] [address] [place] [address] 11/10/2016 8:57 [id number] Time Seen: 09:30 Nov 10 2016. Arrived- By private vehicle. Historian- patient. HISTORY OF PRESENT ILLNESS Chief Complaint: Injury to the left hand and middle finger. The patient sustained a laceration from a knife. Patient is experiencing moderate pain. No other injury. REVIEW OF SYSTEMS The patient sustained a laceration. No swelling, tingling, numbness, weakness or foreign body. All systems otherwise negative, except as recorded above. PAST HISTORY Gastroesophageal Reflux Disease [Active]. --09:11 Jesusita Childs R.N. Hypomagnesemia. Abdominal Pain. Bowel Obstruction. Nausea. Vomiting. Hypocalcemia. TIA - Transient Ischemic Attack. Hematuria. Post-Op Infection. Post-Op Wound Dehiscence. Fever. Bronchitis. Palpitations. Nephropathy. Nephrolithiasis. Small bowel obstruction. Anxiety Reaction. Cancer. DVT - Deep Venous Thrombosis. Hypertension. Pulmonary Embolism. Diabetes Mellitus. Gallstone(s). FAP / Wildlife Technician's Syndrome. Anemia. Migraine Headache. Hernia. Tetanus Status. Immunizations. ADDITIONAL SURGERIES: Appendectomy. Cholecystectomy. Colectomy. Colonoscopy. Colostomy. Fracture Repair. Inguinal Hernia Repair. Peristomal hernia repair . Power port central line. Shoulder Surgery. Stoma Dilation. Umbilical Hernia Repair. Tetanus immunization status is up-to-date. Medications: BusPIRone HCl Oral 20 mg, 3x a day. clonidine .3 patch every week on Saturday . Dilaudid Oral (Tablet 2 mg) 2 tablets, PRN, last dose 1200. Omeprazole Oral 40 mg, 2x a day, last dose 0700. Promethazine HCl Oral 25 mg (1 to 2 tablets PRN nausea). Spironolactone Oral (Tablet 25 mg) 1 tablet, daily. Warfarin Sodium Oral. Allergies: Benacar. Ketamine. LIsinopril. Mercury. NSAIDs. SOCIAL HISTORY Never smoker. Occasional alcohol use. No drug use. ADDITIONAL NOTES The nursing notes have been reviewed. PHYSICAL EXAM Vital Signs: 11/10/2016 09:08 BP: 150/90. HR: 87. RR: 18. O2 saturation: 99%. Temp: 98 F. Pain level now: 2/10. Skin: Skin warm. Extremities: Tip of left middle finger: moderate tenderness and deep 2.0 cm laceration. SEE LACERATION PROCEDURE NOTE. No swelling. No subungual hematoma, nail avulsion, exposed bone or loss of the nail bed on the left middle finger. No wrist injury. Extremities otherwise negative. Neuro, Vascular and Tendons: Vascular status intact. Sensation intact. Motor intact. Tendon function intact. Neuro: Oriented X 3. No motor deficit. No sensory deficit. PROGRESS AND PROCEDURES Laceration Repair: Location: left middle finger. Length: 2.0cm. Complexity: simple (local anesthesia used and sutured). Wound depth/shape- subcutaneous and linear. Wound is clean. Distal neuro/vascular/tendon status normal. Local anesthesia provided using 2% lidocaine with bicarb. Prepped with Hibiclens. Wound explored, cleansed and irrigated extensively with normal saline. Closure of skin: interrupted 5-0 (4 sutures). Post-procedure: he is stable and there are no complications. Bleeding is controlled and neuro-vascular status is intact distal to the wound. Dressing applied. Tetanus immunization up-to-date. Patient/family counseled. Disposition: Discharged. Condition: stable and improved. CLINICAL IMPRESSION Single deep laceration to the left middle finger.No foreign body present or left fingernail injury. INSTRUCTIONS Protect wound and keep wound area clean. Change dressing twice daily. Keep wounds dry. You may wash wounds briefly, then dry. Apply neosporin twice daily. Sutures should be removed in seven days. Limit use of your left hand until better. Warnings: Tetanus shot not given. GENERAL WARNINGS: Return or contact your physician immediately if your condition worsens or changes unexpectedly, if not improving as expected, or if other problems arise. Your Current Medications: CONTINUE TAKING THE FOLLOWING MEDICATIONS: BusPIRone HCl Oral : 20 mg 3x a day. clonidine .3 patch every week on Saturday *. Dilaudid Oral : Tablet 2 mg, 2 tablets PRN, Last: 1200. Omeprazole Oral : 40 mg 2x a day, Last: 0700. Promethazine HCl Oral : 25 mg, 1 to 2 tablets PRN nausea. Spironolactone Oral : Tablet 25 mg, 1 tablet daily. Warfarin Sodium Oral. OTC Medications: Acetaminophen (available over the counter): take according to label instructions. Follow-up: Follow up with your doctor in one week. Call for an appointment. Understanding of the discharge instructions verbalized by patient. (Electronically signed by Milad Case MD 11/11/2016 8:02)
--- NOTE | 2016-11-10 09:56 | ED ORDER SUMMARY ---
..... Patient: RK AVILA SR [facility] VisitID: [id number] [place] [address] 51y, M Registration Date/Time: 11/10/2016 ORDER SHEET Weight: 129.2 kg (stated) Allergies: Benacar, Ketamine, LIsinopril, Mercury, NSAIDs GENERAL ORDERS: Dress Wounds (09:54 11/10/2016 Shola BLAS) (9:59 [facility]) MEDICATION ORDERS: IV FLUIDS: ORDER SHEET NOTES: [Electronically signed by Jesusita Childs R.N. (10:30 11/10/2016)] [Electronically signed by Milad Case MD (08:02 11/11/2016)] [Electronically locked/signed by Jesusita Childs R.N. (10:30 11/10/2016)]
--- NOTE | 2016-11-10 09:56 | ED ORDER SUMMARY ---
..... Patient: RK AVILA SR OrderSheet [facility] VisitID: [id number] [place] [address] 51y, M Registration Date/Time: 11/10/2016 ORDER SHEET Weight: 129.2 kg (stated) Allergies: Benacar, Ketamine, LIsinopril, Mercury, NSAIDs GENERAL ORDERS: Dress Wounds (09:54 11/10/2016 Shola BLAS) (9:59 [facility]) MEDICATION ORDERS: IV FLUIDS: ORDER SHEET NOTES: [Electronically signed by Jesusita Childs R.N. (10:30 11/10/2016)] [Electronically signed by Milad Case MD (08:02 11/11/2016)] [Electronically locked/signed by Jesusita Childs R.N. (10:30 11/10/2016)]
--- NOTE | 2016-11-10 09:56 | ED NURSING NOTES ---
Clinical Report - Nurses [place] [address] [place] [address] 11/10/2016 8:57 Patient: RK AVILA SR TRIAGE Acuity: LEVEL 4. Chief Complaint: INJURY TO LEFT HAND. INJURY TO THE LEFT MIDDLE FINGER. Alert. No acute distress. SEPSIS SCREEN: Sepsis Screen. Negative (no infection suspected/documented). REBECCA COMA SCORE: Rebecca Coma Scale: 15- eyes open spontaneously (4); best verbal response- oriented x 4 (5); best motor response- obeys commands (6). --09:12 Jesusita Childs R.N. 09:08 11/10/16. BP: 150/90. HR: 87. RR: 18. O2 saturation: 99% on room air. Temp: 98 F (oral). Pain level now: 07/06. --09:12 Jesusita Childs R.N. Weight: 129.2 kg stated. Height/Length: 76 inches Per Patient. BMI: 34.7. --09:09 Jesusita Childs R.N. Medications BusPIRone HCl Oral 20 mg, 3x a day. clonidine .3 patch every week on Saturday . Dilaudid Oral (Tablet 2 mg) 2 tablets, PRN, last dose 1200. Omeprazole Oral 40 mg, 2x a day, last dose 0700. Promethazine HCl Oral 25 mg (1 to 2 tablets PRN nausea). Spironolactone Oral (Tablet 25 mg) 1 tablet, daily. Warfarin Sodium Oral. --09:11 Jesusita Childs R.N. Medication/allergy information source: the patient. --09:12 Jesusita Childs R.N. Allergies Benacar. Ketamine. LIsinopril. Mercury. NSAIDs. --09:11 Jesusita Childs R.N. History Arrived by private vehicle. Historian: patient. Unaccompanied. Primary physician (Louis). This occurred just prior to arrival. Occurred at home. He sustained a laceration from a knife. 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 PAST MEDICAL HX: Tetanus status: more than 5 years ago. SOCIAL HX: Occasional alcohol use. FALL RISK ASSESSMENT: Fall risk assessment completed. No fall risk identified. NUTRITIONAL RISK ASSESSMENT: The nutritional risk assessment revealed no deficiencies. FUNCTIONAL ASSESSMENT: Functional assessment: no impairments noted. LEARNING NEEDS ASSESSMENT: The learning needs assessment revealed no barriers. SKIN INTEGRITY ASSESSMENT: Skin integrity risk assessment completed. No skin integrity risk identified. --09:12 Jesusita Childs R.N. PROBLEMS: Gastroesophageal Reflux Disease [Active]. --09:11 Jesusita Childs R.N. Hypomagnesemia. Abdominal Pain. Bowel Obstruction. Nausea. Vomiting. Hypocalcemia. TIA - Transient Ischemic Attack. Hematuria. Post-Op Infection. Post-Op Wound Dehiscence. Fever. Bronchitis. Palpitations. Nephropathy. Nephrolithiasis. Small bowel obstruction. Anxiety Reaction. Cancer. DVT - Deep Venous Thrombosis. Hypertension. Pulmonary Embolism. Diabetes Mellitus. Gallstone(s). 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 Anemia. Migraine Headache. Hernia. Tetanus Status. Immunizations. --: Jesusita Childs R.N. ADDITIONAL SURGERIES: Appendectomy. Cholecystectomy. Colectomy. Colonoscopy. Colostomy. Fracture Repair. Inguinal Hernia Repair. Peristomal hernia repair . Power port central line. Shoulder Surgery. Stoma Dilation. Umbilical Hernia Repair. --09:12 Jesusita Childs R.N. Assessment GENERAL / NEURO / PSYCH: Alert. Oriented X 4. Appears in no acute distress. Patient appears calm and cooperative. RESPIRATORY: Respirations not labored. CVS: Capillary refill less than 2 seconds. GI / : Abdomen soft and nontender. SKIN: Mucous membranes are pink. Skin is warm and dry. --09:12 Jesusita Childs R.N. Interventions ID band on patient. To treatment room. --09:12 Jesusita Childs R.N. PHYSICAL ASSESSMENT 09:15 11/10/16. Ambulatory to room. GENERAL / NEURO / PSYCH: Oriented X 4. Alert. Appears in no acute distress. EXTREMITIES: Capillary refill is less than 2 seconds in the extremities. Extremity pulses are within normal limits. Neuro-vascular status intact to the extremity. Tip of left middle finger: superficial laceration with controlled bleeding. SKIN: Skin intact. Skin is warm and dry. --09:15 Jesusita Childs R.N. NURSING PROGRESS NOTES 09:15 11/10/16. Two patient identifiers checked. Call light placed in reach. Side rails up x 1. Bed placed in lowest position. Brakes of bed on. Patient ready for evaluation- chart flagged and ED physician notified. --09:15 Jesusita Childs R.N. DISPOSITION / DISCHARGE Departure time: 10:20 Nov 10 2016. Condition at departure: improved and stable. ( 1 suture packet used). No learning barriers present. Discharge instructions provided and reviewed with the patient. Reviewed wound care instructions. Patient verbalized understanding. Written instructions provided in Mexican. The patient was discharged by the physician. He was discharged home. He left the Emergency Department ambulatory and via private vehicle. Patient driving. --10:30 Jesusita Childs R.N. 10:29 11/10/16. BP: deferred. --10:30 Jesusita Childs R.N. Locked/Released at 11/10/2016 10:30 by Jesusita Cihlds R.N.
--- NOTE | 2016-11-10 09:56 | ED NURSING NOTES ---
Clinical Report - Nurses [place] [address] [place] [address] 11/10/2016 8:57 Patient: RK AVILA SR TRIAGE Acuity: LEVEL 4. Chief Complaint: INJURY TO LEFT HAND. INJURY TO THE LEFT MIDDLE FINGER. Alert. No acute distress. SEPSIS SCREEN: Sepsis Screen. Negative (no infection suspected/documented). REBECCA COMA SCORE: Rebecca Coma Scale: 15- eyes open spontaneously (4); best verbal response- oriented x 4 (5); best motor response- obeys commands (6). --09:12 Jesusita Childs R.N. 09:08 11/10/16. BP: 150/90. HR: 87. RR: 18. O2 saturation: 99% on room air. Temp: 98 F (oral). Pain level now: 07/06. --09:12 Jesusita Childs R.N. Weight: 129.2 kg stated. Height/Length: 76 inches Per Patient. BMI: 34.7. --09:09 Jesusita Childs R.N. Medications BusPIRone HCl Oral 20 mg, 3x a day. clonidine .3 patch every week on Saturday . Dilaudid Oral (Tablet 2 mg) 2 tablets, PRN, last dose 1200. Omeprazole Oral 40 mg, 2x a day, last dose 0700. Promethazine HCl Oral 25 mg (1 to 2 tablets PRN nausea). Spironolactone Oral (Tablet 25 mg) 1 tablet, daily. Warfarin Sodium Oral. --09:11 Jesusita Childs R.N. Medication/allergy information source: the patient. --09:12 Jesusita Childs R.N. Allergies Benacar. Ketamine. LIsinopril. Mercury. NSAIDs. --09:11 Jesusita Childs R.N. History Arrived by private vehicle. Historian: patient. Unaccompanied. Primary physician (Louis). This occurred just prior to arrival. Occurred at home. He sustained a laceration from a knife. 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 PAST MEDICAL HX: Tetanus status: more than 5 years ago. SOCIAL HX: Occasional alcohol use. FALL RISK ASSESSMENT: Fall risk assessment completed. No fall risk identified. NUTRITIONAL RISK ASSESSMENT: The nutritional risk assessment revealed no deficiencies. FUNCTIONAL ASSESSMENT: Functional assessment: no impairments noted. LEARNING NEEDS ASSESSMENT: The learning needs assessment revealed no barriers. SKIN INTEGRITY ASSESSMENT: Skin integrity risk assessment completed. No skin integrity risk identified. --09:12 Jesusita Childs R.N. PROBLEMS: Gastroesophageal Reflux Disease [Active]. --09:11 Jesusita Childs R.N. Hypomagnesemia. Abdominal Pain. Bowel Obstruction. Nausea. Vomiting. Hypocalcemia. TIA - Transient Ischemic Attack. Hematuria. Post-Op Infection. Post-Op Wound Dehiscence. Fever. Bronchitis. Palpitations. Nephropathy. Nephrolithiasis. Small bowel obstruction. Anxiety Reaction. Cancer. DVT - Deep Venous Thrombosis. Hypertension. Pulmonary Embolism. Diabetes Mellitus. Gallstone(s). 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 Anemia. Migraine Headache. Hernia. Tetanus Status. Immunizations. --: Jesusita Childs R.N. ADDITIONAL SURGERIES: Appendectomy. Cholecystectomy. Colectomy. Colonoscopy. Colostomy. Fracture Repair. Inguinal Hernia Repair. Peristomal hernia repair . Power port central line. Shoulder Surgery. Stoma Dilation. Umbilical Hernia Repair. --09:12 Jesusita Childs R.N. Assessment GENERAL / NEURO / PSYCH: Alert. Oriented X 4. Appears in no acute distress. Patient appears calm and cooperative. RESPIRATORY: Respirations not labored. CVS: Capillary refill less than 2 seconds. GI / : Abdomen soft and nontender. SKIN: Mucous membranes are pink. Skin is warm and dry. --09:12 Jesusita Childs R.N. Interventions ID band on patient. To treatment room. --09:12 Jesusita Childs R.N. PHYSICAL ASSESSMENT 09:15 11/10/16. Ambulatory to room. GENERAL / NEURO / PSYCH: Oriented X 4. Alert. Appears in no acute distress. EXTREMITIES: Capillary refill is less than 2 seconds in the extremities. Extremity pulses are within normal limits. Neuro-vascular status intact to the extremity. Tip of left middle finger: superficial laceration with controlled bleeding. SKIN: Skin intact. Skin is warm and dry. --09:15 Jesusita Childs R.N. NURSING PROGRESS NOTES 09:15 11/10/16. Two patient identifiers checked. Call light placed in reach. Side rails up x 1. Bed placed in lowest position. Brakes of bed on. Patient ready for evaluation- chart flagged and ED physician notified. --09:15 Jesusita Childs R.N. DISPOSITION / DISCHARGE Departure time: 10:20 Nov 10 2016. Condition at departure: improved and stable. ( 1 suture packet used). No learning barriers present. Discharge instructions provided and reviewed with the patient. Reviewed wound care instructions. Patient verbalized understanding. Written instructions provided in Swiss. The patient was discharged by the physician. He was discharged home. He left the Emergency Department ambulatory and via private vehicle. Patient driving. --10:30 Jesusita Childs R.N. 10:29 11/10/16. BP: deferred. --10:30 Jesusita Childs R.N. Locked/Released at 11/10/2016 10:30 by Jesusita Childs R.N.
--- NOTE | 2016-11-11 08:03 | ED MAR SUMMARY ---
..... Medication Administration Record [facility] [address] [place], [place] [id number] Patient: RK AVILA Visit ID: [id number] 51y, M Weight: 129.2 kg Height/Length: 76 in BMI: 34.7 ALLERGIES: Benacar, Ketamine, LIsinopril, Mercury, NSAIDs
--- NOTE | 2016-11-11 08:03 | ED DISCHARGE INSTRUCTIONS ---
Patient: RK AVILA General Instructions [facility] VisitID: [id number] [place] [address] 51y, M Registration Date/Time: 11/10/2016 Single deep laceration to the left middle finger.No foreign body present or left fingernail injury. INSTRUCTIONS Protect wound and keep wound area clean. Change dressing twice daily. Keep wounds dry. You may wash wounds briefly, then dry. Apply neosporin twice daily. Sutures should be removed in seven days. Limit use of your left hand until better. Warnings: Tetanus shot not given. GENERAL WARNINGS: Return or contact your physician immediately if your condition worsens or changes unexpectedly, if not improving as expected, or if other problems arise. Your Current Medications: CONTINUE TAKING THE FOLLOWING MEDICATIONS: BusPIRone HCl Oral : 20 mg 3x a day. clonidine .3 patch every week on Saturday *. Dilaudid Oral : Tablet 2 mg, 2 tablets PRN, Last: 1200. Omeprazole Oral : 40 mg 2x a day, Last: 0700. Promethazine HCl Oral : 25 mg, 1 to 2 tablets PRN nausea. Spironolactone Oral : Tablet 25 mg, 1 tablet daily. Warfarin Sodium Oral. OTC Medications: Acetaminophen (available over the counter): take according to label instructions. Follow-up: Follow up with your doctor in one week. Call for an appointment. Understanding of the discharge instructions verbalized by patient. ADDITIONAL INFORMATION Laceration, Extremity (Sutures, Steve, Or Tape) A laceration is a cut through the skin. This will usually require stitches (sutures) or steve if it is deep. Minor cuts may be treated with surgical tape closures. Home care The following guidelines will help you care for your laceration at home: Keep the wound clean and dry. If a bandage was applied and it becomes wet or dirty, replace it. Otherwise, leave it in place for the first 24 hours, then change it once a day or as directed. If stitches or steve were used, clean the wound daily: After removing the bandage, wash the area with soap and water. Use a wet cotton swab to loosen and remove any blood or crust that forms. After cleaning, keep the wound clean and dry. Talk with your doctor before applying any antibiotic ointment to the wound. Reapply the bandage. You may remove the bandage to shower as usual after the first 24 hours, but do not soak the area in water (no swimming) until the stitches or steve are removed. If surgical tape closures were used, keep the area clean and dry. If it becomes wet, blot it dry with a towel. The doctor may prescribe an antibiotic cream or ointment to prevent infection. Do not stop taking this medication until you have finished the prescribed course or the doctor tells you to stop. The doctor may also prescribe medications for pain. Follow the doctors instructions for taking these medications. If you have chronic liver or kidney disease or ever had a stomach ulcer or GI bleeding, talk with your doctor before using these medicines. Follow-up care Follow up with your health care provider. Most skin wounds heal within ten days. However, an infection may sometimes occur despite proper treatment. Therefore, check the wound daily for the signs of infection listed below. Stitches and steve should be removed within 714 days. If surgical tape closures were used, you may remove them after 10 days, if they have not fallen off by then. Notify your doctor if you notice persistent numbness or weakness in the injured extremity. (Note:A radiologist will review any X-rays that were taken. We will notify you of any new findings that may affect your care.) When to seek medical care Get prompt medical attention if any of these occur: Increasing pain in the wound Redness, swelling, or pus coming from the wound Fever of 100.4F (38C) or higher, or as directed by your health care provider If stitches or steve come apart or fall out before your next appointment If the surgical tape closures fall off within seven days, or the wound edges re-open Bleeding not controlled by direct pressure Bandage Change If the bandage becomes wet or dirty, replace it. Otherwise, leave it in place for the first 24 hours. Then once a day: After removing the bandage, wash the area with soap and water. Use a wet cotton swab to loosen and remove any blood or crust that forms on the wound. After cleaning, apply a thin layer of antibiotic ointment or cream. Reapply the bandage. You may shower as usual after the first 24 hours. If the bandage is on an arm or leg, cover it with a plastic bag rubber banded at both ends before showering. No tub baths or swimming until the bandage is removed and the wound healed (at least 7 days). Laceration, Extremity (Sutures, Fountain, Or Tape) A laceration is a cut through the skin. This will usually require stitches (sutures) or steve if it is deep. Minor cuts may be treated with surgical tape closures. Home care The following guidelines will help you care for your laceration at home: Keep the wound clean and dry. If a bandage was applied and it becomes wet or dirty, replace it. Otherwise, leave it in place for the first 24 hours, then change it once a day or as directed. If stitches or steve were used, clean the wound daily: After removing the bandage, wash the area with soap and water. Use a wet cotton swab to loosen and remove any blood or crust that forms. After cleaning, keep the wound clean and dry. Talk with your doctor before applying any antibiotic ointment to the wound. Reapply the bandage. You may remove the bandage to shower as usual after the first 24 hours, but do not soak the area in water (no swimming) until the stitches or steve are removed. If surgical tape closures were used, keep the area clean and dry. If it becomes wet, blot it dry with a towel. The doctor may prescribe an antibiotic cream or ointment to prevent infection. Do not stop taking this medication until you have finished the prescribed course or the doctor tells you to stop. The doctor may also prescribe medications for pain. Follow the doctors instructions for taking these medications. If you have chronic liver or kidney disease or ever had a stomach ulcer or GI bleeding, talk with your doctor before using these medicines. Follow-up care Follow up with your health care provider. Most skin wounds heal within ten days. However, an infection may sometimes occur despite proper treatment. Therefore, check the wound daily for the signs of infection listed below. Stitches and steve should be removed within 714 days. If surgical tape closures were used, you may remove them after 10 days, if they have not fallen off by then. Notify your doctor if you notice persistent numbness or weakness in the injured extremity. (Note:A radiologist will review any X-rays that were taken. We will notify you of any new findings that may affect your care.) When to seek medical care Get prompt medical attention if any of these occur: Increasing pain in the wound Redness, swelling, or pus coming from the wound Fever of 100.4F (38C) or higher, or as directed by your health care provider If stitches or steve come apart or fall out before your next appointment If the surgical tape closures fall off within seven days, or the wound edges re-open Bleeding not controlled by direct pressure You have been given the following additional information: Laceration, Extrem (Suture, Staple, Or Tape) Dressing Change Laceration, Extrem (Suture, Staple, Or Tape) Limit use of your left hand until better. (Electronically signed by Milad Case MD 11/11/2016 8:02)
--- NOTE | 2016-11-11 08:03 | ED MED RECONCILIATION SUMMARY ---
Patient: RK AVILA Medication Reconciliation Report [facility] VisitID: [id number] [address] [place] [address] 51y, M Registration Date/Time: 11/10/2016 Weight: 129.2 kg Height/Length: 76 in. BMI: 34.7 ALLERGIES: Benacar, Ketamine, LIsinopril, Mercury, NSAIDs The patient's Home Medications are listed below: CONTINUE TAKING THE FOLLOWING MEDICATIONS: BusPIRone HCl Oral 20 mg, 3x a day clonidine .3 patch every week on Saturday Dilaudid Oral (2 mg) 2 tablets, PRN, last dose: 1200 Omeprazole Oral 40 mg, 2x a day, last dose: 0700 Promethazine HCl Oral 25 mg, 1 to 2 tablets PRN nausea Spironolactone Oral (25 mg) 1 tablet, daily Warfarin Sodium Oral The source(s) of the original Home Medication information: patient The following Medications were given to the patient in the Emergency Department: None. The following Medications were prescribed to the patient: Acetaminophen (available over the counter): take according to label instructions. -- Milad Case MD
--- NOTE | 2016-11-11 08:03 | ED MED RECONCILIATION SUMMARY ---
Patient: RK AVILA Medication Reconciliation Report [facility] VisitID: [id number] [address] [place] [address] 51y, M Registration Date/Time: 11/10/2016 Weight: 129.2 kg Height/Length: 76 in. BMI: 34.7 ALLERGIES: Benacar, Ketamine, LIsinopril, Mercury, NSAIDs The patient's Home Medications are listed below: CONTINUE TAKING THE FOLLOWING MEDICATIONS: BusPIRone HCl Oral 20 mg, 3x a day clonidine .3 patch every week on Saturday Dilaudid Oral (2 mg) 2 tablets, PRN, last dose: 1200 Omeprazole Oral 40 mg, 2x a day, last dose: 0700 Promethazine HCl Oral 25 mg, 1 to 2 tablets PRN nausea Spironolactone Oral (25 mg) 1 tablet, daily Warfarin Sodium Oral The source(s) of the original Home Medication information: patient The following Medications were given to the patient in the Emergency Department: None. The following Medications were prescribed to the patient: Acetaminophen (available over the counter): take according to label instructions. -- Milad Case MD
--- NOTE | 2016-11-11 08:03 | ED MAR SUMMARY ---
..... Medication Administration Record [facility] [address] [place] [id number] Patient: RK AVILA Visit ID: [id number] 51y, M Weight: 129.2 kg Height/Length: 76 in BMI: 34.7 ALLERGIES: Benacar, Ketamine, LIsinopril, Mercury, NSAIDs
== END 2016-11-10 10:20 | disposition home or self-care (01) ==
LOC: ED SRH 08:55
DX: S61.213A Laceration without foreign body of left middle finger without damage to nail, initial encounter (principal); W26.0XXA Contact with knife, initial encounter; Y93.9 Activity, unspecified; Y92.009 Unspecified place in unspecified non-institutional (private) residence as the place of occurrence of the external cause; Y99.9 Unspecified external cause status; I10 Essential (primary) hypertension; E11.9 Type 2 diabetes mellitus without complications; K21.9 Gastro-esophageal reflux disease without esophagitis; Z79.899 Other long term (current) drug therapy